=== PATIENT | male | born 1955 | race Caucasian/White ===

== ENCOUNTER 2019-12-13 09:46 | Outpatient (CLI) | payer MEDICARE, OTHER, SELFPAY ==
--- NOTE | ~2019-12-13 | CT_ITS ---
EXAMINATION: CT chest wo con DATE: 12/13/2019 10:11 INDICATION: ANCA-ASSOCIATED VASCULITIS/SOB TECHNIQUE: Computed tomography (CT) of the chest was performed without intravenous contrast. Addition al 3D reconstructions utilizing coronal maximum intensity projection (MIP) were performed. Automated exposure control and iterative reconstruction technique were employed. The dose-length product was 17 1.16 mGy-cm. COMPARISON: None FINDINGS: Heart size is normal. Postoperative change of prior anterior right thoracotomy and mitral valve repai r. At the site of the thoracotomy there is atelectasis/scarring with mild volume loss and architectur al distortion in the underlying right middle lobe. There are a couple calcified nodules in the right lower lobe and calcified right hilar lymph nodes consistent with old granulomatous disease. Left lung is clear. No pneumonia, pulmonary edema or pleural effusion. No pericardial effusion. Thoracic aorta is normal in caliber with minimal atherosclerotic calcification at the arch. No pathologically enlar ged thoracic lymphadenopathy. 1.4 cm cyst in the left hepatic lobe. Mild thoracic dextrocurvature wit h mild spondylosis. IMPRESSION: 1. No acute cardiopulmonary disease. 2. Mild atelectasis/scarring the right middle lobe deep to the site of an anterior right thoracotomy likely related to prior mitral valve repair. Reviewed, dictated and finalized at location A. IMPRESSION: 1. No acute cardiopulmonary disease. 2. Mild atelectasis/scarring the right middle lobe deep to the site of an anter ior right thoracotomy likely related to prior mitral valve repair.
== END 2019-12-13 09:47 | disposition home or self-care (01) ==
PROVIDERS: PCP Internal Medicine
DX: I77.6 Arteritis, unspecified (principal); R06.02 Shortness of breath
CPT/HCPCS: 71250

== ENCOUNTER 2020-02-11 09:51 | Outpatient (CLI) | payer MEDICARE, OTHER, SELFPAY ==
--- NOTE | ~2020-02-11 | XR_ITS ---
XR lumbar spine 2-3V 02/11/2020 10:23 Indication: Back pain. History of stroke. Procedure: 3 views of the lumbar spine Comparison: No prior studies for comparison. Findings: There is disc narrowing at all lumbar levels most advanced at L2-3 and L5-S1. There is mild facet hypertrophy at L5-S1. There which compression deformities of T12 and L1, age indeterminate, al though new compared with CT dated 03/03/2019 Impression: 1: Age-indeterminate wedge compression fractures of T12 and L1, although new compared with CT dated 05/03/2018. Consider correlation with MRI. Reviewed, dictated and finalized at location B. Impression: 1: Age-indeterminate wedge compression fractures of T12 and L1, although new co mpared with CT dated 03/03/2019. Consider correlation with MRI.
== END 2020-02-11 09:52 | disposition home or self-care (01) ==
LOC: CHSIMG 09:54
PROVIDERS: PCP Internal Medicine; Visit Provider Internal Medicine
DX: M54.9 Dorsalgia, unspecified (principal)
CPT/HCPCS: 72100

== ENCOUNTER 2020-02-14 08:52 | Outpatient (RCR) | payer MEDICARE, OTHER, SELFPAY ==
--- NOTE | 2020-02-14 10:09 | PTOPEVAL ---
Thank you for referring Glenn Clayton to [facility].? The patient is scheduled to be seen for therapy? __3__x/week for 4 weeks. Please review, sign, date and return this plan of care ARINA. I agree with and certify that the following plan of care is medically necessary. Referring Physician Date Admitting Provider: Attending Provider: Jerrell Parrish MD Referring Provider: *PT Outpatient Evaluation Start: 02/14/20 09:09 Freq: Status: Active Protocol: Document 02/14/20 09:09 VINITA (Rec: 02/14/20 10:03 VINITA [id number]) Therapy Assessment Status Assessment Status Assessment Status Evaluation Evaluation Information Problem Diagnosis weakness, impaired gait Onset 02/11/20 Subjective Information Pt. reports that he suffered a Query Text:As Reported By Patient/ stroke 2 years ago. He Family states that he had a recent relapse with his stroke about 6 weeks ago. He went to [facility] but was not dx with another stroke. He states that his ability to walk is declining, but he is not falling. He reports that his vision is impaired making balance difficult. He states that he also deals with chronic low back pain. He states that he is having difficulty with steps and does have several at home, but has help at home. He reports that he does not use an AD. He states that he no longer drives. He reports that his goal is to peform stairs and walk more efficiently. Prior Level of Function Activity Level (Last 3 Months) Occupation retired Hand Dominance Left Activity of Daily Living Ability Independent Indoor/Home Mobility Independent Community Mobility Needs Some Help Stairs Ability Needs Some Help Functional Cognition (Planning, Shopping Needs Some Help , Taking Medications) Cooking No Cleaning No Laundry No Shopping No Driving No Pain Assessment Pain Scale Pain Scale Used Numeric (1 - 10) Self Report Pain Assessment Lower Back Reported Pain Level 8 Pain Score
--- NOTE | 2020-03-03 13:18 | PCPTNOTE ---
03/03/20- pt friend called to cancel his appointment, stating he fell at home yesterday, and they were just trying to take it easy today. Friend stated he did not go to hospital, they are just monitoring him. -
--- NOTE | 2020-04-06 10:19 | PTOPEVAL ---
Thank you for referring Glenn Clayton to [facility].? The patient is scheduled to be seen for therapy? _2___x/week for 6 visits. Please review, sign, date and return this plan of care ARINA. I agree with and certify that the following plan of care is medically necessary. Referring Physician Date Admitting Provider: Attending Provider: Jerrell Parrish MD Referring Provider: *PT Outpatient Evaluation Start: 02/14/20 09:09 Freq: Status: Active Protocol: Document 03/14/20 14:00 VINITA (Rec: 03/20/20 22:11 VINITA [id number]) Therapy Assessment Status Assessment Status Assessment Status Progress Evaluation Information Problem Diagnosis weakness, impaired gait Subjective Information Pt. reports that he is still Query Text:As Reported By Patient/ not as active at home. Family Talking with his caregiver he states that the pt. is slightly more active but states that he has trouble keeping him exercising at home . Both the pt. and caregiver note that the pt. is walking better and has improved endurance. They both express concern regarding discontinuing PT at this time due to fear that the pt. may regress. Pain Assessment Pain Scale Pain Scale Used Numeric (1 - 10) Self Report Pain Assessment Lower Back Reported Pain Level 7 Pain Description Aching Lowest Pain Intensity 7 Greatest Pain Intensity 7 Pain Score Pain Score 7: Self Report Interventions Used Interventions Used By Clinicians Activity or ADL's,Exercise Lower Extremity Muscle Strength Testing Hip Strength Left Hip Flexion Strength 4 Good Hip Extension Strength 4- Good - Hip Abduction Strength 4- Good - Right Hip Flexion Strength 4 Good Hip Extension Strength 4- Good - Hip Abduction Strength 4- Good - Knee Strength Right Knee Flexion Strength 4 Good Knee Extension Strength 4 Good Left Knee Flexion Strength 4 Good Knee Extension Strength 4 Good Ankle Strength Right Ankle Dorsiflexion Strength 3+ Fair + Left Ankle Dorsiflexion Strength 4 Good Posture Posture Standing Position Additional Posture Comments Continue to note left list in standing with reduced lumbar lordosis and flexed posture Balance Assessment Rivas
== END 2020-04-06 11:21 | disposition home or self-care (01) ==
LOC: CHSPT 08:52
PROVIDERS: PCP Internal Medicine; Visit Provider Internal Medicine
DX: R53.1 Weakness (principal); R26.9 Unspecified abnormalities of gait and mobility
CPT/HCPCS: 97014; 97110; 97116; 97162; 97530; G0283

== ENCOUNTER 2020-06-06 14:30 | Outpatient (CLI) | payer MEDICARE, OTHER, SELFPAY ==
--- NOTE | ~2020-06-06 | CT_ITS ---
EXAMINATION: CT brain wo con INDICATION: Recent stroke, increasing confusion COMPARISON: 10/21/2017 TECHNIQUE: Standard unenhanced head CT. The dose-length product (DLP) was 605.33 mGy-cm. The mA was a djusted according to patient size. Iterative reconstruction technique was employed. FINDINGS: There is low attenuation involving the right caudate nucleus, basal ganglia, and anterior l imb of the right internal capsule. Low-attenuation is also seen in the right periventricular white ma tter. There are areas of chronic encephalomalacia in the occipital lobes. There is no acute intrapare nchymal hemorrhage. No evidence of mass lesion. There is mild periventricular and subcortical hypoden sity probably related to small vessel ischemic disease. There is mild prominence of the sulci and aristides tricles related to cerebral atrophy. Intracranial calcified cerebral atherosclerosis is noted. There are no extra-axial collections. There is no mass effect or midline shift. The orbits and soft tissues are unremarkable. The visualized sinuses and mastoid air cells are well aerated. IMPRESSION: 1. Areas of low attenuation in the right caudate nucleus, right basal ganglia, right internal capsule , and right periventricular white matter, consistent with subacute infarction. Old infarcts in the oc cipital lobes. 2. Age related findings. Reviewed, dictated and finalized at location A. EY ROOM CUSTODIAN IMPRESSION: 1. Areas of low attenuation in the right caudate nucleus, right basal ganglia, right internal capsule, and right periventricular white matter, consistent with subacute infarction. Old infarcts in the occipital lobes. 2. Age related findings.
== END 2020-06-06 14:31 | disposition home or self-care (01) ==
LOC: CHSLAB 14:33
PROVIDERS: PCP Internal Medicine; Visit Provider Internal Medicine
DX: R41.0 Disorientation, unspecified (principal); I63.9 Cerebral infarction, unspecified
CPT/HCPCS: 70450

== ENCOUNTER 2020-06-15 11:00 | Outpatient (RCR) | payer MEDICARE, OTHER, SELFPAY ==
--- NOTE | 2020-06-13 08:58 | OTOPEVAL ---
Thank you for referring Glenn Clayton to [facility].? The patient is scheduled to be seen for therapy? ____x/week for ___ weeks. Please review, sign, date and return this plan of care ARINA. I agree with and certify that the following plan of care is medically necessary. Referring Physician Date Admitting Provider: Attending Provider: Jerrell Parrish MD Referring Provider: *OT Outpatient Evaluation Start: 06/12/20 11:19 Freq: Status: Active Protocol: Document 06/12/20 12:59 [facility] (Rec: 06/12/20 14:07 [facility] [id number]) Therapy Assessment Status Assessment Status Assessment Status Evaluation Outpatient Past Medical History Neurological History Hx Cerebrovascular Accident (CVA) Yes Hx Seizures Yes Cardiovascular History Hx Cardiac Surgery Yes Hx Valve Replacement Yes Musculoskeletal History Hx Back Injury Yes: compression fx Evaluation Information Problem Diagnosis confusion, decreased coordination Onset 06/02/20 Cause CVA Subjective Information Patient's partner reports that Query Text:As Reported By Patient/ patient has recently become Family more confused and is not oriented. Patient had several siezures in October in which he significantly declined in his cognition and overall skills but has regressed more over the last couple weeks. Patient is described to sleep most of the day, has no motivation to participate or engage in anything, is withdrawn from all hobbies and is very confused. Partner also reports increased hand tremors. Patient is able to move around in his home but gets winded if he walks long distances. Patient used to enjoy doing crossword puzzles, jigsaw puzzles reading, etc but has not done any of these in the last 3 months. Patient 's partner would like to see patient improve on his orientation and be able to engage in conversation/ activities. Prior Level of Function Activity Level (Last 3 Months) H
--- NOTE | 2020-06-15 11:49 | STOPEVAL ---
SPEECH THERAPY EVALUATION Thank you for referring Glenn Clayton to [facility].? The patient is scheduled to be seen for therapy? 2x/week for 4 weeks. Please review, sign, date and return this plan of care ARINA. I agree with and certify that the following plan of care is medically necessary. Referring Physician Date Admitting Provider: Attending Provider: Jerrell Parrish MD Referring Provider: SHARATH Outpatient Evaluation Start: 06/15/20 11:18 Freq: Status: Active Protocol: Document 06/15/20 11:19 [facility] (Rec: 06/15/20 11:48 [facility] [id number]) Therapy Assessment Status Assessment Status Assessment Status Evaluation Outpatient Past Medical History Past Medical History Source of Past Medical History Patient,Recalled from Previous Visit, Confirmed with Patient /Family Neurological History Hx Cerebrovascular Accident (CVA) Yes Hx Seizures Yes: 6-7 months ago Cardiovascular History Hx Cardiac Surgery Yes Hx Valve Replacement Yes Musculoskeletal History Hx Back Injury Yes: compression fx Pain Assessment Timing of Pain Assessment Timing of Pain Assessment Assessment Self Report Self Report Pain Level 0 Pain Score Pain Score 0: Self Report Language Evaluation Auditory Comprehension Body Part Identification (% Accuracy (0- 100 100)) Object Identification (% Accuracy (0-100 80 )) Simple Yes/No Questions (% Accuracy (0- 80 100)) Moderate Yes/No Questions (% Accuracy (0 80 -100)) Complex Yes/No Questions (% Accuracy (0- 60 100)) Auditory Comprehension One-Step 100 Directives (% Accuracy (0-100)) Auditory Comprehension of Two-Step 100 Directives (% Accuracy (0-100)) Auditory Comprehension of Three-Step 50 Directives (% Accuracy (0-100)) Auditory Comprehension of Complex 90 Directives (% Accuracy (0-100)) Auditory Comprehension of Simple 60 Paragraphs (% Accuracy (0-100)) Auditory Comprehension of Moderate 20 Paragraphs (% Accuracy (0-100)) Auditory Comprehension of Complex 0 Paragraphs (% Accuracy (0-100)) Overall Auditory Comprehension Ability Moderate Deficits Additional Auditory Comprehension Patient presents with moderate Comments deficits in memory skills impacting his ability to recall steps to complete tasks . Reading Comprehension Name Recognition Yes Numeral Comprehension (% Accuracy (0-100 100 )) Letter Comprehension (% Accuracy (0-100) 100 ) Single Word Compreh
--- NOTE | 2020-06-15 13:17 | PTOPEVAL ---
Thank you for referring Glenn Clayton to [facility].? The patient is scheduled to be seen for therapy? ____x/week for ___ weeks. Please review, sign, date and return this plan of care ARINA. I agree with and certify that the following plan of care is medically necessary. Referring Physician Date Admitting Provider: Attending Provider: Jerrell Parrish MD Referring Provider: *PT Outpatient Evaluation Start: 06/15/20 11:07 Freq: Status: Active Protocol: Document 06/15/20 11:05 [facility] (Rec: 06/15/20 11:46 [facility] [email or web address]) Therapy Assessment Status Assessment Status Assessment Status Evaluation Outpatient Past Medical History Neurological History Hx Cerebrovascular Accident (CVA) Yes Hx Seizures Yes Cardiovascular History Hx Cardiac Surgery Yes Hx Valve Replacement Yes Musculoskeletal History Hx Back Injury Yes: compression fx Evaluation Information Problem Diagnosis CVA Onset 06/02/20 Subjective Information patient had a stroke about 2 Query Text:As Reported By Patient/ weeks ago. he has a history of Family prior stroke back in 2018. he reports currently his is not using and AD for ambulation. he reports he was admitted to hospital care for 4-5 days post stroke. he reports he then went home and began setting up rehab. he reports he was having weakness, speech difficulty, and numbness during his stroke episode. Prior Level of Function Comments Additional Prior Level of Function patient lives at home with his Comments roommate. he reports his roommate does all the cooking and cleaning at home. he reportsno help needed for dressing, showering/bathing, or bathroom. Pain Assessment Timing of Pain Assessment Timing of Pain Assessment Assessment Self Report Self Report Pain Level 0 Pain Score Pain Score 0: Self Report Lower Extremity Muscle Strength Testing General Lower Extremity Strength Gross Lower Extremity Strength sitting hip strength: flex = 4 +/5 bilat, abd = 4/5 bilat, add = 4/5 bilat sitting knee strength: ext = 4 +/5 bilat, R flex = 4+/5, L flex = 4/5 sitting ankle strength
--- NOTE | 2020-07-13 11:09 | PEDREH ---
SPEECH THERAPY PROGRESS REPORT The above patient has completed a total number of 6 out of 6 treatment sessions for cognitive-communication deficits R41.841 since 06-15-2020. Summary of Progress: Patient and family have demonstrated consistent attendance and good compliance of home program. Strategies to promote improvements with set goals are reviewed on a regular basis to facilitate carry over and follow through with targeted goals. Patient has demonstrated excellent progress over this past quarter as evidenced by meeting 3 of 8 set goals. Accuracies on specific goals can be viewed in the plan of care update and new goals have been set to continue with progress to help patient reach his optimal potential to be able to communicate his daily and medical needs for health and safety. Recommendations: Thank you for referring Glenn Clayton to [facility].? The patient is scheduled to be seen for therapy? 1x/week for 4 weeks.? Please review, sign, date and return this plan of care ARINA. I agree with and certify that the above recommended change(s) to the plan of care are medically necessary. ? Referring Physician?Date Admitting Provider: Attending Provider: Jerrell Parrish MD Referring Provider:
--- NOTE | 2020-08-02 15:11 | PCSTNOTE ---
Admitting Provider: Attending Provider: Jerrell Parrish MD Patient:Glenn Clayton Date of :1955 SPEECH THERAPY DISCHARGE Patient has met maximum rehab potential and will be discharged at this time. Patient?s initial visit was on 06/15/2020 and he had a total of 10 out of 10 visits. The patient has met goals for moderate-complex yes and no questions, 3 step directions, confrontational naming and production of sentences when given a sanchez word. The patient showed progression in goals to target immediate memory skills, orientation, problem solving and sequencing tasks. The patient continues to present with limited short term memory skills that continue to impact the patient's overall progression. The patient has met maximum potential with ST treatment at this time and responded in agreement with decision to discharge. Thank you for referring this patient to [facility]. Please review, sign, date and return this discharge summary ARINA. I have been updated about the patient's current status and I agree with discharge from the above service at this time. Referring Physician Date
--- NOTE | 2020-08-15 16:22 | PCOTNOTE ---
Patient is discharged from skilled OT services as of 06/28/20. See treatment note for patient's skills. MS
== END 2020-07-19 15:58 | disposition home or self-care (01) ==
LOC: CHSPT 11:00
PROVIDERS: PCP Internal Medicine; Visit Provider Internal Medicine
DX: I69.313 Psychomotor deficit following cerebral infarction (principal)
CPT/HCPCS: 92507; 92523; 96125; 97110; 97112; 97161; 97166; 97530

== ENCOUNTER 2020-08-01 10:55 | Emergency (ER) | payer MEDICARE, OTHER, SELFPAY ==
--- NOTE | ~2020-08-01 | CT_ITS ---
EXAMINATION: CT brain wo con DATE: 08/01/2020 11:26 INDICATION: Head injury. TECHNIQUE: Computed tomography (CT) of the head was performed without intravenous contrast. The mA wa s adjusted according to patient size. Iterative reconstruction technique was employed. The dose-lengt h product was 681.00 mGy-cm. COMPARISON: Head CT 06/06/2020 FINDINGS: There are old infarcts involving the right basal ganglia and anterior limb right internal c apsule. There is an old infarct in right occipital lobe. There is an old infarct in left temporal occ ipital region. There are scattered areas of low attenuation in the cerebral white matter. There is no intracranial hemorrhage, acute infarction, or abnormal intracranial mass lesion. The ventricles are normal in size. There are likely changes of right ocular lens replacement surgery. There are fracture s of the nasal bones. There is mild mucosal thickening in the ethmoid sinuses. The mastoid air cells are normal. IMPRESSION: 1. Fractures of the nasal bones. 2. Old infarcts involving the right basal ganglia, right internal capsule, right occipital lobe, and left temporal occipital region. 3. Mild nonspecific cerebral white matter disease, which likely represents chronic small vessel ische sandi disease. Reviewed, dictated and finalized at location A. IMPRESSION: 1. Fractures of the nasal bones. 2. Old infarcts involving the right basal ganglia, right internal capsule, righ t occipital lobe, and left temporal occipital region. 3. Mild nonspecific cerebral white matter disease, which likely represents gun synchronizer tenisha small vessel ischemic disease.
[2020-08-01 11:00] VITALS: BP 143/89; PULSE 90; RESP 16; TEMP 36.5; O2SAT 97
--- NOTE | 2020-08-01 11:03 | ED.WOUNDLAC ---
HPI - Wound/Laceration General Chief Complaint: Wound/Laceration Stated Complaint: cut on nose Time Seen by Provider: 08/01/20 11:03 Source: patient and family Mode of arrival: wheelchair Limitations: no limitations History of Present Illness HPI narrative: 64-year-old man with a history hypertension, CVA and seizures comes in today with a facial injury that occurred just prior to arrival as he tripped and fell forward onto his face, hitting his nose on the concrete. He has had no nausea, vomiting, seizure activity or change in mentation according to his partner. He is on Coumadin after CVA. He denies any symptoms such as shortness of breath, chest pain or palpitations prior to his fall. Onset (ago): minute(s) (30) Location: face Extremity Location: Bilateral: hand Place: home Patient tetanus UTD: No Context: accidental Associated symptoms: pain Related Data Home Medications Medication Instructions Recorded Confirmed aspirin 81 mg PO DAILY 08/01/20 08/01/20 atorvastatin 20 mg PO DAILY 08/01/20 08/01/20 ferrous gluconate 324 mg PO DAILY 08/01/20 08/01/20 levetiracetam 750 mg PO BID 08/01/20 08/01/20 ofloxacin 1 drp EACH EYE DAILY 08/01/20 08/01/20 omeprazole 40 mg PO DAILY 08/01/20 08/01/20 prednisolone acetate 1 drp EACH EYE DAILY 08/01/20 08/01/20 prednisone 5 mg PO DAILY 08/01/20 08/01/20 warfarin 7 mg PO DAILY 08/01/20 08/01/20 Allergies Allergy/AdvReac Type Severity Reaction Status Date / Time No Known Allergies Allergy Unverified 12/13/19 13:37 Review of Systems Constitutional: Constitutional: Denies chills, Denies fever(s) and Denies weakness Eyes: Eyes: Denies change in vision and Denies photophobia ENT: Reports epistaxis Cardiovascular: Cardiovascular: Denies chest pain and Denies radiating jaw, neck or arm pain Respiratory: Respiratory: Denies cough and Denies dyspnea Gastrointestinal: Gastrointestinal: Denies abdominal pain, Denies nausea and Denies vomiting Musculoskeletal: Musculoskeletal: Denies arthralgias and Denies joint swelling Integumentary/Breasts: Skin/Breast: Denies pruritus, Denies erythema and Denies rash Neurologic: Denies vertigo, Denies dizziness, Denies syncope, Denies headache(s), Denies focal weakness and Denies numbness Hematologic/Lymphatic: Hematologic/Lymphatic: Reports as per HPI, Reports easy bleeding and Reports easy bruising Allergic/Immunologic: Allergic/Immunologic: Denies lip swelling, Denies throat swelling and Denies tongue swelling PMFSH Past Medical History Medical History (Updated 08/01/20 @ 12:03 by Azam Ruiz MD) CVA (cerebral vascular accident) HTN (hypertension) Seizures Family History Family History (System 12/13/19 @ 13:37 by Ebony Smith) Mother Patient's mother is , Onset Age: 83 Sibling Patient's sister is in good health Father Family history of dementia Family history of coronary artery disease, Onset Age: 84 Family history of type 2 diabetes mellitus Diabetes mellitus Hypertension Cerebrovascular accident Family history of arthritis Social History Social History Smoking status: Never smoker Alcohol intake: current Exam Const: General: healthy appearing, no acute distress and alert Orientation/consciousness: confusion Limitations: no limitations Other: Disoriented to date and day HENMT: Head: normal to inspection Ears: external ears normal, TM's normal bilaterally and EAC's normal General nose exam: Epistaxis present ( no active bleeding) bilaterally Mouth: Yes moist mucous membranes Throat: posterior oropharynx normal ( save for some scant blood.) Other: Tenderness across the bridge of the nose with a 1.5 cm arcuate laceration more less transversely. Swelling on either side of the nose with bruising present. Eyes: Conjunctivae: conjunctivae normal Pupils: Equal, round and reactive pupils present EOM: EOMs inta
[2020-08-01] MEDS: TETANUS,DIPHTHERIA,AC PERTUSSIS ADULT 0.5 ML (ADACEL) IM (11:12)
[2020-08-01 12:10] VITALS: RESP 16
== END 2020-08-01 12:10 | disposition home or self-care (01) ==
PROVIDERS: Emergency Provider Emergency Medicine; PCP Internal Medicine
DX: S02.2XXA Fracture of nasal bones, initial encounter for closed fracture (principal); S01.21XA Laceration without foreign body of nose, initial encounter; W01.198A Fall on same level from slipping, tripping and stumbling with subsequent striking against other object, initial encounter; I10 Essential (primary) hypertension; E78.5 Hyperlipidemia, unspecified
CPT/HCPCS: 12011; 70450; 90471; 90715; 99283; 99284

== ENCOUNTER 2023-05-03 20:45 | Inpatient (IN) | payer MEDICARE, OTHER, SELFPAY ==
[2023-05-03] VITALS (12 sets, daily range): BP systolic 115–147; BP diastolic 68–83; PULSE 80–104; RESP 16–18; TEMP 37.4–39.6; O2SAT 94–99
--- NOTE | ~2023-05-03 | CT_ITS ---
EXAMINATION: CT diagnostic chest wo con DATE: 05/03/2023 22:26 INDICATION: Possible pleural-based mass of the right thorax. TECHNIQUE: Computed tomography (CT) of the chest was performed without intravenous contrast. The dose -length product (DLP) was 276.65 mGy-cm. 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 COMPARISON: 12/13/2019 FINDINGS: There is prominent extrapleural fat at the lateral aspect of the right hemithorax accountin g for the chest radiographic finding in question. There is mild dependent atelectasis of the lungs. T he lungs are free of focal airspace opacities. No pleural effusion or pneumothorax. There are changes of mitral valve replacement. Calcified pulmonary nodules and calcified bilateral hilar lymph nodes a re consistent with old granulomatous disease. No pathologically enlarged thoracic lymph nodes are lucia ntified. The heart size is normal. There are stones in the nondistended gallbladder. There is a 10 mm cyst of the liver. There is mild thoracic spondylosis. IMPRESSION: 1. Prominent extrapleural fat in the lateral aspect of the right hemithorax accounting for the chest radiographic finding in question. Reviewed, dictated and finalized at location F. STRENGTH AND CONDITIONING COACH IMPRESSION: 1. Prominent extrapleural fat in the lateral aspect of the right hemithorax acc ounting for the chest radiographic finding in question.
--- NOTE | ~2023-05-03 | XR_ITS ---
Portable chest x-ray Comparison: 10/20/2017 Clinical History: Fever Findings: Suggestion of pleural-based density at the lateral right midlung. Lungs are otherwise chari r. Cardiomediastinal silhouette is stable, status post valve replacement. Bones and soft tissues are unremarkable. Impression: Suggestion of pleural-based density at the lateral right midlung. Chest CT recommended to confirm or exclude pleural-based mass or chest wall mass. Reviewed, dictated and finalized at location M. NING AND WINDING SUPERVISOR Impression: Suggestion of pleural-based density at the lateral right midlung. Chest CT miriam mmended to confirm or exclude pleural-based mass or chest wall mass.
[2023-05-03] MEDS: ACETAMINOPHEN 500 MG TABLET 1000 MG PO (21:10)
[2023-05-03] MEDS: SODIUM CHLORIDE 0.9% IV 1,000 ML 999 ML IV CONT (21:13)
[2023-05-03 21:24] LABS: Basophils Absolute Auto 0.03 K/mm3 (0.00-0.10); Basophils Percent Auto 0.3 % (0.0-1.0); Eosinophils Absolute Auto 0.15 K/mm3 (0.02-0.50); Eosinophils Percent Auto 1.3 % (1.0-6.0); Hematocrit 44.9 % (37.0-46.0); Hemoglobin 14.6 g/dL (12.4-15.3); Immature Granulocyte Absolute 0.06 K/mm3 (0.00-0.00); Immature Granulocyte Percent A 0.5 % (0.0-0.0); Lymphocytes Absolute Auto 0.63 K/mm3 (1.10-4.50); Lymphocytes Percent Auto 5.3 % (18.0-42.0); Mean Corpuscular HGB Conc 32.5 g/dL (32.0-36.0); Mean Corpuscular Hemoglobin 30.7 pg (27.0-31.0); Mean Corpuscular Volume 94.3 fL (78.0-102.0); Mean Platelet Volume 9.8 fl (8.7-11.0); Monocytes Absolute Auto 0.38 K/mm3 (0.10-0.90); Monocytes Percent Auto 3.2 % (2.0-11.0); Neutrophils Absolute Auto 10.6 K/mm3 (1.7-7.2); Neutrophils Percent Auto 89.4 % (50.0-70.0); Platelet Count Result 252 K/mm3 (150-420); Red Blood Count 4.76 M/mm3 (4.70-6.10); Red Cell Distribution Width 12.9 % (11.6-14.4); White Blood Count 11.8 K/mm3 (4.8-10.8)
[2023-05-03 21:39] LABS: Alanine Aminotransferase 32 U/L (16-63); Albumin Level 3.5 g/dL (3.4-5.0); Alkaline Phosphatase 62 U/L (46-116); Anion Gap 15 mmol/L (8-16); Aspartate Amino Transferase 23 U/L (15-37); Bilirubin,Total 0.7 mg/dL (0.00-1.00); Blood Urea Nitrogen 27 mg/dL (7-18); Calcium 7.9 mg/dL (8.5-10.1); Carbon Dioxide 19 mmol/L (21-32); Chloride 101 mmol/L (98-108); Estimated CRCL calculation 28 ml/min; Estimated Glomerular Filt Rate 28; Glucose 147 mg/dL (70-99); Osmolality Calculated 288 mOsm/kg (285-295); Potassium 3.9 mmol/L (3.5-5.1); Sodium 135 mmol/L (136-145); Total Protein 7.3 g/dL (6.4-8.2)
[2023-05-03 21:41] LABS: SARS-CoV-2 RNA PCR Negative (Negative)
[2023-05-03 21:41] LABS: Lactic Acid Reflex 2.4 mmol/L (0.4-2.0)
[2023-05-03 21:42] LABS: Influenza A QL RT-PCR Negative (Negative); Influenza B QL RT-PCR Negative (Negative); RSV RNA, RT-PCR Negative (Negative)
[2023-05-03] MEDS: IBUPROFEN 600 MG TABLET PO (22:03)
--- NOTE | 2023-05-03 23:00 | PC.NURSE ---
Report received, pt resting, awaiting CT reports. VSS at this time.
[2023-05-03 23:01] LABS: Bilirubin Urine Negative (Negative); Blood Urine 3+ (Negative); Color Urine Yellow (Yellow); Glucose Urine UA Negative (Negative); Ketones Urine Negative (Negative); Leukocyte Esterase Ur Negative LEU/UL (Negative); Nitrate Urine Negative (Negative); Protein Urine 2+ (Negative); Specific Grav Ur >= 1.030 (1.010-1.020); Urobilinogen Urine 0.2 mg/dL (0.2-1.0); pH Urine 5.5 (5.0-8.0)
[2023-05-03 23:01] LABS: INR 1.5; Partial Thromboplastin Time 35.2 SEC (23.90-30.70); Prothrombin Time 15.8 Seconds (9.50-12.10)
[2023-05-03 23:14] LABS: Add Urine Microscopic? YES; Amorphous Sediment Urine Heavy; Appearance Urine Cloudy (Clear); Bacteria Urine 3+ /hpf; Mucus Urine Few /lpf; Squamous Epithelial Cell Urine Occasional /hpf (Few)
--- NOTE | 2023-05-03 23:32 | ED.NAVMDI ---
HPI - Nausea/Vomiting/Diarrhea General Chief complaint: Nausea/Vomiting/Diarrhea Stated complaint: vomiting Time Seen by Provider: 05/03/23 20:48 Source: patient Mode of arrival: ambulatory Limitations: no limitations History of Present Illness HPI Narrative: this is 58-year-old male that presents with fever 102 has been nauseated with few episodes of vomiting denies abdominal pain there is no flank pain no dysuria or hematuria patient denies any shortness of breath no chest pain. Patient has a history of vasculitis and history of CVA hypertension seizure disorder secondary to old stroke. Patient was a history of a mitral valve repair and on CT scan of his chest in 2019 showed right middle scarring, right thoracotomy related to mitral valve repair. CT brain shows an old infarct right basal ganglia. MD elicited complaint: nausea Onset (ago): day(s) Related Data Home Medications Medication Instructions Recorded Confirmed aspirin 81 mg tablet,delayed 81 mg PO DAILY 08/01/20 05/03/23 release atorvastatin 20 mg tablet 20 mg PO DAILY 08/01/20 05/03/23 ferrous gluconate 324 mg (38 mg 324 mg PO BID 08/01/20 05/03/23 iron) tablet levetiracetam 750 mg tablet 750 mg PO BID 08/01/20 05/03/23 omeprazole 40 mg capsule,delayed 40 mg PO DAILY 08/01/20 05/03/23 release azathioprine 50 mg tablet 175 mg PO QAM 05/03/23 05/03/23 warfarin 1 mg tablet 3.5 mg PO QPM 05/03/23 05/03/23 warfarin 4 mg tablet 4 mg PO QTUTHSASU 05/03/23 05/03/23 Allergies Allergy/AdvReac Type Severity Reaction Status Date / Time No Known Allergies Allergy Verified 05/03/23 20:54 Review of Systems Review of Systems: All systems reviewed & are unremarkable except as noted in HPI and below PMFSH Past Medical History Medical History CVA (cerebral vascular accident) HTN (hypertension) Seizures Family History Family History Mother Patient's mother is , Onset Age: 83 Sibling Patient's sister is in good health Father Family history of dementia Family history of coronary artery disease, Onset Age: 84 Family history of type 2 diabetes mellitus Diabetes mellitus Hypertension Cerebrovascular accident Family history of arthritis Social History Social History Smoking status: Never smoker Alcohol intake: current Exam Const: General: no acute distress Nutritional Appearance: well nourished Orientation/consciousness: patient oriented x3 Limitations: no limitations HENMT: Head: normal to inspection Eyes: Conjunctivae: conjunctivae normal Neck: Neck: normal visual inspection Chest: Chest palpation & inspection: normal inspection of the chest Resp: Effort & Inspection: normal respiratory effort Auscultation: clear to auscultation bilaterally Cardio: Rate: regular rate Rhythm: regular rhythm GI: GI Palp: Yes Soft to palpation Auscultation: normal bowel sounds : General: Yes bladder normal to palpation Back/Spine/Pelvis: Back: no CVA tenderness Skin: General skin exam: normal color Rashes: no rashes Neuro: General: patient oriented x3, moves all extremities, no meningeal signs and no focal motor deficits Extrem: General: normal to inspection Psych: Mental Status: mental status grossly normal Course Course Emergency Course: Patient had a chest x-ray which shows right middle lower lobe opacities and suggestion of a mass, but in old CT of the chest 2 showed middle lobe scarring with a right thoracotomy related to mitral valve repair is possibly the reason for the identification of a possible mass and CT scan performed and reviewed. Patient has fever up to 102, was given Tylenol and Motrin and current temperature is 997. Patient had a white blood cell count of 11.8, rest of his blood work shows a lactic acid of 4.5 with a creatin
[2023-05-03] MEDS: SODIUM CHLORIDE 0.9% IV 1,000 ML 120 ML IV CONT (23:39)
--- NOTE | 2023-05-03 23:41 | PC.NURSE ---
Pt resting, VSS, POC discussed for pt admit.
[2023-05-03] MEDS: AZITHROMYCIN 500 MG/NS 250 ML 500 MG/250 ML BAG 250 MG IVPB (23:58)
[2023-05-04] VITALS (13 sets, daily range): BP systolic 116–152; BP diastolic 59–96; PULSE 70–99; RESP 15–18; TEMP 36.6–38.3; O2SAT 93–99; BMI 30.2
[2023-05-04 00:21] LABS: Reflex Lactic Acid Yes or No Add Lactic
--- NOTE | 2023-05-04 00:57 | ADMGEN ---
This patient, Glenn Clayton, was admitted to 2nd Floor Room 208-2. Patient/family oriented to hospital policies and general routines including ID bracelet, bed and alarms, visiting hours, pain management, procedures, bathroom and other care routines, personal items, smoking policy, room service/diet, and visiting hours. Information on how to activate the Rapid Response Team has been discussed. Patient/Family are encouraged to report perceived risks to care and to ask questions if they do not understand what they are told or what they should do.
[2023-05-04 01:14] LABS: Lactic Acid 1.7 mmol/L (0.4-2.0)
[2023-05-04 05:38] LABS: Basophils Absolute Auto 0.03 K/mm3 (0.00-0.10); Basophils Percent Auto 0.4 % (0.0-1.0); Eosinophils Absolute Auto 0.15 K/mm3 (0.02-0.50); Eosinophils Percent Auto 2.1 % (1.0-6.0); Hematocrit 41.5 % (37.0-46.0); Hemoglobin 12.9 g/dL (12.4-15.3); Immature Granulocyte Absolute 0.04 K/mm3 (0.00-0.00); Immature Granulocyte Percent A 0.6 % (0.0-0.0); Lymphocytes Absolute Auto 0.53 K/mm3 (1.10-4.50); Lymphocytes Percent Auto 7.4 % (18.0-42.0); Mean Corpuscular HGB Conc 31.1 g/dL (32.0-36.0); Mean Corpuscular Hemoglobin 30.2 pg (27.0-31.0); Mean Corpuscular Volume 97.2 fL (78.0-102.0); Mean Platelet Volume 10.1 fl (8.7-11.0); Monocytes Absolute Auto 0.27 K/mm3 (0.10-0.90); Monocytes Percent Auto 3.8 % (2.0-11.0); Neutrophils Absolute Auto 6.1 K/mm3 (1.7-7.2); Neutrophils Percent Auto 85.7 % (50.0-70.0); Platelet Count Result 196 K/mm3 (150-420); Red Blood Count 4.27 M/mm3 (4.70-6.10); Red Cell Distribution Width 13.1 % (11.6-14.4); White Blood Count 7.2 K/mm3 (4.8-10.8)
[2023-05-04 06:02] LABS: INR 1.6; Prothrombin Time 16.8 Seconds (9.50-12.10)
[2023-05-04 06:14] LABS: Lactic Acid Reflex 1.1 mmol/L (0.4-2.0)
[2023-05-04 06:21] LABS: Alanine Aminotransferase 24 U/L (16-63); Albumin Level 3.1 g/dL (3.4-5.0); Alkaline Phosphatase 51 U/L (46-116); Anion Gap 14 mmol/L (8-16); Aspartate Amino Transferase 22 U/L (15-37); Bilirubin,Total 0.5 mg/dL (0.00-1.00); Blood Urea Nitrogen 26 mg/dL (7-18); Calcium 8.1 mg/dL (8.5-10.1); Carbon Dioxide 19 mmol/L (21-32); Chloride 105 mmol/L (98-108); Estimated CRCL calculation 33 ml/min; Estimated Glomerular Filt Rate 31; Glucose 117 mg/dL (70-99); Osmolality Calculated 291 mOsm/kg (285-295); Potassium 3.5 mmol/L (3.5-5.1); Sodium 138 mmol/L (136-145); Total Protein 6.2 g/dL (6.4-8.2)
[2023-05-04] MEDS: SODIUM CHLORIDE 0.9% IV 1,000 ML 120 ML (07:01)
[2023-05-04] MEDS: azaTHIOprine 25 MG TABLET 175 MG PO (08:45)
[2023-05-04] MEDS: ACETAMINOPHEN 325 MG TABLET 650 MG PO ×3 (08:46→21:56)
[2023-05-04] MEDS: ATORVASTATIN 10 MG TABLET 20 MG PO (08:47)
[2023-05-04] MEDS: levETIRAcetam 250 MG TABLET 750 MG PO ×2 (08:47→21:36)
[2023-05-04] MEDS: PANTOPRAZOLE 40 MG TABLET PO ×2 (08:47→16:33)
[2023-05-04] MEDS: ASPIRIN 81 MG ENTERIC TABLET PO (08:48)
[2023-05-04] MEDS: FERROUS GLUCONATE 324 MG TABLET PO ×2 (08:48→16:32)
--- NOTE | 2023-05-04 10:54 | PM.IMHP ---
H&P: HPI History of Present Illness Date/Time: 05/04/23 10:54 Chief Complaint: Fever , UTI, Confusion Narrative: This is a 67 year old that was brought in by his and he started to have a fever with increased confusion was found to have a UTI and is being treated with IV antibiotics. When I assessed patient he was very confused in which it may be his normal state of minde. Patient informed me that he had a stroke as if it has happened right at this visit although the stroke happened 3 years ago. Patient has a Vascular disease and is being treated at [facility] although patient states he is not for sure what it is called. Patient is impulsive and he will try to joke to distract from his confusion. Patient at this time is afebrile and IV fluids is going. He denies any pain and or discomfort. I will have PT/OT exam patient as well . Patient has slower response since the stroke and he at time answer question inappropriately. Review of Systems Review of Systems: fever, weakness, UTI All systems reviewed & are unremarkable except as noted in HPI and below PMFSH Past Medical History Medical History CVA (cerebral vascular accident) HTN (hypertension) Seizures Family History Family History Mother Patient's mother is , Onset Age: 83 Sibling Patient's sister is in good health Father Family history of dementia Family history of coronary artery disease, Onset Age: 84 Family history of type 2 diabetes mellitus Diabetes mellitus Hypertension Cerebrovascular accident Family history of arthritis Social History Social History Smoking status: Never smoker Alcohol intake: never Substance use: never Do You Feel Safe in your Home?: Yes Lack of Transportation: No Lack of Food: Never True Current Housing: I Have Housing Concerned About Future Housing: No Difficulty Paying Gas/Electric Bills: No Difficulty Paying for Meds: No Currently Unemployed: No Education: Master's Degree or Higher Difficulty w/ Childcare or Family Care: No Spiritual care concerns: No Meds Home Medications and Allergies Home Medications Medication Instructions Recorded Confirmed Type aspirin 81 mg tablet,delayed 81 mg PO DAILY 08/01/20 05/03/23 History release atorvastatin 20 mg tablet 20 mg PO DAILY 08/01/20 05/03/23 History ferrous gluconate 324 mg (38 mg 324 mg PO BID 08/01/20 05/03/23 History iron) tablet levetiracetam 750 mg tablet 750 mg PO BID 08/01/20 05/03/23 History omeprazole 40 mg capsule,delayed 40 mg PO DAILY 08/01/20 05/03/23 History release azathioprine 50 mg tablet 175 mg PO QAM 05/03/23 05/03/23 History warfarin 1 mg tablet 3.5 mg PO QPM 05/03/23 05/03/23 History warfarin 4 mg tablet 4 mg PO QTUTHSASU 05/03/23 05/03/23 History Allergies Allergy/AdvReac Type Severity Reaction Status Date / Time No Known Allergies Allergy Verified 05/03/23 20:54 Vital Signs Vital Signs - 24 hr 05/03/23 20:49 05/03/23 21:06 05/03/23 21:15 Temperature 103.3 F H Pulse Rate 104 H 100 96 Respiratory Rate 18 18 17 Blood Pressure 147/74 H 135/70 Pulse Oximetry 99 94 95 Oxygen Delivery Room Air Room Air 05/03/23 21:16 05/03/23 21:30 05/03/23 21:31 Temperature Pulse Rate 88 Respiratory Rate 18 Blood Pressure 126/70 135/70 Pulse Oximetry 95 96 97 Oxygen Delivery 05/03/23 21:45 05/03/23 21:46 05/03/23 21:46 Temperature 103.0 F H 103 F H Pulse Rate 94 Respiratory Rate 16 Blood Pressure 134/68 Pulse Oximetry 95 96 Oxygen Delivery Room Air 05/03/23 22:34 05/03/23 22:39 05/03/23 23:08 Temperature 101.6 F H 101.6 F H 99.8 F H Pulse Rate 88 Respiratory Rate 18 Blood Pressure 115/83 Pulse Oximetry 95 Oxygen Delivery Room Air 05/03/23 23:59 04/21
[2023-05-04] MEDS: WARFARIN (*PBKC) 2 MG TABLET 4 MG PO (16:33)
[2023-05-04] MEDS: AZITHROMYCIN 500 MG/NS 250 ML 500 MG/250 ML BAG 250 MG IVPB (22:25)
--- NOTE | 2023-05-04 22:33 | PC.NURSE ---
Reji, patient's emergency contact, was notified that patient was moved to room 206 to be closer to the nurses desk.
--- NOTE | 2023-05-04 23:55 | PC.NURSE ---
Jessika Redd NP, called for an update on pt's condition. Report given and new orders for trazadone 50 mg PO q HS PRN given.
[2023-05-05] VITALS (9 sets, daily range): BP systolic 92–134; BP diastolic 46–70; PULSE 78–101; RESP 16; TEMP 36.6–38.3; O2SAT 94–98
[2023-05-05] MEDS: traZODone HCL 50 MG TABLET PO ×2 (00:07→20:47)
[2023-05-05] MEDS: SODIUM CHLORIDE 0.9% IV 1,000 ML 75 ML IV CONT (01:03)
[2023-05-05] MEDS: levETIRAcetam 250 MG TABLET 750 MG PO ×2 (08:03→20:48)
[2023-05-05] MEDS: ACETAMINOPHEN 325 MG TABLET 650 MG PO ×2 (08:04→18:42)
[2023-05-05] MEDS: ASPIRIN 81 MG ENTERIC TABLET PO (08:05)
[2023-05-05] MEDS: FERROUS GLUCONATE 324 MG TABLET PO ×2 (08:05→17:05)
[2023-05-05] MEDS: PANTOPRAZOLE 40 MG TABLET PO ×2 (08:05→17:05)
[2023-05-05] MEDS: ATORVASTATIN 10 MG TABLET 20 MG PO (08:06)
[2023-05-05] MEDS: azaTHIOprine 25 MG TABLET 175 MG PO (09:03)
--- NOTE | 2023-05-05 14:52 | PC.NURSE ---
Spoke with Kasmarilyn, COMPONENT PREP OPERATOR and COMPONENT PREP OPERATOR discontinued normal saline 0.9% at 75 ml/hr for this patient. Manager Wound Care discontinued fluids and left IV sites in place in case of future need.
[2023-05-05] MEDS: WARFARIN (*PBKC) 2.5 MG TABLET PO (17:06)
[2023-05-05] MEDS: WARFARIN (*PBKC) 1 MG TABLET PO (17:06)
[2023-05-05] MEDS: AZITHROMYCIN 500 MG/NS 250 ML 500 MG/250 ML BAG 250 MG IVPB (20:46)
[2023-05-06] VITALS (9 sets, daily range): BP systolic 103–137; BP diastolic 57–74; PULSE 94–101; RESP 17–20; TEMP 36.6–37.7; O2SAT 95–96
[2023-05-06] MEDS: ACETAMINOPHEN 325 MG TABLET 650 MG PO ×2 (02:40→20:00)
[2023-05-06 05:24] LABS: Hematocrit 37.5 % (37.0-46.0); Hemoglobin 11.8 g/dL (12.4-15.3); Mean Corpuscular HGB Conc 31.5 g/dL (32.0-36.0); Mean Corpuscular Hemoglobin 29.4 pg (27.0-31.0); Mean Corpuscular Volume 93.5 fL (78.0-102.0); Mean Platelet Volume 9.7 fl (8.7-11.0); Platelet Count Result 197 K/mm3 (150-420); Red Blood Count 4.01 M/mm3 (4.70-6.10); Red Cell Distribution Width 13.2 % (11.6-14.4)
[2023-05-06 05:37] LABS: INR 1.6; Prothrombin Time 16.7 Seconds (9.50-12.10)
[2023-05-06 05:38] LABS: Anion Gap 14 mmol/L (8-16); Blood Urea Nitrogen 19 mg/dL (7-18); Calcium 8.1 mg/dL (8.5-10.1); Carbon Dioxide 18 mmol/L (21-32); Chloride 105 mmol/L (98-108); Estimated CRCL calculation 40 ml/min; Estimated Glomerular Filt Rate 40; Glucose 102 mg/dL (70-99); Osmolality Calculated 286 mOsm/kg (285-295); Potassium 3.5 mmol/L (3.5-5.1); Sodium 137 mmol/L (136-145)
--- NOTE | 2023-05-06 08:42 | PM.IMPN ---
Progress Note: A&P Assessment and Plan (1) UTI (urinary tract infection): Qualifiers: Hematuria presence: without hematuria Urinary tract infection type: acute cystitis Qualified Code(s): N30.00 - Acute cystitis without hematuria Code(s): N39.0 - Urinary tract infection, site not specified Status: Acute Assessment and Plan: 05/06/23: UA initially showing specific gravity 1.030, 2+ protein, 3+ blood, heavy amorphous sediment, 3+ bacteria, 3-4 granular casts, few urine mucus urine did not reflux to culture we will go ahead and get a urine culture today continue Rocephin (2) Acute kidney insufficiency: Code(s): N28.9 - Disorder of kidney and ureter, unspecified Status: Chronic Assessment and Plan: chronic elevation of BUN/creatin (3) HTN (hypertension): Code(s): I10 - Essential (primary) hypertension Status: Chronic Assessment and Plan: 05/06/2023: blood pressures ranging 119/57 to 136/74 continue with home medications (4) Seizures: Code(s): R56.9 - Unspecified convulsions Status: Chronic Assessment and Plan: 05/06/2023: continue with home medications monitor for any seizure activity (5) Night sweats: Code(s): R61 - Generalized hyperhidrosis Status: Acute Assessment and Plan: 05/06/2023: patient has been spiking a low-grade temperature every night that he has been here I asked him about night sweats any states that he has a has had those for years HIV panel ordered patient has long-term same-sex partner Time Spent With Patient Time with patient: 25 - 35 minutes Subjective Date/time seen: 05/06/23 08:42 Interval history: This is a 67 year old male who presented to the hospital on 05/04/23 with complaint ofWork up the hospital included a chest x-ray that revealed a pleural based density at the lateral right midlung. CT of chest confirmed this density as a prominent extrapleural fat in the lateral aspect of the right hemithorax. Labs on admission shown WBC 11.8, Na+ 135, Bicarb 19, BUN 27, Creatinine 2.35, eGFR 28. BG 147, Lactate 2.4<1.7<1.1, Ca+ 7.9, Liver enzymes were normal. UA shown specific gravity > 1.030, 2+ protein, 3+ blood, 11-20 RBC, heavy amorphous sediment, 3+ bacteria. Respiratory pane negative for Influenza, Flu, RSV. Blood cultures obtained, patient started on Rocephin and Azithromycin. On examination today patient is alert oriented x3, sitting in the chair. He denies any Pain or discomfort. He also denies any fever, chills, nausea, vomiting, diarrhea, abdominal pain, chest pain, shortness a breath. Was reported by nursing staff that he has been spiking a low-grade temp every night. I asked the patient if he has any night sweats and he stated that he has some all the time and has been going on for quite few years. Labs today revealed hgb 11.8, Bicarb 18, BUN 19, Creatinine 1.72, eGFR 40, BG ranging 102-117, Ca+ 8.1. Blood cultures are showing no growth on preliminary. UA was sent however for some reason it did not reflux to culture. We will go ahead and get a urine culture today. We will also check an HIV panel on him as well. Review of Systems Review of Systems: All systems reviewed & are unremarkable except as noted in HPI and below Constitutional: Constitutional: Reports as per HPI and Reports no additional constitutional complaints Eyes: Eyes: Reports as per HPI and Reports no additional eye complaints ENT: Reports system reviewed and no additional complaints, except as documented and Reports as per HPI Cardiovascular: Cardiovascular: Reports as per HPI and Reports no additional cardiovascular complaints Respiratory: Respiratory: Reports as per HPI and Reports no additional respiratory complaints Gastrointestinal: Gastrointestinal: Reports as per HPI and Reports no additional gastrointestinal complaints Genitourinary: Genitourinary: Reports no additional male genit
[2023-05-06] MEDS: ASPIRIN 81 MG ENTERIC TABLET PO (09:20)
[2023-05-06] MEDS: ATORVASTATIN 10 MG TABLET 20 MG PO (09:20)
[2023-05-06] MEDS: levETIRAcetam 250 MG TABLET 750 MG PO ×2 (09:21→20:00)
[2023-05-06] MEDS: PANTOPRAZOLE 40 MG TABLET PO ×2 (09:21→16:44)
[2023-05-06] MEDS: FERROUS GLUCONATE 324 MG TABLET PO ×2 (09:21→16:44)
--- NOTE | 2023-05-06 15:26 | PC.NURSE ---
Nurses Note: Sitting up in bedside chair, resting, awakens easily with verbal prompt, able to move all extemities, no sob/cough, lcta, has call light and personal items within reach, denies pain, instructed on calling for assist, encouraged to tell staff when needs something, will obtain urine specimen with next void as pt does not need to go at present time.
[2023-05-06 15:57] LABS: HIV 1 P24 AG Negative (Negative); HIV 1/2 AB Negative (Negative)
[2023-05-06] MEDS: WARFARIN (*PBKC) 2 MG TABLET 4 MG PO (16:47)
[2023-05-06] MEDS: AZITHROMYCIN 500 MG/NS 250 ML 500 MG/250 ML BAG 250 MG IVPB (21:10)
[2023-05-06] MEDS: traZODone HCL 50 MG TABLET PO (21:11)
[2023-05-07] VITALS: BP 122/69; PULSE 94; RESP 17; TEMP 37.1; O2SAT 95
[2023-05-07 04:00] VITALS: BP 142/72; PULSE 100; RESP 16; TEMP 37.7; O2SAT 95
[2023-05-07 08:00] VITALS: BP 136/70; PULSE 84; RESP 18; TEMP 37; O2SAT 96
[2023-05-07] MEDS: ATORVASTATIN 10 MG TABLET 20 MG PO (09:33)
[2023-05-07] MEDS: PANTOPRAZOLE 40 MG TABLET PO (09:33)
[2023-05-07] MEDS: levETIRAcetam 250 MG TABLET 750 MG PO (09:34)
[2023-05-07] MEDS: FERROUS GLUCONATE 324 MG TABLET PO (09:34)
[2023-05-07] MEDS: ASPIRIN 81 MG ENTERIC TABLET PO (09:34)
[2023-05-07] MEDS: WARFARIN (*PBKC) 5 MG TABLET PO (09:44)
--- NOTE | 2023-05-07 10:04 | P.HP_ITS ---
H&P: HPI History of Present Illness Date/Time: 05/07/23 10:04 [facility] Past Medical History Medical History (Updated 05/06/23 @ 15:42 by Carolin Smith APRN) CVA (cerebral vascular accident) HTN (hypertension) Seizures Family History Family History Mother Patient's mother is , Onset Age: 83 Sibling Patient's sister is in good health Father Family history of dementia Family history of coronary artery disease, Onset Age: 84 Family history of type 2 diabetes mellitus Diabetes mellitus Hypertension Cerebrovascular accident Family history of arthritis Social History Social History Smoking status: Never smoker Alcohol intake: never Substance use: never Do You Feel Safe in your Home?: Yes Lack of Transportation: No Lack of Food: Never True Current Housing: I Have Housing Concerned About Future Housing: No Difficulty Paying Gas/Electric Bills: No Difficulty Paying for Meds: No Currently Unemployed: No Education: Master's Degree or Higher Difficulty w/ Childcare or Family Care: No Spiritual care concerns: No Meds Home Medications and Allergies Home Medications Medication Instructions Recorded Confirmed Type aspirin 81 mg tablet,delayed 81 mg PO DAILY 08/01/20 05/03/23 History release atorvastatin 20 mg tablet 20 mg PO DAILY 08/01/20 05/03/23 History ferrous gluconate 324 mg (38 mg 324 mg PO BID 08/01/20 05/03/23 History iron) tablet levetiracetam 750 mg tablet 750 mg PO BID 08/01/20 05/03/23 History omeprazole 40 mg capsule,delayed 40 mg PO DAILY 08/01/20 05/03/23 History release azathioprine 50 mg tablet 175 mg PO QAM 05/03/23 05/03/23 History warfarin 1 mg tablet 3.5 mg PO QPM 05/03/23 05/03/23 History warfarin 4 mg tablet 4 mg PO QTUTHSASU 05/03/23 05/03/23 History Allergies Allergy/AdvReac Type Severity Reaction Status Date / Time No Known Allergies Allergy Verified 05/03/23 20:54 Vital Signs Vital Signs - 24 hr 05/06/23 12:00 05/06/23 15:25 05/06/23 20:00 Temperature 36.6 C 36.7 C 37.3 C Pulse Rate 100 95 Respiratory Rate 18 20 Blood Pressure 136/74 119/57 L Pulse Oximetry 95 96 Oxygen Delivery Room Air Room Air 05/06/23 20:00 05/06/23 20:00 05/06/23 21:00 Temperature 37.3 C 36.9 C Pulse Rate 95 101 H Respiratory Rate 20 17 Blood Pressure 103/73 Pulse Oximetry 96 96 Oxygen Delivery Room Air Room Air 05/07/23 00:00 05/07/23 04:00 05/07/23 08:00 Temperature 37.1 C 37.7 C H 37.0 C Pulse Rate 94 100 84 Respiratory Rate 17 16 18 Blood Pressure 122/69 142/72 H 136/70 Pulse Oximetry 95 95 96 Oxygen Delivery Room Air Room Air Room Air
--- NOTE | 2023-05-07 11:13 | PC.NURSE ---
1053 discharged from acute to a [facility].
--- NOTE | 2023-05-07 11:23 | PCCCNOTE ---
Spoke with Kenny and friend Reji prior to discharge to skilled swing bed. They are both agreeable to transition to skilled swing bed today to begin therapy. Pt did not use and devices to assist walking at home and here he is using a walker. Pt also needs continued IV antibiotic through 05/09/23. [place] [facility]
--- NOTE | 2023-05-07 16:17 | PM.DS ---
DS: Admitting Diagnosis Discharge Date 05/07/23 Admitting Diagnosis Dehydration, acute kidney insufficiency, UTI, HTN, seizures DS: Discharge Diagnosis Discharge Diagnosis (1) UTI (urinary tract infection): Qualifiers: Hematuria presence: without hematuria Urinary tract infection type: acute cystitis Qualified Code(s): N30.00 - Acute cystitis without hematuria Code(s): N39.0 - Urinary tract infection, site not specified Status: Acute (2) Acute kidney insufficiency: Code(s): N28.9 - Disorder of kidney and ureter, unspecified Status: Chronic (3) HTN (hypertension): Code(s): I10 - Essential (primary) hypertension Status: Chronic (4) Seizures: Code(s): R56.9 - Unspecified convulsions Status: Chronic (5) Night sweats: Code(s): R61 - Generalized hyperhidrosis Status: Acute DS: Summary Hospital Course Hospital Course: This is a 67 year old male who presented to the hospital on 05/04/23 with complaint of confusion and fevers. Work up the hospital included a chest x-ray that revealed a pleural based density at the lateral right midlung. CT of chest confirmed this density as a prominent extrapleural fat in the lateral aspect of the right hemithorax. Labs on admission shown WBC 11.8, Na+ 135, Bicarb 19, BUN 27, Creatinine 2.35, eGFR 28. BG 147, Lactate 2.4<1.7<1.1, Ca+ 7.9, Liver enzymes were normal. UA shown specific gravity > 1.030, 2+ protein, 3+ blood, 11-20 RBC, heavy amorphous sediment, 3+ bacteria. Respiratory pane negative for Influenza, Flu, RSV.? Blood cultures obtained, patient started on Rocephin and Azithromycin. On examination today patient is? alert oriented x3, sitting in the chair.? He denies any? Pain or discomfort.? He also denies any fever, chills, nausea, vomiting, diarrhea, abdominal pain, chest pain, shortness a breath.? Was reported by nursing staff that he has been spiking a low-grade temp every night.? I asked the patient if he has any night sweats and he stated that he has some all the time and has been going on for quite few years. Labs today revealed hgb 11.8, Bicarb 18, BUN 19, Creatinine 1.72, eGFR 40, BG ranging 102-117, Ca+ 8.1. Blood cultures are showing no growth on preliminary.? UA was sent however for some reason it did not reflux to culture.? We will go ahead and get a urine culture today.? We will also check an HIV panel on him as well. 05/07: HIV testing sent yesterday was negative. Today patient is back to baseline mental status per . Patient believes he is hospitalized because of his stroke. He did not recall that he was here for urine infection night sweats and recurrent fevers. Decision made today to increase antibiotic dose to 2 g Rocephin daily. Additionally noted that INR is significantly subtherapeutic at 1.6 when his goal is to be about 3 to 3.5 due to mechanical valve placement. We administered an additional dose of warfarin today and he will receive escalated dose starting tonight. He will INR recheck daily for the next 3 days. Patient is otherwise stable for discharge from acute care setting. He will be transitioned to SNF status where he will continue to work with therapy to regain his strength and return back home with . Status at Discharge Cognitive/behavioral status at discharge: Awake alert mildly confused per baseline Functional status at discharge: uses cane/walker Overall status at discharge: patient is progressing back to baseline Time Spent with Patient Time attestation: Total time spent providing and/or coordinating discharge services:40 minutes Time spent: Greater than 30 minutes Exam Narrative: GENERAL: Well-appearing, well-nourished, and in no acute distress. HEAD: Normocephalic, atraumatic. ENT:? Mucous membranes moist. CHEST: Clear to auscultation.? No respiratory distress. HEART: Regular rate and rhythm. ? Normal peripheral pulses. Mechanical valve replacement auscultated ABDO
--- NOTE | 2023-05-09 04:03 | P.PN_ITS ---
Progress Note: A&P Assessment and Plan (1) UTI (urinary tract infection): Qualifiers: Hematuria presence: without hematuria Urinary tract infection type: acute cystitis Qualified Code(s): N30.00 - Acute cystitis without hematuria Code(s): N39.0 - Urinary tract infection, site not specified Status: Resolved Assessment and Plan: IV Rocephin, IVF (2) Acute kidney insufficiency: Code(s): N28.9 - Disorder of kidney and ureter, unspecified Status: Chronic Assessment and Plan: chronic elevation of BUN/creatin (3) HTN (hypertension): Code(s): I10 - Essential (primary) hypertension Status: Chronic Assessment and Plan: continue to monitor blood pressure continue home medication will adjust accordingly (4) Seizures: Code(s): R56.9 - Unspecified convulsions Status: Chronic (5) Night sweats: Code(s): R61 - Generalized hyperhidrosis Status: Acute Subjective Date/time seen: 05/09/23 04:03 Interval history: Patient continue to be tired but he is more active when his is around he will continue to recieve some fluids and be seen by physical therapy. Exam Narrative: GENERAL: Well-appearing, well-nourished, and in no acute distress. HEAD: Normocephalic, atraumatic. ENT:? Mucous membranes moist. CHEST: Clear to auscultation.? No respiratory distress. HEART: Regular rate and rhythm. ? Normal peripheral pulses. Mechanical valve replacement auscultated ABDOMEN: Soft, nontender, nondistended. EXTREMITIES: Normal range of motion. No peripheral edema. SKIN: Warm dry normal color NEURO: Awake alert moves all extremities well mild confusion noted which signif icant other states is chronic PSYCH: Normal mood and affect Objective Data Meds/Results Radiology Results: ITS Impressions Chest X-Ray 05/03/23 21:25 Impression: Suggestion of pleural-based density at the lateral right midlung. Chest CT rec ommended to confirm or exclude pleural-based mass or chest wall mass. Chest CT 05/04/23 07:10 IMPRESSION: 1. Prominent extrapleural fat in the lateral aspect of the right hemithorax accounting for the chest radiographic finding in question.
== END 2023-05-07 10:53 | disposition swing bed (61) | DRG 690 ==
LOC: CHSED 23:40 → CHS2ND 05-04 00:02
PROVIDERS: Nurse Practitioner Acute Care; Nurse Practitioner Family; Admitting Provider Internal Medicine; Emergency Provider Emergency Medicine; PCP Internal Medicine; Visit Provider Internal Medicine
DX: N39.0 Urinary tract infection, site not specified (principal); E86.0 Dehydration; N28.9 Disorder of kidney and ureter, unspecified; I10 Essential (primary) hypertension; I69.398 Other sequelae of cerebral infarction; G40.909 Epilepsy, unspecified, not intractable, without status epilepticus; R61 Generalized hyperhidrosis
CPT/HCPCS: 36415; 71045; 71250; 80048; 80053; 81001; 83605; 85025; 85027; 85610; 85730; 87040; 87086; 87536; 87637; 87806; 96361; 96365; 96375; 97161; 97165; 97530; 99285; A9270; G0378; J0456; J0696; J7030

== ENCOUNTER 2023-05-07 10:55 | Inpatient (IN) | payer MEDICARE, OTHER, SELFPAY ==
--- NOTE | ~2023-05-07 | XR_ITS ---
XR chest 2V 05/14/2023 08:07 Indication: Elevated white blood cell count Procedure: PA and lateral views of the chest Comparison: Comparison to multiple prior studies sequentially, with oldest reviewed study dated 10/11. Findings: . Stable chronic appearing extrapleural density right mid thorax, consistent with a extrapl eural fat seen on prior CT examination. Bibasilar atelectasis. No focal pneumonia, edema or effusion. No pneumothorax. Impression: 1: Bibasilar atelectasis. Reviewed, dictated and finalized at location B. OND WHEEL MOLDER Impression: 1: Bibasilar atelectasis.
[2023-05-07 11:05] VITALS: BP 138/74; PULSE 84; RESP 18; TEMP 36.6; O2SAT 95; O2SAT 96
--- NOTE | 2023-05-07 12:42 | ADMGEN ---
1057 This patient, Glenn Clayton, was admitted to 2nd Floor Room 206-1as a skilled swing bed for rehab and iv abt. Patient/family oriented to hospital policies and general routines including ID bracelet, bed and alarms, visiting hours, pain management, procedures, bathroom and other care routines, personal items, smoking policy, room service/diet, and visiting hours. Information on how to activate the Rapid Response Team has been discussed. Patient/Family are encouraged to report perceived risks to care and to ask questions if they do not understand what they are told or what they should do.
[2023-05-07 16:00] VITALS: BP 138/78; PULSE 88; RESP 20; TEMP 37.2; O2SAT 96
[2023-05-07] MEDS: WARFARIN (*PBKC) 2 MG TABLET 6 MG PO (17:20)
[2023-05-07] MEDS: PANTOPRAZOLE 40 MG TABLET PO (17:20)
[2023-05-07] MEDS: FERROUS GLUCONATE 324 MG TABLET PO (17:21)
[2023-05-07 20:22] VITALS: TEMP 38.1
[2023-05-07] MEDS: ACETAMINOPHEN 325 MG TABLET 650 MG PO (20:22)
[2023-05-07] MEDS: levETIRAcetam 250 MG TABLET 750 MG PO (20:22)
[2023-05-07] MEDS: cefTRIAXone 2 GM/NS 100 ML 2 GM/100 ML BAG IVPB (20:23)
[2023-05-07 20:56] VITALS: TEMP 37.4
[2023-05-07 23:40] VITALS: BP 135/62; PULSE 99; RESP 17; O2SAT 93
[2023-05-08 05:37] LABS: INR 1.9; Prothrombin Time 19.9 Seconds (9.50-12.10)
[2023-05-08 05:51] LABS: Alanine Aminotransferase 43 U/L (16-63); Albumin Level 2.3 g/dL (3.4-5.0); Alkaline Phosphatase 45 U/L (46-116); Anion Gap 12 mmol/L (8-16); Aspartate Amino Transferase 70 U/L (15-37); Bilirubin,Total 0.6 mg/dL (0.00-1.00); Blood Urea Nitrogen 24 mg/dL (7-18); Calcium 8.4 mg/dL (8.5-10.1); Carbon Dioxide 21 mmol/L (21-32); Chloride 104 mmol/L (98-108); Estimated Glomerular Filt Rate 38; Glucose 87 mg/dL (70-99); Osmolality Calculated 287 mOsm/kg (285-295); Sodium 137 mmol/L (136-145); Total Protein 6.4 g/dL (6.4-8.2)
[2023-05-08 05:56] LABS: Potassium 5.4 mmol/L (3.5-5.1)
[2023-05-08 07:50] VITALS: BP 117/53; PULSE 80; RESP 18; TEMP 36.5; O2SAT 98
--- NOTE | 2023-05-08 08:10 | PM.IMHP ---
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 Patient was working with therapy and they identified need for continued SNF for therapy services. Patient medically stable as of 05/07 with exception of remaining need for IV antibiotics for 3 more days and need to correct subtherapeutic INR. His care was transitioned to Swing Bed for completion of care and increased therapy capabilities. Plan is to return home with when strengthening permits. Patient has been having recurrent nocturnal only fevers with night sweats when fever breaks. This has been ongoing unknown duration of time. Will sent TB Quantiferon Gold but low suspicion for TB. HIV testing was negative. Review of Systems Review of Systems: All systems reviewed & are unremarkable except as noted in HPI and below PMFSH Past Medical History Medical History CVA (cerebral vascular accident) HTN (hypertension) Seizures Family History Family History Mother Patient's mother is , Onset Age: 83 Sibling Patient's sister is in good health Father Family history of dementia Family history of coronary artery disease, Onset Age: 84 Family history of type 2 diabetes mellitus Diabetes mellitus Hypertension Cerebrovascular accident Family history of arthritis Social History Social History Smoking status: Never smoker Alcohol intake: unknown Substance use: never Do You Feel Safe in your Home?: Yes Lack of Transportation: No Lack of Food: Never True Current Housing: I Have Housing Concerned About Future Housing: No Difficulty Paying Gas/Electric Bills: No Difficulty Paying for Meds: No Currently Unemployed: No Education: Master's Degree or Higher Difficulty w/ Childcare or Family Care: No Spiritual care concerns: No Meds Home Medications and Allergies Home Medications Medication Instructions Recorded Confirmed Type aspirin 81 mg tablet,delayed 81 mg PO DAILY 08/01/20 05/07/23 History release atorvastatin 20 mg tablet 20 mg PO DAILY 08/01/20 05/07/23 History ferrous gluconate 324 mg (38 mg 324 mg PO BID 08/01/20 05/07/23 History iron) tablet levetiracetam 750 mg tablet 750 mg PO BID 08/01/20 05/07/23 History omeprazole 40 mg capsule,delayed 40 mg PO DAILY 08/01/20 05/07/23 History release azathioprine 50 mg tablet 175 mg PO QAM 05/03/23 05/07/23 History warfarin 1 mg tablet 3.5 mg PO QPM 05/03/23 05/07/23 History warfarin 4 mg tablet 4 mg PO [id number] 05/03/23 05/07/23 History Allergies Allergy/AdvReac Type Severity Reaction Status Date / Time No Known Allergies Allergy Verified 05/03/23 20:54 Vital Signs Vital Signs - 24 hr 05/07/23 11:05 05/07/23 11:05 05/07/23 16:00 Temperature 36.6 C 37.2 C Pulse Rate 84 88 Respiratory Rate 18 20 Blood Pressure 138/74 138/78 Pulse Oximetry 95 96 96 Oxygen Delivery Room Air Room Air Room Air 05/07/23 20:22 05/07/23 20:56 05/07/23 23:40 Temperature 38.1 C H 37.4 C Pulse Rate 99 Respiratory Rate 17 Blood Pressure 135/62 Pulse Oximetry 93 Oxygen Delivery Room Air Exam Narrative: GENERAL:? Well-appearing, well-nourished, and in no acute distress. HEAD:? Normocephalic, atraumatic. ENT:? Mucous membranes moist. CHEST:? Clear to auscultation.? No respiratory distress. HEART:? Regular rate and rhythm. ? Normal peripheral pulses.? Mechanical valve replacement auscultated ABDOMEN: Soft, nontender, nondistended. EXTREMITIES:? Normal range o
[2023-05-08] MEDS: azaTHIOprine 25 MG TABLET 175 MG PO (09:36)
[2023-05-08] MEDS: levETIRAcetam 250 MG TABLET 750 MG PO ×2 (09:37→21:01)
[2023-05-08] MEDS: FERROUS GLUCONATE 324 MG TABLET PO ×2 (09:37→17:17)
[2023-05-08] MEDS: PANTOPRAZOLE 40 MG TABLET PO ×2 (09:37→17:17)
[2023-05-08] MEDS: ATORVASTATIN 10 MG TABLET 20 MG PO (09:37)
[2023-05-08] MEDS: ASPIRIN 81 MG ENTERIC TABLET PO (09:37)
[2023-05-08 16:30] VITALS: BP 118/66; PULSE 100; RESP 16; TEMP 37.1; O2SAT 94
[2023-05-08] MEDS: WARFARIN (*PBKC) 2 MG TABLET 6 MG PO (17:17)
[2023-05-08] MEDS: WARFARIN (*PBKC) 5 MG TABLET PO (17:17)
--- NOTE | 2023-05-08 18:17 | PC.NURSE ---
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 Nurse asked patient if he was going to eat and patient asked didn't I eat already? Nurse explained that patient that his tray is untouched. Nurse described what was on his tray. Patient refused food and said nothing sounds good today. Nurse asked if there was anything else patient may want and patient said 'no, thank you Nurse removed the tray.
[2023-05-08] MEDS: cefTRIAXone 2 GM/NS 100 ML 2 GM/100 ML BAG IVPB (21:03)
[2023-05-08 21:06] VITALS: TEMP 37.7
[2023-05-08] MEDS: ACETAMINOPHEN 325 MG TABLET 650 MG PO (21:06)
[2023-05-08 21:51] VITALS: TEMP 37.1
[2023-05-08 23:56] VITALS: BP 119/71; PULSE 99; RESP 16; TEMP 37.1; O2SAT 95
[2023-05-09 06:13] LABS: Anion Gap 12 mmol/L (8-16); Blood Urea Nitrogen 26 mg/dL (7-18); Calcium 8.6 mg/dL (8.5-10.1); Carbon Dioxide 24 mmol/L (21-32); Chloride 103 mmol/L (98-108); Estimated Glomerular Filt Rate 35; Glucose 101 mg/dL (70-99); INR 3.2; Osmolality Calculated 292 mOsm/kg (285-295); Potassium 3.2 mmol/L (3.5-5.1); Prothrombin Time 32.4 Seconds (9.50-12.10); Sodium 139 mmol/L (136-145)
[2023-05-09 07:40] VITALS: BP 132/70; PULSE 91; RESP 18; TEMP 36.5; O2SAT 97
[2023-05-09 08:30] VITALS: O2SAT 97
[2023-05-09] MEDS: levETIRAcetam 250 MG TABLET 750 MG PO ×2 (09:39→21:46)
[2023-05-09] MEDS: ASPIRIN 81 MG ENTERIC TABLET PO (09:39)
[2023-05-09] MEDS: FERROUS GLUCONATE 324 MG TABLET PO ×2 (09:39→17:21)
[2023-05-09] MEDS: azaTHIOprine 25 MG TABLET 175 MG PO (09:39)
[2023-05-09] MEDS: ATORVASTATIN 10 MG TABLET 20 MG PO (09:39)
[2023-05-09] MEDS: PANTOPRAZOLE 40 MG TABLET PO ×2 (09:40→17:21)
[2023-05-09 16:35] VITALS: BP 112/62; PULSE 95; RESP 18; TEMP 36.6; O2SAT 98
[2023-05-09] MEDS: WARFARIN (*PBKC) 2 MG TABLET 6 MG PO (17:21)
[2023-05-09 23:29] VITALS: BP 116/54; PULSE 100; RESP 18; TEMP 37.7; O2SAT 96
[2023-05-10 05:47] LABS: Anion Gap 8 mmol/L (8-16); Blood Urea Nitrogen 22 mg/dL (7-18); Calcium 8.2 mg/dL (8.5-10.1); Carbon Dioxide 27 mmol/L (21-32); Chloride 104 mmol/L (98-108); Estimated Glomerular Filt Rate 37; Glucose 96 mg/dL (70-99); Osmolality Calculated 291 mOsm/kg (285-295); Potassium 3.3 mmol/L (3.5-5.1); Sodium 139 mmol/L (136-145)
[2023-05-10 05:54] LABS: INR 4.6; Prothrombin Time 45.3 Seconds (9.50-12.10)
--- NOTE | 2023-05-10 06:55 | PC.NURSE ---
report to sammy oates
[2023-05-10 08:00] VITALS: BP 138/54; PULSE 64; RESP 16; TEMP 36.6; O2SAT 93
[2023-05-10] MEDS: ATORVASTATIN 10 MG TABLET 20 MG PO (09:13)
[2023-05-10] MEDS: azaTHIOprine 25 MG TABLET 175 MG PO (09:13)
[2023-05-10] MEDS: levETIRAcetam 250 MG TABLET 750 MG PO ×2 (09:17→20:04)
[2023-05-10] MEDS: PANTOPRAZOLE 40 MG TABLET PO ×2 (09:18→17:13)
[2023-05-10] MEDS: ASPIRIN 81 MG ENTERIC TABLET PO (09:18)
[2023-05-10] MEDS: FERROUS GLUCONATE 324 MG TABLET PO ×2 (09:18→17:12)
[2023-05-10 16:00] VITALS: BP 115/43; PULSE 84; RESP 16; TEMP 36.7; O2SAT 96
[2023-05-10] MEDS: WARFARIN (*PBKC) 2 MG TABLET 4 MG PO (17:12)
[2023-05-11] VITALS: BP 124/94; PULSE 100; RESP 16; TEMP 36.5; O2SAT 96
--- NOTE | 2023-05-11 04:58 | PC.NURSE ---
Patient was sitting in the chair when shift started. He is up with gait belt, wheeled walker, and assist of one. Patient tries to walk fast, and needs to be slowed down for safety. Patient ambulates to the toilet and stands up to urinate, with stand by for safety. Patient takes his meds whole. He is here for rehab. Vitals are generally WNL, with pulse of 100 and BP of 124/94. Patient has had no complains of pain this shift, and did not need any PRNs. Patient's bed alarm and chair alarm are on at all times. His call light is next to him. He does not use the call light appropriately. He attempts to leave the chair or the bed when he needs the toilet, which alerts the nurses. He is in the room right across from the nurse's desk.
[2023-05-11 06:04] LABS: INR 4.2; Prothrombin Time 41.9 Seconds (9.50-12.10)
[2023-05-11 08:00] VITALS: BP 138/67; PULSE 82; RESP 16; TEMP 36.3; O2SAT 93
[2023-05-11] MEDS: levETIRAcetam 250 MG TABLET 750 MG PO ×2 (09:06→20:50)
[2023-05-11] MEDS: ASPIRIN 81 MG ENTERIC TABLET PO (09:07)
[2023-05-11] MEDS: FERROUS GLUCONATE 324 MG TABLET PO ×2 (09:07→17:05)
[2023-05-11] MEDS: ATORVASTATIN 10 MG TABLET 20 MG PO (09:07)
[2023-05-11] MEDS: PANTOPRAZOLE 40 MG TABLET PO ×2 (09:07→17:05)
[2023-05-11] MEDS: azaTHIOprine 25 MG TABLET 175 MG PO (09:42)
[2023-05-11 16:00] VITALS: BP 128/72; PULSE 81; RESP 16; TEMP 36.4; O2SAT 93
[2023-05-11] MEDS: WARFARIN (*PBKC) 2 MG TABLET 4 MG PO (17:05)
[2023-05-12] VITALS: BP 135/73; PULSE 99; RESP 16; TEMP 36.4; O2SAT 96
[2023-05-12 05:49] LABS: INR 4.6; Prothrombin Time 44.9 Seconds (9.50-12.10)
--- NOTE | 2023-05-12 07:00 | ECHO_ITS ---
Patient Info Name: Glenn Clayton Age: 67 years : 1955 Gender: Male HR: 99 bpm BP: 135 / 73 mmHg Heart Rhythm: Sinus Rhythm Technical Quality: Good Exam Date: 05/12/2023 10:50 AM Exam Location: Echo Lab Exam Room: Echo Lab Patient Status: Inpatient Admit Date: 05/07/2023 Staff Ordering Physician: Carolin Smith APRN Appointment Clerk: Mahendra Kitchen RDCS Attending Provider: Torito Harvey MD Exam Type: CA echo doppler color flow Study Info Complete two-dimensional, color flow and Doppler transthoracic echocardiogram is performed. Summary 1. Complete two-dimensional, color flow and Doppler transthoracic echocardiogram is performed. 2. Left ventricular chamber dimension is normal. 3. Left ventricular systolic function is normal, estimated at 55-60%. 4. The left ventricular diastolic function is grade I diastolic dysfunction. 5. E/e' 14 is mildly elevated. 6. Left atrial chamber dimension is mildly enlarged. 7. Mechanical mitral valve noted. 8. There is mild tricuspid valve regurgitation. 9. No pulmonary hypertension, estimated pulmonary arterial systolic pressure is 27 mmHg. 10. There is trace pulmonic regurgitation. Left Ventricle E/e' 14 is mildly elevated. Left ventricular chamber dimension is normal. Left ventricular systolic function is normal, estimated at 55-60%. The left ventricular diastolic function is grade I diastolic dysfunction. Right Ventricle Right ventricular systolic function is normal and with normal TAPSE 2.4 cm. Right ventricular chamber dimension is normal. Left Atria Left atrial chamber dimension is mildly enlarged. Right Atria Right atrial chamber dimension is normal. Aortic Valve The aortic valve is trileaflet. There is no aortic valve stenosis. There is no aortic valve regurgitation. No aortic valve vegetation visualized. Pulmonic Valve There is trace pulmonic regurgitation. No pulmonic valve vegetation visualized. Mitral Valve Mechanical mitral valve noted. There is no stenosis of the mechanical mitral valve. There is no regurgitation of the mechanical mitral valve. No mechanical mitral valve vegetation visualized. Tricuspid Valve There is mild tricuspid valve regurgitation. No pulmonary hypertension, estimated pulmonary arterial systolic pressure is 27 mmHg. No tricuspid valve vegetation visualized. Pericardium/Pleural There is no pericardial effusion. Inferior Vena Cava Normal inferior vena cava with >50% collapse upon inspiration consistent with normal right atrial pressure, 5 mmHg. Aorta The aortic root size at the sinus of Valsalva is normal. Left Ventricular Outflow Tract Name Value Normal LVOT 2D LVOT Diameter 2.0 cm LVOT Doppler LVOT Peak Velocity 93 cm/s LVOT Peak Gradient 3 mmHg LVOT Mean Gradient 2 mmHg LVOT VTI 23 cm LVOT VTI/AV VTI Ratio 1.1 LVOT Stroke Volume 75 ml Pulmonic Valve Name Value Normal
--- NOTE | 2023-05-12 07:11 | PC.NURSE ---
Patient slept well last night. He does not use his call light when he needs to toilet, but rather attempts to get out of bed on his own. His bed alarm is on at all times, and as he is right across from the nurse's desk, someone is able to get to him before he gets out of bed. Patient voided 3 times last night. He ambulates to the toilet w/ gait belt, wheeled walker, and assist of one.
[2023-05-12 08:00] VITALS: BP 132/70; PULSE 102; RESP 20; TEMP 36.4; O2SAT 95
[2023-05-12] MEDS: azaTHIOprine 25 MG TABLET 175 MG PO (09:12)
[2023-05-12] MEDS: ASPIRIN 81 MG ENTERIC TABLET PO (09:13)
[2023-05-12] MEDS: levETIRAcetam 250 MG TABLET 750 MG PO ×2 (09:13→21:22)
[2023-05-12] MEDS: ATORVASTATIN 10 MG TABLET 20 MG PO (09:13)
[2023-05-12] MEDS: PANTOPRAZOLE 40 MG TABLET PO ×2 (09:13→17:56)
[2023-05-12] MEDS: FERROUS GLUCONATE 324 MG TABLET PO ×2 (09:13→17:56)
--- NOTE | 2023-05-12 11:34 | PM.IMPN ---
Progress Note: A&P Assessment and Plan (1) Generalized weakness: Code(s): R53.1 - Weakness Status: Acute Assessment and Plan: PT/OT for rehabilitation with plan to return home with spouse (2) Fever: Code(s): R50.9 - Fever, unspecified Status: Acute Assessment and Plan: Quantiferon gold still pending with low clinical suspicion for TB, echo completed today pending report. Patient no longer febrile. (3) Night sweats: Code(s): R61 - Generalized hyperhidrosis Status: Acute Assessment and Plan: See 2, likely sweating when nightly fevers break (4) UTI (urinary tract infection): Qualifiers: Hematuria presence: without hematuria Urinary tract infection type: acute cystitis Qualified Code(s): N30.00 - Acute cystitis without hematuria Code(s): N39.0 - Urinary tract infection, site not specified Status: Resolved Assessment and Plan: Completed care (5) HTN (hypertension): Code(s): I10 - Essential (primary) hypertension Status: Chronic Assessment and Plan: Stable, continue home medications (6) Seizures: Code(s): R56.9 - Unspecified convulsions Status: Chronic Assessment and Plan: No seizure activity here, continue home medication (7) Subtherapeutic international normalized ratio (INR): Code(s): R79.1 - Abnormal coagulation profile Status: Acute Assessment and Plan: INR now supratherapeutic at 4.6. Holding dose of warfarin on 05/12, will redraw on 05/13 Time Spent With Patient Time with patient: 15 - 25 minutes Subjective Date/time seen: 05/12/23 11:34 Interval history: Patient reports feeling tired overall today but denies any acute needs. He is participating well with therapy and visiting with his . Patient had echocardiogram completed today pending results due to mechanical valve with prolonged subtherapeutic INR and nocturnal fevers during acute care stay. Patient no longer having fevers. His INR is now supratherapeutic at 4.6 so we will hold tonight's warfarin dose and check again tomorrow. Review of Systems Review of Systems: All systems reviewed & are unremarkable except as noted in HPI and below Exam Narrative: GENERAL:? Well-appearing, well-nourished, and in no acute distress. HEAD:? Normocephalic, atraumatic. ENT:? Mucous membranes moist. CHEST:? Clear to auscultation.? No respiratory distress. HEART:? Regular rate and rhythm. ? Normal peripheral pulses.? Mechanical valve replacement auscultated ABDOMEN: Soft, nontender, nondistended. EXTREMITIES:? Normal range of motion.? No peripheral edema. SKIN:? Warm dry normal color NEURO:? Awake alert and oriented, moves all extremities well PSYCH:? Normal mood and affect Objective Data Vital Signs Vital Signs: Vital Signs - 24 hr 05/11/23 16:00 05/12/23 00:00 05/12/23 08:00 Temperature 36.4 C L 36.4 C 36.4 C Pulse Rate 81 99 102 H Respiratory Rate 16 16 20 Blood Pressure 128/72 135/73 132/70 Pulse Oximetry 93 96 95 Oxygen Delivery Room Air Room Air Room Air Intake/Output Intake/Output: Intake & Output 05/09/23 05/10/23 05/11/23 05/12/23 23:59 23:59 23:59 23:59 Intake Total 2085 1300 1410 540 Output Total 450 300 Balance 1635 1000 1410 540 Meds/Results Medications: Active Medications Generic Name Dose Route Start Last Admin Trade Name Freq PRN Reason Stop Dose Admin Acetaminophen 650 mg 05/07/23 11:13 05/08/23 21:06 Acetaminophen 325 Mg Tablet PO 650 mg Q4H PRN Administration Pain Rated 7 or Less Hydrocodone Bitart/Acetaminophen 1 tab 05/07/23 11:13 Hydrocodone/Acetaminophen (*Crx) 5-325 Mg Tablet PO Q4H PRN Pain Rated 8 or Greater Aspirin 81 mg 05/08/23 09:00 05/12/23 09:13 Aspirin 81 Mg Enteric Tablet PO 81 mg DAILY RAJESH Administration Atorvastatin Calcium 20 mg 05/08/23 09:00 05/12/23 09:13 Atorvastatin 10 Mg Tablet PO 2
[2023-05-12 16:00] VITALS: BP 150/79; PULSE 104; RESP 18; TEMP 36.6; O2SAT 98
[2023-05-13] VITALS: BP 130/66; PULSE 95; RESP 18; TEMP 37.1; O2SAT 91
[2023-05-13 06:05] LABS: INR 4.7; Prothrombin Time 46.4 Seconds (9.50-12.10)
--- NOTE | 2023-05-13 06:42 | PC.NURSE ---
Patient was sitting in his recliner at the beginning of the shift. He asked to walk to the toilet, and then to go to bed. Patient walked with a GB, walker, and assist of one. He is better able to use the walker than he was last week. He has slowed down, and keeps the walker with him even when he goes in the bathroom. Patient needed some help to put his legs in the bed, and also to sit up from a laying position to the side of the bed. Patient seems to be getting frustrated with what he perceives to be his lack of progress, and asked why can't I make my body move! . Patient was reminded of how far he has progressed since he came here, with some success. Patient had a good intake and output. He walked to the toilet two more times during the night. Patient still does not use the call light, but his bed is right across from the nurses desk, so it is easy to see him begin to move, and hear the bed alarm go off. Patient's vitals are WNL. He did not require any PRN medications, as his pain was rated at a 0 throughout the night.
[2023-05-13 08:00] VITALS: BP 119/58; PULSE 86; RESP 16; TEMP 36.3; O2SAT 94
[2023-05-13] MEDS: levETIRAcetam 250 MG TABLET 750 MG PO ×2 (09:34→20:35)
[2023-05-13] MEDS: ATORVASTATIN 10 MG TABLET 20 MG PO (09:34)
[2023-05-13] MEDS: PANTOPRAZOLE 40 MG TABLET PO ×2 (09:34→17:30)
[2023-05-13] MEDS: FERROUS GLUCONATE 324 MG TABLET PO ×2 (09:34→17:30)
[2023-05-13] MEDS: ASPIRIN 81 MG ENTERIC TABLET PO (09:34)
[2023-05-13 11:08] LABS: NIL 0.04 IU/mL; Quantiferon TB Plus, 1T NEGATIVE (NEGATIVE); TB1-NIL 0.01 IU/mL
[2023-05-13 16:00] VITALS: BP 140/74; PULSE 87; RESP 16; TEMP 36.2; O2SAT 93
[2023-05-14] VITALS: BP 132/65; PULSE 96; RESP 16; TEMP 37.2; O2SAT 93
[2023-05-14 05:23] LABS: Hematocrit 35.4 % (37.0-46.0); Hemoglobin 11.1 g/dL (12.4-15.3); Mean Corpuscular HGB Conc 31.4 g/dL (32.0-36.0); Mean Corpuscular Volume 95.7 fL (78.0-102.0); Mean Platelet Volume 9.7 fl (8.7-11.0); Platelet Count Result 551 K/mm3 (150-420); Red Cell Distribution Width 13.8 % (11.6-14.4); White Blood Count 12.2 K/mm3 (4.8-10.8)
[2023-05-14 05:31] LABS: Anion Gap 12 mmol/L (8-16); Blood Urea Nitrogen 27 mg/dL (7-18); Calcium 8.6 mg/dL (8.5-10.1); Carbon Dioxide 25 mmol/L (21-32); Chloride 104 mmol/L (98-108); Estimated Glomerular Filt Rate 40; Glucose 143 mg/dL (70-99); Osmolality Calculated 299 mOsm/kg (285-295); Potassium 3.9 mmol/L (3.5-5.1); Sodium 141 mmol/L (136-145)
[2023-05-14 05:33] LABS: INR 3.5; Prothrombin Time 35.3 Seconds (9.50-12.10)
--- NOTE | 2023-05-14 07:42 | PM.EVENT ---
Event Note Event Note Event Note: reviewed patient WBC and it is elevated to 12.2 so we will check a chest xray if negative we will check a urine to ensure that there is no infection anywhere.
[2023-05-14 08:00] VITALS: BP 123/61; PULSE 87; RESP 16; TEMP 36.5; O2SAT 93
[2023-05-14] MEDS: ATORVASTATIN 10 MG TABLET 20 MG PO (09:36)
[2023-05-14] MEDS: levETIRAcetam 250 MG TABLET 750 MG PO ×2 (09:37→20:01)
[2023-05-14] MEDS: FERROUS GLUCONATE 324 MG TABLET PO ×2 (09:38→17:09)
[2023-05-14] MEDS: PANTOPRAZOLE 40 MG TABLET PO ×2 (09:38→17:09)
[2023-05-14] MEDS: ASPIRIN 81 MG ENTERIC TABLET PO (09:38)
[2023-05-14 16:00] VITALS: BP 127/69; PULSE 82; RESP 18; TEMP 36.3; O2SAT 98
[2023-05-15] VITALS: BP 133/70; PULSE 90; RESP 16; TEMP 36.7; O2SAT 95
[2023-05-15 05:42] LABS: Appearance Urine Clear (Clear); Bilirubin Urine Negative (Negative); Blood Urine 3+ (Negative); Color Urine Yellow (Yellow); Glucose Urine UA Negative (Negative); Ketones Urine Negative (Negative); Leukocyte Esterase Ur Negative LEU/UL (Negative); Nitrate Urine Negative (Negative); Protein Urine 1+ (Negative); Specific Grav Ur 1.025 (1.010-1.020); Urobilinogen Urine 0.2 mg/dL (0.2-1.0)
[2023-05-15 05:45] LABS: INR 2.4; Prothrombin Time 24.6 Seconds (9.50-12.10)
[2023-05-15 05:49] LABS: Add Urine Microscopic? YES; Bacteria Urine Trace /hpf; WBC Urine 0-3 /hpf (0-3)
[2023-05-15 08:00] VITALS: BP 130/67; PULSE 82; RESP 16; TEMP 36.4; O2SAT 94
[2023-05-15] MEDS: levETIRAcetam 250 MG TABLET 750 MG PO ×2 (08:26→20:46)
[2023-05-15] MEDS: PANTOPRAZOLE 40 MG TABLET PO ×2 (08:26→17:06)
[2023-05-15] MEDS: ATORVASTATIN 10 MG TABLET 20 MG PO (08:26)
[2023-05-15] MEDS: FERROUS GLUCONATE 324 MG TABLET PO ×2 (08:26→17:06)
[2023-05-15] MEDS: ASPIRIN 81 MG ENTERIC TABLET PO (08:26)
[2023-05-15 10:45] LABS: Basophils Absolute Auto 0.02 K/mm3 (0.00-0.10); Basophils Percent Auto 0.2 % (0.0-1.0); Eosinophils Absolute Auto 0.21 K/mm3 (0.02-0.50); Eosinophils Percent Auto 2.1 % (1.0-6.0); Hematocrit 34.6 % (37.0-46.0); Hemoglobin 10.5 g/dL (12.4-15.3); Immature Granulocyte Absolute 0.07 K/mm3 (0.00-0.00); Immature Granulocyte Percent A 0.7 % (0.0-0.0); Immature Platelet Fraction Pct 1.9 % (1.0-7.0); Lymphocytes Absolute Auto 1.07 K/mm3 (1.10-4.50); Lymphocytes Percent Auto 10.8 % (18.0-42.0); Mean Corpuscular HGB Conc 30.3 g/dL (32.0-36.0); Mean Corpuscular Hemoglobin 29.8 pg (27.0-31.0); Mean Corpuscular Volume 98.3 fL (78.0-102.0); Mean Platelet Volume 9.7 fl (8.7-11.0); Monocytes Absolute Auto 0.51 K/mm3 (0.10-0.90); Monocytes Percent Auto 5.1 % (2.0-11.0); Neutrophils Absolute Auto 8.1 K/mm3 (1.7-7.2); Neutrophils Percent Auto 81.1 % (50.0-70.0); Platelet Count Result 573 K/mm3 (150-420); Red Blood Count 3.52 M/mm3 (4.70-6.10); White Blood Count 9.9 K/mm3 (4.8-10.8)
[2023-05-15 16:00] VITALS: BP 123/62; PULSE 85; RESP 16; TEMP 36.3; O2SAT 95
[2023-05-15] MEDS: WARFARIN (*PBKC) 2 MG TABLET 4 MG PO (17:05)
[2023-05-16] VITALS: BP 125/64; PULSE 84; RESP 16; TEMP 36.6; O2SAT 96
--- NOTE | 2023-05-16 05:23 | PC.NURSE ---
Patient was already in bed when the shift started. Patient slept well during the night. Patient was up 3 times during the night, without using his call light. Patient always has his bed alarm on, and can be heard before he gets out of bed. Patient is walking with the GB, WW, and assist of 1. He is walking at a slower rate, and seems more in control of the walker. Patient's vitals are WNL. Patient is scheduled to discharge home on Friday.
[2023-05-16 06:02] LABS: INR 1.9; Prothrombin Time 20.2 Seconds (9.50-12.10)
[2023-05-16 06:47] LABS: Procalcitonin 0.3 ng/mL
[2023-05-16 08:00] VITALS: BP 128/74; PULSE 86; RESP 18; TEMP 36.8; O2SAT 96
[2023-05-16] MEDS: PANTOPRAZOLE 40 MG TABLET PO ×2 (08:59→17:01)
[2023-05-16] MEDS: FERROUS GLUCONATE 324 MG TABLET PO ×2 (09:00→17:00)
[2023-05-16] MEDS: ATORVASTATIN 10 MG TABLET 20 MG PO (09:00)
[2023-05-16] MEDS: levETIRAcetam 250 MG TABLET 750 MG PO ×2 (09:00→20:32)
[2023-05-16] MEDS: ASPIRIN 81 MG ENTERIC TABLET PO (09:01)
[2023-05-16 16:00] VITALS: BP 127/71; PULSE 74; RESP 16; TEMP 36.4; O2SAT 94
[2023-05-16] MEDS: WARFARIN (*PBKC) 5 MG TABLET PO (17:00)
[2023-05-16] MEDS: BENZONATATE 100 MG CAPSULE PO (20:33)
[2023-05-17] VITALS: BP 131/66; PULSE 94; RESP 20; TEMP 36.7; O2SAT 94
--- NOTE | 2023-05-17 00:10 | PC.NURSE ---
Pt resting quietly in bed and doesnt voice any c/o discomfort.
--- NOTE | 2023-05-17 02:15 | PC.NURSE ---
Pt up to the bathroom with standby assist of one and the walker. Pt voided and asked to return to the chair. Pt assisted to the chair and call snider within reach.
--- NOTE | 2023-05-17 03:05 | PC.NURSE ---
Pt back to bed with assist of one and the walker.
--- NOTE | 2023-05-17 04:05 | PC.NURSE ---
Pt asleep and no signs of discomfort noted.
[2023-05-17 06:04] LABS: INR 1.9; Prothrombin Time 19.9 Seconds (9.50-12.10)
--- NOTE | 2023-05-17 06:05 | PC.NURSE ---
Pt asleep and no signs of discomfort noted.
[2023-05-17 07:35] VITALS: BP 133/69; PULSE 74; RESP 16; TEMP 36.4; O2SAT 93
[2023-05-17 08:40] VITALS: O2SAT 93
--- NOTE | 2023-05-17 09:02 | PM.DS ---
DS: Admitting Diagnosis Discharge Date 05/17/2023 Admitting Diagnosis Swing, Weakness, Confusion DS: Discharge Diagnosis Discharge Diagnosis (1) Subtherapeutic international normalized ratio (INR): Code(s): R79.1 - Abnormal coagulation profile Status: Acute Assessment and Plan: INR now supratherapeutic at 4.6. Holding dose of warfarin on 05/12, will redraw on 05/13 (2) Generalized weakness: Code(s): R53.1 - Weakness Status: Acute Assessment and Plan: PT/OT for rehabilitation with plan to return home with spouse (3) Dehydration: Code(s): E86.0 - Dehydration Status: Acute (4) Pneumonia: Qualifiers: Laterality: right Lung location: middle lobe of lung Pneumonia type: due to unspecified organism Qualified Code(s): J18.9 - Pneumonia, unspecified organism Code(s): J18.9 - Pneumonia, unspecified organism Status: Acute (5) Fever: Code(s): R50.9 - Fever, unspecified Status: Acute Assessment and Plan: Quantiferon gold still pending with low clinical suspicion for TB, echo completed today pending report. Patient no longer febrile. (6) Night sweats: Code(s): R61 - Generalized hyperhidrosis Status: Acute Assessment and Plan: See 2, likely sweating when nightly fevers break (7) UTI (urinary tract infection): Qualifiers: Hematuria presence: without hematuria Urinary tract infection type: acute cystitis Qualified Code(s): N30.00 - Acute cystitis without hematuria Code(s): N39.0 - Urinary tract infection, site not specified Status: Resolved Assessment and Plan: Completed care (8) HTN (hypertension): Code(s): I10 - Essential (primary) hypertension Status: Chronic Assessment and Plan: Stable, continue home medications (9) Seizures: Code(s): R56.9 - Unspecified convulsions Status: Chronic Assessment and Plan: No seizure activity here, continue home medication DS: Summary Hospital Course Reason for hospitalization: Swing Bed, Weakness, Confusion Hospital Course: This is a 67 year old male who presented to the hospital on 05/04/23 with complaint of confusion and fevers. Patient has weakness and was checked for multiple condition which were ruled out Patient was swung in the therapy bed where is was able to participate and is ready for discharge. Patient with history of CVA x2, HTN, autoimmune vasculitits, HTN, seizures and mechanical valve replacement on [facility] warfarin therapy who was admitted as inpatient for fevers, UTI, pat and found to have subtherapeutic INR.? Patient was working with therapy and they identified need for continued he has completed his course of inpatient therapy and he will need to participate with outpatient therapy. Patient will continue with his home medication he will still need to follow up with his primary care providers his INR was Supratherapeutic medication was held and he was restarted two days ago and he is currently subtherapeutic. Plan is for him to have labs drawn on Friday he result will be sent to Dr. Montoya who will inform patient what dose of medication he should be on from there on out. Coumadin 5mg has been sent to the pharmacy Current INR 1.9 Time Spent with Patient Time attestation: Total time spent providing and/or coordinating discharge services: Exam Narrative: GENERAL:? Well-appearing, well-nourished, and in no acute distress. HEAD:? Normocephalic, atraumatic. ENT:? Mucous membranes moist. CHEST:? Clear to auscultation.? No respiratory distress. HEART:? Regular rate and rhythm. ? Normal peripheral pulses.? Mechanical valve replacement auscultated ABDOMEN: Soft, nontender, nondistended. EXTREMITIES:? Normal range of motion.? No peripheral edema. SKIN:? Warm dry normal color NEURO:? Awake alert and oriented, moves all extremities well PSYCH:? Normal mood and affect DS: Data Data Completed and
[2023-05-17] MEDS: ASPIRIN 81 MG ENTERIC TABLET PO (09:08)
[2023-05-17] MEDS: ATORVASTATIN 10 MG TABLET 20 MG PO (09:08)
[2023-05-17] MEDS: levETIRAcetam 250 MG TABLET 750 MG PO (09:08)
[2023-05-17] MEDS: FERROUS GLUCONATE 324 MG TABLET PO (09:09)
[2023-05-17] MEDS: PANTOPRAZOLE 40 MG TABLET PO (09:09)
--- NOTE | 2023-05-17 12:40 | PC.NURSE ---
Patient discharging home. Patient assisted to dress in clothing from home. All belongings gathered together to be sent home with patient. All discharge instructions and education reviewed with patient and patients partner. Both parties state understanding. Patient had no IV access at time of d/c. This nurse accompanied patient to front door via wheelchair, left via private vehicle with partner. Denies any questions at discharge.
--- NOTE | 2023-05-19 08:42 | PC.NURSE ---
Discharge call back attempted, no answer
--- NOTE | 2023-05-21 12:53 | PC.NURSE ---
Discharge call back complete, residential child care counselor reports doing ok, saw PMD yesterday, no questions regarding dc instructions, looking for results of echocardiogram done while in hospital, advised medical records could help if needed, PMD is checking
== END 2023-05-17 12:40 | disposition home or self-care (01) | DRG 689 ==
PROVIDERS: Nurse Practitioner; Nurse Practitioner Acute Care; Nurse Practitioner Family; Admitting Provider Internal Medicine; PCP Internal Medicine; Visit Provider Internal Medicine
DX: N39.0 Urinary tract infection, site not specified (principal); J18.9 Pneumonia, unspecified organism; E86.0 Dehydration; I10 Essential (primary) hypertension; I77.6 Arteritis, unspecified; G40.909 Epilepsy, unspecified, not intractable, without status epilepticus; R61 Generalized hyperhidrosis; R79.1 Abnormal coagulation profile; Z79.82 Long term (current) use of aspirin; Z95.2 Presence of prosthetic heart valve; Z86.73 Personal history of transient ischemic attack (TIA), and cerebral infarction without residual deficits
CPT/HCPCS: 36415; 71046; 80048; 80053; 81001; 84145; 85025; 85027; 85055; 85610; 86480; 87040; 93306; 97110; 97116; 97161; 97165; 97530; 97535; A9270; J0696

== ENCOUNTER 2023-05-26 10:55 | Outpatient (RCR) | payer MEDICARE, OTHER, SELFPAY ==
--- NOTE | 2023-05-26 11:58 | PTOPEVAL1 ---
Assessment and note entered by Ryan Watson Evaluation Information Assessment Status Evaluation Diagnosis functional decline, impaired gait Onset 05/05/23 Subjective Information Pt. reports that he was hospitalized for about 2 weeks after developing weakness at home. He states that he was tested for a stroke, but it was not determined he suffered a stroke. He reports that he lives at home with his partner. He states that since returning home he has noticed that he does require help to get out of the chairs at home . He reports that he is doing dressing and bathing without assistance. He no longer drives. He was participating in IADL's before his hospitalization, but has not been to the store or in the community since coming home from the hospital. He states that he does have a cane at home, but does not use it. He reports that he has experienced a couple falls over the past 6 months . He reports that his goal is to be able to improve his strength. Reported Pain Level Pain Score 0: Self Report Assessment PT Clinical Summary Pt. is a 67 year old male who enters the clinic after hospitalization with developed weakness. He presents with u.e. and l.e. weakness, impaired gait, impaired balance with high fall risk and functional decline. Continued skilled PT is indicated in order to improve these areas to assist the pt. in being able to participate in all IADL's with improved safety and efficiency. Plan of Care Interventions Gait Training,Patient/Caregiver Educati, Therapeutic Activities,Therapeutic Exercise PT Services Indicated Yes Treatment Frequency and 2x/week x 10 visits Duration These treatments will address the objective and functional deficits as defined above. The patient will be advanced safely and appropriately in order for the patient to progress towards his/her prior level of function. Additional exercises will be introduced and as well as a comprehensive home exercise program upon discharge, if needed, ?to ensure carryover of functional gains achieved in the clinic. This treatment plan has been reviewed and agreement upon by the patient.
--- NOTE | 2023-05-26 11:59 | OPREHPOC ---
Outpatient Therapy Plan of Care This is a Multidisciplinary Plan of Care that may contain components documented by all disciplines (PT, OT, and ST.) PT Problem 1 PT Problem #1 Knowledge Deficit PT Goal 1 Goal Independent with a HEP addressing l.e. strength. Target Visit 2 PT Problem 2 PT Problem #2 Impaired Balance PT Goal 1 Goal -Improve Tinetti score to 19 or greater indicating improved balance and safety. -Improve 5 time sit to stand to less than 15 seconds Target Visit 10 PT Problem 3 PT Problem #3 Impaired Strength PT Goal 1 Goal Present with gross l.e. strength at 4+/5 in all mm . groups Target Visit 10 PT Problem 4 PT Problem #4 Impaired Gait PT Goal 1 Goal Pt. will be able to complete the 6 minute walk test with a distance of 600' or greater indicating improved endurance and gait effiiency.
--- NOTE | 2023-05-30 11:22 | OTOPEVAL1 ---
Assessment and note entered by Humera Castillo OT Evaluation Information Assessment Status Evaluation Diagnosis Upper extremity weakness Subjective Information The patient reports no pain except for occasional back pain at the time of evaluation. He stated he cannot think of anything he struggles with at home and reports he has not been dropping things at home. The patient reports normal sensation. The patient is able to perform ADLs for 15 minutes prior to requiring a rest break at home. Reported Pain Level Pain Score 0: Self Report Assessment OT Clinical Summary The patient is a 67 year old male who was referred to outpatient OT due to weakness following a hospitalization. The patient previously was independent with all ADLs, demonstrated WNL UE strength and endurance for daily tasks. 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 The patient requires skilled OT to address endurance, UE strength, and fine motor coordination in order to maintain independence of ADLs and perform community activities with low risk of falls from fatigue. Plan of Care Interventions Therapeutic Exercise,Neuro Re-education, Therapeutic Activities,Electrical Stimulation, Sensory Integrative Techn,Self-Care/Home Management,Prosthetic Training OT Services Indicated Yes Treatment Frequency and 2x/week for 10 visits. Duration These treatments will address the objective and functional deficits as defined above. The patient will be advanced safely and appropriately in order for the patient to progress towards his/her prior level of function. Additional exercises will be introduced and as well as a comprehensive home exercise program upon discharge, if needed, ?to ensure carryover of functional gains achieved in the clinic. This treatment plan has been reviewed and agreement upon by the patient.
--- NOTE | 2023-07-15 12:07 | OPREHPOC ---
Outpatient Therapy Plan of Care This is a Multidisciplinary Plan of Care that may contain components documented by all disciplines (PT, OT, and ST.) PT Problem 1 PT Problem #1 Knowledge Deficit PT Goal 1 Goal Independent with a HEP addressing l.e. strength. Target Visit 16 Progress Partially Met PT Problem 2 PT Problem #2 Impaired Balance PT Goal 1 Goal -Improve Tinetti score to 19 or greater indicating improved balance and safety. not met -Improve 5 time sit to stand to less than 15 seconds. not met Target Visit 16 Comment continue PT Problem 3 PT Problem #3 Impaired Strength PT Goal 1 Goal Present with gross l.e. strength at 4+/5 in all mm . groups. not met Target Visit 16 PT Problem 4 PT Problem #4 Impaired Gait PT Goal 1 Goal Pt. will be able to complete the 6 minute walk test with a distance of 600' or greater indicating improved endurance and gait effiiency. completes for distance, but does not complete 6 minutes walking due to fatigue/endurance. Target Visit 16 Progress Not Met Comment continue OT Problem 1 OT Problem #1 Knowledge Deficit OT Goal 1 Goal The patient will demonstrate 100% knowledge and return demonstration for UE HEP in order to improve and maintain strength. Target Visit 10 Progress Partially Met OT Problem 2 OT Problem #2 Impaired Coordination OT Goal 1 Goal The patient will demonstrate increased fine motor coordination by performing 9-hole peg test in <34 seconds in order to perform ADLs independently. Target Visit 10 Progress Not Met Comment 37 seconds R 35 seconds L DISCONTINUE OT Problem 3 OT Problem #3 Impaired Strength OT Goal 1 Goal The patient will demonstrate 5/5 muscle strength with no signs of muscle fatigue during MMT and >40 lbs of gr
--- NOTE | 2023-07-15 12:07 | PTOPREEVAL ---
Assessment and note entered by JT File, PT Evaluation Information Assessment Status Re-evaluation Diagnosis functional decline, impaired gait Onset 05/05/23 Subjective Information patient reports he feels Alright today. he reports his balance is still off, and he gets fatigued easily. he reports he is not sure why he was not here the last 2-3 weeks other than it just was not on his schedule. he reports no falls. however, he has not been walking or exercising on his own at home. Reported Pain Level Pain Score 0: Self Report Pain Score 0: Self Report Assessment PT Clinical Summary mr. wall presents to skilled PT for his 10th skilled PT visit today. he was away from therapy for nearly 3 weeks, and has shown some regression in his progress/functional activity performance. he continues to be a high fall risk per the tinetti and 5x sit to stand. he also displays poor endurance as he is unable to complete a 6 minute walk test. he continues to be weak in the bilateral hips. given his continued deficits, patient would benefit from continued skilled PT to addres his unmet goals and improve his quality of life. patient was educated on he importance of being more consistent and independent with his HEP . Plan of Care Interventions Gait Training,Neuro Re-education,Patient/Caregiver Educati,Therapeutic Activities,Therapeutic Exercise PT Services Indicated Yes Treatment Frequency and continue skilled PT 2x weekly for 6 more visits Duration These treatments will address the objective and functional deficits as defined above. The patient will be advanced safely and appropriately in order for the patient to progress towards his/her prior level of function. Additional exercises will be introduced and as well as a comprehensive home exercise program upon discharge, if needed, ?to ensure carryover of functional gains achieved in the clinic. This treatment plan has been reviewed and agreement upon by the patient.
--- NOTE | 2023-07-21 09:17 | BUOTOPEVAL ---
Assessment and note entered by Humera Castillo OT Evaluation Information Assessment Status Re-evaluation Diagnosis Upper extremity weakness Subjective Information The patient stated that he has been outside and staying busy since last time he was at therapy. The patient reports that he has been cleaning his house and walking a lot. He reports that he thinks that he needs to keep coming for therapy because he can tell a difference but thinks he is not back to where he should be. The patient reports that his progress is consistent and he is doing well at home. Reported Pain Level Pain Score 0: Self Report Pain Score 0: Self Report Pain Score 0: Self Report Pain Score 0: Self Report Pain Score 0: Self Report Pain Score 0: Self Report Pain Score 0: Self Report Pain Score 0: Self Report Pain Score 0: Self Report Pain Score 0: Self Report Pain Score 0: Self Report Pain Score 0: Self Report Pain Score 0: Self Report Pain Score 0: Self Report Pain Score 0: Self Report Pain Score 0: Self Report Pain Score 0: Self Report Pain Score 0: Self Report Pain Score 0: Self Report Pain Score 0: Self Report Assessment OT Clinical Summary The patient has made minimal progress in UE strength, coding specialist strength, HEP performance, fine motor coordination and endurance since the start of therapy due to a large gap between last treatment and poor carryover at home. The patient was educated on the importance of coming to therapy and to complete HEP in order to make progress and increase safety and function at home. Due to the patient's minimal progress, he requires continued OT to improve safety, therapist engaged patient in Trails assessment due to slower processing skills during assessment this date, he demonstrates minimally to moderately below norms for Trails A and B and requires OT to address visual scanning and working memory for increased independenc
--- NOTE | 2023-08-06 14:04 | OPREHPOC ---
Outpatient Therapy Plan of Care This is a Multidisciplinary Plan of Care that may contain components documented by all disciplines (PT, OT, and ST.) PT Problem 1 PT Problem #1 Knowledge Deficit PT Goal 1 Goal Independent with a HEP addressing l.e. strength. Target Visit 16 Progress Met PT Problem 2 PT Problem #2 Impaired Balance PT Goal 1 Goal -Improve Tinetti score to 19 or greater indicating improved balance and safety. -Improve 5 time sit to stand to less than 15 seconds. Target Visit 16 Progress Met Comment continue PT Problem 3 PT Problem #3 Impaired Strength PT Goal 1 Goal Present with gross l.e. strength at 4+/5 in all mm . groups. Target Visit 16 Progress Met PT Problem 4 PT Problem #4 Impaired Gait PT Goal 1 Goal Pt. will be able to complete the 6 minute walk test with a distance of 600' or greater indicating improved endurance and gait effiiency. met Target Visit 16 Progress Met Comment . OT Problem 1 OT Problem #1 Knowledge Deficit OT Goal 1 Goal The patient will demonstrate 100% knowledge and return demonstration for UE HEP in order to improve and maintain strength. Target Visit 20 Progress Partially Met OT Problem 2 OT Problem #2 Impaired Coordination OT Goal 1 Goal The patient will demonstrate increased fine motor coordination by performing 9-hole peg test in <34 seconds in order to perform ADLs independently. Target Visit 10 Progress Not Met OT Problem 3 OT Problem #3 Impaired Strength OT Goal 1 Goal The patient will demonstrate 5/5 muscle strength with no signs of muscle fatigue during MMT and >40 lbs of manager process improvement strength in order to perform homemaking tasks safely. Target Visit 20 Progress Partially Met
--- NOTE | 2023-08-06 14:04 | PTOPDC ---
Assessment and note entered by JT File, PT Evaluation Information Assessment Status Discharge Diagnosis functional decline, impaired gait Onset 05/05/23 Subjective Information patient reports he feels good today. he reports he has no pain. he reports he has had no falls. he reports he has been compliant with his HEP every day. Reported Pain Level Pain Score 0: Self Report Assessment PT Clinical Summary mr. wall presents to skilled PT for his 16th skilled PT visit. as of this date, he has met all goals for skilled PT. he has had no falls. he is now compliant with his HEP, and reports he is ready to be done with skilled PT. he will be DC'd from skilled PT to an independent HEP today. Plan of Care PT Services Indicated Yes
--- NOTE | 2023-08-06 15:16 | OTOPDC ---
Assessment and note entered by Humera Castillo OT Evaluation Information Assessment Status Discharge Assessment Status Discharge Subjective Information The patient reports that he thinks that things have gotten better since the start of care and some have gotten worse, he reports walking has gotten worse and he has been in a race with himself. He stated he can do more things such as housekeeping and walking in the community. The patient wanted to stop coming to therapy due to being a pain to get to, therapist educated patient on cognitive games, HEP and maintaining daily activity in order to decrease risk of decline after discharge from therapy. The patient reports that he does not, have cognition, and that he has a hard time with his memory. Reported Pain Level Pain Score 0: Self Report Pain Score 0: Self Report Assessment OT Clinical Summary The patient demonstrates minimal progress in cognition and endurance due to limited carryover at home and self discharge. 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 The patient wants to be done with therapy at this time with coming to therapy being a burden. The patient was educated on cognition techniques for home, HEP for UE and education on maintaining healthy and active lifestyle. The patient was educated to perform daily tasks that challenge cognition in order to improve ADLs and safety. Plan of Care OT Services Indicated No
== END 2023-08-06 15:30 | disposition home or self-care (01) ==
LOC: CHSPT 10:55
PROVIDERS: PCP Internal Medicine; Visit Provider Internal Medicine
DX: R26.9 Unspecified abnormalities of gait and mobility (principal); R53.81 Other malaise; F03.90 Unspecified dementia, unspecified severity, without behavioral disturbance, psychotic disturbance, mood disturbance, and anxiety
CPT/HCPCS: 97110; 97112; 97129; 97161; 97165; 97530; 97750

== ENCOUNTER 2023-12-12 10:18 | Inpatient (IN) | payer MEDICARE, OTHER, SELFPAY ==
[2023-12-12] VITALS (41 sets, daily range): BP systolic 96–132; BP diastolic 48–68; PULSE 58–99; RESP 11–38; TEMP 36.5–38; O2SAT 79–97; BMI 29.8
--- NOTE | ~2023-12-12 | CT_ITS ---
EXAMINATION: CTA chest PE protocol DATE: 12/12/2023 13:41 INDICATION: Shortness of breath. Hypoxia. COVID-19 pneumonia. TECHNIQUE: Computed tomography angiography (CTA) of the chest was performed with 100 mL Omnipaque-350 intravenous contrast timed to evaluate the pulmonary arteries. Coronal maximum intensity projection 3D-reconstructions were created by the technologist. Automated exposure control and iterative reconst ruction technique were employed. The dose-length product was 526.93 mGy-cm. COMPARISON: Chest CT 05/03/2023 FINDINGS: There are airspace and groundglass opacities involving all lobes in a patchy distribution w ith architectural distortion. A calcified right lung nodule and calcified right hilar lymph nodes are consistent with old granulomatous disease. There are small pleural effusions. The heart size is norm al. There are changes of mitral valve replacement. No pericardial effusion. There is no pulmonary emb olus. There is a 4 mm cyst in the liver. There is mild thoracic spondylosis. IMPRESSION: 1. Diffuse lung disease, consistent with atypical pneumonia. 2. Small pleural effusions. 3. No pulmonary embolus. Sensitivity is mildly decreased by motion artifact. Reviewed, dictated and finalized at location A.
--- NOTE | ~2023-12-12 | XR_ITS ---
EXAMINATION: XR chest 1V portable DATE: 12/17/2023 14:56 INDICATION: Hypoxia. TECHNIQUE: A single frontal view of the chest was obtained. COMPARISON: Chest single view 12/12/2023, chest CT 12/12/2023 FINDINGS: There are airspace and interstitial opacities with architectural distortion throughout the lungs bilaterally. There are small pleural effusions. No pneumothorax. The heart is normal. There are changes of mitral valve replacement. IMPRESSION: 1. Improved diffuse lung disease, consistent with pneumonia. 2. Stable small pleural effusions. Reviewed, dictated and finalized at location A.
--- NOTE | ~2023-12-12 | XR_ITS ---
EXAMINATION: XR chest 1V portable DATE: 12/12/2023 12:03 INDICATION: Dyspnea TECHNIQUE: frontal view of the chest was obtained. COMPARISON: Chest radiograph dated 05/14/2023 FINDINGS: Extensive patchy airspace opacities throughout the right lung and to a lesser degree in the left lung with central perihilar predominance. Calcified nodule in the right midlung zone, calcified right hil ar lymph nodes and calcified splenic nodule, all consistent with old granulomatous disease. No pleura l effusion or pneumothorax. Heart size is normal. Status post mitral valve repair. IMPRESSION: 1. Patchy patchy bilateral airspace opacities, right more extensive than left which is concerning for pneumonia versus less likely pulmonary edema. Reviewed, dictated and finalized at location A. IMPRESSION: 1. Patchy patchy bilateral airspace opacities, right more extensive than left w hich is concerning for pneumonia versus less likely pulmonary edema.
--- NOTE | 2023-12-12 10:33 | ECG_ITS ---
Test Date: 2023-12-12 10:40:50 Measurements Intervals [place] Rate: 86 P: 0 AL: 0 QRS: 7 QRSD: 90 T: 52 QT: 360 QTc: 433 Interpretive Statements REDUCED ECG QUALITY BECAUSE OF BASELINE ARTIFACT SUSPECT MULTIFOCAL ATRIAL RHYTHM ABNORMAL RHYTHM ECG No previous ECG available for comparison Electronically Signed On 12-12-2023 12:57:09 CDT by Ryan Mariscal M.D.
[2023-12-12 11:04] LABS: Alveolar/Arterial O2 Gradient 183.3 mmHg; Base Excess ABG -0.5 mEq/l (+/-2.0); Fractional Inspired Oxygen 36 %; HCO3 ABG 20.3 mEq/l (22.0-26.0); Oxygen Content ABG 15.4 %vol (16.0-22.0); Oxygen Saturation ABG 88.1 % (95.0-100.0); PO2 FiO2 Ratio Arterial Blood 1.27 %; Total Hemoglobin 13.1 g/dL (12.0-18.0)
[2023-12-12 11:05] LABS: PCO2 ABG 23.8 mmHg (35.0-45.0); PO2 ABG 45.8 mmHg (80.0-100.0); pH ABG 7.548 (7.350-7.450)
[2023-12-12 11:06] LABS: Device NASAL CANNULA; Modified Allen's Test Pass; Oxyhemoglobin 83.6 % THb (90.0-100.0); Site Drawn LEFT RADIAL
--- NOTE | 2023-12-12 11:37 | ED.SOB ---
HPI - SOB/Dyspnea General Chief Complaint: Shortness of Breath/Dyspnea Stated Complaint: SOB, recent COVID Time Seen by Provider: 12/12/23 11:09 History of Present Illness HPI Narrative: 68-year-old male with a history of mechanical aortic valve on warfarin, vascular dementia, hyperlipidemia, seizure disorder presenting with shortness of breath. Patient's family is at bedside and helps with the history. States that he was recently hospitalized for COVID-19. This was in [place] because they were on vacation. He was discharged approximately 6 days ago and they made it home. Unfortunately, over the last several days he has been increasingly weaker and short of breath. He continues to have significant coughing. Today he was so weak he could not stand up so they brought him in for evaluation. He currently denies complaints other than being cold. Related Data Home Medications Medication Instructions Recorded Confirmed aspirin 81 mg tablet,delayed 81 mg PO DAILY 08/01/20 12/12/23 release atorvastatin 20 mg tablet 20 mg PO DAILY 08/01/20 12/12/23 ferrous gluconate 324 mg (38 mg 324 mg PO BID 08/01/20 12/12/23 iron) tablet levetiracetam 750 mg tablet 750 mg PO BID 08/01/20 12/12/23 omeprazole 40 mg capsule,delayed 40 mg PO DAILY 08/01/20 12/12/23 release azathioprine 50 mg tablet 175 mg PO TID 05/03/23 12/12/23 warfarin 1 mg tablet 3.5 mg PO QPM 05/03/23 05/07/23 warfarin 4 mg tablet 2 mg PO DAILY 05/03/23 12/12/23 Allergies Allergy/AdvReac Type Severity Reaction Status Date / Time No Known Allergies Allergy Verified 05/03/23 20:54 Review of Systems Review of Systems: All systems reviewed & are unremarkable except as noted in HPI and below PMFSH Past Medical History Medical History (Updated 12/14/23 @ 18:17 by Cate Swanson MD) CVA (cerebral vascular accident) HTN (hypertension) Seizures Family History Family History Mother Patient's mother is , Onset Age: 83 Sibling Patient's sister is in good health Father Family history of dementia Family history of coronary artery disease, Onset Age: 84 Family history of type 2 diabetes mellitus Diabetes mellitus Hypertension Cerebrovascular accident Family history of arthritis Social History Social History Smoking status: Never smoker Alcohol intake: unknown Substance use: never Do You Feel Safe in your Home?: Yes Lack of Transportation: No Lack of Food: Never True Current Housing: I Have Housing Concerned About Future Housing: No Difficulty Paying Gas/Electric Bills: No Difficulty Paying for Meds: No Currently Unemployed: No Education: Master's Degree or Higher Difficulty w/ Childcare or Family Care: No Spiritual care concerns: No Exam Narrative: GENERAL: Ill-appearing, in no acute distress, pleasant cooperative HEAD: Normocephalic, atraumatic. EYES: PERRLA and EOMI. ENT: Grossly unremarkable NECK: Supple. CHEST: Saturating in the upper 80s on 6-7 L nasal cannula HEART: Regular rate and rhythm ABDOMEN: Soft, nontender, nondistended EXTREMITIES: Normal range of motion. No edema. SKIN: Warm, dry, no rash. NEURO: No focal deficits. Alert and oriented x3. PSYCH: Normal mood and affect. Course Vital Signs Vital signs: Vital Signs Temperature 100.0 F H 12/12/23 10:35 Pulse Rate 99 12/12/23 10:35 Respiratory Rate 26 H 12/12/23 10:35 Blood Pressure 132/68 12/12/23 10:35 Pulse Oximetry 79 L 12/12/23 10:35 Oxygen Delivery Room Air 12/12/23 10:35 Temperature 98.1 F 12/14/23 16:00 Pulse Rate 80 12/14/23 16:00 Respiratory Rate 18 12/14/23 16:00 Blood Pressure 121/55 L 12/14/23 16:00 Pulse Oximetry 98 12/14/23 16:00 Oxygen Delivery High Flow Therapy with Nasal Cannula 12/14/23 16:00 Oxygen Flow Rate 30 12/14/23 16:00 Roshani
--- NOTE | 2023-12-12 11:54 | PC.NURSE ---
unable to get blood work/cultures on patient due to having difficult venous access. called Milo @[phone] in vascular access for assistance who is able to help.
[2023-12-12 12:53] LABS: Influenza A QL RT-PCR Negative (Negative); Influenza B QL RT-PCR Negative (Negative); RSV RNA, RT-PCR Negative (Negative); SARS-CoV-2 RNA PCR Positive (Negative)
[2023-12-12 13:00] LABS: Basophils Percent Auto 0.2 % (0.2-1.2); Hematocrit 35.5 % (42.0-52.0); Hemoglobin 12.4 g/dL (14.0-18.0); Immature Granulocyte Absolute 0.14 K/mm3 (0.00-0.031); Immature Granulocyte Percent A 1.4 % (0-0.5); Lymphocytes Absolute Auto 0.14 K/mm3 (0.9-3.2); Lymphocytes Percent Auto 1.4 % (18.3-44.2); Mean Corpuscular HGB Conc 34.9 g/dl (32-36); Mean Corpuscular Volume 97.3 fl (80-100); Mean Platelet Volume 11.1 fl (7.4-10.4); Monocytes Absolute Auto 0.1 K/mm3 (0.1-0.6); Monocytes Percent Auto 1.4 % (2.6-8.5); Neutrophils Absolute Auto 9.4 K/mm3 (1.3-6.7); Neutrophils Percent Auto 95.6 % (45.5-73.1); Platelet Count Result 269 k/mm3 (150-375); Red Blood Count 3.65 M/mm3 (4.6-6.20); Red Cell Distribution Width 15.3 % (11.5-14.5); White Blood Count 9.8 K/mm3 (4.5-10.0)
[2023-12-12 13:16] LABS: Alanine Aminotransferase 120 U/L (6-50); Albumin Level 2.9 g/dL (3.5-5.1); Alkaline Phosphatase 69 U/L (38-126); Anion Gap 7 mmol/L (4-12); Aspartate Amino Transferase 102 U/L (17-59); Blood Urea Nitrogen 32 mg/dL (9-20); Calcium 7.9 mg/dL (8.4-10.2); Carbon Dioxide 23 mmol/L (22-30); Chloride 107 mmol/L (98-107); Estimated Glomerular Filt Rate 55; Glucose 105 mg/dL (65-110); Lactic Acid Reflex 1.1 mmol/L (0.7-2.0); Potassium 3.6 mmol/L (3.4-5.0); Sodium 137 mmol/L (137-145)
[2023-12-12 13:24] LABS: NT Pro B Type Natriuretic Pept 1210 pg/mL (19.9-100)
[2023-12-12 13:37] LABS: Troponin I 0.037 ng/mL (0.000-0.034)
[2023-12-12 13:45] LABS: Partial Thromboplastin Time 144.3 Seconds (22.3-36.8)
[2023-12-12 13:50] LABS: INR > 20.0; Prothrombin Time > 120.0 Seconds (11.1-14.7)
[2023-12-12] MEDS: SODIUM CHLORIDE 0.9% IV 1,000 ML 999 ML IV CONT ×3 (14:38→14:39)
[2023-12-12] MEDS: dexAMETHasone SOD PHOS INJ 10 MG/ML 1 ML VIAL 6 MG IV PUSH ×2 (14:39→23:01)
[2023-12-12 14:59] LABS: Add Urine Microscopic? YES; Appearance Urine Clear (Clear); Bacteria Urine None Seen /hpf; Bilirubin Urine Negative (Negative); Blood Urine 3+ (Negative); Color Urine Yellow (Yellow); Glucose Urine UA Negative (Negative); Ketones Urine Negative (Negative); Leukocyte Esterase Ur Negative LEU/UL (Negative); Nitrate Urine Negative (Negative); Non Pathogenic Casts 0-2; Protein Urine 2+ mg/dL (Negative); RBC Urine 51-100 /hpf (0-2); Specific Grav Ur 1.035 (1.001-1.035); Squamous Epithelial Cell Urine None Seen /hpf (Few); WBC Urine 0-5 /hpf (0-3)
[2023-12-12 14:59] LABS: Alveolar/Arterial O2 Gradient 190.9 mmHg; Device VENTURI MASK; Fractional Inspired Oxygen 40 %; HCO3 ABG 23.8 mEq/l (22.0-26.0); Modified Allen's Test Pass; Oxygen Content ABG 14.9 %vol (16.0-22.0); Oxygen Saturation ABG 92.3 % (95.0-100.0); Oxyhemoglobin 89.9 % THb (90.0-100.0); PCO2 ABG 31.9 mmHg (35.0-45.0); PO2 ABG 57.6 mmHg (80.0-100.0); PO2 FiO2 Ratio Arterial Blood 1.44 %; Site Drawn RIGHT RADIAL; Total Hemoglobin 11.8 g/dL (12.0-18.0)
--- NOTE | 2023-12-12 15:07 | PC.NURSE ---
Lab states second set of blood cultures were not sufficiently filled. MAYE Esparza will be attempting to get a sufficient set with ultrasound guided access prior to starting antibiotics.
[2023-12-12] MEDS: PIPERACILLIN/TAZ 4.5G/NS 100ML 4.5 GM/100 ML BAG IVPB (15:29)
--- NOTE | 2023-12-12 15:41 | PC.NURSE ---
received verbal order from provider to start antibiotics although lab rejected 2nd set of blood cultures. patient declines getting poked again from ultrasound venous access nurse, even after educated by RN and provider of the importance.
[2023-12-12 16:34] LABS: Prothrombin Time > 120.0 Seconds (11.1-14.7)
[2023-12-12 16:41] LABS: INR > 20.0
[2023-12-12 16:42] LABS: Partial Thromboplastin Time 191.1 Seconds (22.3-36.8)
[2023-12-12] MEDS: PHYTONADIONE 5 MG TABLET 10 MG PO (17:16)
[2023-12-12 17:36] LABS: Troponin I 0.029 ng/mL (0.000-0.034)
--- NOTE | 2023-12-12 18:03 | PC.NURSE ---
attempted to call report to the floor at [phone] and RN was not available to take report. charge nurse notified me that since the patient is stable and the waiting room is full, the patient must go upstairs and the RN can all back with any questions about the patient. patient went upstairs with chart, tele monitor, and Air[employer] (assisted with ER respiratory). medications were updated in the chart and provided paper copy for RN as well.
--- NOTE | 2023-12-12 18:57 | ADMGEN ---
This patient, Glenn Clayton, was admitted to IMU Room 203-01. Patient/family oriented to hospital policies and general routines including ID bracelet, bed and alarms, visiting hours, pain management, procedures, bathroom and other care routines, personal items, smoking policy, room service/diet, and visiting hours. Information on how to activate the Rapid Response Team has been discussed. Patient/Family are encouraged to report perceived risks to care and to ask questions if they do not understand what they are told or what they should do.
[2023-12-12 19:57] LABS: Troponin I 0.023 ng/mL (0.000-0.034)
[2023-12-12] MEDS: VANCOMYCIN 2,000 MG/NS 500 ML 2,000 MG/500 ML BAG 250 MG IVPB (20:39)
--- NOTE | 2023-12-12 21:08 | PM.IMHP ---
H&P: HPI History of Present Illness Date/Time: 12/12/23 21:08 Chief Complaint: Shortness of Breath Narrative: 68 y/o M presents here with shortness of breath with PMH of hypertension, aortic valve on warfarin, vascular dementia, hyperlipidemia, CVA, and seizure disorder. The patient presents here from home for further evaluation of shortness of breath. Patient was recently diagnosed with COVID on 12/05/2023 while he was in [place], states he lives here and in [place]. While there he attended a where multiple people who attended ended up with COVID. He was hospitalized for COVID in [place] for 14 days due to weakness, does not believe his oxygen was low, and discharged approximately 6 days ago. Patient and his significant other drove back home. Patient reports he had been feeling unwell since discharge. Patient elected to be seen today because he was not improving and continuing to have cough, shortness of breath, and weakness. Patient continues to endorse persistent cough that is nonproductive. Patient currently denies accompanying fever, chills, body aches, chest pain, or dizziness. Reports compliance with Warfarin and does not believe there was any risk of duplicate doses being taken. Denies any abnormal bleeding. Initial VS at presentation: 100? F, HR 99, R 26, 132/68, and 79% on RA. Now on HFNC with improvement to 92%. ED workup showed: No leukocytosis, hemoglobin 12.4, PTT 191.1, INR greater than 20, significant derangements seen on initial ABG, creatinine 1.3 and GFR 55 (previously 1.72 and GFR 40 on 05/14/2023), AST 102 and ALT 120, BNP 1-1 0, initial troponin 0.037 (WNL x2 at 3 and 6 hour), UA showed 2+ protein, 3+ blood, 51-100 RBC. Continues to test positive for COVID, viral PCR otherwise negative. CXR showed patchy bilateral airspace opacities, right more extensive than left concerning for pneumonia versus pulmonary edema. Chest CTA showed no PE, diffuse lung disease consistent with atypical pneumonia, and small pleural effusions. Review of Systems Review of Systems: All systems reviewed & are unremarkable except as noted in HPI and below PMFSH Past Medical History Medical History (Updated 12/12/23 @ 21:25 by Sonali Milan, WAREHOUSE SHIPPING SUPERVISOR) CVA (cerebral vascular accident) HTN (hypertension) Seizures Family History Family History Mother Patient's mother is , Onset Age: 83 Sibling Patient's sister is in good health Father Family history of dementia Family history of coronary artery disease, Onset Age: 84 Family history of type 2 diabetes mellitus Diabetes mellitus Hypertension Cerebrovascular accident Family history of arthritis Social History Social History Smoking status: Never smoker Alcohol intake: unknown Substance use: never Do You Feel Safe in your Home?: Yes Lack of Transportation: No Lack of Food: Never True Current Housing: I Have Housing Concerned About Future Housing: No Difficulty Paying Gas/Electric Bills: No Difficulty Paying for Meds: No Currently Unemployed: No Education: Master's Degree or Higher Difficulty w/ Childcare or Family Care: No Spiritual care concerns: No Meds Home Medications and Allergies Home Medications Medication Instructions Recorded Confirmed Type aspirin 81 mg tablet,delayed 81 mg PO DAILY 08/01/20 12/12/23 History release atorvastatin 20 mg tablet 20 mg PO DAILY 08/01/20 12/12/23 History ferrous gluconate 324 mg (38 mg 324 mg PO BID 08/01/20 12/12/23 History iron) tablet levetiracetam 750 mg tablet 750 mg PO BID 08/01/20 12/12/23 History omeprazole 40 mg capsule,delayed 40 mg PO DAILY 08/01/20 12/12/23 History release azathioprine 50 mg tablet 175 mg PO TID 05/03/23 12/12/23 History warfarin 1 mg tablet 3.5 mg PO QPM 05/03/23 05/07/23 History warfarin 4 mg tablet 2 mg PO MANI
[2023-12-12 22:27] LABS: Prothrombin Time 115.1 Seconds (11.1-14.7)
[2023-12-12] MEDS: SODIUM CHLORIDE 0.9% IV 250 ML 30 ML IV CONT (23:01)
[2023-12-12] MEDS: CEFEPIME 2 GM/NS 50 ML 2 GM/50 ML BAG IVPB (23:02)
[2023-12-12] MEDS: TUBING, BLOOD PLUM PUMP TUBING 1 EACH XX (23:11)
[2023-12-12 23:30] LABS: INR 16.2; Partial Thromboplastin Time 191.8 Seconds (22.3-36.8)
--- NOTE | 2023-12-12 23:42 | PC.NURSE ---
Re Admission: patient is a poor historian. Patient claimed to not have any medical history - but does (see chart.) Also stated no family medical history, just that parents are . Provided a sister's name as a POA/emergency contact,but could not provide a phone number. A friend is already listed in the chart as a point of contact. Patient was unable to tell this RN any medications he takes. Patient did state he was at a in [place] and everyone got Covid.
[2023-12-13] VITALS (28 sets, daily range): BP systolic 102–120; BP diastolic 45–65; PULSE 57–75; RESP 20–32; TEMP 36.1–37; O2SAT 84–98
[2023-12-13 00:43] LABS: MRSA (PCR) NOT DETECTED (NOT DETECTE)
[2023-12-13] MEDS: TUBING, BLOOD PLUM PUMP TUBING 1 EACH XX ×2 (00:50→05:04)
[2023-12-13 04:09] LABS: Basophils Percent Auto 0.2 % (0.2-1.2); Hematocrit 31.9 % (42.0-52.0); Hemoglobin 10.9 g/dL (14.0-18.0); Immature Granulocyte Absolute 0.08 K/mm3 (0.00-0.031); Immature Granulocyte Percent A 1.6 % (0-0.5); Lymphocytes Absolute Auto 0.23 K/mm3 (0.9-3.2); Lymphocytes Percent Auto 4.5 % (18.3-44.2); Mean Corpuscular HGB Conc 34.2 g/dl (32-36); Mean Corpuscular Volume 99.4 fl (80-100); Mean Platelet Volume 11.2 fl (7.4-10.4); Monocytes Absolute Auto 0.2 K/mm3 (0.1-0.6); Monocytes Percent Auto 2.9 % (2.6-8.5); Neutrophils Absolute Auto 4.6 K/mm3 (1.3-6.7); Neutrophils Percent Auto 90.8 % (45.5-73.1); Platelet Count Result 242 k/mm3 (150-375); Red Blood Count 3.21 M/mm3 (4.6-6.20); Red Cell Distribution Width 14.8 % (11.5-14.5); White Blood Count 5.1 K/mm3 (4.5-10.0)
[2023-12-13 04:12] LABS: Alanine Aminotransferase 106 U/L (6-50); Albumin Level 2.8 g/dL (3.5-5.1); Alkaline Phosphatase 63 U/L (38-126); Anion Gap 6 mmol/L (4-12); Aspartate Amino Transferase 95 U/L (17-59); Bilirubin,Total 0.9 mg/dL (0.2-1.3); Blood Urea Nitrogen 28 mg/dL (9-20); Calcium 7.8 mg/dL (8.4-10.2); Carbon Dioxide 23 mmol/L (22-30); Chloride 109 mmol/L (98-107); Estimated CRCL calculation 51 ml/min; Estimated Glomerular Filt Rate 55; Glucose 131 mg/dL (65-110); Potassium 3.6 mmol/L (3.4-5.0); Sodium 138 mmol/L (137-145)
[2023-12-13 04:26] LABS: INR 4.6; Prothrombin Time 43.4 Seconds (11.1-14.7)
[2023-12-13 04:27] LABS: Partial Thromboplastin Time 96.6 Seconds (22.3-36.8)
[2023-12-13] MEDS: CEFEPIME 2 GM/NS 50 ML 2 GM/50 ML BAG IVPB ×2 (09:33→22:05)
[2023-12-13] MEDS: FERROUS GLUCONATE 324 MG TABLET PO ×2 (09:34→17:15)
[2023-12-13] MEDS: levETIRAcetam 250 MG TABLET 750 MG PO ×2 (09:34→22:00)
[2023-12-13] MEDS: ATORVASTATIN 20 MG TABLET PO (09:34)
[2023-12-13] MEDS: azaTHIOprine 50 MG TABLET PO ×2 (09:34→17:15)
[2023-12-13] MEDS: PANTOPRAZOLE 40 MG TABLET PO ×2 (09:34→21:57)
[2023-12-13 10:15] LABS: Prothrombin Time 31.6 Seconds (11.1-14.7)
[2023-12-13 10:16] LABS: Partial Thromboplastin Time 73.9 Seconds (22.3-36.8)
[2023-12-13 15:24] LABS: INR 3.2; Prothrombin Time 33.3 Seconds (11.1-14.7)
[2023-12-13 15:37] LABS: Partial Thromboplastin Time 74.9 Seconds (22.3-36.8)
--- NOTE | 2023-12-13 17:56 | WPDPN ---
Progress Note: A&P Assessment and Plan (1) Sepsis: Qualifiers: Sepsis type: sepsis due to unspecified organism Sepsis acute organ dysfunction status: with acute organ dysfunction Severe sepsis acute organ dysfunction type: acute respiratory failure Acute respiratory failure type: with hypoxia Severe sepsis shock status: without septic shock Qualified Code(s): A41.9 - Sepsis, unspecified organism; R65.20 - Severe sepsis without septic shock; J96.01 - Acute respiratory failure with hypoxia Code(s): A41.9 - Sepsis, unspecified organism Status: Acute (2) Subtherapeutic international normalized ratio (INR): Code(s): R79.1 - Abnormal coagulation profile Status: Acute (3) Pneumonia: Qualifiers: Laterality: right Lung location: middle lobe of lung Pneumonia type: due to unspecified organism Qualified Code(s): J18.9 - Pneumonia, unspecified organism Code(s): J18.9 - Pneumonia, unspecified organism Status: Acute (4) Acute respiratory failure with hypoxia: Code(s): J96.01 - Acute respiratory failure with hypoxia Status: Acute (5) CKD (chronic kidney disease): Qualifiers: Chronic kidney disease stage: unspecified stage Qualified Code(s): N18.9 - Chronic kidney disease, unspecified Code(s): N18.9 - Chronic kidney disease, unspecified Status: Suspected (6) HTN (hypertension): Qualifiers: Hypertension type: primary hypertension Qualified Code(s): I10 - Essential (primary) hypertension Code(s): I10 - Essential (primary) hypertension Status: Chronic Plan Most likely patient has a long COVID symptoms with persistent cough and malaise, patient has developed atypical pneumonia being treated with cefepime and vancomycin as well as dexamethasone, will increase patient to increase fluid intake, patient presented with supratherapeutic INR of 20, patient has history of mitral valve repair, patient is a poor historian and unable to provider details about the valve and INR range. will maintain INR between 2.5 and 3.5 checking every q6, I have spoken to nurse Mcnair and he will monitor and relay the message to covering RN. will have a PT OT evaluate and further recommendation to follow. Subjective Date/time seen: 12/13/23 17:56 Interval history: Shortness of Breath H&M-ODG-Qvgwsnvep: 68 y/o M presents here with shortness of breath with PMH of hypertension, aortic valve on warfarin, vascular dementia, hyperlipidemia, CVA, and seizure disorder. The patient presents here from home for further evaluation of shortness of breath. Patient was recently diagnosed with COVID on 12/05/2023 while he was in [place], states he lives here and in [place]. While there he attended a where multiple people who attended ended up with COVID. He was hospitalized for COVID in [place] for 14 days due to weakness, does not believe his oxygen was low, and discharged approximately 6 days ago. Patient and his significant other drove back home. Patient reports he had been feeling unwell since discharge. Patient elected to be seen today because he was not improving and continuing to have cough, shortness of breath, and weakness. Patient continues to endorse persistent cough that is nonproductive. Patient currently denies accompanying fever, chills, body aches, chest pain, or dizziness. Reports compliance with Warfarin and does not believe there was any risk of duplicate doses being taken. Denies any abnormal bleeding. Initial VS at presentation: 100? F, HR 99, R 26, 132/68, and 79% on RA. Now on HFNC with improvement to 92%. ED workup showed: No leukocytosis, hemoglobin 12.4, PTT 191.1, INR greater than 20, significant derangements seen on initial ABG, creatinine 1.3 and GFR 55 (previously 1.72 and GFR 40 on 05/14/2023), AST 102 and ALT 120, BNP 1-1 0, initial troponin 0.037 (WNL x2 at 3 and 6 hour), UA showed 2+ protein, 3+ blood, 51-100 RBC. Con
[2023-12-13 19:36] LABS: INR 3.3; Prothrombin Time 33.8 Seconds (11.1-14.7)
[2023-12-13] MEDS: VANCOMYCIN 1,250 MG/NS 250 ML 1,250 MG/250 ML BAG 166.67 MG IVPB (20:04)
[2023-12-13] MEDS: dexAMETHasone SOD PHOS INJ 10 MG/ML 1 ML VIAL 6 MG IV PUSH (21:58)
[2023-12-14] VITALS (17 sets, daily range): BP systolic 115–141; BP diastolic 53–63; PULSE 50–90; RESP 18–20; TEMP 36.4–37.2; O2SAT 88–98
[2023-12-14 04:46] LABS: Hematocrit 32.3 % (42.0-52.0); Mean Corpuscular HGB Conc 34.1 g/dl (32-36); Mean Corpuscular Hemoglobin 33.8 pg (26-34); Mean Corpuscular Volume 99.4 fl (80-100); Mean Platelet Volume 11.3 fl (7.4-10.4); Platelet Count Result 266 k/mm3 (150-375); Red Blood Count 3.25 M/mm3 (4.6-6.20); Red Cell Distribution Width 14.6 % (11.5-14.5); White Blood Count 11.3 K/mm3 (4.5-10.0)
[2023-12-14 04:59] LABS: INR 3.7
[2023-12-14 05:03] LABS: Anion Gap 9 mmol/L (4-12); Blood Urea Nitrogen 32 mg/dL (9-20); Calcium 7.6 mg/dL (8.4-10.2); Carbon Dioxide 21 mmol/L (22-30); Chloride 106 mmol/L (98-107); Estimated CRCL calculation 54 ml/min; Estimated Glomerular Filt Rate > 60; Glucose 137 mg/dL (65-110); Magnesium 2.4 mg/dL (1.6-2.3); Potassium 3.8 mmol/L (3.4-5.0); Sodium 136 mmol/L (137-145)
[2023-12-14] MEDS: levETIRAcetam 250 MG TABLET 750 MG PO ×2 (10:29→21:43)
[2023-12-14] MEDS: PANTOPRAZOLE 40 MG TABLET PO ×2 (10:29→21:43)
[2023-12-14] MEDS: ATORVASTATIN 20 MG TABLET PO (10:29)
[2023-12-14] MEDS: CEFEPIME 2 GM/NS 50 ML 2 GM/50 ML BAG IVPB ×2 (10:30→21:43)
[2023-12-14] MEDS: FERROUS GLUCONATE 324 MG TABLET PO ×2 (10:30→18:18)
[2023-12-14] MEDS: azaTHIOprine 50 MG TABLET PO ×3 (11:35→18:18)
--- NOTE | 2023-12-14 15:16 | WPDPN ---
Progress Note: A&P Assessment and Plan (1) Sepsis: Qualifiers: Sepsis type: sepsis due to unspecified organism Sepsis acute organ dysfunction status: with acute organ dysfunction Severe sepsis acute organ dysfunction type: acute respiratory failure Acute respiratory failure type: with hypoxia Severe sepsis shock status: without septic shock Qualified Code(s): A41.9 - Sepsis, unspecified organism; R65.20 - Severe sepsis without septic shock; J96.01 - Acute respiratory failure with hypoxia Code(s): A41.9 - Sepsis, unspecified organism Status: Acute (2) Subtherapeutic international normalized ratio (INR): Code(s): R79.1 - Abnormal coagulation profile Status: Acute (3) Pneumonia: Qualifiers: Laterality: right Lung location: middle lobe of lung Pneumonia type: due to unspecified organism Qualified Code(s): J18.9 - Pneumonia, unspecified organism Code(s): J18.9 - Pneumonia, unspecified organism Status: Acute (4) Acute respiratory failure with hypoxia: Code(s): J96.01 - Acute respiratory failure with hypoxia Status: Acute (5) CKD (chronic kidney disease): Qualifiers: Chronic kidney disease stage: unspecified stage Qualified Code(s): N18.9 - Chronic kidney disease, unspecified Code(s): N18.9 - Chronic kidney disease, unspecified Status: Suspected (6) HTN (hypertension): Qualifiers: Hypertension type: primary hypertension Qualified Code(s): I10 - Essential (primary) hypertension Code(s): I10 - Essential (primary) hypertension Status: Chronic Plan Most likely patient has a long COVID symptoms with persistent cough and malaise, patient has developed atypical pneumonia being treated with cefepime and vancomycin as well as dexamethasone, will increase patient to increase fluid intake, patient presented with supratherapeutic INR of 20, patient has history of mitral valve repair, patient is a poor historian and unable to provider details about the valve and INR range. will maintain INR between 2.5 and 3.5 checking every q6, I have spoken to nurse Mcnair and he will monitor and relay the message to covering RN. will have a PT OT evaluate and further recommendation to follow. Today patient's INR is 3.7 will not resume warfarin, patient remains clinically stable state no new symptom his partner is present in the room, will continue present management and monitor. Subjective Date/time seen: 12/14/23 15:16 Interval history: Shortness of Breath H&F-TBL-Bytkpzrsm: 68 y/o M presents here with shortness of breath with PMH of hypertension, aortic valve on warfarin, vascular dementia, hyperlipidemia, CVA, and seizure disorder. The patient presents here from home for further evaluation of shortness of breath. Patient was recently diagnosed with COVID on 12/05/2023 while he was in [place], states he lives here and in [place]. While there he attended a where multiple people who attended ended up with COVID. He was hospitalized for COVID in [place] for 14 days due to weakness, does not believe his oxygen was low, and discharged approximately 6 days ago. Patient and his significant other drove back home. Patient reports he had been feeling unwell since discharge. Patient elected to be seen today because he was not improving and continuing to have cough, shortness of breath, and weakness. Patient continues to endorse persistent cough that is nonproductive. Patient currently denies accompanying fever, chills, body aches, chest pain, or dizziness. Reports compliance with Warfarin and does not believe there was any risk of duplicate doses being taken. Denies any abnormal bleeding. Initial VS at presentation: 100? F, HR 99, R 26, 132/68, and 79% on RA. Now on HFNC with improvement to 92%. ED workup showed: No leukocytosis, hemoglobin 12.4, PTT 191.1, INR greater than 20, significant derangements seen on initial ABG, creat
[2023-12-14 18:40] LABS: Vancomycin Trough 10.3 ug/mL (10.0-20.0)
[2023-12-14 18:43] LABS: INR 4.1; Prothrombin Time 39.7 Seconds (11.1-14.7)
[2023-12-14] MEDS: VANCOMYCIN 1,250 MG/NS 250 ML 1,250 MG/250 ML BAG 166.67 MG IVPB (21:42)
[2023-12-14] MEDS: dexAMETHasone SOD PHOS INJ 10 MG/ML 1 ML VIAL 6 MG IV PUSH (21:46)
[2023-12-15] VITALS (20 sets, daily range): BP systolic 110–125; BP diastolic 53–79; PULSE 50–86; RESP 20–24; TEMP 36.3–37.3; O2SAT 84–100
[2023-12-15 04:59] LABS: Hematocrit 32.2 % (42.0-52.0); Hemoglobin 11.2 g/dL (14.0-18.0); Mean Corpuscular HGB Conc 34.8 g/dl (32-36); Mean Corpuscular Hemoglobin 33.6 pg (26-34); Mean Corpuscular Volume 96.7 fl (80-100); Mean Platelet Volume 10.9 fl (7.4-10.4); Platelet Count Result 281 k/mm3 (150-375); Red Blood Count 3.33 M/mm3 (4.6-6.20); Red Cell Distribution Width 14.6 % (11.5-14.5); White Blood Count 9.4 K/mm3 (4.5-10.0)
[2023-12-15 05:09] LABS: INR 4.6; Prothrombin Time 43.9 Seconds (11.1-14.7)
[2023-12-15 05:22] LABS: Anion Gap 6 mmol/L (4-12); Blood Urea Nitrogen 32 mg/dL (9-20); Calcium 7.8 mg/dL (8.4-10.2); Carbon Dioxide 23 mmol/L (22-30); Chloride 106 mmol/L (98-107); Estimated CRCL calculation 49 ml/min; Estimated Glomerular Filt Rate 60; Glucose 152 mg/dL (65-110); Magnesium 2.3 mg/dL (1.6-2.3); Potassium 3.6 mmol/L (3.4-5.0); Sodium 135 mmol/L (137-145)
[2023-12-15] MEDS: azaTHIOprine 50 MG TABLET PO ×3 (08:48→18:21)
[2023-12-15] MEDS: VANCOMYCIN 1,250 MG/NS 250 ML 1,250 MG/250 ML BAG 166.67 MG IVPB (08:48)
[2023-12-15] MEDS: FERROUS GLUCONATE 324 MG TABLET PO ×2 (08:48→18:21)
[2023-12-15] MEDS: PANTOPRAZOLE 40 MG TABLET PO ×2 (08:48→20:36)
[2023-12-15] MEDS: CEFEPIME 2 GM/NS 50 ML 2 GM/50 ML BAG IVPB (08:49)
[2023-12-15] MEDS: ATORVASTATIN 20 MG TABLET PO (08:49)
[2023-12-15] MEDS: levETIRAcetam 250 MG TABLET 750 MG PO ×2 (08:49→20:36)
--- NOTE | 2023-12-15 18:46 | PDONCCN ---
HPI - Date of Consult Date/Time: 12/15/23 18:46 Requesting Physician: Dhruv Garcia MD Primary Care Provider: Jerrell Parrish MD - Consult Narrative Reason for consult: Coagulopathy Narrative: Glenn Clayton is a 68 year old male with history of hypertension, aortic valve replacement on chronic anticoagulation therapy with warfarin, vascular dementia, CVA, seizure and hyperlipidemia came into the hospital with shortness of breath. He was diagnosed with COVID infection on December 04. Labs on admission showed PTT of 191 with INR of greater than 20. Hemoglobin was 12.4. Repeat INR again came back more than 20. CTA chest showed no evidence of pulmonary embolism. There was evidence of diffuse lung disease consistent with atypical pneumonia and small pleural effusion. He tested positive for COVID infection. Patient was started on oral vitamin K and received 3 units of fresh frozen plasma. INR has improved to 4.0. He remains asymptomatic without any bleeding. Review of Systems - Review of Systems All systems reviewed & are unremarkable except as noted in [facility] and [facility] Medical History: Medical History (Last Updated 12/12/23 @ 21:16 by Sonali Mialn APRN) CVA (cerebral vascular accident) HTN (hypertension) Seizures Family History: Family History (Last Reviewed 12/12/23 @ 11:39 by Cate Swanson MD) Mother Patient's mother is , Onset Age: 83 Sibling Patient's sister is in good health Father Family history of dementia Family history of coronary artery disease, Onset Age: 84 Family history of type 2 diabetes mellitus Diabetes mellitus Hypertension Cerebrovascular accident Family history of arthritis - Social History Social History: Social History (Last Reviewed 12/12/23 @ 11:39 by Cate Swanson MD) Alcohol Use: Alcohol intake: unknown Substance Use: Substance use: never Others: Spiritual care concerns: No Smoking Status: Smoking status: Never smoker Social Determinants of Health: Do You Feel Safe in your Home?: Yes Has the Lack of Transportation Kept You From Medical Appointments or From Getting Medications?: No Within the Past 12 Months, Were You Worried Whether Your Food Would Run Out Before You Got Money to Buy More?: Never True What is Your Housing Situation Today?: I Have Housing Are You Worried That in the Next 2 Months, You May Not Have Your Own Housing to Live In?: No Do You Have Trouble Paying Your Heating Or Electricity Bill?: No Do You Have Trouble Paying For Medicines?: No Are You Currently Unemployed and Looking for Work?: No Highest Level of Education Completed: Master's Degree or Higher Do You Have Trouble With Childcare or the Care of a Family Member?: No Exam - Vital Signs Vital Signs - 24 hr 12/14/23 20:33 12/14/23 22:26 12/14/23 20:00 Temperature 37.2 C Pulse Rate 81 90 Respiratory Rate 20 Blood Pressure 141/63 H Pulse Oximetry 96 93 98 Oxygen Delivery High Flow Therapy with Na High Flow Therapy with Na Oxygen Flow Rate 60 60 Fraction of Inspired Oxygen 68 67 12/15/23 00:00 12/15/23 00:00 12/14/23 20:00 Temperature 37.1 C Pulse Rate 81 69 Respiratory Rate 20 Blood Pressure 125/64 Pulse Oximetry 99 100 Oxygen Delivery High Flow Therapy with Na Oxygen Flow Rate 60 Fraction of Inspired Oxygen 67 12/14/23 22:00 12/15/23 00:00 12/15/23 02:00 Temperature Pulse Rate 89 69 75 Respiratory Rate Blood Pressure Pulse Oximetry Oxygen Delivery Oxygen Flow Rate Fraction of Inspired Oxygen 12/15/23 04:00 12/15/23 05:14 12/15/23 04:00 Temperature 36.5 C Pulse Rate 75 62 Respiratory Rate 20 Blood Pressure 122/58 L Pulse Oximetry 91 98 Oxygen Delivery High Flow Therapy with Na Oxygen Flow Rate 60 Fraction of Inspired Oxygen 67 12/15/23 06:00 12/15/23 08:18 12/15/23 08:0
--- NOTE | 2023-12-15 19:20 | WPDPN ---
Progress Note: A&P Assessment and Plan (1) Sepsis: Code(s): A41.9 - Sepsis, unspecified organism Status: Acute (2) Subtherapeutic international normalized ratio (INR): Code(s): R79.1 - Abnormal coagulation profile Status: Acute (3) Pneumonia: Code(s): J18.9 - Pneumonia, unspecified organism Status: Acute (4) Acute respiratory failure with hypoxia: Code(s): J96.01 - Acute respiratory failure with hypoxia Status: Acute (5) CKD (chronic kidney disease): Qualifiers: Chronic kidney disease stage: unspecified stage Qualified Code(s): N18.9 - Chronic kidney disease, unspecified Code(s): N18.9 - Chronic kidney disease, unspecified Status: Suspected (6) HTN (hypertension): Qualifiers: Hypertension type: primary hypertension Qualified Code(s): I10 - Essential (primary) hypertension Code(s): I10 - Essential (primary) hypertension Status: Chronic Plan Most likely patient has a long COVID symptoms with persistent cough and malaise, patient has developed atypical pneumonia being treated with cefepime and vancomycin as well as dexamethasone, will increase patient to increase fluid intake, patient presented with supratherapeutic INR of 20, patient has history of mitral valve repair, patient is a poor historian and unable to provider details about the valve and INR range. will maintain INR between 2.5 and 3.5 checking every q6, I have spoken to nurse Mcnair and he will monitor and relay the message to covering RN. will have a PT OT evaluate and further recommendation to follow. Today patient's INR is 4.6 will not resume warfarin, patient remains clinically stable state no new symptom. will continue present management and monitor. Subjective Date/time seen: 12/15/23 19:20 Interval history: Shortness of Breath H&E-TKW-Dbypjtlwy: 68 y/o M presents here with shortness of breath with PMH of hypertension, aortic valve on warfarin, vascular dementia, hyperlipidemia, CVA, and seizure disorder. The patient presents here from home for further evaluation of shortness of breath. Patient was recently diagnosed with COVID on 12/05/2023 while he was in [place], states he lives here and in [place]. While there he attended a where multiple people who attended ended up with COVID. He was hospitalized for COVID in [place] for 14 days due to weakness, does not believe his oxygen was low, and discharged approximately 6 days ago. Patient and his significant other drove back home. Patient reports he had been feeling unwell since discharge. Patient elected to be seen today because he was not improving and continuing to have cough, shortness of breath, and weakness. Patient continues to endorse persistent cough that is nonproductive. Patient currently denies accompanying fever, chills, body aches, chest pain, or dizziness. Reports compliance with Warfarin and does not believe there was any risk of duplicate doses being taken. Denies any abnormal bleeding. Initial VS at presentation: 100? F, HR 99, R 26, 132/68, and 79% on RA. Now on HFNC with improvement to 92%. ED workup showed: No leukocytosis, hemoglobin 12.4, PTT 191.1, INR greater than 20, significant derangements seen on initial ABG, creatinine 1.3 and GFR 55 (previously 1.72 and GFR 40 on 05/14/2023), AST 102 and ALT 120, BNP 1-1 0, initial troponin 0.037 (WNL x2 at 3 and 6 hour), UA showed 2+ protein, 3+ blood, 51-100 RBC. Continues to test positive for COVID, viral PCR otherwise negative. CXR showed patchy bilateral airspace opacities, right more extensive than left concerning for pneumonia versus pulmonary edema. Chest CTA showed no PE, diffuse lung disease consistent with atypical pneumonia, and small pleural effusions. Most likely patient has a long COVID symptoms with persistent cough and malaise, patient has developed atypical pneumonia being treated with cefepime and vancomycin as well as de
[2023-12-15] MEDS: AMOXICILLIN/CLAVULANATE K 875-125 MG TAB 1 TABLET PO (20:37)
[2023-12-15] MEDS: dexAMETHasone SOD PHOS INJ 10 MG/ML 1 ML VIAL 6 MG IV PUSH (20:37)
[2023-12-16] VITALS (18 sets, daily range): BP systolic 108–146; BP diastolic 57–68; PULSE 62–98; RESP 24–32; TEMP 36.4–37.2; O2SAT 93–98
[2023-12-16 03:55] LABS: Alveolar/Arterial O2 Gradient 453.7 mmHg; Base Excess ABG -0.4 mEq/l (+/-2.0); Fractional Inspired Oxygen 83 %; HCO3 ABG 21.4 mEq/l (22.0-26.0); Oxygen Content ABG 17.1 %vol (16.0-22.0); Oxygen Saturation ABG 98.5 % (95.0-100.0); Oxyhemoglobin 97.5 % THb (90.0-100.0); PCO2 ABG 27.2 mmHg (35.0-45.0); PO2 ABG 109.7 mmHg (80.0-100.0); PO2 FiO2 Ratio Arterial Blood 1.32 %; Total Hemoglobin 12.4 g/dL (12.0-18.0)
[2023-12-16 03:57] LABS: Device HIGH FLOW THERAPY; Modified Allen's Test Pass; Site Drawn RIGHT RADIAL; pH ABG 7.514 (7.350-7.450)
[2023-12-16] MEDS: LORazepam INJ (*CRX) 2 MG/ML VIAL 1 MG IV PUSH (04:16)
[2023-12-16 05:36] LABS: Hematocrit 31.9 % (42.0-52.0); Hemoglobin 10.7 g/dL (14.0-18.0); Mean Corpuscular HGB Conc 33.5 g/dl (32-36); Mean Corpuscular Hemoglobin 32.9 pg (26-34); Mean Corpuscular Volume 98.2 fl (80-100); Platelet Count Result 286 k/mm3 (150-375); Red Blood Count 3.25 M/mm3 (4.6-6.20); Red Cell Distribution Width 14.3 % (11.5-14.5); White Blood Count 7.3 K/mm3 (4.5-10.0)
[2023-12-16 05:47] LABS: Prothrombin Time 40.1 Seconds (11.1-14.7)
[2023-12-16 05:56] LABS: Anion Gap 4 mmol/L (4-12); Blood Urea Nitrogen 33 mg/dL (9-20); Calcium 7.4 mg/dL (8.4-10.2); Carbon Dioxide 25 mmol/L (22-30); Chloride 105 mmol/L (98-107); Estimated CRCL calculation 54 ml/min; Estimated Glomerular Filt Rate > 60; Glucose 165 mg/dL (65-110); Magnesium 2.3 mg/dL (1.6-2.3); Potassium 3.8 mmol/L (3.4-5.0); Sodium 134 mmol/L (137-145)
--- NOTE | 2023-12-16 06:06 | PCRCNOTE ---
Bipap on hold for now Per MD Pretty.
[2023-12-16] MEDS: ATORVASTATIN 20 MG TABLET PO (09:05)
[2023-12-16] MEDS: FERROUS GLUCONATE 324 MG TABLET PO ×2 (09:05→16:41)
[2023-12-16] MEDS: levETIRAcetam 250 MG TABLET 750 MG PO ×2 (09:06→20:31)
[2023-12-16] MEDS: PANTOPRAZOLE 40 MG TABLET PO ×2 (09:06→20:31)
[2023-12-16] MEDS: AMOXICILLIN/CLAVULANATE K 875-125 MG TAB 1 TABLET PO ×2 (09:06→20:31)
[2023-12-16] MEDS: azaTHIOprine 50 MG TABLET PO ×3 (09:06→16:41)
--- NOTE | 2023-12-16 12:16 | PCPTNOTE ---
Pt has high O2 needs right now. Pt not medically safe to participate in skilled therapy this date. Will follow.
--- NOTE | 2023-12-16 12:40 | WPDPN ---
Progress Note: A&P Assessment and Plan (1) Sepsis: Code(s): A41.9 - Sepsis, unspecified organism Status: Acute (2) Subtherapeutic international normalized ratio (INR): Code(s): R79.1 - Abnormal coagulation profile Status: Acute (3) Pneumonia: Code(s): J18.9 - Pneumonia, unspecified organism Status: Acute (4) Acute respiratory failure with hypoxia: Code(s): J96.01 - Acute respiratory failure with hypoxia Status: Acute (5) CKD (chronic kidney disease): Qualifiers: Chronic kidney disease stage: unspecified stage Qualified Code(s): N18.9 - Chronic kidney disease, unspecified Code(s): N18.9 - Chronic kidney disease, unspecified Status: Suspected (6) HTN (hypertension): Qualifiers: Hypertension type: primary hypertension Qualified Code(s): I10 - Essential (primary) hypertension Code(s): I10 - Essential (primary) hypertension Status: Chronic Plan Most likely patient has a long COVID symptoms with persistent cough and malaise, patient has developed atypical pneumonia being treated with cefepime and vancomycin as well as dexamethasone, will increase patient to increase fluid intake, patient presented with supratherapeutic INR of 20, patient has history of mitral valve repair, patient is a poor historian and unable to provider details about the valve and INR range. will maintain INR between 2.5 and 3.5 checking every qd, I have spoken to nurse Mcnair and he will monitor and relay the message to covering RN. will have a PT OT evaluate and further recommendation to follow. Today patient's INR is 4.0 will not resume warfarin, patient is requiring high flow NC, he is being treated with dexamethasone, patient remains clinically stable state no new symptom. will continue present management and monitor. Subjective Date/time seen: 12/16/23 12:40 Interval history: Shortness of Breath H&J-MXP-Wljugyfyc: 68 y/o M presents here with shortness of breath with PMH of hypertension, aortic valve on warfarin, vascular dementia, hyperlipidemia, CVA, and seizure disorder. The patient presents here from home for further evaluation of shortness of breath. Patient was recently diagnosed with COVID on 12/05/2023 while he was in [place], states he lives here and in [place]. While there he attended a where multiple people who attended ended up with COVID. He was hospitalized for COVID in [place] for 14 days due to weakness, does not believe his oxygen was low, and discharged approximately 6 days ago. Patient and his significant other drove back home. Patient reports he had been feeling unwell since discharge. Patient elected to be seen today because he was not improving and continuing to have cough, shortness of breath, and weakness. Patient continues to endorse persistent cough that is nonproductive. Patient currently denies accompanying fever, chills, body aches, chest pain, or dizziness. Reports compliance with Warfarin and does not believe there was any risk of duplicate doses being taken. Denies any abnormal bleeding. Initial VS at presentation: 100? F, HR 99, R 26, 132/68, and 79% on RA. Now on HFNC with improvement to 92%. ED workup showed: No leukocytosis, hemoglobin 12.4, PTT 191.1, INR greater than 20, significant derangements seen on initial ABG, creatinine 1.3 and GFR 55 (previously 1.72 and GFR 40 on 05/14/2023), AST 102 and ALT 120, BNP 1-1 0, initial troponin 0.037 (WNL x2 at 3 and 6 hour), UA showed 2+ protein, 3+ blood, 51-100 RBC. Continues to test positive for COVID, viral PCR otherwise negative. CXR showed patchy bilateral airspace opacities, right more extensive than left concerning for pneumonia versus pulmonary edema. Chest CTA showed no PE, diffuse lung disease consistent with atypical pneumonia, and small pleural effusions. Most likely patient has a long COVID symptoms with persistent cough and malaise, patient has deve
[2023-12-16] MEDS: dexAMETHasone SOD PHOS INJ 10 MG/ML 1 ML VIAL 6 MG IV PUSH (20:31)
[2023-12-17] VITALS (17 sets, daily range): BP systolic 100–123; BP diastolic 55–64; PULSE 61–88; RESP 18–24; TEMP 36.2–36.9; O2SAT 92–100
[2023-12-17 04:32] LABS: Hematocrit 32.2 % (42.0-52.0); Hemoglobin 10.9 g/dL (14.0-18.0); Mean Corpuscular HGB Conc 33.9 g/dl (32-36); Mean Corpuscular Hemoglobin 33.7 pg (26-34); Mean Corpuscular Volume 99.7 fl (80-100); Platelet Count Result 273 k/mm3 (150-375); Red Blood Count 3.23 M/mm3 (4.6-6.20); Red Cell Distribution Width 14.4 % (11.5-14.5)
[2023-12-17 04:42] LABS: Anion Gap 5 mmol/L (4-12); Blood Urea Nitrogen 33 mg/dL (9-20); Carbon Dioxide 25 mmol/L (22-30); Chloride 104 mmol/L (98-107); Estimated CRCL calculation 46 ml/min; Estimated Glomerular Filt Rate 55; Glucose 152 mg/dL (65-110); Magnesium 2.4 mg/dL (1.6-2.3); Potassium 4.2 mmol/L (3.4-5.0); Sodium 134 mmol/L (137-145)
[2023-12-17 04:48] LABS: INR 3.6; Prothrombin Time 36.4 Seconds (11.1-14.7)
[2023-12-17] MEDS: ATORVASTATIN 20 MG TABLET PO (09:51)
[2023-12-17] MEDS: azaTHIOprine 50 MG TABLET PO ×2 (09:52→12:09)
[2023-12-17] MEDS: FERROUS GLUCONATE 324 MG TABLET PO ×2 (09:52→17:40)
[2023-12-17] MEDS: levETIRAcetam 250 MG TABLET 750 MG PO ×2 (09:52→21:45)
[2023-12-17] MEDS: PANTOPRAZOLE 40 MG TABLET PO ×2 (09:52→21:45)
[2023-12-17] MEDS: AMOXICILLIN/CLAVULANATE K 875-125 MG TAB 1 TABLET PO ×2 (09:52→21:46)
--- NOTE | 2023-12-17 10:56 | PM.IMPN ---
Progress Note: A&P Assessment and Plan (1) Acute respiratory failure with hypoxia: Code(s): J96.01 - Acute respiratory failure with hypoxia Status: Acute Assessment and Plan: Patient recently hospitalized earlier this month and more recently diagnosed with COVID on 12/04. CTA chest showing no PE but showing diffuse lung disease. COVID positive here. Started on Decadron. No Remdesivir. Immunosuppressed on azathioprine. ABG 12/15 - 7.51//110 on 60L and 83% FiO2 Able to wean O2 some Contineu steroids. Repeat CXR. (2) Sepsis: Code(s): A41.9 - Sepsis, unspecified organism Status: Acute Assessment and Plan: Present on admission with low grade fever, acute resp failure, leukocytosis Related to PNA BCx NGTD Broad spectrum abx started but now weaned to Augmentin Add atypical coverage? (3) COVID: Code(s): U07.1 - COVID-19 Status: Acute Assessment and Plan: As above (4) Pneumonia: Code(s): J18.9 - Pneumonia, unspecified organism Status: Acute Assessment and Plan: As above (5) CKD (chronic kidney disease): Qualifiers: Chronic kidney disease stage: unspecified stage Qualified Code(s): N18.9 - Chronic kidney disease, unspecified Code(s): N18.9 - Chronic kidney disease, unspecified Status: Suspected Assessment and Plan: Patient with CKD listed. Had YVON (2.35) in April with Cr at discharge at 1.72. Cr here ranging from 1.1-1.3 and stable Follow (6) Supratherapeutic INR: Code(s): R79.1 - Abnormal coagulation profile Status: Acute Assessment and Plan: INR>20 on admission. Patient was started on oral vitamin K and received 3 units of fresh frozen plasma. He remains asymptomatic without any bleeding. [place] related to recent COVID infection and pneumonia. INR has improved to 3.6 Oncology consulted Resume the warfarin at home dose without any bolus once INR is less than 2.5 per oncology. (7) Mitral valve replaced: Code(s): Z95.2 - Presence of prosthetic heart valve Status: Acute Assessment and Plan: Echo 2023 showing mechancial MV with no stenosis or regurgiation. (8) Immunosuppression: Code(s): D84.9 - Immunodeficiency, unspecified Status: Acute Assessment and Plan: Patient on azathioprine for unclear reasons. Patietn unable to provide hx so will speak with family. (9) HTN (hypertension): Qualifiers: Hypertension type: primary hypertension Qualified Code(s): I10 - Essential (primary) hypertension Code(s): I10 - Essential (primary) hypertension Status: Chronic Assessment and Plan: Patient's blood pressure was reviewed on 12/16 Blood pressure remains well controlled. Will continue to monitor Plan Seizures - stable. Continue Keppra. DVT Proph - INR therapeutic Code status - full Subjective Date/time seen: 12/17/23 10:56 Interval history: 68yo male with HTN, aortic valve replacement on warfarin, vascular dementia, hyperlipidemia, CVA, and seizure disorder here with shortness of breath. He comes in from home. Recently diagnosed with COVID on 12/05/2023 and hospitalized for COVID in [place] for 14 days due to weakness, does not believe his oxygen was low, and discharged approximately 6 days ago. Assuming care. Chart reviewed. Patient is alert but confused and unable to provide history. Review of Systems Review of Systems: ROS unobtainable: Yes unobtainable due to mental status Exam Narrative: AF 97.1 111/63 65 22 97% HFNC Gen - NARD Chest - CTA bilaterally, nml RR CV - RRR S1/S2. Tele showing 3b run NSVT and one episode of dropped QRS probably 2nd degree AVB Type I Abd - Soft, NT/ND, Positive BS Ext - No pedal edema Neuro - Alert and oriented to name and at the hospital but not name of hospital, month, year or fawn. Psych - Nml mood and affect Skin - Warm and
[2023-12-17] MEDS: DOXYCYCLINE HYCLATE 100 MG TABLET PO (12:08)
--- NOTE | 2023-12-17 15:32 | PCPTNOTE ---
On 12/17/23, the student, [Aparna Maria], provided care and completed [facility] documentation on this patient. I have reviewed the student's documentation and agree with the findings.
[2023-12-17 17:13] LABS: Pneumococcal Antigen Urine NOT DETECTED
[2023-12-17] MEDS: dexAMETHasone SOD PHOS INJ 10 MG/ML 1 ML VIAL 6 MG IV PUSH (21:46)
[2023-12-18] VITALS (21 sets, daily range): BP systolic 106–114; BP diastolic 58–68; PULSE 64–91; RESP 20–28; TEMP 36.1–36.9; O2SAT 92–98
[2023-12-18] MEDS: DOXYCYCLINE HYCLATE 100 MG TABLET PO ×3 (00:11→22:46)
[2023-12-18 01:35] LABS: Legionella pneumophila Ag Ur NOT DETECTED
[2023-12-18 04:57] LABS: Hematocrit 32.7 % (42.0-52.0); Hemoglobin 10.7 g/dL (14.0-18.0); Mean Corpuscular HGB Conc 32.7 g/dl (32-36); Mean Corpuscular Hemoglobin 32.9 pg (26-34); Mean Corpuscular Volume 100.6 fl (80-100); Mean Platelet Volume 11.1 fl (7.4-10.4); Platelet Count Result 279 k/mm3 (150-375); Red Blood Count 3.25 M/mm3 (4.6-6.20); Red Cell Distribution Width 14.2 % (11.5-14.5); White Blood Count 5.6 K/mm3 (4.5-10.0)
[2023-12-18 05:06] LABS: INR 3.1; Prothrombin Time 32.3 Seconds (11.1-14.7)
[2023-12-18 05:15] LABS: Alanine Aminotransferase 73 U/L (6-50); Albumin Level 2.6 g/dL (3.5-5.1); Alkaline Phosphatase 89 U/L (38-126); Anion Gap 7 mmol/L (4-12); Aspartate Amino Transferase 63 U/L (17-59); Bilirubin,Total 0.8 mg/dL (0.2-1.3); Blood Urea Nitrogen 41 mg/dL (9-20); Calcium 8.1 mg/dL (8.4-10.2); Carbon Dioxide 23 mmol/L (22-30); Chloride 105 mmol/L (98-107); Estimated CRCL calculation 46 ml/min; Estimated Glomerular Filt Rate 55; Glucose 172 mg/dL (65-110); Potassium 4.4 mmol/L (3.4-5.0); Sodium 135 mmol/L (137-145)
[2023-12-18] MEDS: levETIRAcetam 250 MG TABLET 750 MG PO ×2 (10:00→20:51)
[2023-12-18] MEDS: FERROUS GLUCONATE 324 MG TABLET PO ×2 (10:00→16:59)
[2023-12-18] MEDS: ATORVASTATIN 20 MG TABLET PO (10:00)
[2023-12-18] MEDS: AMOXICILLIN/CLAVULANATE K 875-125 MG TAB 1 TABLET PO ×2 (10:00→20:51)
[2023-12-18] MEDS: PANTOPRAZOLE 40 MG TABLET PO ×2 (10:00→20:51)
--- NOTE | 2023-12-18 10:29 | PM.IMPN ---
Progress Note: A&P Assessment and Plan (1) Acute respiratory failure with hypoxia: Code(s): J96.01 - Acute respiratory failure with hypoxia Status: Acute Assessment and Plan: Patient recently hospitalized earlier this month and was recently diagnosed with COVID on 12/04. presents here for SOB. CTA chest showing no PE but showing diffuse lung disease. COVID positive here. Started on Decadron. No Remdesivir. Immunosuppressed on azathioprine (patient unsure why). ABG 12/15 - 7. on 60L and 83% FiO2 Able to wean O2 some Repeat CXR showing improved diffuse lung disease Continue steroids. Wean O2 as toelrated. Add CPT (2) Sepsis: Code(s): A41.9 - Sepsis, unspecified organism Status: Acute Assessment and Plan: Present on admission with low grade fever, acute resp failure, leukocytosis Related to PNA and COVID BCx NGTD Broad spectrum abx started but now weaned to Augmentin Added atypical coverage with Doxycycline (3) COVID: Code(s): U07.1 - COVID-19 Status: Acute Assessment and Plan: As above Holding Imuran until he has improvement in his respiratory infection. (4) Pneumonia: Code(s): J18.9 - Pneumonia, unspecified organism Status: Acute Assessment and Plan: As above (5) CKD (chronic kidney disease): Qualifiers: Chronic kidney disease stage: unspecified stage Qualified Code(s): N18.9 - Chronic kidney disease, unspecified Code(s): N18.9 - Chronic kidney disease, unspecified Status: Suspected Assessment and Plan: Patient with CKD listed. Had YVON (2.35) in April with Cr at discharge at 1.72. Cr here ranging from 1.1-1.3 and stable Follow (6) Supratherapeutic INR: Code(s): R79.1 - Abnormal coagulation profile Status: Acute Assessment and Plan: INR>20 on admission. Patient was started on oral vitamin K and received 3 units of fresh frozen plasma. He remained asymptomatic without evidence of acute blood loss. [place] related to recent COVID infection and pneumonia. INR has improved to 3.1 Oncology consulted Resume the warfarin at home dose without any bolus once INR is less than 2.5 per oncology. (7) Mitral valve replaced: Code(s): Z95.2 - Presence of prosthetic heart valve Status: Acute Assessment and Plan: Echo 2023 showing mechancial MV with no stenosis or regurgiation. (8) Immunosuppression: Code(s): D84.9 - Immunodeficiency, unspecified Status: Acute Assessment and Plan: Patient on azathioprine for unclear reasons. Patient unable to provide hx so spoke with friend. 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 He was getting infusions (Rituxan) but more recently changed to Imuran in April. Discovered when found to have YVON many years ago. Holding Imuran for now (9) HTN (hypertension): Qualifiers: Hypertension type: primary hypertension Qualified Code(s): I10 - Essential (primary) hypertension Code(s): I10 - Essential (primary) hypertension Status: Chronic Assessment and Plan: Patient's blood pressure was reviewed on 12/17 Blood pressure remains well controlled. Will continue to monitor Plan Seizures - stable. Continue Keppra. DVT Proph - INR therapeutic Code status - full Subjective Date/time seen: 12/18/23 10:29 Interval history: 68yo male with HTN, aortic valve replacement on warfarin, vascular dementia, hyperlipidemia, CVA, and seizure disorder here with shortness of breath. He comes in from home. Recently diagnosed with COVID on 12/05/2023 and hospitalized for COVID in [place] for 14 days due to weakness, does not believe his oxygen was low, and discharged approximately 6 days ago. He feels well. Denies SOB, cough, chest pain. Was up to the chair yesterday. Exam Narrative: AF 98.2 112/60 67 24 97% HFNC Gen - NARD Chest - CTA bilateral
[2023-12-18 12:28] LABS: Vitamin B12 > 1000.0 pg/mL (239-931)
[2023-12-18 18:33] LABS: Mycoplasma IgM Antibody Titer 108 U/mL
[2023-12-18] MEDS: dexAMETHasone SOD PHOS INJ 10 MG/ML 1 ML VIAL 6 MG IV PUSH (22:45)
[2023-12-19] VITALS (19 sets, daily range): BP systolic 111–144; BP diastolic 56–69; PULSE 60–77; RESP 20–24; TEMP 36.1–37.2; O2SAT 91–100
[2023-12-19 04:36] LABS: Hematocrit 34.9 % (42.0-52.0); Hemoglobin 11.4 g/dL (14.0-18.0); Mean Corpuscular HGB Conc 32.7 g/dl (32-36); Mean Corpuscular Hemoglobin 32.9 pg (26-34); Mean Corpuscular Volume 100.6 fl (80-100); Mean Platelet Volume 10.8 fl (7.4-10.4); Platelet Count Result 272 k/mm3 (150-375); Red Blood Count 3.47 M/mm3 (4.6-6.20); Red Cell Distribution Width 14.6 % (11.5-14.5); White Blood Count 6.8 K/mm3 (4.5-10.0)
[2023-12-19 04:44] LABS: INR 2.6; Prothrombin Time 28.1 Seconds (11.1-14.7)
[2023-12-19 04:46] LABS: Anion Gap 8 mmol/L (4-12); Blood Urea Nitrogen 47 mg/dL (9-20); Calcium 8.3 mg/dL (8.4-10.2); Carbon Dioxide 21 mmol/L (22-30); Chloride 106 mmol/L (98-107); Estimated CRCL calculation 40 ml/min; Estimated Glomerular Filt Rate 46; Glucose 157 mg/dL (65-110); Magnesium 2.4 mg/dL (1.6-2.3); Potassium 4.4 mmol/L (3.4-5.0); Sodium 135 mmol/L (137-145)
[2023-12-19] MEDS: PANTOPRAZOLE 40 MG TABLET PO ×2 (08:53→20:49)
[2023-12-19] MEDS: levETIRAcetam 250 MG TABLET 750 MG PO ×2 (08:53→20:49)
[2023-12-19] MEDS: ATORVASTATIN 20 MG TABLET PO (08:54)
[2023-12-19] MEDS: AMOXICILLIN/CLAVULANATE K 875-125 MG TAB 1 TABLET PO ×2 (08:54→20:49)
[2023-12-19] MEDS: FERROUS GLUCONATE 324 MG TABLET PO ×2 (08:54→16:16)
--- NOTE | 2023-12-19 09:21 | PCNWS ---
Weekly nutritional screen. Patient is tolerating current diet Regular with adequate intake, mostly 50-75%. Ensure Compact BID for additional 220 kcal and 9 g protein ordered by provider. No weight loss reported. No nutritional needs at this time.
[2023-12-19] MEDS: DOXYCYCLINE HYCLATE 100 MG TABLET PO ×2 (10:36→23:41)
--- NOTE | 2023-12-19 14:28 | PM.IMPN ---
Progress Note: A&P Assessment and Plan (1) Acute respiratory failure with hypoxia: Code(s): J96.01 - Acute respiratory failure with hypoxia Status: Acute Assessment and Plan: Patient recently hospitalized earlier this month and was recently diagnosed with COVID on 12/04. presents here for SOB. CTA chest showing no PE but showing diffuse lung disease. COVID positive here. Started on Decadron. No Remdesivir. Immunosuppressed on azathioprine for vasculitis. ABG 12/15 - 7.51/ on 60L and 83% FiO2 Repeat CXR showing improved diffuse lung disease Able to wean O2 Continue steroids. Wean O2 as tolerated. Continue CPT (2) Sepsis: Code(s): A41.9 - Sepsis, unspecified organism Status: Acute Assessment and Plan: Present on admission with low grade fever, acute resp failure, leukocytosis Related to PNA and COVID BCx NGTD Broad spectrum abx started but now weaned to Augmentin Atypical coverage added with Doxycycline (3) COVID: Code(s): U07.1 - COVID-19 Status: Acute Assessment and Plan: As above Holding Imuran until he has improvement in his respiratory infection. (4) Pneumonia: Code(s): J18.9 - Pneumonia, unspecified organism Status: Acute Assessment and Plan: As above (5) CKD (chronic kidney disease): Qualifiers: Chronic kidney disease stage: unspecified stage Qualified Code(s): N18.9 - Chronic kidney disease, unspecified Code(s): N18.9 - Chronic kidney disease, unspecified Status: Suspected Assessment and Plan: Patient with CKD listed. Had YVON (2.35) in April with Cr at discharge at 1.72. Cr here ranging from 1.1-1.5 and stable Follow (6) Supratherapeutic INR: Code(s): R79.1 - Abnormal coagulation profile Status: Acute Assessment and Plan: INR>20 on admission. Patient was started on oral vitamin K and received 3 units of fresh frozen plasma. He remained asymptomatic without evidence of acute blood loss. [place] related to recent COVID infection and pneumonia. INR has improved to 2.6 Oncology consulted Resume the warfarin at home dose without any bolus once INR is less than 2.5 per oncology. Since INR is close and he will be monitored, will resume Coumadin tonight. (7) Mitral valve replaced: Code(s): Z95.2 - Presence of prosthetic heart valve Status: Acute Assessment and Plan: Echo 2023 showing mechancial MV with no stenosis or regurgiation. (8) Immunosuppression: Code(s): D84.9 - Immunodeficiency, unspecified Status: Acute Assessment and Plan: Patient on azathioprine. 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 He was getting infusions (Rituxan) but more recently changed to Imuran in April. Discovered when found to have YVON many years ago. Holding Imuran for now (9) HTN (hypertension): Qualifiers: Hypertension type: primary hypertension Qualified Code(s): I10 - Essential (primary) hypertension Code(s): I10 - Essential (primary) hypertension Status: Chronic Assessment and Plan: Patient's blood pressure was reviewed on 12/18 Blood pressure remains well controlled. Will continue to monitor Plan Seizures - stable. Continue Keppra. DVT Proph - INR therapeutic Code status - full Subjective Date/time seen: 12/19/23 14:28 Interval history: 68yo male with HTN, aortic valve replacement on warfarin, vascular dementia, hyperlipidemia, CVA, and seizure disorder here with shortness of breath. He comes in from home. Recently diagnosed with COVID on 12/05/2023 and hospitalized for COVID in [place] for 14 days due to weakness, does not believe his oxygen was low, and discharged approximately 6 days ago. Alert but confused. Down to 30L at 35%, No issues overnight per staff Exam Narrative: AF 97.0 111/56 74 22 97% 4L Gen - NARD Chest - CTA bilaterally, nml RR
[2023-12-19] MEDS: WARFARIN (*PBKC) 0.5 MG TABLET PO (16:15)
[2023-12-19] MEDS: WARFARIN (*PBKC) 3 MG TABLET PO (16:16)
[2023-12-19] MEDS: dexAMETHasone SOD PHOS INJ 10 MG/ML 1 ML VIAL 6 MG IV PUSH (20:49)
[2023-12-20] VITALS (19 sets, daily range): BP systolic 97–121; BP diastolic 48–63; PULSE 46–84; RESP 16–28; TEMP 36.3–36.8; O2SAT 91–98
--- NOTE | 2023-12-20 | ECHO_ITS ---
Patient Info Name: Glenn Clayton Age: 68 years : 1955 Gender: Male Ht: 68 in Wt: 183 lbs BSA: 2.01 m2 HR: 57 bpm BP: 110 / 63 mmHg Heart Rhythm: Sinus Rhythm Technical Quality: Good Exam Date: 12/20/2023 10:04 AM Exam Location: Echo Lab Patient Status: Inpatient Admit Date: 12/12/2023 Staff Ordering Physician: Torito Harvey MD Direct Support Professional: Mahendra Kitchen RDCS Attending Provider: Dhruv Garcia MD Exam Type: CA echo doppler color flow Study Info Indications - hypoxia, mitral valve replacement Complete two-dimensional, color flow and Doppler transthoracic echocardiogram is performed. Summary 1. Complete two-dimensional, color flow and Doppler transthoracic echocardiogram is performed. 2. Left ventricular systolic function is mildly reduced, estimated at 45-50%. 3. Right ventricular systolic function is normal. 4. The mechanical mitral valve is structurally and functionally normal by two-dimensional, color flow Doppler and Doppler interrogation. Left Ventricle Left ventricular chamber dimension is normal. Left ventricular systolic function is mildly reduced, estimated at 45-50%. There is no increased left ventricular wall thickness. Right Ventricle Right ventricular chamber dimension is normal. Right ventricular systolic function is normal. Left Atria Left atrial chamber dimension is mildly enlarged. Right Atria Right atrial chamber dimension is normal. Aortic Valve The aortic valve is trileaflet. There is no aortic valve sclerosis. There is no aortic valve stenosis. There is no aortic valve regurgitation. Pulmonic Valve The pulmonic valve is not well visualized. Mitral Valve There is no mitral valve stenosis. There is no mitral valve regurgitation. The mechanical mitral valve is structurally and functionally normal by two-dimensional, color flow Doppler and Doppler interrogation. Tricuspid Valve The tricuspid valve leaflets are normal. There is no significant tricuspid valve stenosis. There is no tricuspid valve regurgitation. No pulmonary hypertension, estimated pulmonary arterial systolic pressure is 20 mmHg. Pericardium/Pleural The pericardium appears normal. There is no pericardial effusion. Inferior Vena Cava Normal inferior vena cava with >50% collapse upon inspiration consistent with normal right atrial pressure, 10 mmHg. Aorta The aortic root size at the sinus of Valsalva is normal. The prox ascending aorta size is normal. Left Ventricular Outflow Tract Name Value Normal LVOT 2D LVOT Diameter 2.1 cm LVOT Doppler LVOT Peak Gradient 1 mmHg LVOT Mean Gradient 1 mmHg LVOT VTI 14 cm LVOT VTI/AV VTI Ratio 0.7 LVOT Stroke Volume 48 ml LVOT CO 3.6 l/min LVOT CI 1.8 l/min/m2 Pulmonic Valve Name Value Normal PV Doppler
[2023-12-20 05:32] LABS: Hematocrit 36.1 % (42.0-52.0); Mean Corpuscular HGB Conc 30.5 g/dl (32-36); Mean Corpuscular Hemoglobin 33.1 pg (26-34); Mean Corpuscular Volume 108.7 fl (80-100); Mean Platelet Volume 11.3 fl (7.4-10.4); Platelet Count Result 198 k/mm3 (150-375); Red Blood Count 3.32 M/mm3 (4.6-6.20); Red Cell Distribution Width 14.9 % (11.5-14.5); White Blood Count 5.5 K/mm3 (4.5-10.0)
[2023-12-20 05:42] LABS: INR 2.4; Prothrombin Time 26.5 Seconds (11.1-14.7)
[2023-12-20 05:52] LABS: Alanine Aminotransferase 90 U/L (6-50); Albumin Level 2.7 g/dL (3.5-5.1); Alkaline Phosphatase 81 U/L (38-126); Anion Gap 8 mmol/L (4-12); Aspartate Amino Transferase 84 U/L (17-59); Bilirubin,Total 0.8 mg/dL (0.2-1.3); Blood Urea Nitrogen 42 mg/dL (9-20); Calcium 8.1 mg/dL (8.4-10.2); Carbon Dioxide 18 mmol/L (22-30); Chloride 108 mmol/L (98-107); Estimated CRCL calculation 49 ml/min; Estimated Glomerular Filt Rate 60; Glucose 140 mg/dL (65-110); Magnesium 2.6 mg/dL (1.6-2.3); Potassium 4.3 mmol/L (3.4-5.0); Sodium 134 mmol/L (137-145)
[2023-12-20 08:29] LABS: NT Pro B Type Natriuretic Pept 344 pg/mL (19.9-100)
[2023-12-20] MEDS: PANTOPRAZOLE 40 MG TABLET PO ×2 (08:42→21:21)
[2023-12-20] MEDS: ASPIRIN 81 MG ENTERIC TABLET PO (08:42)
[2023-12-20] MEDS: levETIRAcetam 250 MG TABLET 750 MG PO ×2 (08:42→21:21)
[2023-12-20] MEDS: ATORVASTATIN 20 MG TABLET PO (08:42)
[2023-12-20] MEDS: FERROUS GLUCONATE 324 MG TABLET PO ×2 (08:42→16:54)
[2023-12-20] MEDS: DOXYCYCLINE HYCLATE 100 MG TABLET PO ×2 (10:50→23:20)
--- NOTE | 2023-12-20 11:43 | PM.IMPN ---
Progress Note: A&P Assessment and Plan (1) Acute respiratory failure with hypoxia: Code(s): J96.01 - Acute respiratory failure with hypoxia Status: Acute Assessment and Plan: Patient recently hospitalized earlier this month and was recently diagnosed with COVID on 12/04. presents here for SOB. CTA chest showing no PE but showing diffuse lung disease. COVID positive here. Started on Decadron. No Remdesivir. Immunosuppressed on azathioprine for vasculitis. ABG 12/15 - 7.51/ on 60L and 83% FiO2 Repeat CXR showing improved diffuse lung disease Able to wean O2 to 1L NC now. Continue steroids. Wean O2 as tolerated. Continue CPT (2) 2nd degree AV block: Code(s): I44.1 - Atrioventricular block, second degree Status: Acute Assessment and Plan: Patient was having rare 2nd degree AVB Type I but now much more frequent overnight. Some could also be Type II given minimal LA interval change. Consider untreated SOLE. Consider underlying cardiac disease. Not taking meds that can impact AVN He is asymptomatic but is confused so unreliable. Will check EKG, echo and Trop. Check ApneaLink Cards consult (3) Sepsis: Code(s): A41.9 - Sepsis, unspecified organism Status: Acute Assessment and Plan: Present on admission with low grade fever, acute resp failure, leukocytosis Related to PNA and COVID BCx NGTD Broad spectrum abx started but now weaned to Augmentin' Doxycycline added for atypical coverage Completed Augmentin; continue Doxycycline (4) COVID: Code(s): U07.1 - COVID-19 Status: Acute Assessment and Plan: As above Holding Imuran until he has recovered sufficiently from COVID (5) Pneumonia: Code(s): J18.9 - Pneumonia, unspecified organism Status: Acute Assessment and Plan: As above (6) CKD (chronic kidney disease): Qualifiers: Chronic kidney disease stage: unspecified stage Qualified Code(s): N18.9 - Chronic kidney disease, unspecified Code(s): N18.9 - Chronic kidney disease, unspecified Status: Suspected Assessment and Plan: Patient with CKD listed. Had YVON (2.35) in April with Cr at discharge at 1.72. Cr here ranging from 1.1-1.5 and stable Has hx of renal vasculitis. Serum bicarb lower today for unclear reasons. Normal gap. Related to CKD? Follow (7) Supratherapeutic INR: Code(s): R79.1 - Abnormal coagulation profile Status: Acute Assessment and Plan: INR>20 on admission. Patient was given oral vitamin K and received 3 units of fresh frozen plasma. He remained asymptomatic without evidence of acute blood loss. [place] related to recent COVID infection and pneumonia. Oncology consulted who recommended resuming warfarin at home dose once INR is less than 2.5 INR improved to 2.6 and Coumadin resumed. Follow with daily INR. 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 Echo repeated. (9) Immunosuppression: Code(s): D84.9 - Immunodeficiency, unspecified Status: Acute Assessment and Plan: Patient on azathioprine. 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 He was getting infusions (Rituxan) but more recently changed to Imuran in April. Discovered when found to have YVON many years ago. 1 Holding Imuran for now (10) HTN (hypertension): Qualifiers: Hypertension type: primary hypertension Qualified Code(s): I10 - Essential (primary) hypertension Code(s): I10 - Essential (primary) hypertension Status: Chronic Assessment and Plan: Patient's blood pressure was reviewed on 12/19 Blood pressure soft at times. Not on antiHTN meds at home. Will continue to monitor Plan Seizures - stab
--- NOTE | 2023-12-20 11:47 | ECG_ITS ---
Test Date: 2023-12-20 12:02:35 Measurements Intervals [place] Rate: 80 P: 25 CA: 243 QRS: -2 QRSD: 92 T: 76 QT: 370 QTc: 428 Interpretive Statements SINUS RHYTHM WITH FIRST DEGREE AV BLOCK WITH OCCASIONAL VENTRICULAR PREMATURE COMPLEXES Compared to ECG 12/12/2023 10:40:50 Ventricular premature complex(es) now present First degree AV block now present Electronically Signed On 12-20-2023 14:48:52 CDT by Nikunj Tavarez M.D.
[2023-12-20 12:56] LABS: Troponin I < 0.012 ng/mL (0.000-0.034)
[2023-12-20 13:22] LABS: Hepatitis B Surface Antigen Negative (Negative)
[2023-12-20 13:27] LABS: HAV RESULT Negative (Negative); Hepatitis B Core IgM Result Negative (Negative)
[2023-12-20 13:39] LABS: Hepatitis C Virus Antibody Negative (Negative)
[2023-12-20 15:50] LABS: Troponin I < 0.012 ng/mL (0.000-0.034)
[2023-12-20 19:53] LABS: Troponin I < 0.012 ng/mL (0.000-0.034)
[2023-12-20] MEDS: dexAMETHasone SOD PHOS INJ 10 MG/ML 1 ML VIAL 6 MG IV PUSH (21:21)
[2023-12-21] VITALS (17 sets, daily range): BP systolic 98–151; BP diastolic 44–56; PULSE 49–79; RESP 20–24; TEMP 36.3–36.6; O2SAT 90–100
[2023-12-21 05:33] LABS: Hematocrit 35.4 % (42.0-52.0); Hemoglobin 11.5 g/dL (14.0-18.0); Mean Corpuscular HGB Conc 32.5 g/dl (32-36); Mean Corpuscular Hemoglobin 32.9 pg (26-34); Mean Corpuscular Volume 101.1 fl (80-100); Mean Platelet Volume 10.7 fl (7.4-10.4); Platelet Count Result 241 k/mm3 (150-375); White Blood Count 5.8 K/mm3 (4.5-10.0)
[2023-12-21 05:46] LABS: INR 2.2; Prothrombin Time 25.2 Seconds (11.1-14.7)
[2023-12-21 05:47] LABS: Alanine Aminotransferase 88 U/L (6-50); Albumin Level 2.6 g/dL (3.5-5.1); Alkaline Phosphatase 77 U/L (38-126); Anion Gap 6 mmol/L (4-12); Aspartate Amino Transferase 69 U/L (17-59); Bilirubin,Total 0.6 mg/dL (0.2-1.3); Blood Urea Nitrogen 41 mg/dL (9-20); Calcium 8.2 mg/dL (8.4-10.2); Carbon Dioxide 24 mmol/L (22-30); Chloride 105 mmol/L (98-107); Estimated CRCL calculation 49 ml/min; Estimated Glomerular Filt Rate 60; Glucose 140 mg/dL (65-110); Magnesium 2.2 mg/dL (1.6-2.3); Potassium 4.6 mmol/L (3.4-5.0); Sodium 135 mmol/L (137-145)
[2023-12-21] MEDS: levETIRAcetam 250 MG TABLET 750 MG PO ×2 (08:07→20:53)
[2023-12-21] MEDS: PANTOPRAZOLE 40 MG TABLET PO ×2 (08:07→20:53)
[2023-12-21] MEDS: ASPIRIN 81 MG ENTERIC TABLET PO (08:08)
[2023-12-21] MEDS: FERROUS GLUCONATE 324 MG TABLET PO ×2 (08:08→17:14)
--- NOTE | 2023-12-21 09:19 | PM.IMPN ---
Progress Note: A&P Assessment and Plan (1) Acute respiratory failure with hypoxia: Code(s): J96.01 - Acute respiratory failure with hypoxia Status: Acute Assessment and Plan: Patient was recently hospitalized earlier this month in [place] and was recently diagnosed with COVID on 12/04. He presented here for SOB. CTA chest showing no PE but showing diffuse lung disease. He was COVID positive here. He was started on Decadron. No Remdesivir. 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 ABG 12/15 - 7. on 60L and 83% FiO2. Repeat CXR showing improved diffuse lung disease. We were able to wean O2 down. Complete steroids. Wean O2 as tolerated. Continue CPT (2) 2nd degree AV block: Code(s): I44.1 - Atrioventricular block, second degree Status: Acute Assessment and Plan: Patient was having rare 2nd degree AVB Type I but now much more frequent Some could also be Type II given minimal TN interval change. Consider untreated SOLE but ANI 4.6, RI 7 and no desaturations (<88%) on 2L. Consider underlying cardiac disease. Not taking meds that can impact AVN. Echo showing EF 45-50% and mechanical MV that is well seated. EF has taken a hit since it was 55-60% in april EKG showing NSR with 1st degree AVB and PVCs. Troponin negative x3. He is asymptomatic but is confused so unreliable. Cards consult. (3) Sepsis: Code(s): A41.9 - Sepsis, unspecified organism Status: Acute Assessment and Plan: Sepsis was present on admission with low grade fever, acute resp failure, leukocytosis felt related to PNA and COVID. BCx negative. Broad spectrum abx started but now weaned to Augmentin; Doxycycline was added for atypical coverage. Completed Augmentin; continue Doxycycline (4) COVID: Code(s): U07.1 - COVID-19 Status: Acute Assessment and Plan: As above Holding Imuran until he has recovered sufficiently from COVID (5) Pneumonia: Code(s): J18.9 - Pneumonia, unspecified organism Status: Acute Assessment and Plan: As above (6) CKD (chronic kidney disease): Qualifiers: Chronic kidney disease stage: unspecified stage Qualified Code(s): N18.9 - Chronic kidney disease, unspecified Code(s): N18.9 - Chronic kidney disease, unspecified Status: Suspected Assessment and Plan: Patient with CKD listed. Had YVON (2.35) in April with Cr at discharge at 1.72. Cr here ranging from 1.1-1.5 and stable Has hx of renal vasculitis. Serum bicarb better today for unclear reasons. Normal gap. Follow (7) Supratherapeutic INR: Code(s): R79.1 - Abnormal coagulation profile Status: Acute Assessment and Plan: INR>20 on admission. Patient was given oral vitamin K and received 3 units of fresh frozen plasma. He remained asymptomatic without evidence of acute blood loss. [place] related to recent COVID infection and pneumonia. Oncology consulted who recommended resuming warfarin at home dose once INR is less than 2.5 INR improved to 2.6 and Coumadin resumed. INR 2.2 today. Extra Coumadin today to keep INR. Follow with daily INR. 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 Repeat Echo as mentioned above. Increase Coumadin to keep INR 2.5-3.5 (9) Immunosuppression: Code(s): D84.9 - Immunodeficiency, unspecified Status: Acute Assessment and Plan: Patient on azathioprine. 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 He was getting infusions (Rituxan) but more recently changed to Imuran in April. Discovered when found to have YVON many years ago. Holding Imuran for now (10) HTN (hypertension): Qualifiers: Hypertension type: primary hyperte
[2023-12-21] MEDS: WARFARIN (*PBKC) 2 MG TABLET PO (10:21)
[2023-12-21] MEDS: DOXYCYCLINE HYCLATE 100 MG TABLET PO ×2 (10:21→23:22)
--- NOTE | 2023-12-21 13:58 | PM.CNCAR ---
Assessment and Plan Assessment and plan (1) 2nd degree AV block: Code(s): I44.1 - Atrioventricular block, second degree Status: Acute Plan Asymptomatic sinus bradycardia with first-degree heart block and intermittent Mobitz type 1 heart block Mechanical mitral valve replacement Mild left ventricular dysfunction ejection fraction 45-50% compensated Plan Warfarin with target INR 2.5-3.5 Continue aspirin 81 mg daily Avoid AV duncan blocking agents If the patient developing dizziness or syncope may consider further workup including event monitor on discharge History of Present Illness History of Present Illness Consult date/time: 12/21/23 13:58 Reason For Visit: Sepsis Narrative: 68-year-old male patient presents to the hospital was shortness of breath associated with generalized weakness. With been also complaining of cough is nonproductive. He was recently diagnosed with infection after recent travel. Patient has a history of mechanical mitral valve replacement 2 years ago. During his admitted he was noted to have bradycardia with heart rate in the 40s and 50s. He was developing first-degree heart block and Mobitz type 1 heart block on telemetry. Patient was no history of syncope or dizziness. Review of Systems Review of Systems: All systems reviewed & are unremarkable except as noted in HPI and below PMFSH Past Medical History Medical History (Updated 12/20/23 @ 11:47 by Torito Harvey MD) CKD (chronic kidney disease) CVA (cerebral vascular accident) HTN (hypertension) Seizures Vascular dementia Surgical History Surgical History (Updated 12/17/23 @ 11:23 by Torito Harvey MD) Mitral valve replaced Echo 2023 showing mechanical MV without stenosis or regurg Family History Family History Mother Patient's mother is , Onset Age: 83 Sibling Patient's sister is in good health Father Family history of dementia Family history of coronary artery disease, Onset Age: 84 Family history of type 2 diabetes mellitus Diabetes mellitus Hypertension Cerebrovascular accident Family history of arthritis Social History Social History Smoking status: Never smoker Alcohol intake: unknown Substance use: never Do You Feel Safe in your Home?: Yes Lack of Transportation: No Lack of Food: Never True Current Housing: I Have Housing Concerned About Future Housing: No Difficulty Paying Gas/Electric Bills: No Difficulty Paying for Meds: No Currently Unemployed: No Education: Master's Degree or Higher Difficulty w/ Childcare or Family Care: No Spiritual care concerns: No Meds Home Medications and Allergies Home Medications Medication Instructions Recorded Confirmed Type aspirin 81 mg tablet,delayed 81 mg PO DAILY 08/01/20 12/12/23 History release atorvastatin 20 mg tablet 20 mg PO DAILY 08/01/20 12/12/23 History ferrous gluconate 324 mg (38 mg 324 mg PO BID 08/01/20 12/12/23 History iron) tablet levetiracetam 750 mg tablet 750 mg PO BID 08/01/20 12/12/23 History omeprazole 40 mg capsule,delayed 40 mg PO DAILY 08/01/20 12/12/23 History release azathioprine 50 mg tablet 150 mg PO DAILY 05/03/23 12/19/23 History warfarin 1 mg tablet 7 mg PO QPM 05/03/23 12/21/23 History Allergies Allergy/AdvReac Type Severity Reaction Status Date / Time No Known Allergies Allergy Verified 05/03/23 20:54 Vital Signs Vital Signs - 24 hr 12/20/23 14:00 12/20/23 15:27 12/20/23 16:00 Temperature 36.3 C L Pulse Rate 84 73 Respiratory Rate 24 H Blood Pressure 107/56 L Pulse Oximetry 98 96 Oxygen Delivery Nasal Cannula Oxygen Flow Rate 2 12/20/23 16:00 12/20/23 18:00 12/20/23 20:00 Temperature 36.4 C Pulse Rate 70 75 68 Respiratory Rate 22 H Blood Pressure 111/50 L Pulse Oximetry 95
[2023-12-21] MEDS: WARFARIN (*PBKC) 5 MG TABLET PO (17:14)
[2023-12-21] MEDS: dexAMETHasone SOD PHOS INJ 10 MG/ML 1 ML VIAL 6 MG IV PUSH (20:53)
[2023-12-22] VITALS (11 sets, daily range): BP systolic 105–136; BP diastolic 57–70; PULSE 50–80; RESP 16–20; TEMP 36.4–37.1; O2SAT 92–96
[2023-12-22 04:05] LABS: Hematocrit 35.3 % (42.0-52.0); Hemoglobin 11.6 g/dL (14.0-18.0); Mean Corpuscular HGB Conc 32.9 g/dl (32-36); Mean Corpuscular Hemoglobin 33.1 pg (26-34); Mean Corpuscular Volume 100.9 fl (80-100); Mean Platelet Volume 10.7 fl (7.4-10.4); Platelet Count Result 249 k/mm3 (150-375); Red Cell Distribution Width 15.5 % (11.5-14.5); White Blood Count 5.2 K/mm3 (4.5-10.0)
[2023-12-22 04:24] LABS: Anion Gap 5 mmol/L (4-12); Blood Urea Nitrogen 37 mg/dL (9-20); Calcium 8.5 mg/dL (8.4-10.2); Carbon Dioxide 25 mmol/L (22-30); Chloride 106 mmol/L (98-107); Estimated CRCL calculation 43 ml/min; Estimated Glomerular Filt Rate 50; Glucose 155 mg/dL (65-110); Magnesium 2.1 mg/dL (1.6-2.3); Potassium 4.5 mmol/L (3.4-5.0); Sodium 136 mmol/L (137-145)
[2023-12-22 04:31] LABS: INR 2.6; Prothrombin Time 28.3 Seconds (11.1-14.7)
[2023-12-22] MEDS: PANTOPRAZOLE 40 MG TABLET PO ×2 (08:22→20:46)
[2023-12-22] MEDS: ASPIRIN 81 MG ENTERIC TABLET PO (08:22)
[2023-12-22] MEDS: FERROUS GLUCONATE 324 MG TABLET PO ×2 (08:22→16:56)
[2023-12-22] MEDS: levETIRAcetam 250 MG TABLET 750 MG PO ×2 (08:22→20:46)
[2023-12-22] MEDS: DOXYCYCLINE HYCLATE 100 MG TABLET PO ×2 (11:40→20:47)
--- NOTE | 2023-12-22 13:31 | PM.IMPN ---
Progress Note: A&P Assessment and Plan (1) Acute respiratory failure with hypoxia: Code(s): J96.01 - Acute respiratory failure with hypoxia Status: Acute Assessment and Plan: Patient was recently hospitalized earlier this month in [place] and was recently diagnosed with COVID on 12/04. He presented here for SOB. CTA chest showing no PE but showing diffuse lung disease. He was COVID positive here. He was started on Decadron. No Remdesivir. 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 ABG 12/15 - 7./110 on 60L and 83% FiO2. Repeat CXR showing improved diffuse lung disease. We were able to wean to room air He has completed steroids. 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 Consider untreated SOLE but AHI 4.6, RI 7 and no desaturations (<88%) on 2L. Consider underlying cardiac disease. Not taking meds that can impact AV node. Echo showing EF 45-50% and mechanical MV that is well seated. EF has taken a hit since it was 55-60% in april EKG showing NSR with 1st degree AVB and PVCs. Troponin negative x3. He is asymptomatic but is confused so unreliable. Cards consulted and appreciate their input. (3) Sepsis: Code(s): A41.9 - Sepsis, unspecified organism Status: Acute Assessment and Plan: Sepsis was present on admission with low grade fever, acute resp failure, leukocytosis felt related to PNA and COVID. BCx negative. Broad spectrum abx started but now weaned to Augmentin; Doxycycline was added for atypical coverage. Completed Augmentin; continue Doxycycline (4) COVID: Code(s): U07.1 - COVID-19 Status: Acute Assessment and Plan: As above Holding Imuran until he has recovered sufficiently from COVID (5) Pneumonia: Code(s): J18.9 - Pneumonia, unspecified organism Status: Acute Assessment and Plan: As above (6) CKD (chronic kidney disease): Qualifiers: Chronic kidney disease stage: unspecified stage Qualified Code(s): N18.9 - Chronic kidney disease, unspecified Code(s): N18.9 - Chronic kidney disease, unspecified Status: Suspected Assessment and Plan: Patient with CKD listed. Had YVON (2.35) in April with Cr at discharge at 1.72. Cr here ranging from 1.1-1.5 and stable Has hx of renal vasculitis. Serum bicarb normal Follow (7) Supratherapeutic INR: Code(s): R79.1 - Abnormal coagulation profile Status: Acute Assessment and Plan: INR>20 on admission. Patient was given oral vitamin K and received 3 units of fresh frozen plasma. He remained asymptomatic without evidence of acute blood loss. [place] related to recent COVID infection and pneumonia. Oncology consulted who recommended resuming warfarin at home dose once INR is less than 2.5 INR improved to 2.6 and Coumadin resumed. INR 2.6 today. Follow with daily INR. 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 Repeat Echo as mentioned above. Patient actually was on Coumadin 7mg daily prior to admission. The 3.5mg M-W-F was from earlier this year. Pharmacy recall showing he had 6mg daily refilled in October. He had INR>20 on admission so we changed Coumadin to 5mg daily Continue to adjust Coumadin to keep INR 2.5-3.5 (9) Immunosuppression: Code(s): D84.9 - Immunodeficiency, unspecified Status: Acute Assessment and Plan: Patient on azathioprine. 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 He was getting infusions (Rituxan) but more recently changed to Imuran in
[2023-12-22] MEDS: WARFARIN (*PBKC) 5 MG TABLET PO (16:56)
--- NOTE | 2023-12-22 17:27 | PC.NURSE ---
This patient, Glenn Clayton, was transferred to [facility] on 12/22/23 at 1727. Personal belongings sent with patient. Report given to [facility]. Appropriate documentation sent with patient.
--- NOTE | 2023-12-22 17:33 | PC.NURSE ---
This patient, Glenn Clayton, was received from [facility] on 12/22/23 at 1733. Patient/family oriented to unit policies and routines.
[2023-12-23] VITALS (9 sets, daily range): BP systolic 118–132; BP diastolic 58–68; PULSE 69–95; RESP 16–22; TEMP 36.5–37.2; O2SAT 94–97
[2023-12-23 06:11] LABS: Hematocrit 38.5 % (42.0-52.0); Mean Corpuscular HGB Conc 33.8 g/dl (32-36); Mean Corpuscular Hemoglobin 33.8 pg (26-34); Mean Platelet Volume 10.4 fl (7.4-10.4); Platelet Count Result 242 k/mm3 (150-375); Red Blood Count 3.85 M/mm3 (4.6-6.20); Red Cell Distribution Width 15.8 % (11.5-14.5); White Blood Count 5.2 K/mm3 (4.5-10.0)
[2023-12-23 06:21] LABS: Alanine Aminotransferase 109 U/L (6-50); Albumin Level 2.9 g/dL (3.5-5.1); Alkaline Phosphatase 97 U/L (38-126); Anion Gap 7 mmol/L (4-12); Aspartate Amino Transferase 72 U/L (17-59); Bilirubin,Total 0.5 mg/dL (0.2-1.3); Blood Urea Nitrogen 33 mg/dL (9-20); Calcium 8.7 mg/dL (8.4-10.2); Carbon Dioxide 26 mmol/L (22-30); Chloride 106 mmol/L (98-107); Estimated CRCL calculation 43 ml/min; Estimated Glomerular Filt Rate 50; Glucose 81 mg/dL (65-110); Potassium 3.5 mmol/L (3.4-5.0); Sodium 139 mmol/L (137-145)
[2023-12-23 06:24] LABS: INR 3.5; Prothrombin Time 35.3 Seconds (11.1-14.7)
[2023-12-23] MEDS: ASPIRIN 81 MG ENTERIC TABLET PO (08:35)
[2023-12-23] MEDS: levETIRAcetam 250 MG TABLET 750 MG PO ×2 (08:35→20:49)
[2023-12-23] MEDS: FERROUS GLUCONATE 324 MG TABLET PO ×2 (08:35→17:27)
[2023-12-23] MEDS: PANTOPRAZOLE 40 MG TABLET PO ×2 (08:35→20:49)
[2023-12-23] MEDS: DOXYCYCLINE HYCLATE 100 MG TABLET PO ×2 (11:25→23:09)
--- NOTE | 2023-12-23 12:23 | PM.IMPN ---
Progress Note: A&P Assessment and Plan (1) Acute respiratory failure with hypoxia: Code(s): J96.01 - Acute respiratory failure with hypoxia Status: Acute Assessment and Plan: Patient was recently hospitalized earlier this month in [place] and was recently diagnosed with COVID on 12/04. He presented here for SOB. CTA chest showing no PE but showing diffuse lung disease. He was COVID positive here. He was started on Decadron. No Remdesivir. 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 ABG 12/15: 7.51//110 on 60L and 83% FiO2. Repeat CXR showing improved diffuse lung disease. He completed a course of steroids.We were able to wean to room air. 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 Consider untreated SOLE but AHI 4.6, RI 7 and no desaturations (<88%) on 2L. Consider underlying cardiac disease. Not taking meds that can impact AV node. Echo showing EF 45-50% and mechanical MV that is well seated. EF was 55-60% in April EKG showing NSR with 1st degree AVB and PVCs. Troponin negative x3. He is asymptomatic but is confused so unreliable. Cards consulted and appreciate their input. (3) Sepsis: Code(s): A41.9 - Sepsis, unspecified organism Status: Acute Assessment and Plan: Sepsis was present on admission with low grade fever, acute resp failure, leukocytosis felt related to PNA and COVID. BCx negative. Broad spectrum abx started but now weaned to Augmentin; Doxycycline was added for atypical coverage. Completed Augmentin; continue Doxycycline (4) COVID: Code(s): U07.1 - COVID-19 Status: Acute Assessment and Plan: As above Holding Imuran until he has recovered sufficiently from COVID (5) Pneumonia: Code(s): J18.9 - Pneumonia, unspecified organism Status: Acute Assessment and Plan: As above (6) CKD (chronic kidney disease): Qualifiers: Chronic kidney disease stage: unspecified stage Qualified Code(s): N18.9 - Chronic kidney disease, unspecified Code(s): N18.9 - Chronic kidney disease, unspecified Status: Suspected Assessment and Plan: Patient with CKD listed. Had YVON (2.35) in April with Cr at discharge at 1.72. Has hx of renal vasculitis. Cr here ranging from 1.1-1.5 and stable Follow (7) Supratherapeutic INR: Code(s): R79.1 - Abnormal coagulation profile Status: Acute Assessment and Plan: INR>20 on admission. Patient was given oral vitamin K and received 3 units of fresh frozen plasma. He remained asymptomatic without evidence of acute blood loss. [place] related to recent COVID infection and pneumonia. Oncology consulted who recommended resuming warfarin at home dose once INR is less than 2.5 INR improved to 2.6 and Coumadin resumed. INR 3.5 today. Follow with daily INR. 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 Repeat Echo as mentioned above. Patient actually was on Coumadin 7mg daily prior to admission. The 3.5mg M-W-F was from earlier this year. Pharmacy recall showing he had 6mg daily refilled in October. He had INR>20 on admission so we changed Coumadin to 5mg daily INR jumped from 2.6 to 3.5 and probably will go higher. Hold Coumadin for today and decreased to 4m daily. Continue to adjust Coumadin to keep INR 2.5-3.5 (9) Immunosuppression: Code(s): D84.9 - Immunodeficiency, unspecified Status: Acute Assessment and Plan: Patient on azathioprine. 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 H
[2023-12-24] VITALS: PULSE 91
[2023-12-24 04:00] VITALS: PULSE 88
[2023-12-24 05:46] VITALS: BP 117/66; PULSE 90; RESP 16; TEMP 37.1; O2SAT 100
[2023-12-24 06:09] LABS: Hematocrit 39.6 % (42.0-52.0); Mean Corpuscular HGB Conc 32.8 g/dl (32-36); Mean Corpuscular Hemoglobin 33.1 pg (26-34); Mean Corpuscular Volume 100.8 fl (80-100); Mean Platelet Volume 10.8 fl (7.4-10.4); Platelet Count Result 255 k/mm3 (150-375); Red Blood Count 3.93 M/mm3 (4.6-6.20); White Blood Count 5.7 K/mm3 (4.5-10.0)
[2023-12-24 06:20] LABS: INR 3.7
[2023-12-24 06:21] LABS: Anion Gap 5 mmol/L (4-12); Blood Urea Nitrogen 31 mg/dL (9-20); Calcium 8.6 mg/dL (8.4-10.2); Carbon Dioxide 29 mmol/L (22-30); Chloride 104 mmol/L (98-107); Estimated CRCL calculation 40 ml/min; Estimated Glomerular Filt Rate 46; Glucose 92 mg/dL (65-110); Magnesium 1.9 mg/dL (1.6-2.3); Potassium 3.6 mmol/L (3.4-5.0); Sodium 138 mmol/L (137-145)
[2023-12-24 08:00] VITALS: PULSE 83
[2023-12-24] MEDS: ASPIRIN 81 MG ENTERIC TABLET PO (08:41)
[2023-12-24] MEDS: PANTOPRAZOLE 40 MG TABLET PO (08:41)
[2023-12-24] MEDS: levETIRAcetam 250 MG TABLET 750 MG PO (08:41)
[2023-12-24] MEDS: FERROUS GLUCONATE 324 MG TABLET PO (08:41)
[2023-12-24] MEDS: DOXYCYCLINE HYCLATE 100 MG TABLET PO (11:34)
[2023-12-24 12:00] VITALS: PULSE 91
--- NOTE | 2023-12-24 12:40 | PM.DS ---
DS: Admitting Diagnosis Discharge Date 12/24/2023 Admitting Diagnosis Shortness of Breath DS: Discharge Diagnosis Discharge Diagnosis (1) Acute respiratory failure with hypoxia: Code(s): J96.01 - Acute respiratory failure with hypoxia Status: Acute Assessment and Plan: Patient was recently hospitalized earlier this month in [place] and was recently diagnosed with COVID on 12/04. He presented here for SOB. CTA chest showing no PE but showing diffuse lung disease. He was COVID positive here. He was started on Decadron. No Remdesivir. 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 ABG 12/15: 7.51//110 on 60L and 83% FiO2. Repeat CXR showing improved diffuse lung disease. He completed a course of steroids.We were able to wean to room air. 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 Consider untreated SOLE but AHI 4.6, RI 7 and no desaturations (<88%) on 2L. Consider underlying cardiac disease. Not taking meds that can impact AV node. Echo showing EF 45-50% and mechanical MV that is well seated. EF was 55-60% in April EKG showing NSR with 1st degree AVB and PVCs. Troponin negative x3. He is asymptomatic but is confused so unreliable. Cards consulted and appreciate their input. PLEASE NOTE _ Hold coumadin until inr is between 2-3 then restart coumadin watch daily INRS and restart coumadin accordingly (3) Sepsis: Code(s): A41.9 - Sepsis, unspecified organism Status: Acute Assessment and Plan: Sepsis was present on admission with low grade fever, acute resp failure, leukocytosis felt related to PNA and COVID. BCx negative. Broad spectrum abx started but now weaned to Augmentin; Doxycycline was added for atypical coverage. Completed Augmentin; continue Doxycycline (4) COVID: Code(s): U07.1 - COVID-19 Status: Acute Assessment and Plan: As above Holding Imuran until he has recovered sufficiently from COVID (5) Pneumonia: Code(s): J18.9 - Pneumonia, unspecified organism Status: Acute Assessment and Plan: As above (6) CKD (chronic kidney disease): Qualifiers: Chronic kidney disease stage: unspecified stage Qualified Code(s): N18.9 - Chronic kidney disease, unspecified Code(s): N18.9 - Chronic kidney disease, unspecified Status: Suspected Assessment and Plan: Patient with CKD listed. Had YVON (2.35) in April with Cr at discharge at 1.72. Has hx of renal vasculitis. Cr here ranging from 1.1-1.5 and stable Follow (7) Supratherapeutic INR: Code(s): R79.1 - Abnormal coagulation profile Status: Acute Assessment and Plan: INR>20 on admission. Patient was given oral vitamin K and received 3 units of fresh frozen plasma. He remained asymptomatic without evidence of acute blood loss. [place] related to recent COVID infection and pneumonia. Oncology consulted who recommended resuming warfarin at home dose once INR is less than 2.5 INR improved to 2.6 and Coumadin resumed. INR 3.5 today. Follow with daily INR. 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 Repeat Echo as mentioned above. Patient actually was on Coumadin 7mg daily prior to admission. The 3.5mg -- was from earlier this year. Pharmacy recall showing he had 6mg daily refilled in October. He had INR>20 on admission so we changed Coumadin to 5mg daily INR jumped from 2.6 to 3.5 and probably will go higher. Hold Coumadin for today and decreased to 4m daily. Continue to adjust Couma
== END 2023-12-24 14:15 | disposition home health service (06) | DRG 871 ==
LOC: ANHED 11:26 → ANHIMU 17:45 → ANH2MED 12-22 17:37
PROVIDERS: Family Medicine; Internal Medicine; Student in an Organized Health Care Education/Training Program; Admitting Provider Internal Medicine; Emergency Provider Emergency Medicine; PCP Internal Medicine; Visit Provider Family Medicine
DX: A41.89 Other specified sepsis (principal); J18.9 Pneumonia, unspecified organism; J96.01 Acute respiratory failure with hypoxia; U07.1 COVID-19; D84.9 Immunodeficiency, unspecified; R65.20 Severe sepsis without septic shock; I44.1 Atrioventricular block, second degree; R79.1 Abnormal coagulation profile; F01.50 Vascular dementia, unspecified severity, without behavioral disturbance, psychotic disturbance, mood disturbance, and anxiety; E78.5 Hyperlipidemia, unspecified; I12.9 Hypertensive chronic kidney disease with stage 1 through stage 4 chronic kidney disease, or unspecified chronic kidney disease; N18.9 Chronic kidney disease, unspecified; G40.909 Epilepsy, unspecified, not intractable, without status epilepticus; Z86.73 Personal history of transient ischemic attack (TIA), and cerebral infarction without residual deficits; Z79.82 Long term (current) use of aspirin; Z79.01 Long term (current) use of anticoagulants; Z95.2 Presence of prosthetic heart valve
CPT/HCPCS: 36415; 36430; 36600; 71045; 71275; 80048; 80053; 80074; 80202; 81001; 82607; 82746; 82805; 83605; 83735; 83880; 84484; 85025; 85027; 85610; 85730; 86738; 86900; 86901; 87040; 87449; 87637; 87641; 87899; 93005; 93306; 94667; 94668; 94762; 96361; 96365; 96375; 97110; 97162; 97165; 97530; 97535; 99285; A9270; J0692; J1100; J2060; J2543; J3370; J7030; J7050; P9017; Q9967

== ENCOUNTER 2024-01-13 16:37 | Outpatient (CLI) | payer MEDICARE, OTHER, SELFPAY ==
--- NOTE | ~2024-01-13 | XR_ITS ---
EXAMINATION: XR chest 2V DATE: 01/13/2024 17:14 INDICATION: Respiratory failure TECHNIQUE: frontal and lateral views of the chest were obtained. COMPARISON: Chest radiograph dated 12/17/2023 FINDINGS: Improvement in the prior interstitial and airspace opacities some residual subtle reticular and groun dglass opacities in the right upper and right lower lung zones and minimally along the left lung base . Calcified nodule right midlung zone and calcified right hilar lymph nodes consistent with old granu lomatous disease. No pulmonary edema or pneumothorax. Heart size is normal. Mitral valve repair. IMPRESSION: 1. Significant interval decrease in now subtle reticular and groundglass opacity right upper and lowe r lung zones and at the left lung base consistent with likely resolving pneumonia. Reviewed, dictated and finalized at location A. IMPRESSION: 1. Significant interval decrease in now subtle reticular and groundglass opacit y right upper and lower lung zones and at the left lung base consistent with li sunshine resolving pneumonia.
== END 2024-01-13 16:38 | disposition home or self-care (01) ==
LOC: CHSIMG 16:40
PROVIDERS: PCP Internal Medicine; Visit Provider Internal Medicine
DX: J96.90 Respiratory failure, unspecified, unspecified whether with hypoxia or hypercapnia (principal); I50.9 Heart failure, unspecified; R91.8 Other nonspecific abnormal finding of lung field
CPT/HCPCS: 71046

== ENCOUNTER 2024-03-05 15:28 | Outpatient (CLI) | payer MEDICARE, OTHER, SELFPAY ==
--- NOTE | ~2024-03-05 | XR_ITS ---
CHEST RADIOGRAPH, PA AND LATERAL CLINICAL HISTORY: dyspnea, COVID pneumonia . COMPARISON: 01/13/2024 TECHNIQUE: PA and lateral views of the chest. FINDINGS A prosthetic valvular ring is identified within the mitral position. The remainder of the cardiomediastinal silhouette is otherwise unremarkable. Calcified granuloma within the right mid to lower lung field The lungs are otherwise clear. Visualized osseous structures and soft tissues are unremarkable. IMPRESSION: No focal infiltrate or effusion. Reviewed, dictated and finalized at location A. PATIENT ESCORT
== END 2024-03-05 15:29 | disposition home or self-care (01) ==
LOC: CHSIMG 15:35
PROVIDERS: PCP Internal Medicine; Visit Provider Internal Medicine
DX: R06.00 Dyspnea, unspecified (principal); U07.1 COVID-19; J12.82 Pneumonia due to coronavirus disease 2019
CPT/HCPCS: 71046

== ENCOUNTER 2024-03-10 11:39 | Outpatient (CLI) | payer MEDICARE, OTHER, SELFPAY | END 2024-03-10 11:40 | disposition home or self-care (01) | PROVIDERS: PCP Internal Medicine; Visit Provider Internal Medicine | DX: R06.00 Dyspnea, unspecified (principal); U07.1 COVID-19; J12.82 Pneumonia due to coronavirus disease 2019 | CPT/HCPCS: 94060; 94726; 94729 ==

== ENCOUNTER 2024-06-03 11:00 | Outpatient (RCR) | payer MEDICARE, OTHER, SELFPAY | END 2024-06-03 14:07 | disposition home or self-care (01) | PROVIDERS: PCP Internal Medicine; Visit Provider Internal Medicine | DX: J96.10 Chronic respiratory failure, unspecified whether with hypoxia or hypercapnia (principal) | CPT/HCPCS: 94625 ==

== ENCOUNTER 2025-04-06 15:42 | Outpatient (CLI) | payer MEDICARE, SELFPAY ==
--- NOTE | ~2025-04-06 | XR_ITS ---
EXAMINATION: XR abdomen obstructive series, 04/06/2025 16:00 CHIEF METEOROLOGIST HISTORY: Constipation, Rectal bleeding COMPARISON: No comparisons available. Technique: 3 view. Findings: Moderate fecal content, no dilated bowel loops No free air. No abnormal calcifications No acute osseous abnormality. Impression: 1. No acute abnormality. Reviewed, dictated and finalized at location P. F METEOROLOGIST Impression: 1. No acute abnormality.
[2025-04-06 16:09] LABS: Hematocrit 46.7 % (37.0-46.0); Hemoglobin 15.2 g/dL (12.4-15.3); Mean Corpuscular HGB Conc 32.5 g/dL (32-36); Mean Corpuscular Hemoglobin 32.3 pg (27.0-31.0); Mean Corpuscular Volume 99.4 fL (78.0-102.0); Platelet Count Result 258 K/mm3 (150-420); Red Blood Count 4.70 M/mm3 (4.70-6.10); White Blood Count 8.9 K/mm3 (4.8-10.8)
[2025-04-06 16:24] LABS: Alanine Aminotransferase 41 U/L (6-50); Albumin Level 4.6 g/dL (3.5-5.1); Alkaline Phosphatase 69 U/L (38-126); Anion Gap 12 mmol/L (4-12); Aspartate Amino Transferase 38 U/L (17-59); Bilirubin,Total 0.5 mg/dL (0.2-1.3); Blood Urea Nitrogen 29 mg/dL (9-20); CRP 2.3 mg/dL (<1.0); Calcium 9.6 mg/dL (8.4-10.2); Carbon Dioxide 25 mmol/L (22-30); Chloride 107 mmol/L (98-107); Estimated Glomerular Filt Rate 32; Glucose 95 mg/dL (65-110); Osmolality Calculated 303 mOsm/kg (285-295); Potassium 3.4 mmol/L (3.4-5.0); Sodium 144 mmol/L (137-145); Total Protein 7.8 g/dL (6.3-8.2)
[2025-04-06 16:30] LABS: Prothrombin Time 53.8 Seconds (9.50-12.1)
[2025-04-06 16:34] LABS: INR 5.8
--- OUTSIDE RECORDS SUMMARY | 2025-04-06 18:05 | XMS_ITS | Encounter Summary ---
Author Organization [facility] Address [address] [facility] [place] [address] Phone Care Team Providers Care Deputy Prosecuting Attorney Name Role Phone Jerrell Parrish MD Primary Care Provider [phone] Jerrell Parrish MD Unavailable [phone] Encounter Details Date Type Department Care Team (Latest Contact Info) Description 05/02/2020 Orders Only [facility] Scanning, Provider Social History Tobacco Use Types Packs/Day Years Used Date Smoking Tobacco: Never Smokeless Tobacco: Never Alcohol Use Standard Drinks/Week Comments No 0 (1 standard drink = 0.6 oz pur e alcohol) Sex and Gender Information Value Date Recorded Sex Assigned at Not on file Legal 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 [employer] Gender Identity Male 11/28/2020 8:17 AM CDT Sexual Orientation Choose not to disclose 2020 8:17 AM CDT documented as of this encounter Plan of Treatment Not on file documented as of this encounter Procedures Procedure Name Priority Date/Time Associated Diagnosis Comments SCAN - LABS 05/02/2020 documented in this encounter Results * SCAN - LABS (05/02/2020) us Provider Scanning Final Result documented in this encounter Visit Diagnoses Not on filedocumented in this encounter Care Teams Deputy Prosecuting Attorney Relationship Specialty Start Date End Date Jerrell Parrish MD PCP - General Internal Medicine 05/17/17 Jerrell Parrish MD Internal Medicine 05/17/17 documented as of this encounter
--- OUTSIDE RECORDS SUMMARY | 2025-04-06 18:05 | XMS_ITS | Encounter Summary ---
Author Organization [facility] Address [address] [place] [address] Phone Care Team Providers Care Campus Security Officer Name Role Phone Jerrell Parrish MD Primary Care Provider [phone] Jerrell Parrish MD Unavailable [phone] Encounter Details Date Type Department Care Team (Late st Contact Info) Description 11/17/2019 Orders Only [facility] RHEUMATOLOGY Scanning, Provider Social History Tobacco Use Types Packs/Day Years Used Date Smoking Tobacco: Never Smokeless Tobacco: Never Alcohol Use Standard Drinks/Week Comments No 0 (1 standard drink = 0.6 oz pur e alcohol) Sex and Gender Information Value Date Recorded Sex Assigned at Not on file Legal Sex Male 7:13 AM FRIT BURNER Gender Identity Male 11/28/2020 8:17 AM CDT Sexual Orientation Choose not to disclose 2020 8:17 AM CDT documented as of this encounter Plan of Treatment Not on file documented as of this encounter Procedures Procedure Name Priority Date/Time Associated Diagnosis Comments CARDIOLOGY DOCUMENT SCAN 11/17/2019 documented in this encounter Results * SCAN - CARDIOLOGY (11/17/2019) Anatomical Region Laterality Modality Other us Provider Scanning CV CARDIAC SERVICES PROCEDURES Final Result documented in this encounter Visit Diagnoses Not on filedocumented in this encounter Care Teams Campus Security Officer Relationship Specialty Start Date End Date Jerrell Parrish MD PCP - General Internal Medicine 05/17/17 Jerrell Parrish MD Internal Medicine 05/17/17 documented as of this encounter
--- OUTSIDE RECORDS SUMMARY | 2025-04-06 18:05 | XMS_ITS | Data Portability ---
Author Organization [facility], OP Lab/Rad Address [address] [place] [address] Assessment Encounter Date Assessment Date Assessment LastModified by Organization Details LastModified Time 12/04/2023 12/04/2023 Placeholder appt, no charge [email or web address] Not available 12/26/2023 18:08:01 12/05/2023 12/05/2023 Placeholder appt for inpatient visit. [email or web address] Not available 12/26/2023 17:47:24 Plan of Treatment Reminders Order Date Submit Date Provider Last Modified By Organization Details Last Modified Time Details Appointments None record ed. Lab None record ed. Referral None record ed. Procedures None record ed. Surgeries None record ed. Imaging None record ed. Medication Orders None record ed. Patient TargetsNo targets recorded. Patient InstructionsNo instructions recorded. Reason for Referral None Reported. Results Created Date Observation Date Name Description Value Unit Range Abnormal Flag Note LastModifiedBy Organization Detail LastModifiedTime 12/02/1912/02/2023 CBC white blood cell 5.8 X103/ uL 4.6-9. [address] [facility] (Lab) [address] [place], [address], 12/02/2023 07:35:09 12/02/1912/02/2023 CBC red blood cell 4.39 X106/ uL 4.16-5 .[address] [facility] (Lab) [address] [place], [address], 12/02/2023 07:35:09 12/02/19 24 12/02/2023 CBC hemoglobin 15.2 g/dL 12.9-1 7.[address] [facility] (Lab) [address] [place], [address], 12/02/2023 07:35:09 12/02/19 24 12/02/2023 CBC hematocrit 45.1 % 39.1-5 0.[address] [facility] (Lab) [address] [place], [address], 12/02/2023 07:35:09 12/02/19 24 12/02/2023 CBC MCV 103.0 fL 82.7-1 01.[address] [facility] (Lab) [address] [place], [address], 12/02/2023 07:35:09 12/02/19 24 12/02/2023 CBC MCH 34.6 pg 27.2-3 4.[address] [facility] (Lab) [address] [place], [address], 12/02/2023 07:35:09 12/02/19 24 12/02/2023 CBC MCHC 33.7 g/dL 32.3-3 5.[address] [facility] (Lab) [address] [place], [address], 12/02/2023 07:35:09 12/02/19 24 12/02/2023 CBC RDW 12.5 % 10.3-1 4.[address] [facility] (Lab) [address] [place], [address], 12/02/2023 07:35:09 12/02/19 24 12/02/2023 CBC platelets 226 X103/ uL 132-36 [address] [facility] (Lab) [address] [place], [address], 12/02/2023 07:35:09 12/02/19 24 12/02/2023 CBC MPV 7.2 fL 6.7-9. [address] [facility] (Lab) [address] [place], [address], 12/02/2023 07:35:09 12/02/19 24 12/02/2023 CRP C-reactive protein 3.57 mg/dL 0.10-0 .[address] [facility] (Lab) [address] [place], [address], 12/02/2023 07:54:33 12/02/19 24 12/02/2023 CMP glucose 106 mg/dL 70-99 high Not [facility] (Lab) [address] [place], [address], 12/02/2023 07:54:56 12/02/19 24 12/02/2023 CMP BUN 23 mg/dL 8-[address] [facility] (Lab) [address] [place], [address], 12/02/2023 07:54:56 12/02/19 24 12/02/2023 CMP creatinine 2.1 mg/dL 0.8-1. [address] [facility] (Lab) [address] [place], [address], 12/02/2023 07:54:56 12/02/19 24 12/02/2023 CMP eGFR non- 31 mL/mi n/1.[address] [facility] (Lab) [address] [place], [address], 12/02/2023 07:54:56 12/02/19 24 12/02/2023 CMP eGFR 38 mL/mi n/1.7 3m2 INTER PRETI VE COMME NT: - The NKDEP prese ntly recom mends repor ting estim ated GFR value s >=60 as >=60 mL/mi n/1.7 3m^2 , not an exact numbe r. Chron ic Kidjelani y Disea se less than 60 mL/mi n/1.7 3m^2. Kidne w Failu re less than 15 mL/mi n/1.7 3m^2. Not Available [facility] (Lab) [address] [place], [address], 12/02/2023 07:54:56 12/02/19 24 12/02/2023 CMP bilirubin, total 1.16 mg/dL 0.10-1 .[address] [facility] (Lab) [address] [place], [address], 12/02/2023 07:54:56 12/02/19 24 12/02/2023 CMP AST 61 U/L 0-[address] [facility] (Lab) [address] [place], [address], 12/02/2023 07:54:56 12/02/19 24 12/02/2023 CMP ALT 41 U/L 0-[address] [facility] (Lab) [address] [place], [address], 12/02/2023 07:54:56 12/02/19 24 12/02/2023 CMP alkaline phosphatase 49 U/L 56-[address] [facility] (Lab) [address] [place], [address], 12/02/2023 07:54:56 12/02/19 24 12/02/2023 CMP calcium 9.70 mg/dL 8.60-1 0.[address] [facility] (Lab) [address] [place], [address], 12/02/2023 07:54:56 12/02/19 24 12/02/2023 CMP sodium 138 mEq/L 136-14 [address] [facility] (Lab) [address] [place], [address], 12/02/2023 07:54:56 12/02/19 24 12/02/2023 CMP potassium 4.13 mEq/L 3.57-4 .[address] [facility] (Lab) [address] [place], [address], 12/02/2023 07:54:56 12/02/1912/02/2023 CMP chloride 105 mEq/L 102-11 [address] [facility] (Lab) [address] [place], [address], 12/02/2023 07:54:56 12/02/1912/02/2023 CMP CO2 26 mEq/L 21-[address] [facility] (Lab) [address] [place], [address], 12/02/2023 07:54:56 12/02/19 24 12/02/2023 CMP total protein 7.4 g/dL 6.4-8. [address] [facility] (Lab) [address] [place], [address], 12/02/2023 07:54:56 12/02/1912/02/2023 CMP albumin 4.2 g/dL 3.2-4. [address] [facility] (Lab) [address] [place], [address], 12/02/2023 07:54:56 12/02/19 24 12/02/2023 CMP globulin 3.2 g/dL Not Availab le [facility] (Lab) [address] [place], [address], 12/02/2023 07:54:56 12/02/19 24 12/02/2023 CMP albumin/glob ulin 1.3 Not Available [facility] (Lab) [address] [place], [address], 12/02/2023 07:54:56 12/02/1912/02/2023 TROPO JAMILAH I troponin I <0.05 NG/mL 0.00-0 .[address] [facility] (Lab) [address] [place], [address], 12/02/2023 07:55:49 12/02/1912/02/2023 PT/IN R INR 3.1 INR 0.0-1. [address] [facility] (Lab) [address] [place], [address], 12/02/2023 08:19:57 12/02/19 24 12/02/2023 PT/IN R prothrombin time 31.2 sec 10.1-1 2.[address] [facility] (Lab) [address] [place], [address], 12/02/2023 08:19:57 12/02/19 24 12/02/2023 PTT activated partial thromboplast in time 45.0 sec 23.0-3 3[address] [facility] (Lab) [address] [place], [address], 12/02/2023 08:37:26 12/02/1912/02/2023 URINE DRUG SCREE N methamphetam ine Negati ve negati ve normal Not Available [facility] (Lab) [address] [place], [address], 12/02/2023 08:56:55 12/02/19 24 12/02/2023 URINE DRUG SCREE N cocaine metabolite Negati ve negati ve normal Not Available [facility] (Lab) [address] [place], [address], 12/02/2023 08:56:55 12/02/1912/02/2023 URINE DRUG SCREE N THC Negati ve negati ve normal Not Available [facility] (Lab) [address] [place], [address], 12/02/2023 08:56:55 12/02/1912/02/2023 URINE DRUG SCREE N MDMA Negati ve negati ve normal Not Available [facility] (Lab) [address] [place], [address], 12/02/2023 08:56:55 12/02/1912/02/2023 URINE DRUG SCREE N methadone Negati ve negati ve normal Not Available [facility] (Lab) [address] [place], [address], 12/02/2023 08:56:55 12/02/1912/02/2023 URINE DRUG SCREE N opiates Negati ve negati ve normal Not Available [facility] (Lab) [address] [place], [address], 12/02/2023 08:56:55 12/02/1912/02/2023 URINE DRUG SCREE N benzodiazepi ally Negati ve negati ve normal Not Available [facility] (Lab) [address] [place], [address], 12/02/2023 08:56:55 12/02/1912/02/2023 URINE DRUG SCREE N tricyclic antidepressa nts Negati ve negati ve normal Not Available [facility] (Lab) [address] [place], [address], 12/02/2023 08:56:55 12/02/19 24 12/02/2023 URINE DRUG SCREE N barbiturates Negati ve negati ve normal Not Available [facility] (Lab) [address] [place], [address], 12/02/2023 08:56:55 12/02/19 24 12/02/2023 URINE DRUG SCREE N phencyclidin e Negati ve negati ve normal Not Available [facility] (Lab) [address] [place], [address], 12/02/2023 08:56:55 12/02/19 24 12/02/2023 URINE DRUG SCREE N amphetamines Negati ve negati ve normal Not Available [facility] (Lab) [address] [place], [address], 12/02/2023 08:56:55 12/02/19 24 12/02/2023 URINE DRUG SCREE N oxycodone Negati ve negati ve normal INTER PRETI VE COMME NT: - This assay provi isis a preli minar y mackenzie tical test resul t. A more speci fic alter asya chemi pj metho d must be used in order to obtai n a confi rmed mackenzie tical resul t. Gas chrom atogr aphy/ mass spect romet ry (GC/M S) is the prefe rred confi rmato ry metho d. Clini pj consi derat ion and profe ssion al admitting manager ment 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 Not Available [facility] (Lab) [address] [place], [address], 12/02/2023 08:56:55 12/02/19 24 12/02/2023 URINA LYSIS , COMPL ETE urine color Yellow yellow normal Not Available [facility] (Lab) [address] [place], [address], 12/02/2023 09:06:11 12/02/19 24 12/02/2023 URINA LYSIS , COMPL ETE urine clarity Clear clear normal Not Available [facility] (Lab) [address] [place], [address], 12/02/2023 09:06:11 12/02/1912/02/2023 URINA LYSIS , COMPL ETE urine glucose Negati ve negati ve normal Not Available [facility] (Lab) [address] [place], [address], 12/02/2023 09:06:11 12/02/1912/02/2023 URINA LYSIS , COMPL ETE urine bilirubin Negati ve negati ve normal Not Available [facility] (Lab) [address] [place], [address], 12/02/2023 09:06:11 12/02/19 24 12/02/2023 URINA LYSIS , COMPL ETE urine ketones Negati ve mg/dL negati ve normal Not Available [facility] (Lab) [address] [place], [address], 12/02/2023 09:06:11 12/02/19 24 12/02/2023 URINA LYSIS , COMPL ETE urine specific gravity 1.025 <=1.00 5->=1. [address] [facility] (Lab) [address] [place], [address], 12/02/2023 09:06:11 12/02/1912/02/2023 URINA LYSIS , COMPL ETE urine hemoglobin 3+ negati ve abnormal Not Available [facility] (Lab) [address] [place], [address], 12/02/2023 09:06:11 12/02/19 24 12/02/2023 URINA LYSIS , COMPL ETE urine pH 5.5 5-8.[address] [facility] (Lab) [address] [place], [address], 12/02/2023 09:06:11 12/02/19 24 12/02/2023 URINA LYSIS , COMPL ETE urine protein 2+ mg/dL negati ve abnormal Not Available [facility] (Lab) [address] [place], [address], 12/02/2023 09:06:11 12/02/1912/02/2023 URINA LYSIS , COMPL ETE urine urobilinogin 0.2 E.U./d L 0.2 E.U./d L-1.0 E.U./d L normal Not Available [facility] (Lab) [address] [place], [address], 12/02/2023 09:06:11 12/02/19 24 12/02/2023 URINA LYSIS , COMPL ETE urine nitrate Negati ve negati ve normal Not Available [facility] (Lab) [address] [place], [address], 12/02/2023 09:06:11 12/02/19 24 12/02/2023 URINA LYSIS , COMPL ETE urine leukocyte esterase Negati ve negati ve normal Not Available [facility] (Lab) [address] [place], [address], 12/02/2023 09:06:11 12/02/1912/02/2023 URINA LYSIS , COMPL ETE urine white blood cells Occasi onal #/hpf none seen normal Not Available [facility] (Lab) [address] [place], [address], 12/02/2023 09:06:11 12/02/19 24 12/02/2023 URINA LYSIS , COMPL ETE urine red blood cells 10-50 #/hpf none seen abnormal Not Available [facility] (Lab) [address] [place], [address], 12/02/2023 09:06:11 12/02/19 24 12/02/2023 URINA LYSIS , COMPL ETE urine squamous epithelial cells 0-2 #/hpf none seen normal Not Available [facility] (Lab) [address] [place], [address], 12/02/2023 09:06:11 12/02/19 24 12/02/2023 URINA LYSIS , COMPL ETE urine bacteria Few #/hpf none seen abnormal Not Available [facility] (Lab) [address] [place], [address], 12/02/2023 09:06:11 12/02/19 24 12/02/2023 URINA LYSIS , COMPL ETE casts None Seen #/lpf none seen normal Not Available [facility] (Lab) [address] [place], [address], 12/02/2023 09:06:11 12/02/19 24 12/02/2023 URINA LYSIS , COMPL ETE urine crystal None Seen none seen normal Not Available [facility] (Lab) [address] [place], [address], 12/02/2023 09:06:11 12/02/19 24 12/02/2023 URINA LYSIS , COMPL ETE urine mucous Presen t not presen t abnormal Not Available [facility] (Lab) [address] [place], [address], 12/02/2023 09:06:11 12/02/19 24 12/02/2023 URINA LYSIS , COMPL ETE urine yeast None Seen #/hpf none seen normal Not Available [facility] (Lab) [address] [place], [address], 12/02/2023 09:06:11 12/02/19 24 12/02/2023 ELECT ROLYT E PANEL sodium 139 mEq/L 136-14 [address] [facility] (Lab) [address] [place], [address], 12/02/2023 17:39:58 12/02/19 24 12/02/2023 ELECT ROLYT E PANEL potassium 3.75 mEq/L 3.57-4 .[address] [facility] (Lab) [address] [place], [address], 12/02/2023 17:39:58 12/02/19 24 12/02/2023 ELECT ROLYT E PANEL chloride 106 mEq/L 102-11 [address] [facility] (Lab) [address] [place], [address], 12/02/2023 17:39:58 12/02/19 24 12/02/2023 ELECT ROLYT E PANEL CO2 22 mEq/L 21-[address] [facility] (Lab) [address] [place], [address], 12/02/2023 17:39:58 12/02/19 24 12/02/2023 CULTU RE, URINE results called to JAMES Man Not Available [facility] (Lab) [address] [place], [address], 12/04/2023 10:30:27 12/02/19 24 12/02/2023 CULTU RE, URINE urine source Clean Catch Midstr eam Not Available [facility] (Lab) [address] [place], [address], 12/04/2023 10:30:27 12/02/19 24 12/02/2023 CULTU RE, URINE micro culture result No Growth @ [address] [facility] (Lab) [address] [place], [address], 12/04/2023 10:30:27 12/03/19 24 12/03/2023 CBCWA D white blood cell 5.4 X103/ uL 4.6-9. [address] [facility] (Lab) [address] [place], [address], 12/03/2023 09:52:49 12/03/19 24 12/03/2023 CBCWA D red blood cell 3.88 X106/ uL 4.16-5 .[address] [facility] (Lab) [address] [place], [address], 12/03/2023 09:52:49 12/03/19 24 12/03/2023 CBCWA D hemoglobin 13.7 g/dL 12.9-1 7.[address] [facility] (Lab) [address] [place], [address], 12/03/2023 09:52:49 12/03/1912/03/2023 CBCWA D hematocrit 39.8 % 39.1-5 0.[address] [facility] (Lab) [address] [place], [address], 12/03/2023 09:52:49 12/03/1912/03/2023 CBCWA D MCV 103.0 fL 82.7-1 01.[address] [facility] (Lab) [address] [place], [address], 12/03/2023 09:52:49 12/03/1912/03/2023 CBCWA D MCH 35.2 pg 27.2-3 4.[address] [facility] (Lab) [address] [place], [address], 12/03/2023 09:52:49 12/03/1912/03/2023 CBCWA D MCHC 34.3 g/dL 32.3-3 5.[address] [facility] (Lab) [address] [place], [address], 12/03/2023 09:52:49 12/03/1912/03/2023 CBCWA D RDW 12.4 % 10.3-1 4.[address] [facility] (Lab) [address] [place], [address], 12/03/2023 09:52:49 12/03/1912/03/2023 CBCWA D platelets 183 X103/ uL 132-36 [address] [facility] (Lab) [address] [place], [address], 12/03/2023 09:52:49 12/03/1912/03/2023 CBCWA D MPV 7.3 fL 6.7-9. [address] [facility] (Lab) [address] [place], [address], 12/03/2023 09:52:49 12/03/1912/03/2023 CBCWA D neutrophil % 75.1 % 43.0-7 6.[address] [facility] (Lab) [address] [place], [address], 12/03/2023 09:52:49 12/03/1912/03/2023 CBCWA D lymphocyte % 19.2 % 13.5-4 1.[address] [facility] (Lab) [address] [place], [address], 12/03/2023 09:52:49 12/03/1912/03/2023 CBCWA D monocyte % 4.6 % 4.6-13 .[address] [facility] (Lab) [address] [place], [address], 12/03/2023 09:52:49 12/03/19 24 12/03/2023 CBCWA D eosinophil % 0.8 % 1.0-5. [address] [facility] (Lab) [address] [place], [address], 12/03/2023 09:52:49 12/03/19 24 12/03/2023 CBCWA D basophil % 0.3 % 0.2-0. [address] [facility] (Lab) [address] [place], [address], 12/03/2023 09:52:49 12/03/19 24 12/03/2023 CBCWA D neutrophil # 4.08 X103/ uL 2.00-6 .[address] [facility] (Lab) [address] [place], [address], 12/03/2023 09:52:49 12/03/19 24 12/03/2023 CBCWA D lymphocyte # 1.04 X103/ uL 0.90-2 .[address] [facility] (Lab) [address] [place] [address] [place], [address], 12/03/2023 09:52:49 12/03/1912/03/2023 CBCWA D monocyte # 0.25 X103/ uL 0.20-1 .[address] [facility] (Lab) [address] [place], [address], 12/03/2023 09:52:49 12/03/19 24 12/03/2023 CBCWA D eosinophil # 0.04 X103/ uL 0.10-0 .[address] [facility] (Lab) [address] [place], [address], 12/03/2023 09:52:49 12/03/19 24 12/03/2023 CBCWA D basophil # 0.02 X103/ uL 0.00-0 .[address] [facility] (Lab) [address] [place], [address], 12/03/2023 09:52:49 12/03/19 24 12/03/2023 DDIME R ddimer 287 NG/mL 200-31 [address] [facility] (Lab) [address] [place], [address], 12/03/2023 10:05:28 12/03/19 24 12/03/2023 BMP glucose 92 mg/dL 70-99 normal Not [facility] (Lab) [address] [place], [address], 12/03/2023 10:14:24 12/03/19 24 12/03/2023 BMP BUN 20 mg/dL 8-[address] [facility] (Lab) [address] [place], [address], 12/03/2023 10:14:24 12/03/19 24 12/03/2023 BMP creatinine 1.9 mg/dL 0.8-1. [address] [facility] (Lab) [address] [place], [address], 12/03/2023 10:14:24 12/03/19 24 12/03/2023 BMP eGFR non- 35 mL/mi n/1.[address] [facility] (Lab) [address] [place], [address], 12/03/2023 10:14:24 12/03/19 24 12/03/2023 BMP eGFR 43 mL/mi n/1.7 3m2 INTER PRETI VE COMME NT: - The NKDEP prese ntly recom mends repor ting estim ated GFR value s >=60 as >=60 mL/mi n/1.7 3m^2 , not an exact numbe r. Chron ic Kidne y Disea se less than 60 mL/mi n/1.7 3m^2. Kidne w Failu re less than 15 mL/mi n/1.7 3m^2. Not Available [facility] (Lab) [address], [place], [address], 12/03/2023 10:14:24 12/03/19 24 12/03/2023 BMP calcium 8.50 mg/dL 8.60-1 0.[address] [facility] (Lab) [address] [place], [address], 12/03/2023 10:14:24 12/03/19 24 12/03/2023 BMP sodium 137 mEq/L 136-14 [address] [facility] (Lab) [address] [place], [place], [address], 12/03/2023 10:14:24 12/03/19 24 12/03/2023 BMP potassium 4.25 mEq/L 3.57-4 .[address] [facility] (Lab) [address] [place], [place], [address], 12/03/2023 10:14:24 12/03/19 24 12/03/2023 BMP chloride 109 mEq/L 102-11 [address] [facility] (Lab) [address] [place], [address], 12/03/2023 10:14:24 12/03/19 24 12/03/2023 BMP CO2 19 mEq/L 21-[address] [facility] (Lab) [address], [place], [address], 12/03/2023 10:14:24 12/03/19 24 12/03/2023 CRP C-reactive protein 24.28 mg/dL 0.10-0 .[address] [facility] (Lab) [address] [place], [address], 12/03/2023 10:41:51 12/03/19 24 12/03/2023 MANUA L DIFFE RENTI AL segmented neutrophil 52 % 50-70 normal Not Available [facility] (Lab) [address] [place], [address], 12/04/2023 10:31:04 12/03/19 24 12/03/2023 MANUA L DIFFE RENTI AL band neutrophil 29 % 0-5 high Not Available [facility] (Lab) [address] [place], [address], 12/04/2023 10:31:04 12/03/19 24 12/03/2023 MANUA L DIFFE RENTI AL lymphocyte 18 % 20-40 low Not Available [facility] (Lab) [address] [place], [address], 12/04/2023 10:31:04 12/03/19 24 12/03/2023 MANUA L DIFFE RENTI AL monocyte 1 % 1-[address] [facility] (Lab) [address] [place], [address], 12/04/2023 10:31:04 12/03/19 24 12/03/2023 MANUA L DIFFE RENTI AL RBC morphology Normal normal normal Not Available [facility] (Lab) [address] [place], [address], 12/04/2023 10:31:04 12/04/19 24 12/04/2023 CBCWA D white blood cell 7.7 X103/ uL 4.6-9. [address] [facility] (Lab) [address] [place], [address], 12/04/2023 10:30:26 12/04/19 24 12/04/2023 CBCWA D red blood cell 3.55 X106/ uL 4.16-5 .[address] [facility] (Lab) [address] [place], [address], 12/04/2023 10:30:26 12/04/19 24 12/04/2023 CBCWA D hemoglobin 12.4 g/dL 12.9-1 7.[address] [facility] (Lab) [address] [place], [address], 12/04/2023 10:30:26 12/04/19 24 12/04/2023 CBCWA D hematocrit 35.8 % 39.1-5 0.[address] [facility] (Lab) [address] [place], [address], 12/04/2023 10:30:26 12/04/19 24 12/04/2023 CBCWA D MCV 101.0 fL 82.7-1 01.[address] [facility] (Lab) [address] [place], [address], 12/04/2023 10:30:26 12/04/19 24 12/04/2023 CBCWA D MCH 35.0 pg 27.2-3 4.[address] [facility] (Lab) [address] [place], [address], 12/04/2023 10:30:26 12/04/19 24 12/04/2023 CBCWA D MCHC 34.7 g/dL 32.3-3 5.[address] [facility] (Lab) [address] [place], [address], 12/04/2023 10:30:26 12/04/19 24 12/04/2023 CBCWA D RDW 13.1 % 10.3-1 4.[address] [facility] (Lab) [address] [place], [address], 12/04/2023 10:30:26 12/04/19 24 12/04/2023 CBCWA D platelets 171 X103/ uL 132-36 [address] [facility] (Lab) [address] [place], [address], 12/04/2023 10:30:26 12/04/19 24 12/04/2023 CBCWA D MPV 7.4 fL 6.7-9. [address] [facility] (Lab) [address] [place], [id number], 12/04/2023 10:30:26 12/04/19 24 12/04/2023 CBCWA D neutrophil % 90.5 % 43.0-7 6.[address] [facility] (Lab) [address] [place], [address], 12/04/2023 10:30:26 12/04/19 24 12/04/2023 CBCWA D lymphocyte % 4.5 % 13.5-4 1.[address] [facility] (Lab) [address] [place], [address], 12/04/2023 10:30:26 12/04/19 24 12/04/2023 CBCWA D monocyte % 3.8 % 4.6-13 .[address] [facility] (Lab) [address] [place], [address], 12/04/2023 10:30:26 12/04/19 24 12/04/2023 CBCWA D eosinophil % 0.9 % 1.0-5. [address] [facility] (Lab) [address] [place], [address], 12/04/2023 10:30:26 12/04/19 24 12/04/2023 CBCWA D basophil % 0.3 % 0.2-0. [address] [facility] (Lab) [address] [place], [address], 12/04/2023 10:30:26 12/04/19 24 12/04/2023 CBCWA D neutrophil # 6.93 X103/ uL 2.00-6 .[address] [facility] (Lab) [address] [place], [address], 12/04/2023 10:30:26 12/04/19 24 12/04/2023 CBCWA D lymphocyte # 0.34 X103/ uL 0.90-2 .[address] [facility] (Lab) [address] [place], [address], 12/04/2023 10:30:26 12/04/19 24 12/04/2023 CBCWA D monocyte # 0.29 X103/ uL 0.20-1 .[address] [facility] (Lab) [address] [place], [address], 12/04/2023 10:30:26 12/04/19 24 12/04/2023 CBCWA D eosinophil # 0.07 X103/ uL 0.10-0 .[address] [facility] (Lab) [address] [place], [address], 12/04/2023 10:30:26 12/04/19 24 12/04/2023 CBCWA D basophil # 0.02 X103/ uL 0.00-0 .10 normal Manua l Diffe sarah al Used to Treat Patie nt Not Available [facility] (Lab) [address] [place], [address], 12/04/2023 10:30:26 12/04/19 24 12/04/2023 BMP glucose 125 mg/dL 70-[address] [facility] (Lab) [address] [place], [address], 12/04/2023 10:30:29 12/04/19 24 12/04/2023 BMP BUN 24 mg/dL 8-[address] [facility] (Lab) [address], [place], [address], 12/04/2023 10:30:29 12/04/19 24 12/04/2023 BMP creatinine 1.6 mg/dL 0.8-1. [address] [facility] (Lab) [address], [place], [address], 12/04/2023 10:30:29 12/04/19 24 12/04/2023 BMP eGFR non- 43 mL/mi n/1.[address] [facility] (Lab) [address] [place], [address], 12/04/2023 10:30:29 12/04/19 24 12/04/2023 BMP eGFR 52 mL/mi n/1.7 3m2 INTER PRETI VE COMME NT: - The NKDEP prese ntly recom mends repor ting estim ated GFR value s >=60 as >=60 mL/mi n/1.7 3m^2 , not an exact numbe r. Chron ic Kidne y Disea se less than 60 mL/mi n/1.7 3m^2. Kidne w Failu re less than 15 mL/mi n/1.7 3m^2. Not Available [facility] (Lab) [address] [place], [address], 12/04/2023 10:30:29 12/04/19 24 12/04/2023 BMP calcium 8.90 mg/dL 8.60-1 0.[address] [facility] (Lab) [address] [place], [address], 12/04/2023 10:30:29 12/04/19 24 12/04/2023 BMP sodium 142 mEq/L 136-[address] [facility] (Lab) [address] [place], [address], 12/04/2023 10:30:29 12/04/19 24 12/04/2023 BMP potassium 4.03 mEq/L 3.57-4 .[address] [facility] (Lab) [address] [place], [address], 12/04/2023 10:30:29 12/04/19 24 12/04/2023 BMP chloride 111 mEq/L 102-[address] [facility] (Lab) [address] [place], [address], 12/04/2023 10:30:29 12/04/19 24 12/04/2023 BMP CO2 21 mEq/L 21-[address] [facility] (Lab) [address] [place], [address], 12/04/2023 10:30:29 12/04/19 24 12/04/2023 CRP C-reactive protein 35.65 mg/dL 0.10-0 .[address] [facility] (Lab) [address] [place], [address], 12/04/2023 10:30:32 12/04/19 24 12/04/2023 MANUA L DIFFE RENTI AL segmented neutrophil 78 % 50-70 high Not Available [facility] (Lab) [address], [place], [address], 12/04/2023 10:35:12 12/04/19 24 12/04/2023 MANUA L DIFFE RENTI AL band neutrophil 14 % 0-5 high Not Available [facility] (Lab) [address], [place], [address], 12/04/2023 10:35:12 12/04/19 24 12/04/2023 MANUA L DIFFE RENTI AL lymphocyte 7 % 20-40 low Not Available [facility] (Lab) [address], [place], [address], 12/04/2023 10:35:12 12/04/19 24 12/04/2023 MANUA L DIFFE RENTI AL monocyte 2 % 1-[address] [facility] (Lab) [address], [place], [address], 12/04/2023 10:35:12 12/04/19 24 12/04/2023 MANUA L DIFFE RENTI AL toxic granulation 2+ none seen abnormal Resul t amend ed from () (00/0 0/00 12:00 AM) to (2+) by CJN. Not Available [facility] (Lab) [address], [place], [address], 12/04/2023 10:35:12 12/04/19 24 12/04/2023 COVID / INFLU A/B / RSV PCR covid PCR Positi ve negati ve abnormal Comme nt: This produ ct has not been clear ed or appro suzanne, but has been autho rized for emerg ency use by FDA under an EUA for use by autho rized labor atori es. This produ ct has been autho rized only for the detec tion of nucle ic acids from SARS- CoV-2 . The emerg ency use of this produ ct is only autho rized for the durat ion of the decla ratio n that circu mstan gonzalez exist justi fying the autho rizat ion of emerg ency use of in vitro diagn ostic tests for detec tion and/o r diagn osis of COVID -19 under Secti on 564(b )(1) of the Act, 21 U.S.C . 360bb b-3(b )(1), unles s the autho rizat ion is termi nated or revok ed soone r. Not Available [facility] (Lab) [address], [place], [address], 12/04/2023 18:46:27 12/04/19 24 12/04/2023 COVID / INFLU A/B / RSV PCR influ A PCR Negati ve negati ve normal Not Available [facility] (Lab) [address], [place], [address], 12/04/2023 18:46:27 12/04/19 24 12/04/2023 COVID / INFLU A/B / RSV PCR influ B PCR Negati ve negati ve normal Comme nt: This produ ct has not been clear ed or appro suzanne, but has been autho rized for emerg ency use by FDA under an EUA for use by autho rized labor atori es. This produ ct has been autho rized only for the detec tion and diffe renti ation of nucle ic acids from Influ enzae A and Influ enzae B. The emerg ency use of this produ ct is only autho rized for the durat ion of the decla ratio n that circu mstan gonzalez exist justi fying the autho rizat ion of emerg ency use of in vitro diagn ostic tests for detec tion and/o r diagn osis of COVID -19 under Secti on 564(b )(1) of the Act, 21 U.S.C . 360bb b-3(b )(1), unles s the autho rizat ion is termi nated or revok ed soone r. Not Available [facility] (Lab) [address], [address], 12/04/2023 18:46:27 12/04/19 24 12/04/2023 COVID / INFLU A/B / RSV PCR RSV PCR Negati ve negati ve normal Comme nt: This produ ct has not been clear ed or appro suzanne, but has been autho rized for emerg ency use by FDA under an EUA for use by autho rized labor atori es. This produ ct has been autho rized only for the detec tion of nucle ic acids from RSV. The emerg ency use of this produ ct is only autho rized for the durat ion of the decla ratio n that circu mstan gonzalez exist justi fying the autho rizat ion of emerg ency use of in vitro diagn ostic tests for detec tion and/o r diagn osis of COVID -19 under Secti on 564(b )(1) of the Act, 21 U.S.C . 360bb b-3(b )(1), unles s the autho rizat ion is termi nated or revok ed soone r. Not Available [facility] (Lab) [address] [place], [address], 12/04/2023 18:46:27 12/05/19 24 12/05/2023 CBCWA D white blood cell 8.9 X103/ uL 4.6-9. [address] [facility] (Lab) [address] [place], [address], 12/05/2023 09:53:36 12/05/19 24 12/05/2023 CBCWA D red blood cell 3.67 X106/ uL 4.16-5 .[address] [facility] (Lab) [address] [place], [address], 12/05/2023 09:53:36 12/05/19 24 12/05/2023 CBCWA D hemoglobin 12.6 g/dL 12.9-1 7.[address] [facility] (Lab) [address] [place], [address], 12/05/2023 09:53:36 12/05/19 24 12/05/2023 CBCWA D hematocrit 37.2 % 39.1-5 0.[address] [facility] (Lab) [address] [place], [address], 12/05/2023 09:53:36 12/05/19 24 12/05/2023 CBCWA D MCV 102.0 fL 82.7-1 01.[address] [facility] (Lab) [address] [place], [address], 12/05/2023 09:53:36 12/05/19 24 12/05/2023 CBCWA D MCH 34.4 pg 27.2-3 4.[address] [facility] (Lab) [address] [place], [address], 12/05/2023 09:53:36 12/05/19 24 12/05/2023 CBCWA D MCHC 33.9 g/dL 32.3-3 5.[address] [facility] (Lab) [address] [place], [address], 12/05/2023 09:53:36 12/05/19 24 12/05/2023 CBCWA D RDW 12.4 % 10.3-1 4.[address] [facility] (Lab) [address] [place], [address], 12/05/2023 09:53:36 12/05/19 24 12/05/2023 CBCWA D platelets 201 X103/ uL 132-[address] [facility] (Lab) [address] [place], [address], 12/05/2023 09:53:36 12/05/19 24 12/05/2023 CBCWA D MPV 7.9 fL 6.7-9. [address] [facility] (Lab) [address] [place], [address], 12/05/2023 09:53:36 12/05/19 24 12/05/2023 CBCWA D neutrophil % 94.6 % 43.0-7 6.[address] [facility] (Lab) [address] [place], [address], 12/05/2023 09:53:36 12/05/19 24 12/05/2023 CBCWA D lymphocyte % 2.0 % 13.5-4 1.[address] [facility] (Lab) [address] [place], [address], 12/05/2023 09:53:36 12/05/19 24 12/05/2023 CBCWA D monocyte % 2.2 % 4.6-13 .[address] [facility] (Lab) [address] [place], [address], 12/05/2023 09:53:36 12/05/19 24 12/05/2023 CBCWA D eosinophil % 0.9 % 1.0-5. [address] [facility] (Lab) [address] [place], [address], 12/05/2023 09:53:36 12/05/1912/05/2023 CBCWA D basophil % 0.3 % 0.2-0. [address] [facility] (Lab) [address] [place], [address], 12/05/2023 09:53:36 12/05/19 24 12/05/2023 CBCWA D neutrophil # 8.45 X103/ uL 2.00-6 [address] [facility] (Lab) [address] [place], [address], 12/05/2023 09:53:36 12/05/19 24 12/05/2023 CBCWA D lymphocyte # 0.18 X103/ uL 0.90-2 .[address] [facility] (Lab) [address] [place], [address], 12/05/2023 09:53:36 12/05/1912/05/2023 CBCWA D monocyte # 0.20 X103/ uL 0.20-1 .[address] [facility] (Lab) [address] [place] [address] [place], [address], 12/05/2023 09:53:36 12/05/19 24 12/05/2023 CBCWA D eosinophil # 0.08 X103/ uL 0.10-0 .[address] [facility] (Lab) [address] [place] [address] [place], [address], 12/05/2023 09:53:36 12/05/19 24 12/05/2023 CBCWA D basophil # 0.03 X103/ uL 0.00-0 .10 normal Aixa tripathi al Used to Treat Patie nt Not Available [facility] (Lab) [address] [place], [address], 12/05/2023 09:53:36 12/05/1912/05/2023 BMP glucose 123 mg/dL 70-99 [facility] [address] [place], [address], 12/05/2023 10:06:42 12/05/19 24 12/05/2023 BMP BUN 29 mg/dL 8-[address] [facility] (Lab) [address] [place], [address], 12/05/2023 10:06:42 12/05/19 24 12/05/2023 BMP creatinine 1.7 mg/dL 0.8-1. [address] [facility] (Lab) [address] [place], [address], 12/05/2023 10:06:42 12/05/19 24 12/05/2023 BMP eGFR non- 40 mL/mi n/1.[address] [facility] (Lab) [address] [place], [address], 12/05/2023 10:06:42 12/05/19 24 12/05/2023 BMP eGFR 49 mL/mi n/1.7 3m2 INTER PRETI VE COMME NT: - The NKDEP prese ntly recom mends repor ting estim ated GFR value s >=60 as >=60 mL/mi n/1.7 3m^2 , not an exact numbe r. Chron ic Kidne y Disea se less than 60 mL/mi n/1.7 3m^2. Kidne w Failu re less than 15 mL/mi n/1.7 3m^2. Not Available [facility] (Lab) [address] [place], [address], 12/05/2023 10:06:42 12/05/19 24 12/05/2023 BMP calcium 8.90 mg/dL 8.60-1 0.[address] [facility] (Lab) [address] [place], [address], 12/05/2023 10:06:42 12/05/19 24 12/05/2023 BMP sodium 142 mEq/L 136-14 [address] [facility] (Lab) [address] [place], [address], 12/05/2023 10:06:42 12/05/19 24 12/05/2023 BMP potassium 4.08 mEq/L 3.57-4 .[address] [facility] (Lab) [address] [place], [address], 12/05/2023 10:06:42 12/05/19 24 12/05/2023 BMP chloride 111 mEq/L 102-11 [address] [facility] (Lab) [address] [place], [address], 12/05/2023 10:06:42 12/05/19 24 12/05/2023 BMP CO2 21 mEq/L 21-[address] [facility] (Lab) [address] [place], [address], 12/05/2023 10:06:42 12/05/19 24 12/05/2023 CRP C-reactive protein 18.30 mg/dL 0.10-0 .[address] [facility] (Lab) [address] [place], [address], 12/05/2023 10:06:44 12/05/19 24 12/05/2023 MANUA L DIFFE RENTI AL segmented neutrophil 84 % 50-70 high Not Available [facility] (Lab) [address] [place], [address], 12/05/2023 10:08:21 12/05/19 24 12/05/2023 MANUA L DIFFE RENTI AL band neutrophil 8 % 0-5 high Not Available [facility] (Lab) [address] [place], [address], 12/05/2023 10:08:21 12/05/19 24 12/05/2023 MANUA L DIFFE RENTI AL lymphocyte 6 % 20-40 low Not Available [facility] (Lab) [address] [place], [address], 12/05/2023 10:08:21 12/05/19 24 12/05/2023 AIXA TRIPATHI AL monocyte 2 % 1-[address] [facility] (Lab) [address] [place], [address], 12/05/2023 10:08:21 12/05/19 24 12/05/2023 AIXA TRIPATHI AL RBC morphology Normal normal normal Not Available [facility] (Lab) [address] [place], [address], 12/05/2023 10:08:21 12/06/19 24 12/06/2023 CBCWA D white blood cell 6.5 X103/ uL 4.6-9. [address] [facility] (Lab) [address] [place], [address], 12/06/2023 12:48:33 12/06/19 24 12/06/2023 CBCWA D red blood cell 3.67 X106/ uL 4.16-5 .[address] [facility] (Lab) [address] [place], [address], 12/06/2023 12:48:33 12/06/19 24 12/06/2023 CBCWA D hemoglobin 12.7 g/dL 12.9-1 7.[address] [facility] (Lab) [address] [place], [address], 12/06/2023 12:48:33 12/06/19 24 12/06/2023 CBCWA D hematocrit 37.2 % 39.1-5 0.[address] [facility] (Lab) [address] [place], [address], 12/06/2023 12:48:33 12/06/19 24 12/06/2023 CBCWA D MCV 101.0 fL 82.7-1 01.[address] [facility] (Lab) [address] [place], [address], 12/06/2023 12:48:33 12/06/19 24 12/06/2023 CBCWA D MCH 34.5 pg 27.2-3 4.[address] [facility] (Lab) [address] [place], [address], 12/06/2023 12:48:33 12/06/19 24 12/06/2023 CBCWA D MCHC 34.0 g/dL 32.3-3 5.[address] [facility] (Lab) [address] [place], [address], 12/06/2023 12:48:33 12/06/19 24 12/06/2023 CBCWA D RDW 12.5 % 10.3-1 4.[address] [facility] (Lab) [address] [place], [address], 12/06/2023 12:48:33 12/06/19 24 12/06/2023 CBCWA D platelets 203 X103/ uL 132-[address] [facility] (Lab) [address] [place], [address], 12/06/2023 12:48:33 12/06/19 24 12/06/2023 CBCWA D MPV 7.7 fL 6.7-9. [address] [facility] (Lab) [address] [place], [address], 12/06/2023 12:48:33 12/06/19 24 12/06/2023 CBCWA D neutrophil % 90.2 % 43.0-7 6.[address] [facility] (Lab) [address] [place], [address], 12/06/2023 12:48:33 12/06/19 24 12/06/2023 CBCWA D lymphocyte % 5.2 % 13.5-4 1.[address] [facility] (Lab) [facility] [place], [address], 12/06/2023 12:48:33 12/06/19 24 12/06/2023 CBCWA D monocyte % 3.2 % 4.6-13 .[address] [facility] (Lab) [facility] [place], [address], 12/06/2023 12:48:33 12/06/19 24 12/06/2023 CBCWA D eosinophil % 1.0 % 1.0-5. [address] [facility] (Lab) [address] [place], [address], 12/06/2023 12:48:33 12/06/19 24 12/06/2023 CBCWA D basophil % 0.4 % 0.2-0. [address] [facility] (Lab) [address] [place] [address] [place], [address], 12/06/2023 12:48:33 12/06/19 24 12/06/2023 CBCWA D neutrophil # 5.82 X103/ uL 2.00-6 .[address] [facility] (Lab) [facility] [place], [address], 12/06/2023 12:48:33 12/06/19 24 12/06/2023 CBCWA D lymphocyte # 0.34 X103/ uL 0.90-2 .[address] [facility] (Lab) [facility] [place], [address], 12/06/2023 12:48:33 12/06/19 24 12/06/2023 CBCWA D monocyte # 0.21 X103/ uL 0.20-1 .[address] [facility] (Lab) [address] [place], [address], 12/06/2023 12:48:33 12/06/19 24 12/06/2023 CBCWA D eosinophil # 0.06 X103/ uL 0.10-0 .[address] [facility] (Lab) [address] [place], [address], 12/06/2023 12:48:33 12/06/19 24 12/06/2023 CBCWA D basophil # 0.03 X103/ uL 0.00-0 .10 normal Aixa tripathi al Used to Treat Patie nt Not Available [facility] (Lab) [address] [place], [address], 12/06/2023 12:48:33 12/06/19 24 12/06/2023 CRP C-reactive protein 11.17 mg/dL 0.10-0 .[address] [facility] (Lab) [address] [place], [address], 12/06/2023 12:48:37 12/06/19 24 12/06/2023 BMP glucose 103 mg/dL 70-99 [facility] [address] [place], [address], 12/06/2023 12:49:28 12/06/19 24 12/06/2023 BMP BUN 33 mg/dL 8-[address] [facility] (Lab) [address] [place], [address], 12/06/2023 12:49:28 12/06/19 24 12/06/2023 BMP creatinine 1.7 mg/dL 0.8-1. [address] [facility] (Lab) [address] [place], [address], 12/06/2023 12:49:28 12/06/19 24 12/06/2023 BMP eGFR non- 40 mL/mi n/1.[address] [facility] (Lab) [address] [place], [address], 12/06/2023 12:49:28 12/06/19 24 12/06/2023 BMP eGFR 49 mL/mi n/1.7 3m2 INTER PRETI VE COMME NT: - The NKDEP prese ntly recom mends repor ting estim ated GFR value s >=60 as >=60 mL/mi n/1.7 3m^2 , not an exact numbe r. Chron ic Kidne y Disea se less than 60 mL/mi n/1.7 3m^2. Kidne w Failu re less than 15 mL/mi n/1.7 3m^2. Not Available [facility] (Lab) [address] [place], [address], 12/06/2023 12:49:28 12/06/19 24 12/06/2023 BMP calcium 9.00 mg/dL 8.60-1 0.[address] [facility] (Lab) [address] [place], [address], 12/06/2023 12:49:28 12/06/19 24 12/06/2023 BMP sodium 139 mEq/L 136-14 [address] [facility] (Lab) [address] [place], [address], 12/06/2023 12:49:28 12/06/19 24 12/06/2023 BMP potassium 3.65 mEq/L 3.57-4 .[address] [facility] (Lab) [address] [place], [address], 12/06/2023 12:49:28 12/06/19 24 12/06/2023 BMP chloride 110 mEq/L 102-11 [address] [facility] (Lab) [address] [place], [address], 12/06/2023 12:49:28 12/06/19 24 12/06/2023 BMP CO2 26 mEq/L 21-[address] [facility] (Lab) [address] [place], [address], 12/06/2023 12:49:28 12/06/19 24 12/06/2023 MAGNE SIUM magnesium 2.09 mg/dL 1.80-2 .[address] [facility] (Lab) [address] [place], [address], 12/06/2023 12:49:29 12/06/19 24 12/06/2023 MANUA L DIFFE RENTI AL segmented neutrophil 88 % 50-70 high Not Available [facility] (Lab) [address] [place], [address], 12/06/2023 13:32:43 12/06/19 24 12/06/2023 MANUA L DIFFE RENTI AL band neutrophil 5 % 0-5 normal Not Available [facility] (Lab) [address] [place], [address], 12/06/2023 13:32:43 12/06/19 24 12/06/2023 MANUA L DIFFE RENTI AL lymphocyte 5 % 20-40 low Not Available [facility] (Lab) [address] [place], [address], 12/06/2023 13:32:43 12/06/19 24 12/06/2023 AIXA TRIPATHI AL monocyte 2 % 1-[address] [facility] (Lab) [address], [place], [address], 12/06/2023 13:32:43 12/02/19 24 12/02/2023 CT, head + brain , w/o contr ast No observ ation record ed. [address], [place], [address], 12/03/2023 11:44:52 12/03/1912/03/2023 CT, cervi pj spine , w/o contr ast No observ ation record ed. [address], [place], [address], 12/03/2023 18:44:12 12/03/19 24 12/03/2023 CT, chest , w/o contr ast No observ ation record ed. [address], [place], [address], 12/03/2023 18:40:57 Result Notes None recorded. Problems Name Problem SNOMED Code Status Onset Date Resolution Date Notes Provider Name and Address Organization Details Recorded Time Hypertensive disorder 54291400 Active 2023 [address]AMES Gresham [address] [place], [address], [facility] 4 07:28:25 Mechanical prosthetic mitral valve replacement Active 2023 mitral JAMES Gresham [address] [place], [address], [facility] 4 07:28:58 Hyperlipidemi a 30190305 Active 2023 JAMES Gresham [address] [place], [address], [facility] 4 07:29:05 Chronic tremor 427682474 Active [address]P [address], [place], [address], [facility] 4 07:29:12 Seizure disorder 048814028 Active 2023 JAMES Gresham [address], [place], [address], [facility] 4 07:29:26 Warfarin therapy Active 2023 RUBI [address]P [address], [place], [address] , [facility] 4 07:30:23 Iron deficiency anemia 35807358 Active 2023 JAMES Gresham [address], [place], [address], [facility] 4 07:30:38 Gastroesophag eal reflux disease 327123515 Active 2023 RUBI [address]P [address], [place], [address], [facility] 4 07:30:46 Essential hypertension 48171554 Active 2023 RUBI G[address]P [address], [place], [address] , [facility] 4 07:31:02 Chronic kidney disease 559407100 Active 2023 thinks eGFR was 25% last check JAMES Gresham [address], [place], [address], [facility] 4 07:48:42 Persistent microscopic hematuria 281494986 Active 2023 RUBI G[address]P [address], [place], [address], [facility] 4 08:41:34 Impaired cognition 165886280 Active 2023 [address]y [address] [place], [address], [facility] 09:45:05 Problem Notes None recorded. Procedures Surgical History Date Name Laterality Status Provider Name and Address Organization Details Recorded Time 4 CT of chest without contrast [place], [address], [facility] 12/03/2023 18:40:34 CT cervical spine without contrast [place], [address], [facility] 12/03/2023 18:43:[address] head/brain w/o dye [place], [address], [facility] 12/03/2023 11:44:23 mechanical prosthetic mitral valve replacement completed JAMES Gresham [address] [place], [address], [facility] 12/02/2023 07:38:51 repair of inguinal hernia completed [place], [address], [facility] 12/02/2023 07:39:00 Imaging Results None recorded. Procedure Notes None recorded. Medical Equipment None Reported. Allergies No known drug allergies Medications Name Sig Start Date Stop Date Status Note LastModified by Organization Details LastModified Time amoxicilli n 500 mg capsule TAKE FOUR CAPSULES BY MOUTH ONE HOUR BEFORE APPOINTME NT 12/05 completed Not Available Not Available Not Available atorvastat in 20 mg tablet Take 1 tablet every day by oral route in the evening. 2023 active Not Available Not Available Not Avai lable sulfametho xazole 400 mg-trimeth oprim 80 mg tablet TAKE 1 TABLET BY MOUTH THREE TIMES A WEEK 12/05 completed Not Available Not Available Not Available dexamethas one 6 mg tablet Take 6 mg every 24 hours by oral route. 2023 active Not Available Not Available Not Avai lable azathiopri ne 50 mg tablet Take 3 tablets every day by oral route. 2023 active Not Available Not Available Not Avai lable omeprazole 40 mg capsule,de layed release Take 1 capsule every day by oral route in the evening. 2023 active Not Available Not Available Not Avai lable warfarin 3 mg tablet TAKE 1 TABLET (3 MG) BY MOUTH ONCE DAILY IN COMBINATI ON WITH 1/2 OF A 1 MG TABLET 12/05 completed Not Available Not Available Not Available warfarin 6 mg tablet TAKE ONE TABLET BY MOUTH ONCE DAILY ALONG WITH ONE-HALF TABLET OF 1 MG. 12/05 completed Not Available Not Available Not Available amlodipine 10 mg tablet Take 1 tablet every day by oral route. 2023 active Not Available Not Available Not Avai lable warfarin 2 mg tablet Take 1 tablet every day by oral route in the evening. 2023 active for a total of 7mg Not Available Not Available Not Available warfarin 5 mg tablet Take 1 tablet every day by oral route in the evening. 2023 active for a total of 7mg Not Available Not Available Not Available Keppra 750 mg tablet Take 1 tablet twice a day by oral route. 2023 active Not Available Not Available Not Avai lable warfarin 1 mg tablet TAKE 1/2 (ONE-HALF ) TABLET BY MOUTH ONCE DAILY 12/05 completed Not Available Not Available Not Available Men's MultiPlus tablet Take 1 tablet every day by oral route. 2023 active Not Available Not Available Not Avai lable Karma Aspirin 81mg daily 2023 active Not Available Not Available Not Avai lable ferrous gluconate 324 mg (38 mg iron) tablet TAKE 1 TABLET BY MOUTH TWICE DAILY 12/05 completed Not Available Not Available Not Available ferrous gluconate 324 mg (37.5 mg iron) tablet Take 1 tablet twice a day by oral route. 2023 active Not Available Not Available Not Avai lable Vitals Date Recorded Body temperature Heart rate Respiratory rate Oxygen saturation Systolic And Diastolic Provider Name and Address Organization Details Last Updated DateTime 4 [id number] [id number] Frances 120 /min 34 /min 94 % 126/75 mm[Hg] Padmini Nguyen CNA [address], [place], [id number] [place] [address] 4 20:56:46 Date Recorded Body temperature Heart rate Respiratory rate Oxygen saturation Body temperature Heart rate Respiratory rate Oxygen saturation Body temperature Heart rate Respiratory rate Oxygen saturation Provider Name and Address Organization Details Last Updated DateTime 4 [id number] Frances 91 /min 16 /min 91 % [id number] 3333 Frances 101 /min 16 /min 95 % [id number] 4444 Frances 98 /min 16 /min 96 % Ashley Hanson CNA [address] [place], [address] [place] [address] 4 10:03:08 Date Recorded Inhaled oxygen flow rate Body temperature Heart rate Respiratory rate Oxygen saturation Inhaled oxygen flow rate Body temperature Heart rate Respiratory rate Oxygen saturation Inhaled oxygen flow rate Systolic And Diastolic Systolic And Diastolic Systolic And Diastolic Systolic And Diastolic Systolic And Diastolic Provider Name and Address Organization Details Last Updated DateTime 4 2 L/min 38 Frances 92 /min 18 /min 100 % 2 L/min 37.024617017 5556 Frances 102 /min 18 /min 96 % 2 L/min 133/70 mm[Hg] 144/67 mm[Hg] 119/79 mm[Hg] 124/72 mm[Hg] 136/74 mm[Hg] Ashley Hanson CNA [address] [place], [address] [place] [address] 4 18:09:23 Date Recorded Heart rate Respiratory rate Oxygen saturation Heart rate Respiratory rate Oxygen saturation Heart rate Respiratory rate Oxygen saturation Heart rate Respiratory rate Oxygen saturation Provider Name and Address Organization Details Last Updated DateTime 4 90 /min 16 /min 92 % 97 /min 16 /min 92 % 96 /min 16 /min 91 % 97 /min 16 /min 90 % Larissa John RN [address], [place], [address] [place] [address] 4 09:23:38 Date Recorded Systolic And Diastolic Systolic And Diastolic Systolic And Diastolic Systolic And Diastolic Provider Name and Address Organization Details Last Updated DateTime 12/02/2023 131/69 mm[Hg] 132/79 mm[Hg] 127/77 mm[Hg] 135/77 mm[Hg] Larissa John RN [address], [place], [address] [place] [address] 4 09:23:38 Date Recorded Body temperature Heart rate Respiratory rate Oxygen saturation Body temperature Heart rate Respiratory rate Oxygen saturation Body temperature Heart rate Respiratory rate Oxygen saturation Provider Name and Address Organization Details Last Updated DateTime 4 37.093974643 6667 Frances 98 /min 18 /min 94 % 37.607022368 2222 Frances 89 /min 18 /min 94 % 37.746890981 2222 Frances 92 /min 20 /min 94 % Tucker Blank RN [address] [place], [address] [place] [address] 4 08:13:58 Date Recorded Oxygen saturation Inhaled oxygen flow rate Systolic And Diastolic Systolic And Diastolic Systolic And Diastolic Provider Name and Address Organization Details Last Updated DateTime 4 90 % 2 L/min 124/74 mm[Hg] 149/64 mm[Hg] 137/73 mm[Hg] Tucker Blank RN [address] [place], [address] [place] [address] 4 08:13:58 Date Recorded Body temperature Heart rate Respiratory rate Oxygen saturation Systolic And Diastolic Provider Name and Address Organization Details Last Updated DateTime 4 37.476944023 2222 Frances 95 /min 17 /min 94 % 128/76 mm[Hg] Sallie Reeves [facility] 4 06:39:17 Date Recorded Body temperature Heart rate Respiratory rate Oxygen saturation Inhaled oxygen flow rate Systolic And Diastolic Provider Name and Address Organization Details Last Updated DateTime 4 37 Frances 94 /min 20 /min 97 % 3 L/min 100/62 mm[Hg] Bernadine Ling [address], [place], [address] , [facility] 22:06:39 Date Recorded Body temperature Oxygen saturation Inhaled oxygen flow rate Provider Name and Address Organization Details Last Updated DateTime 12/03/2023 37.53476877038 67 Frances 93 % 3 L/min Tucker Blank RN [address], [place], [address], [facility] 12/03/2023 07:31:00 Date Recorded Body temperature Heart rate Respiratory rate Oxygen saturation Inhaled oxygen flow rate Body temperature Heart rate Respiratory rate Oxygen saturation Inhaled oxygen flow rate Body temperature Heart rate Provider Name and Address Organization Details Last Updated DateTime 37.064924810 4444 Frances 85 /min 14 /min 94 % 3 L/min 38 Frances 109 /min 14 /min 93 % 3 L/min 36.567754862 8889 Frances 89 /min Connie Santiago CNA [address], [place], [address], [facility] 4 17:19:57 Date Recorded Respiratory rate Oxygen saturation Inhaled oxygen flow rate Systolic And Diastolic Systolic And Diastolic Systolic And Diastolic Provider Name and Address Organization Details Last Updated DateTime 4 14 /min 94 % 3 L/min 112/75 mm[Hg] 106/66 mm[Hg] 94/62 mm[Hg] Connie Santiago CNA [address], [place], [address] [facility] 4 17:19:57 Date Recorded Body temperature Heart rate Respiratory rate Oxygen saturation Inhaled oxygen flow rate Body temperature Heart rate Respiratory rate Oxygen saturation Inhaled oxygen flow rate Systolic And Diastolic Systolic And Diastolic Provider Name and Address Organization Details Last Updated DateTime 4 39 Frances 99 /min 16 /min 94 % 4 L/min 36.763211258 8889 Frances 88 /min 16 /min 94 % 4 L/min 118/73 mm[Hg] 100/59 mm[Hg] Sallie Reeves [facility] 4 05:50:21 Date Recorded Body weight Provider Name an d Address Organization Details Last Updated DateTime 12/04/2023 [address]21 g Seema Gradner, RN [address] [place], [address], [facility] 12/04/2023 12:20:35 Date Recorded Body temperature Heart rate Respiratory rate Oxygen saturation Inhaled oxygen flow rate Body temperature Heart rate Respiratory rate Oxygen saturation Inhaled oxygen concentration Body temperature Heart rate Provider Name and Address Organization Details Last Updated DateTime 4 36.960607097 2222 Frances 83 /min 21 /min 95 % 2 L/min 37.166323000 5556 Frances 86 /min 20 /min 94 % 2 % 36.594660846 2222 Frances 82 /min Bernadine Ling [address] [place], [address] , [facility] 4 22:25:20 Date Recorded Respiratory rate Oxygen saturation Inhaled oxygen flow rate Systolic And Diastolic Systolic And Diastolic Systolic And Diastolic Provider Name and Address Organization Details Last Updated DateTime 4 20 /min 91 % 2 L/min 104/67 mm[Hg] 107/64 mm[Hg] 112/64 mm[Hg] Bernadine Ling [address] [place], [address] , [facility] 4 22:25:20 Date Recorded Body temperature Heart rate Respiratory rate Oxygen saturation Inhaled oxygen flow rate Body temperature Heart rate Respiratory rate Oxygen saturation Body temperature Heart rate Respiratory rate Provider Name and Address Organization Details Last Updated DateTime 4 36.781192683 2222 Frances 100 /min 20 /min 92 % 1 L/min 36.182624710 6667 Frances 97 /min 18 /min 92 % 36.453677138 2222 Frances 79 /min 18 /min Pamella Espinoza son, [employer] [address], [place], [address] [facility] 4 18:18:04 Date Recorded Oxygen saturation Inhaled oxygen flow rate Systolic And Diastolic Systolic And Diastolic Systolic And Diastolic Provider Name and Address Organization Details Last Updated DateTime 4 91 % 2 L/min 107/63 mm[Hg] 110/72 mm[Hg] 101/65 mm[Hg] Pamella Espinoza son, [employer] WORK[employer] [address], [place], [address], [facility] 4 18:18:04 Date Recorded Body temperature Heart rate Respiratory rate Oxygen saturation Inhaled oxygen flow rate Systolic And Diastolic Provider Name and Address Organization Details Last Updated DateTime 4 36.704004831 6667 Frances 81 /min 16 /min 97 % 1 L/min 107/64 mm[Hg] Sallie Reeves [facility] 4 06:10:12 Date Recorded Body weight Provider Name an d Address Organization Details Last Updated DateTime 12/05/2023 04836.788 g Larissa John, MAYE [address], [place], [address], [facility] 12/05/2023 11:12:41 Date Recorded Body temperature Heart rate Respiratory rate Oxygen saturation Inhaled oxygen flow rate Systolic And Diastolic Provider Name and Address Organization Details Last Updated DateTime 4 37.262568357 7778 Frances 101 /min 19 /min 90 % 2 L/min 113/70 mm[Hg] Afua Mccain [address] [place], [address], [facility] 4 11:37:31 Date Recorded Body temperature Heart rate Respiratory rate Oxygen saturation Inhaled oxygen flow rate Body temperature Heart rate Respiratory rate Oxygen saturation Inhaled oxygen flow rate Systolic And Diastolic Systolic And Diastolic Provider Name and Address Organization Details Last Updated DateTime 4 36.944266244 3333 Frances 88 /min 18 /min 92 % 1 L/min 36.479023010 2222 Frances 86 /min 18 /min 94 % 1 L/min 126/56 mm[Hg] 122/62 mm[Hg] Bernadine Ling [address], [place], [address] [place] [address] 4 06:19:35 Date Recorded Body temperature Heart rate Respiratory rate Oxygen saturation Body temperature Heart rate Respiratory rate Oxygen saturation Systolic And Diastolic Systolic And Diastolic Provider Name and Address Organization Details Last Updated DateTime 4 36.605842431 2222 Frances 85 /min 16 /min 89 % 36.268520312 3333 Frances 100 /min 18 /min 86 % 107/57 mm[Hg] 124/77 mm[Hg] Mel Lemus CNA [address] [place], [address] [place] [address] 4 18:14:33 Date Recorded Body temperature Heart rate Respiratory rate Oxygen saturation Systolic And Diastolic Provider Name and Address Organization Details Last Updated DateTime 4 37.842463252 2222 Frances 97 /min 20 /min 92 % 127/76 mm[Hg] Tucker Blank RN [address] [facility] [place] [place], [address] [place] [address] 4 21:29:38 Date Recorded Body temperature Heart rate Respiratory rate Oxygen saturation Inhaled oxygen flow rate Systolic And Diastolic Provider Name and Address Organization Details Last Updated DateTime 4 36.267540027 3333 Frances 84 /min 18 /min 90 % 1 L/min 119/72 mm[Hg] Tucker Blank RN [address] [facility] [place], [address] [place] [address] 4 02:05:18 Date Recorded Body temperature Heart rate Respiratory rate Oxygen saturation Body weight Body temperature Heart rate Respiratory rate Oxygen saturation Systolic And Diastolic Systolic And Diastolic Provider Name and Address Organization Details Last Updated DateTime 4 37.282127812 5556 Frances 103 /min 16 /min 93 % 597[address].6 24 g 36.918067286 6667 Frances 106 /min 14 /min 91 % 105/58 mm[Hg] 112/72 mm[Hg] Connie Santiago CNA [address] [place], [address], [facility] 14:13:07 Social History Question Answer Notes LastModified by Organizat ion Details LastModified Time Tobacco Smoking Status Never Smoker Tucker Blank, RN [address], [place], [address], [facility] 12/02/2023 07:03:30 What Is Your Level Of Caffeine Consumption? Occasional Information not available 12/02/2023 What Is Your Code Status? 0 [email or web address] Information not available 12/06/2023 In The 14 Days Before Symptom Onset, Have You Had Close Contact With A Laboratory-confirm ed COVID-19 While That Case Was Ill? No Information n ot available 12/02/2023 In The 14 Days Before Symptom Onset, Have You Had Close Contact With A Person Who Is Under Investigation For COVID-19 While That Person Was Ill? No Information not available 12/02/2023 Have You Been To An Area Known To Be High Risk For COVID-19? No Information not available 12/02/2023 What Was The Date Of Your Most Recent Tobacco Screening? 12/02/2023 Information not available 12/02/2023 Sex: Unknown Functional Status Question Answer Note LastModified by Organizat ion Details LastModified Time Do you use any illicit or recreational drugs? No Information not available 12/02/2023 Do you or have you ever used any other forms of tobacco or nicotine? No Information not available 12/02/2023 What is your level of alcohol consumption? None Information not available 12/02/2023 Mental Status None recorded. Family History Relationship Description Onset Age of this Age Resolved Age Notes LastModified by Organization Details LastModified Time Mother Myocardial infarction [email or web address] Not available 12/01 07:38:11 Mother Cerebrovascu lar accident [email or web address] Not available 07:38:37 Sister Myocardial infarction [email or web address] Not available 12/01 07:38:11 Father Cerebrovascu lar accident [email or web address] Not available 07:38:37 Medical History No medical history recorded. Past Encounters Encounter ID Performer Location Encounter Start Date Encounter Closed Date Diagnosis/Indication Diagnosis SNOMED-CT Code Diagnosis ICD10 Code Diagnosis IMO Codes Diagnosis Note [id number] Gaby Monte, [facility] [address] [place] [address] 12/02/2023 10:07:49 12/03/2023 09:53:35 [id number] Gaby Monte, [facility] [address] [place] [address] 12/03/2023 10:39:23 12/03/2023 15:22:18 [id number] Ede Brown MD [facility] [address] [place] [address] 12/04/2023 10:26:17 12/04/2023 14:04:05 [id number] Ryan Schneider [place] [address] [place] [address] 12/04/2023 11:50:58 12/04/2023 18:24:48 [id number] [facility] [address] [place] [address] 12/05/2023 10:44:14 12/05/2023 18:07:02 Health Concerns Section Related Observation LastModified by Organization Detai ls LastModified Time None Recorded Concern Status LastModified by Organization Details LastModified Time None Recorded Advance Directives Directive None Recorded Payers Insurance Date Sequence Insurance Name Policy Number Policy Reynolds Covered Member ID Reynolds Member ID Guarantor Name 12/15/2023 1 [place] [employer] Glenn Clayton [id number] Glenn Clayton 12/04/2023 2 [employer] (MEDICARE SUPPLEMENT) Glenn Clayton [id number] Glenn Clayton 12/04/2023 [place] [employer] Glenn Clayton [id number] Glenn Clayton 12/04/2023 3 [place] Glenn Clayton [id number] Glenn Clayton Notes Date Note Type Note Provider Name and Address Organization Details Recorded Time 12/02/2023 text/html Subjective Attempted to call Reji to update him regarding Harish's condition; particularly my ongoing concern that he is aspirating as we discussed in the ED this morning. I called the above cell phone number twice, busy both times. Will try again in the morning. Objective None recorded Assessment & Plan None recorded Gaby Monte, CLEANING TE[employer] MEMBER [address], [place], [address], [facility] 12/02/2023 22:58:52 12/03/2023 text/html Subjective Harish reports consistent coughing; he feels like his chest is loosening and that the nebs were helpful. He feels generally tired. Reji tells me that Harish has had some minor dysphagia since his stroke in 2018 so he doesn't feel this is new. Harish denies new focal deficits. He has been eating and coughing but feels he has been coughing when not eating as well. Reji would like to get Harish feeling better and then to [facility] any [facility] or referrals that may need to occur. He doesn't want to delay here in [place] any longer if possible. Reji printed off Harish's last labs from August 25, at that time his eGFR was 43. Objective Gen - no distress, he was resting comfortably and woke up /eyes opened right away when I spoke to him.Neuro - speech, facial symmetry unchanged, alert to person, place, year and to why he is hereHEENT - perrl, 2+, brisk, nares patent, wnlMouth - moistCV - RRR, 3/6 lsb murmurResp - 3 l nc, regular, very coarse bilaterally, no increased wobGI - bs+, s, nttpExt - cortez, no focal deficits, self feedingSkin - hot, dry Vitals VitalMost RecentTime8 Hour Range Phjplffugtn956.4 A98-05-1027 11:0498.4 F-102.2 F Heart ouaf723ningrduh pzugptof36-97-2084 11:0485bpm-120bpm Blood yialeoah604/66sitting 12-03-2023 11:97751/59 - 149/64 Respiratory owhk7639-18-0622 11:0414-34 Oxygen vijzysijra39%nasal owxrtlt2U/egi56-64-75 24 11:0490%-100% Intake & Qyfbxr25 Hour Total Uapjwq0960.0mL Gcmhxq2246.0mL Net Wovbodm3804oG Recent Labs Na + 137 mEq/L Cl - 109 mEq/L BUN 20 mg/dL K + 4.25 mEq/L CO 2 19 mEq/L CRET 1.9 mg/dL Glc 92 mg/dL 08:14, 12-03-2023 Ca ++ Mg P 15:37, 12-02-2023 Hgb 13.7 g/dL WBC PL T 183 X103/uL HCT 39.8 % 07:52, 12-03-2023 PT PTT INR 06:37, 12-02-2023 Active Medications Medications Name Sig Start Stop Ordered by albuterol-ipratropium Nebulized 3 mg (2.5 mg base)-0.5 mg/3 mL3 mL3 times per day08:58, 08 1 3 2 024 Gaby Monte, [employer] MEMBER-C amLODIPine Oral10 mgevery day08:, 08 1 3 2 024 Gaby Monte, [employer]BER-C aspirin Oral81 mgevery day08:, 08 1 3 2 024 Gaby Monte, CLE[employer]ING TE[employer] MEMBER-C atorvastatin Oral20 mgevery day at :00, 08 1 3 2 024 Gaby Monte, CLE[employer]ING TE[employer] MEMBER-C azaTHIOprine Ytrw865 mgevery day08:, 08 1 3 2 024 Gaby Monte, CLE[employer]ING TE[employer] MEMBER-C azithromycin IV500 mgevery 24 hours for 4 kjrv599vpff768bQ5.9 % sodium chloride(2 mg/mL)250 mL/hr for 1 hour08:00, 08 1 4 2 024 09:00, 08 1 7 2 024 Gaby Monte, CLEANING TE[employer] MEMBER-C cefTRIAXone IV1 gevery 12 hours for 5 gjsg7vqm108aJ2.9 % sodium chloride(0.01 g/mL)100 mL/hr for 1 hour07:32, 08 1 3 2 024 20:32, 08 1 7 2 024 Gaby Monte, CLE[employer]ING TE[employer] MEMBER-C ferrous gluconate Kklw271 mg2 times per day19:00, 08 1 3 2 024 Gaby Monte, CLEANING TE[employer] MEMBER-C Keppra Vfhp643 mg2 times per day08:01, 08 1 3 2 024 RUBI GreshamP-C multivitamins, tx-minerals Oral Tablet1 tabevery day08:01, 08 1 3 2 024 RUBI GreshamP-C omeprazole Oral Delayed Release Wbjbnua28 mgevery 24 hours21:00, 08 1 3 2 024 RUBI GreshamP-C warfarin Oral2 mgEvery evening at 6 pmfor a total of 7mg18:00, 08 1 3 2 024 RUBI GreshamP-C warfarin Oral5 mgEvery evening at 6 pmfor a total of 7mg18:00, 08 1 3 2 024 Gaby Monte CLE[employer]BER-C PRN Medications Name Sig Start Stop Ordered by acetaminophen Oral1,000 mg4 times per day08:39, 08 1 3 2 024 Gaby Monte, CLE[employer]ING TE[employer] MEMBER-C IV Fluids Name Sig Start Stop Ordered by sodium chloride IV 0.9 %150 mL/hr150 mL/hr (continuous)05:26, 08 1 3 2 024 RUBI GreshamP-C Assessment & Plan IMPRESSION:bilateral pneumonia -UTI w/ hematuria (wbc normal due to azathioprine) acute onset of weakness - requiring ambulatory assistance mild AMS - at baseline today per Reji gait instability - still requiring assistance severe dehydration - YVON (eGFR slightly improved, still not at baseline today) CRP elevated - 3.57 yesterday 24.28 today tachycardia - will add tylenol standing ordershx of CVA hx of seizures hx of mild cognitive decline 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 He is awake and alert and reports that he's feeling much better than yesterday. He has a slightly odd affect and I question his memory, but his history of CVA with potential dementia seems in line with this observation. Nursing reports he has been up and walking and appears to be doing well on room air at rest today but is frequently removing his oxygen tubing. His partner, Reji, Called in this afternoon and reported a positive Covid-19 test. He has not visited the hospital today. Glenn was tested and found positive for Covid-19 via PCR. Objective General: Well appearing, well nourished, in no distress. Oriented x 3, normal mood and affect. Skin: [place], warm, and dry. Lower eyelids puffy in appearance HEENT: Facial expressions equal. Normocephalic, atraumatic, conjunctiva clear, sclera non-icteric, EOM intact, hearing intact. Heart: Regular rate and rhythm. Moderate murmur Lungs: Clear to auscultation bilaterally. Respirations unlabored but rapid, Normal rate of speech GI: No abdominal distension or tenderness Extremities: No amputations or deformities, cyanosis, edema Musculoskeletal: Normal station, CORTEZ, ambulats in hallway Vitals VitalMost FojynkGkkg05 Hour Range Qcchufnuhra82.1 Ftemporal juhpfu29-62-6070 16:1798 F-100.4 F Heart dcxl98adwnaems gojsuqcn08-15-7299 16:1779bpm-109bpm Blood owxontyp271/65sitting tvraw46-67-4053 16:1794/62 - 112/75 Respiratory kujn4898-51-9214 16:1714-21 Oxygen dbjymrzfwc90%room air2L/qno85-33-3453 16:1791%-97% Uakrjf854oly1yw87-07- 2024 10:41608fpz8zr-107vvt 6oz Pain ghizt1bjusdao13-75-22 24 12:000-0 Intake & Gedjto51 Hour Total Ferizt992.0mL Output0.0mL Net Smzrxyy441rT Recent Labs Na + 142 mEq/L Cl - 111 mEq/L BUN 24 mg/dL K + 4.03 mEq/L CO 2 21 mEq/L CRET 1.6 mg/dL Glc 125 mg/dL 08:00, 12-04-2023 Ca ++ 8.90 mg/dL Mg P 08:00, 12-04-2023 Hgb 12.4 g/dL WBC PL T 171 X103/uL HCT 35.8 % 07:26, 12-03-2024 PT PTT INR Active Medications Medications Name Sig Start Stop Ordered by acetaminophen Oral1,000 mg4 times per day for 48 hours12:34, 08 1 4 2 024 09:00, 08 1 6 2 024 RUBI GreshamP-C albuterol Nebulized2.5 mgevery 24 hours22:00, 08 1 4 2 024 Gaby Monte, CLE[employer]ING TE[employer] MEMBER-C albuterol-ipratropium Nebulized 3 mg (2.5 mg base)-0.5 mg/3 mL3 mL3 times per day08:58, 08 1 3 2 024 RUBI GreshamP-C amLODIPine Oral10 mgevery day08:, 08 1 3 2 024 Gaby Monte, CLE[employer]ING TE[employer] MEMBER-C aspirin Oral81 mgevery day08:, 08 1 3 2 024 Gaby Monte, CLEANING TEAM MEMBER-C atorvastatin Oral20 mgevery day at :00, 08 1 3 2 024 RUBI GreshamP-C azaTHIOprine Nmhk187 mgevery day08:, 08 1 3 2 024 Gaby Monte, CLEANING TEAM MEMBER-C azithromycin IV500 mgevery 24 hours for 4 vjet034gdkq630zE5.9 % sodium chloride(2 mg/mL)250 mL/hr for 1 hour08:00, 08 1 4 2 024 09:00, 08 1 7 2 024 Gaby Monte, CLEANING TEAM MEMBER-C cefTRIAXone IV1 gevery 12 hours for 5 adld1byf954qJ3.9 % sodium chloride(0.01 g/mL)100 mL/hr for 1 hour07:32, 08 1 3 2 024 20:32, 08 1 7 2 024 Gaby Monte, CLEANING TEAM MEMBER-C ferrous gluconate Wyrn958 mg2 times per day19:00, 08 1 3 2 024 Gaby Monte, CLEANING TEAM MEMBER-C Keppra Wzay842 mg2 times per day08:, 08 1 3 2 024 Gaby Monte, CLEANING TEAM MEMBER-C multivitamins, tx-minerals Oral Tablet1 tabevery day08:, 08 1 3 2 024 Gaby Monte, CLEANING TEAM MEMBER-C omeprazole Oral Delayed Release Uymydjs94 mgevery 24 hours21:00, 08 1 3 2 024 RUBI GreshamP-C SOLU-MedroL (PF) IV62.5 mgpush2 times per day19:00, 08 1 4 2 024 Gaby Monte, CLEANING TEAM MEMBER-C warfarin Oral2 mgEvery evening at 6 pmfor a total of 7mg18:00, 08 1 3 2 024 Gaby Corinaere, CLEANING TEAM MEMBER-C warfarin Oral5 mgEvery evening at 6 pmfor a total of 7mg18:00, 08 1 3 2 024 Gaby Fugere, CLEANING TEAM MEMBER-C PRN Medications None Recorded IV Fluids Name Sig Start Stop Ordered by sodium chloride IV 0.9 %sodium chloride 0.9 % 50 mL/hr IV Rate: 50 mL/hr19:42, 08 1 4 2 024 Gaby Fugere, CLEANING TE[employer] MEMBER-C Assessment & Plan bilateral pneumonia - UTI w/ hematuria (wbc normal due to azathioprine) acute onset of weakness - requiring ambulatory assistance mild AMS - at baseline today per Reji gait instability - still requiring assistance severe dehydration - YVON (eGFR slightly improved, still not at baseline today) CRP elevated - 24.28 yesterday 35.65 today tachycardia - will add tylenol standing orders hx of CVA hx of seizures hx of mild cognitive decline hx 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 EKG: NSR w/ pacs Positive for Covid-19, symptomatic for at least 4 days PLAN: Respiratory precautions- airbone and dropletcontinue inpatient without telemetry azithromycin 500mg qday, ceftriaxone 1 g bid Change Solumedrol to DexamethasoneNS @ 50 ml/hr duonebs qid oxygen to SPO2 92% labs in the am home medications dvt prophylaxis - continue warfarin gi prophylaxis - continue home ppi diet: cardiac act: oob tid w/ assistance in room only Ryan Schneider, CLEANING TEAM MEMBER [address], [place], [address], [facility] 12/04/2023 19:09:46 12/05/2023 text/html Subjective Glenn reports he's feeling more fatigued today and feels like he is retaining fluid. His CRP is dramatically improved over the last 2 tests and we are working to transition him to PO medication and off of IV therapy. He denies discomfort at this time. His partner is Covid positive and is not visiting. Glenn is also on isolation precautions now and we are monitoring his baseline cognitive deficit and trying to engage him when in the room. Objective General: Ill appearing, well nourished, in no acute distress. Oriented x 2, pleasant mood and affect. Skin: pale, thin, warm, and dry. Facial edema. HEENT: Facial expressions equal. Normocephalic, atraumatic, conjunctiva clear, sclera non-icteric, EOM intact, hearing intact. Heart: Regular rate and rhythm. Lungs: Clear to auscultation bilaterally. Respirations unlabored, Normal rate of speech GI: Abdomen mildly distended. BS active throughout. No abdominal or suprapubic tenderness Extremities: No amputations or deformities. 2+ soft edema in bilateral LE. Musculoskeletal: Normal station, CORTEZ. Vitals VitalMost JgrvwyKaur57 Hour Range Vmsrwhtljpp20.1 Lhtwgxeug06-75-7396 08:3098 F-99.1 F Heart rkpr395dwedbtwu diwdzuzs20-15-6962 08:3079bpm-101bpm Blood fhrorcdc257/70sitting upper arm - rightadult - -26-2979 08:74272/65 - 126/56 Respiratory ymbz8239-80-1739 08:3016-21 Oxygen tcvaodakwj63%nasal lawmptl4E/ttl43-30-58 24 08:3090%-97% Yuoubz539tqu9ub22-49- 2024 09:35671lag1lj-581zih 8oz Pain uvkwc8abozuks89-68-22 24 12:000-0 Intake & Twbchg29 Hour Total Rtmvvw725.0mL Output0.0mL Net Rcwgmax271bV More recent vital readings have been recorded Recent Labs Na + 142 mEq/L Cl - 111 mEq/L BUN 29 mg/dL K + 4.08 mEq/L CO 2 21 mEq/L CRET 1.7 mg/dL Glc 123 mg/dL 08:06, 12-05-2023 Ca ++ 8.90 mg/dL Mg P 08:06, 12-05-2023 Hgb 12.6 g/dL WBC PL T 201 X103/uL HCT 37.2 % 07:53, 12-05-2023 PT PTT INR Active Medications Medications Name Sig Start Stop Ordered by amLODIPine Oral10 mgevery day08: 1 3 2 024 REESE Gresham aspirin Oral81 mgevery day08:01, 08 1 3 2 024 Gaby Monte, CLEANING TEAM MEMBER-C atorvastatin Oral20 mgevery day at kkokvxr07:00, 08 1 3 2 024 Gaby Monte, CLEANING TEAM MEMBER-C azaTHIOprine Wsbf896 mgevery day08:01, 08 1 3 2 024 Gaby Monte, CLEANING TEAM MEMBER-C dexAMETHasone Oral6 mgevery dayDC Solu-Medrol after 2nd dose on 12/03/2406:00, 08 1 6 2 024 RUBI OrdazP-Nancy ferrous gluconate Czvf687 mg2 times per day19:00, 08 1 3 2 024 Gaby Monte CLEANING TEAM MEMBER-Nancy Keppra Pqef528 mg2 times per day08:01, 08 1 3 2 024 Gaby Monte, CLEANING TEAM MEMBER-C multivitamins, tx-minerals Oral Tablet1 tabevery day08:01, 08 1 3 2 024 Gaby Monte, CLEANING TEAM MEMBER-C omeprazole Oral Delayed Release Uwshvlz74 mgevery 24 hours21:00, 08 1 3 2 024 Gaby Monte, CLEANING TEAM MEMBER-C warfarin Oral2 mgEvery evening at 6 pmfor a total of 7mg18:00, 08 1 3 2 024 Gaby Monte, CLEANING TEAM MEMBER-C warfarin Oral5 mgEvery evening at 6 pmfor a total of 7mg18:00, 08 1 3 2 024 Gaby Monte CLEANING TEAM MEMBER-C PRN Medications None Recorded IV Fluids None Recorded Assessment & Plan Bilateral PNA-Transition to PO medication today-Will transition to PO medication-Will evaluate for supplemental O2 need on the way home.-Questionable bacterial PNA vs Covid PNA, left shift present leaning towards bacterial infection-Maintaining elevated body temp; potential complication of Covid-19 UTI-Ceftriaxone given x4 days total. Now discontinued-No growth on culture Renal dysfunctionEdema-Janet ining fluid, GFR diminished.-CrCl 54 on 12/03, 51 on 12/04-Lasix IV times one this AM-DC Maintenance fluids-Recheck BMP in AM History of CVA with cognitive decline-Engaging when in room-monitoring, will DC to home as soon as medically prudent Teapn-82-Hcfkvzdtm to have increased supplemental O2 need.-Transitioned to PO dexamethasone yesterday, to continue for 6 days from today-Covid infection complicates overall treatment and picture of recovery.-Transitione d to inhaler from nebulizer Dispo-To discharge to drive home as soon as he can maintain on room air. Last dose azithromycin for 12/05. Ceftriaxone complete. Continue dexamethasone for 6 days. Ryan Schneider, CLEANING TEAM MEMBER [address] [place], [address], [facility] 12/05/2023 21:48:42
--- OUTSIDE RECORDS SUMMARY | 2025-04-06 18:05 | XMS_ITS | Clinical Summary ---
Author Organization [facility] Address [address] [place] [address] Care Team Providers Care Assistance Specialist Name Role Phone Jerrell Parrish MD Primary Care Provider Allergies Active Allergy Reactions Criticality Noted Date Comments Lisinopril Unknown 09/28/2019 Medications warfarin 3 MG tablet Take 1 tablet (3 mg total) by mouth daily. 08/10/2019 Active atorvastatin 20 MG tablet Take 1 tablet (20 mg total) by mouth daily. Active aspirin EC 81 MG tablet Take 1 tablet (81 mg total) by mouth daily. Active omeprazole 40 MG capsule Take 1 capsule (40 mg total) by mouth daily. Active ferrous gluconate 324 (38 FE) MG tablet Take 1 tablet (324 mg total) by mouth 2 (two) times daily. 07/08/2019 Active levETIRAcetam 750 MG tablet Take 1 tablet (750 mg total) by mouth every 12 (twelve) hours. 12/09/2019 Active warfarin 1 MG tablet 07/21/2020 Active Multiple Vitamin (MULTIVITAMIN ADULT OR) Take 1 tablet by mouth daily. Active sulfamethoxazol e-trimethoprim (BACTRIM) 400-80 MG tablet TAKE 1 TABLET BY MOUTH THREE TIMES A WEEK 11/23/2021 Active amoxicillin (AMOXIL) 500 MG capsule Take 4 capsules (2,000 mg total) by mouth once. 10/16/2021 Active amLODIPine (NORVASC) 10 MG tablet Take 1 tablet (10 mg total) by mouth daily. 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 06/09/2022 Left atrial thrombus 03/31/2020 Seizure 12/06/2019 S/P MVR (mitral valve replacement) 10/25/2019 CVA (cerebral vascular accident) 09/19/2017 Overview (09/28/2019): left parietal occipital Mitral valve prolapse Hypertension Hyperlipidemia Chronic anemia Family History Medical History Relation Comments CVA Father Coronary artery disease Father Dementia Father Diabetes Father CVA Mother Cancer Mother Osteoarthritis Mother Osteoporosis Mother [place]'s Disease Sister Relation Status Comments Father Mother Sister Social History Tobacco Use Types Packs/Day Years Used Date Smoking Tobacco: Never Smokeless Tobacco: Never Tobacco Cessation:Counseling Given: Not Answered Alcohol Use Standard Drinks/Week Comments Never 0 (1 standard drink = 0.6 oz pur e alcohol) AUDIT-C Answer Date Recorded Frequency of Alcohol Consumption Never 09/28/2019 Average Number of Drinks Not on file 020 Frequency of Binge Drinking Not on file 12/2019 Sex and Gender Information Value Date Recorded Sex Assigned at Not on file Legal Sex Male 9:38 AM CDT Gender Identity Not on file Sexual Orientation Not on file Occupation Industry Job Start Date Job End Date Disabled Not on file Not on file Not on file Last Filed Vital Signs Vital Sign Reading Time Taken Comments Blood Pressure 153/78 12/18/2022 10:00 AM CDT Pulse 96 12/18/2022 10:00 AM CDT Temperature 37.1 C (98.7 F) 12/09/2019 8:07 AM CDT Respiratory Rate 18 12/18/2022 10:00 AM CDT Oxygen Saturation 99% 12/18/2022 10:00 AM CDT Inhaled Oxygen Concentration - - Weight 88.7 kg (195 lb 9.6 oz) 12/18/2022 10:00 AM CDT Height 172.7 cm (5' 8) 12/18/2022 10:00 AM CDT Body Mass Index 29.74 12/18/2022 10:00 AM CDT Plan of Treatment Health Maintenance Due Date Last Done Comments Colorectal Cancer Screening Colonoscopy (10 Years) 1955 Hepatitis C 11/09/1971 DTaP, Tdap and Td Vaccines ( 1 - Tdap) 1972 Hepatitis A Vaccines (1 of 2 - Risk 2-dose series) 1972 Pneumococcal Vaccine: 50+ Years (1 of 2 - PCV) 1972 Zoster Vaccines (1 of 2) 11/09/2003 RSV Immunization or 60+ Years (1 - Risk 60-74 years 1-dose series) 2013 Annual Medicare Wellness Visit 2018 COVID-19 Vaccine (3 - 2024-2 6 season) 2024 07/03/2020, 06/12/2020 Influenza Adult (#1) 2025 Meningococcal B Vaccine Aged Out No l onger eligible based on patient's age to complete this topic Meningococcal Vaccine Aged Out No ray veronica eligible based on patient's age to complete this topic RSV Immunizations Under 20 Months Aged Out No longer eligible b ased on patient's age to complete this topic Insurance MEDICARE [employer] MEDICARE [employer] [facility] [employer] * Guarantor: Glenn Clayton Nelida Account Type Relation to Patient Date of Phone Billing Address Personal/Family Self 12/06/1879 Advance Directives Documents on File Type Date Recorded Patient Sheet Heater Expl anation Advance Directives and Living Will 10/07/2019 2:14 PM Refer to NIURKA fredy lee regarding Advanced Directives Power of Machine Inspector 10/07/2019 2:14 PM Reji Echeverria, HCA-Healthcare Agent; Neelam De La Torre, 1st alternate HCA-other; Nancy Reyes, 2nd alternate HCA-other; * Full Code (Latest Code Status on File) Date Activated Date Inactivated Comments 12/06/2019 5:56 PM 12/09/2019 4:40 PM Healthcare Agents on File Name Relationship Healthcare Agent Relationship Communication Rjei A. ([facility]) Jacki Healthcare Agent Health Care Agent Neelam De La Torre Other First Alternate Health Care Agent Nancy Reyes Other Second Alternate Health Care Agent Care Teams Assistance Specialist Relationship Specialty Start Date End Date Jerrell Parrish MD [address] [place] [address] PCP - General INTERNAL MEDICINE 09/07/19
--- OUTSIDE RECORDS SUMMARY | 2025-04-06 18:05 | XMS_ITS | Encounter Summary ---
Author Organization [facility] Address [address] [place] [address] Phone Care Team Providers Care Direct Marketing Representative Name Role Phone Jerrell Parrish MD Primary Care Provider [phone] Jerrell Parrish MD Unavailable [phone] Encounter Details Date Type Department Care Team (Late st Contact Info) Description 12/13/2019 Orders Only [facility] Scanning, Provider Social History Tobacco Use Types Packs/Day Years Used Date Smoking Tobacco: Never Smokeless Tobacco: Never Alcohol Use Standard Drinks/Week Comments No 0 (1 standard drink = 0.6 oz pur e alcohol) Sex and Gender Information Value Date Recorded Sex Assigned at Not on file Legal Sex Male 7:13 AM PATROL CONDUCTOR Gender Identity Male 11/28/2020 8:17 AM CDT Sexual Orientation Choose not to disclose 2020 8:17 AM CDT documented as of this encounter Plan of Treatment Not on file documented as of this encounter Procedures Procedure Name Priority Date/Time Associated Diagnosis Comments SCAN - RADIOLOGY/IMAGING 12/13/2019 documented in this encounter Results * SCAN - RADIOLOGY/IMAGING (12/13/2019) Anatomical Region Laterality Modality Other us Provider Scanning Final Result documented in this encounter Visit Diagnoses Not on filedocumented in this encounter Care Teams Direct Marketing Representative Relationship Specialty Start Date End Date Jerrell Parrish MD PCP - General Internal Medicine 05/17/17 Jerrell Parrish MD Internal Medicine 05/17/17 documented as of this encounter
--- OUTSIDE RECORDS SUMMARY | 2025-04-06 18:05 | XMS_ITS | Clinical Summary ---
Author Organization [facility] [address] Address [address] [place] [address] Care Team Providers Care Therapy Director Name Role Phone Jerrell Parrish MD Primary Care Provider [phone] Jerrell Parrish MD Unavailable [phone] Allergies No known active allergies Medications atorvastatin (LIPITOR) 20 mg tablet Take 1 tablet (20 mg total) by mouth daily Active aspirin 81 mg tablet Take 1 tablet (81 mg total) by mouth daily Active omeprazole (PriLOSEC) 40 mg capsule Take 1 capsule (40 mg total) by mouth daily Active warfarin (COUMADIN) 1 mg tablet 0.5 tablets (0.5 mg total) daily With a 3mg tab 0 Active ferrous gluconate 324 mg (38 mg of elemental iron) tablet Take 1 tablet (324 mg total) by mouth 2 (two) times a day 0 Active levETIRAcetam (KEPPRA) 750 mg tablet Take 1 tablet (750 mg total) by mouth every 12 (twelve) hours 0 Active warfarin (COUMADIN) 3 mg tablet 0 Active amoxicillin 500 mg capsule Take 1 tablet/capsule (500 mg total) by mouth Prior to dental procedure 1 Active multivitamin with minerals tablet Take 1 tablet every day by oral route. 4 Active warfarin (COUMADIN) 2 mg tablet 4 Active docusate (COLACE) liquid 50 mg/5 mLIndications:c onstipation Take by mouth 2 (two) times a day Active bexagliflozin 20 mg tablet Take 20 mg by mouth daily 90 tablet 3 5 Active warfarin (COUMADIN) 5 mg tablet TAKE 1 TABLET BY MOUTH ONCE DAILY ALONG WITH 0.5 (ONE-HALF) TABLET OF 1 MG TABLET 5 Active warfarin (COUMADIN) 6 mg tablet TAKE ONE TABLET BY MOUTH ONCE DAILY ALONG WITH ONE-HALF TABLET OF 1 MG. 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 09/05/19 Chronic kidney disease 05/18/2020 Left atrial thrombus 03/31/2020 Anemia 02/24/2020 High risk medications (not anticoagulants) long- term use 01/21/2020 Hypertension, essential 12/16/2019 Microscopic hematuria 12/16/2019 Persistent proteinuria 12/16/2019 Seizure 12/06/2019 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 11/23/2019 S/P MVR (mitral valve replacement) 10/25/2019 Second degree AV block, Mobitz type I 07/23/2018 CVA (cerebral vascular accident) 09/19/2017 Overview (09/04/2021): left parietal occipital History of mitral valve replacement with mechani pj valve 06/19/2017 Encounters Date Type Department Care Team Description 03/09/2025 4:20 PM CUTTING MACHINE TENDER DECORATIVE Lab [facility] Medicine Endocrinology Metabolism and Lipid [address] [place] [address] 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) 03/09/2025 3:00 PM CUTTING MACHINE TENDER DECORATIVE Office Visit [facility] Medicine Rheumatology [address] [place] [address] [place] [id number] 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) (Primary Dx); High risk medication use; Immunocompromised from Last 3 Months Immunizations Immunization Administration Dates Next Due Influenza, Quad, Adjuvantate d, Intramuscular 01/03/2023 Influenza, Quadrivalent, Hig h Dose, Preservative Free, Intrr 12/25/2021 Influenza, Quadrivalent, Spl it, Intramuscular 01/04/2017 Influenza, Quadrivalent, Spl it, Preservative Free, Intramuscular 12/28/2020,01/18/2020,01/08/2019,01/05 Influenza, Trivalent, Adjuva nted, Intramuscular 01/29/2024 Influenza, Trivalent, IM (MDV) 01/26/2015 Pfizer SARS-CoV-2 Monovalent Vaccination (12+ Yrs) PURPLE 07/03/2020,06/12/2020 Pneumococcal Conjugate PCV 13 01/31/2022 Pneumococcal Polysaccharide PPV23 08/07/2011 RSV Vaccine, Pref, Recombina nt, Subunit, Adjuvanted, PF, IM (Arexvy) 02/21/2023 Tdap 08/01/2020 ZOSTER Recombinant 06/06/2023,02/21/2023 Medical History Medical History Date Comments Hypertension Valvular disease Heart murmur Stroke (HCC) Cancer (HCC) Family History Medical History Relation Name Comments Heart attack Father Stroke Mother Relation Name Status Comments Father Mother Social History Tobacco Use Types Packs/Day Years Used Date Smoking Tobacco: Never Smokeless Tobacco: Never Tobacco Cessation:Counseling Given: Not Answered Alcohol Use Standard Drinks/Week Comments No 0 (1 standard drink = 0.6 oz pur e alcohol) Hunger Vital Sign Answer Date Recorded Within the past 12 months, y ou worried that your food would run out before you got the money to buy more. Never true 02/05/20 23 Within the past 12 months, t he food you bought just didn't last and you didn't have money to get more. Never true 02/04/2023 Personal Safety Answer Date Recorded Have you ever been in or are you currently in a harmful physical or emotional relationship or is someone making you feel afraid or unsafe? Denies 02/04/2023 Sex and Gender Information Value Date Recorded Sex Assigned at Not on file Legal Sex Male 7:13 AM CUTTING MACHINE TENDER DECORATIVE Gender Identity Male 11/28/2020 8:17 AM CDT Sexual Orientation Choose not to disclose 2020 8:17 AM CDT Last Filed Vital Signs Vital Sign Reading Time Taken Comments Blood Pressure 114/78 03/09/2025 2:55 PM CUTTING MACHINE TENDER DECORATIVE Pulse 112 03/09/2025 2:55 PM CUTTING MACHINE TENDER DECORATIVE Temperature 36.4 C (97.6 F) 03/09/2025 2:55 PM CUTTING MACHINE TENDER DECORATIVE Respiratory Rate 18 02/04/2023 9:21 AM CDT Oxygen Saturation 97% 02/18/2023 12:40 PM CDT Inhaled Oxygen Concentration - - Weight 81.6 kg (180 lb) 03/09/2025 2:55 PM CUTTING MACHINE TENDER DECORATIVE Height 172.7 cm (5' 8) 03/09/2025 2:55 PM CUTTING MACHINE TENDER DECORATIVE Body Mass Index 27.37 03/09/2025 2:55 PM CUTTING MACHINE TENDER DECORATIVE Plan of Treatment Health Maintenance Due Date Last Done Comments Colon Cancer Screening-Colonoscopy 1955 Depression Screening 1955 Fall Risk Assessment 1955 Well Visit 65+ 2018 Pneumococcal vaccine 65+ (3 of 3 - PCV20 or PCV21) 03/28/2022 01/31/2022, 08/07/2011 Covid-19 Vaccine (2024-2 6 season) 2024 01/10/2023, 01/14/2022, 08/20/2021, Additional history exists Influenza Vaccine (#1) 2024 , 01/03/2023, 12/25/2021, Additional history exists DTaP/Tdap/Td Vaccine (2 - Td or Tdap) 08/01/2030 08/01/2020 Hepatitis B Screening Completed 11/23/2019 Hepatitis C Screening Completed 11/23/2019 Zoster Vaccine Completed 06/06/2023, 02/21/2023 Procedures Procedure Name Priority Date/Time Associated Diagnosis Comments CBC WITHOUT DIFFERENTIAL Routine 03/09/2025 4:01 PM CUTTING MACHINE TENDER DECORATIVE 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) COMPREHENSIVE METABOLIC PANEL Routine 03/09/2025 4:01 PM CUTTING MACHINE TENDER DECORATIVE 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) ERYTHROCYTE SEDIMENTATION RATE Routine 03/09/2025 4:01 PM CUTTING MACHINE TENDER DECORATIVE 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) CRP (ACUTE PHASE) Routine 03/09/2025 4:0 1 PM CUTTING MACHINE TENDER DECORATIVE 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) HEPATITIS C ANTIBODY Routine 11/23/2019 2:25 PM CDT ANCA-associated vasculitis (HCC) from Last 3 Months or Most Recently Relevant to Health Maintenance Results * (ABNORMAL) Erythrocyte sedimentation rate (03/09/2025 4:01 PM CUTTING MACHINE TENDER DECORATIVE) Erythrocyte Sedimentation Rate 25(H) <20 mm/hr [facility] Blood 03/09/2025 4:01 PM CUTTING MACHINE TENDER DECORATIVE 03/09/2025 4:16 PM CUTTING MACHINE TENDER DECORATIVE us Maximiliano Hernandez MD LAB BLOOD ORDERABLES Final Re sult [facility] * (ABNORMAL) CBC without differential (03/09/2025 4:01 PM CUTTING MACHINE TENDER DECORATIVE) White Blood Count 8.9 3.6 - 11.2 K/uL [facility] RBC 4.94 4.06 - 5.63 M/uL [facility] Hemoglobin 16.4 13.0 - 17.5 g/dL [facility] Hematocrit 48.6 40.7 - 50.3 % [facility] MCV 98.4(H) 80.0 - 97.6 fL [facility] MCH 33.3 26.7 - 33.7 pg [facility] MCHC 33.8 32.7 - 35.5 g/dL [facility] RBC Dist Width 15.1 12.3 - 17.0 % [facility] Platelet Count 259 140 - 440 K/uL [facility] MPV 7.9 6.8 - 10.4 fL [facility] Blood 03/09/2025 4:01 PM CUTTING MACHINE TENDER DECORATIVE 03/09/2025 4:16 PM CUTTING MACHINE TENDER DECORATIVE Maximiliano Hernandez MD LAB BLOOD ORDERABLES Final Re sult [facility] * (ABNORMAL) CRP (acute phase) (03/09/2025 4:01 PM CUTTING MACHINE TENDER DECORATIVE) Pathologist [facility] C-Reactive Protein, Acute 20.8(H) <5.0 mg/L [facility] Blood 03/09/2025 4:01 PM CUTTING MACHINE TENDER DECORATIVE 03/09/2025 4:16 PM CUTTING MACHINE TENDER DECORATIVE Maximiliano Hernandez MD LAB BLOOD ORDERABLES Final Re sult Performing Organization Address [facility] Co de Phone Number [facility] * (ABNORMAL) Comprehensive metabolic panel (03/09/2025 4:01 PM CUTTING MACHINE TENDER DECORATIVE) Pathologist [facility] Total Protein 7.4 6.1 - 8.4 g/dL [facility] Albumin 4.0 3.5 - 5.2 g/dL [facility] Calcium 9.8 8.6 - 10.3 mg/dL [facility] BUN 32(H) 7 - 23 mg/dL [facility] Alk Phos, Total 72 35 - 129 IU/L [facility] AST (SGOT) 29 11 - 47 IU/L [facility] ALT (SGPT) 29 6 - 53 IU/L [facility] Creatinine 1.96(H) 0.70 - 1.30 mg/dL [facility] Sodium 145 135 - 145 mmol/L [facility] Potassium 3.9 3.3 - 5.1 mmol/L [facility] Chloride 108(H) 95 - 107 mmol/L [facility] CO2 Content 22 21 - 29 mmol/L [facility] Glucose 122(H) 64 - 99 mg/dL [facility] Comment: NONFASTING GLUCOSE RANGE = 64-199 mg/dL FASTING GLUCOSE 64 - 99 = NORMAL FASTING GLUCOSE 100 - 125 = IMPAIRED FASTING GLUCOSE FASTING GLUCOSE >=126 = PROVISIONAL DIAGNOSIS OF DIABETES eGFR 35.9(L) >60.0 mL/min/1.7 3 m2 [facility] Comment:eGFR is calculated b y the CKD-EPIcr() equation (2020). Total Bilirubin 0.42 0.20 - 1.40 mg/dL [facility] Blood 03/09/2025 4:01 PM CUTTING MACHINE TENDER DECORATIVE 03/09/2025 4:16 PM CUTTING MACHINE TENDER DECORATIVE Maximiliano Hernandez MD LAB BLOOD ORDERABLES Final Re sult [facility] * Hepatitis C antibody (11/23/2019 2:25 PM CDT) Hep C Ab Nonreactive Nonreactive [facility] Comment:Antibodies to HCV no t detected. Does NOT exclude the possibility of recent exposure to HCV. Blood specimen (specimen) 11/23/2019 2:25 PM CDT 11/23/2019 3:57 PM CDT Maximiliano Hernandez MD LAB MICROBIOLOGY - GENERAL OR DERABLES Edited Result - Final [facility] Department [place] [address] from Last 3 Months or Most Recently Relevant to Health Maintenance Insurance MEDICARE [facility] MEDICARE MEDICARE [facility] Care Teams Therapy Director Relationship Specialty Start Date End Date Jerrell Parrish MD PCP - General Internal Medicine 05/17/17 Jerrell Parrish MD Internal Medicine 05/17/17
== END 2025-04-06 15:43 | disposition home or self-care (01) ==
PROVIDERS: PCP Internal Medicine; Visit Provider Internal Medicine
DX: K62.5 Hemorrhage of anus and rectum (principal); K59.00 Constipation, unspecified; I77.6 Arteritis, unspecified
CPT/HCPCS: 36415; 74019; 80053; 85027; 85610; 86140

== ENCOUNTER 2025-04-08 11:28 | Outpatient (CLI) | payer MEDICARE, SELFPAY ==
--- OUTSIDE RECORDS SUMMARY | 2025-04-08 11:54 | XMS_ITS | Encounter Summary ---
Author Organization [facility] Address [address] [place] [address] Phone Care Team Providers Care Dog Control Officer Name Role Phone Jerrell Parrish MD Primary Care Provider Jerrell Parrish MD Unavailable [phone] Encounter Details Date Type Department Care [...] on file Legal Sex Male 7:13 AM PERSONAL CLOTHING LAUNDRY AIDE Gender Identity Male 11/28/2020 8:17 AM CDT [...] on filedocumented in this encounter Care Teams Dog Control Officer Relationship Specialty Start Date End Date Jerrell Parrish MD PCP - General Internal Medicine 05/17/17 Jerrell Parrish MD Internal Medicine 05/17/17 documented as of this encounter
--- OUTSIDE RECORDS SUMMARY | 2025-04-08 11:54 | XMS_ITS | Encounter Summary ---
Author Organization [facility] Address [address] [place] [address] Phone Care Team Providers Care Dye Automation Operator Name Role Phone Jerrell Parrish MD Primary Care Provider [phone] Jerrell Parrish MD Unavailable [phone] Encounter Details Date Type Department Care Team [...] on file Legal Sex Male 7:13 AM IMAGING SERVICES DIRECTOR Gender Identity Male 11/28/2020 8:17 AM CDT [...] on filedocumented in this encounter Care Teams Dye Automation Operator Relationship Specialty Start Date End Date Jerrell Parrish MD PCP - General Internal Medicine 05/17/17 Jerrell Parrish MD Internal Medicine 05/17/17 documented as of this encounter
--- OUTSIDE RECORDS SUMMARY | 2025-04-08 11:54 | XMS_ITS | Data Portability ---
Author Organization [facility], OP Lab/Rad Address [address] [place] [address] Assessment Encounter Date Assessment Date Assessment LastModified by Organization Details LastModified Time 12/04/2023 12/04/2023 Placeholder appt, no charge Not available 12/26/2023 18:08:01 12/05/2023 12/05/2023 Placeholder appt for inpatient visit. [email or web address] Not available 12/26/2023 17:47:24 Plan of Treatment [...] X103/ uL 4.6-9. 4 normal Not Available [facility] (Lab) [address] [place], [address], 12/02/2023 07:35:09 12/02/1912/02/2023 CBC red blood cell 4.39 X106/ uL 4.16-5 .60 normal Not Available [facility] (Lab) [address] [place], [address], 12/02/2023 07:35:09 12/02/19 24 12/02/2023 CBC hemoglobin 15.2 g/dL 12.9-1 7.4 normal Not Available [facility] (Lab) [address] [place], [address], 12/02/2023 07:35:09 12/02/19 24 12/02/2023 CBC hematocrit 45.1 % 39.1-5 0.6 normal Not Available [facility] (Lab) [address] [place], [address], 12/02/2023 07:35:09 12/02/19 24 12/02/2023 CBC MCV 103.0 fL 82.7-1 01.2 high Not Available [facility] (Lab) [address] [place], [address], 12/02/2023 07:35:09 12/02/19 24 12/02/2023 CBC MCH 34.6 pg 27.2-3 4.9 normal Not Available [facility] (Lab) [address] [place], [address], 12/02/2023 07:35:09 12/02/19 24 12/02/2023 CBC MCHC 33.7 g/dL 32.3-3 5.2 normal Not Available [facility] (Lab) [address] [place], [address], 12/02/2023 07:35:09 12/02/19 24 12/02/2023 CBC RDW 12.5 % 10.3-1 4.2 normal Not Available [facility] (Lab) [address] [place], [address], 12/02/2023 07:35:09 12/02/19 24 12/02/2023 CBC platelets 226 X103/ uL 132-36 2 normal Not Available [facility] (Lab) [address] [place], [address], 12/02/2023 07:35:09 12/02/19 24 12/02/2023 CBC MPV 7.2 fL 6.7-9. 1 normal Not Available [facility] (Lab) [address] [place], [address], 12/02/2023 07:35:09 12/02/19 24 12/02/2023 CRP C-reactive protein 3.57 mg/dL 0.10-0 .50 high Not Available [facility] (Lab) [address] [place], [address], 12/02/2023 07:54:33 12/02/19 24 12/02/2023 CMP glucose 106 mg/dL 70-99 [facility] (Lab) [address] [place], [address], 12/02/2023 07:54:56 12/02/19 24 12/02/2023 CMP BUN 23 mg/dL 8-26 normal Not Available [facility] (Lab) [address] [place], [address], 12/02/2023 07:54:56 12/02/19 24 12/02/2023 CMP creatinine 2.1 mg/dL 0.8-1. 3 high Not Available [facility] (Lab) [address] [place], [address], 12/02/2023 07:54:56 12/02/19 24 12/02/2023 CMP eGFR non- 31 mL/mi n/1.7 3m2 Not Available [facility] (Lab) [address] [place], [address], 12/02/2023 07:54:56 12/02/19 24 12/02/2023 CMP eGFR [...] than 15 mL/mi n/1.7 3m^2. Not Available [facility] (Lab) [address] [place], [address], 12/02/2023 07:54:56 12/02/19 24 12/02/2023 CMP bilirubin, total 1.16 mg/dL 0.10-1 .20 normal Not Available [facility] (Lab) [address] [place], [address], 12/02/2023 07:54:56 12/02/19 24 12/02/2023 CMP AST 61 U/L 0-34 high Not Available [facility] (Lab) [address] [place], [address], 12/02/2023 07:54:56 12/02/19 24 12/02/2023 CMP ALT 41 U/L 0-45 normal Not Available [facility] (Lab) [address] [place], [address], 12/02/2023 07:54:56 12/02/19 24 12/02/2023 CMP alkaline phosphatase 49 U/L 56-119 low Not Available [facility] (Lab) [address] [place], [address], 12/02/2023 07:54:56 12/02/19 24 12/02/2023 CMP calcium 9.70 mg/dL 8.60-1 0.30 normal Not Available [facility] (Lab) [address] [place], [address], 12/02/2023 07:54:56 12/02/19 24 12/02/2023 CMP sodium 138 mEq/L 136-14 4 normal Not Available [facility] (Lab) [address] [place], [address], 12/02/2023 07:54:56 12/02/19 24 12/02/2023 CMP potassium 4.13 mEq/L 3.57-4 .71 normal Not Available [facility] (Lab) [address] [place], [address], 12/02/2023 07:54:56 12/02/1912/02/2023 CMP chloride 105 mEq/L 102-11 1 normal Not Available [facility] (Lab) [address] [place], [address], 12/02/2023 07:54:56 12/02/1912/02/2023 CMP CO2 26 mEq/L 21-31 normal Not Available [facility] (Lab) [address] [place], [address], 12/02/2023 07:54:56 12/02/19 24 12/02/2023 CMP total protein 7.4 g/dL 6.4-8. 3 normal Not Available [facility] (Lab) [address] [place], [address], 12/02/2023 07:54:56 12/02/1912/02/2023 CMP albumin 4.2 g/dL 3.2-4. 6 normal Not Available [facility] (Lab) [address] [place], [address], 12/02/2023 07:54:56 12/02/19 24 12/02/2023 CMP globulin 3.2 g/dL Not Availab le [facility] (Lab) [address] [place], [address], 12/02/2023 07:54:56 12/02/19 24 12/02/2023 CMP albumin/glob ulin 1.3 Not Available [facility] (Lab) [address] [place], [address], 12/02/2023 07:54:56 12/02/1912/02/2023 TROPO JAMILAH I troponin I <0.05 NG/mL 0.00-0 .40 normal Not Available [facility] (Lab) [address] [place], [address], 12/02/2023 07:55:49 12/02/1912/02/2023 PT/IN R INR 3.1 INR 0.0-1. 0 high Not Available [facility] (Lab) [address] [place], [address], 12/02/2023 08:19:57 12/02/19 24 12/02/2023 PT/IN R prothrombin time 31.2 sec 10.1-1 2.6 high Not Available [facility] (Lab) [address] [place], [address], 12/02/2023 08:19:57 12/02/19 24 12/02/2023 PTT activated partial thromboplast in time 45.0 sec 23.0-3 3.0 high Not Available [facility] (Lab) [address] [place], [address], 12/02/2023 08:37:26 12/02/1912/02/2023 URINE DRUG SCREE N methamphetam ine Negati ve negati ve normal Not Available [facility] (Lab) [address] [place], [address], 12/02/2023 08:56:55 12/02/19 24 12/02/2023 URINE DRUG SCREE N cocaine metabolite Negati ve negati ve normal Not Available [facility] (Lab) [address] [place], [address], 12/02/2023 08:56:55 12/02/1912/02/2023 URINE DRUG SCREE N THC Negati ve negati ve normal Not Available [facility] (Lab) [address] [place], [address], 12/02/2023 08:56:55 12/02/1912/02/2023 URINE DRUG SCREE N MDMA Negati ve negati ve normal Not Available [facility] (Lab) [address] [place], [address], 12/02/2023 08:56:55 12/02/1912/02/2023 URINE DRUG SCREE N methadone Negati ve negati ve normal Not Available [facility] (Lab) [address] [place], [address], 12/02/2023 08:56:55 12/02/1912/02/2023 URINE DRUG SCREE N opiates Negati ve negati ve normal Not Available [facility] (Lab) [address] [place], [address], 12/02/2023 08:56:55 12/02/1912/02/2023 URINE DRUG SCREE N benzodiazepi ally Negati ve negati ve normal Not Available [facility] (Lab) [address] [place], [address], 12/02/2023 08:56:55 12/02/1912/02/2023 URINE DRUG SCREE N tricyclic antidepressa nts Negati ve negati ve normal Not Available [facility] (Lab) [address] [place], [address], 12/02/2023 08:56:55 12/02/19 24 12/02/2023 URINE DRUG SCREE N barbiturates Negati ve negati ve normal Not Available [facility] (Lab) [address] [place], [address], 12/02/2023 08:56:55 12/02/19 24 12/02/2023 URINE DRUG SCREE N phencyclidin e Negati ve negati ve normal Not Available [facility] (Lab) [address] [place], [address], 12/02/2023 08:56:55 12/02/19 24 12/02/2023 URINE DRUG SCREE N amphetamines Negati ve negati ve normal Not Available [facility] (Lab) [address] [place], [address], 12/02/2023 08:56:55 12/02/19 24 12/02/2023 URINE DRUG [...] 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 Not Available [facility] (Lab) [address] [place], [address], 12/02/2023 08:56:55 12/02/19 24 12/02/2023 URINA LYSIS , COMPL ETE urine color Yellow yellow normal Not Available [facility] (Lab) [address] [place], [address], 12/02/2023 09:06:11 12/02/19 24 12/02/2023 URINA LYSIS , COMPL ETE urine clarity Clear clear normal Not Available [facility] (Lab) [address] [place], [address], 12/02/2023 09:06:11 12/02/1912/02/2023 URINA LYSIS , COMPL ETE urine glucose Negati ve negati ve normal Not Available [facility] (Lab) [address] [place], [address], 12/02/2023 09:06:11 12/02/1912/02/2023 URINA LYSIS , COMPL ETE urine bilirubin Negati ve negati ve normal Not Available [facility] (Lab) [address] [place], [address], 12/02/2023 09:06:11 12/02/19 24 12/02/2023 URINA LYSIS , COMPL ETE urine ketones Negati ve mg/dL negati ve normal Not Available [facility] (Lab) [address] [place], [address], 12/02/2023 09:06:11 12/02/19 24 12/02/2023 URINA LYSIS , COMPL ETE urine specific gravity 1.025 <=1.00 5->=1. 030 normal Not Available [facility] (Lab) [address] [place], [address], 12/02/2023 09:06:11 12/02/1912/02/2023 URINA LYSIS , COMPL ETE urine hemoglobin 3+ negati ve abnormal Not Available [facility] (Lab) [address] [place], [address], 12/02/2023 09:06:11 12/02/19 24 12/02/2023 URINA LYSIS , COMPL ETE urine pH 5.5 5-8.0 normal Not Available [facility] (Lab) [address] [place], [address], 12/02/2023 09:06:11 12/02/19 24 12/02/2023 URINA LYSIS , COMPL ETE urine protein 2+ mg/dL negati ve abnormal Not Available [facility] (Lab) [address] [place], [address], 12/02/2023 09:06:11 12/02/1912/02/2023 URINA LYSIS , COMPL ETE urine urobilinogin 0.2 E.U./d L 0.2 E.U./d L-1.0 E.U./d L normal Not Available [facility] (Lab) [address] [place], [address], 12/02/2023 09:06:11 12/02/19 24 12/02/2023 URINA LYSIS , COMPL ETE urine nitrate Negati ve negati ve normal Not Available [facility] (Lab) [address] [place], [address], 12/02/2023 09:06:11 12/02/19 24 12/02/2023 URINA LYSIS , COMPL ETE urine leukocyte esterase Negati ve negati ve normal Not Available [facility] (Lab) [address] [place], [address], 12/02/2023 09:06:11 12/02/1912/02/2023 URINA LYSIS , COMPL ETE urine white blood cells Occasi onal #/hpf none seen normal Not Available [facility] (Lab) [address] [place], [address], 12/02/2023 09:06:11 12/02/19 24 12/02/2023 URINA LYSIS , COMPL ETE urine red blood cells 10-50 #/hpf none seen abnormal Not Available [facility] (Lab) [address] [place], [address], 12/02/2023 09:06:11 12/02/19 24 12/02/2023 URINA LYSIS , COMPL ETE urine squamous epithelial cells 0-2 #/hpf none seen normal Not Available [facility] (Lab) [address] [place], [address], 12/02/2023 09:06:11 12/02/19 24 12/02/2023 URINA LYSIS , COMPL ETE urine bacteria Few #/hpf none seen abnormal Not Available [facility] (Lab) [address] [place], [address], 12/02/2023 09:06:11 12/02/19 24 12/02/2023 URINA LYSIS , COMPL ETE casts None Seen #/lpf none seen normal Not Available [facility] (Lab) [address] [place], [address], 12/02/2023 09:06:11 12/02/19 24 12/02/2023 URINA LYSIS , COMPL ETE urine crystal None Seen none seen normal Not Available [facility] (Lab) [address] [place], [address], 12/02/2023 09:06:11 12/02/19 24 12/02/2023 URINA LYSIS , COMPL ETE urine mucous Presen t not presen t abnormal Not Available [facility] (Lab) [address] [place], [address], 12/02/2023 09:06:11 12/02/19 24 12/02/2023 URINA LYSIS , COMPL ETE urine yeast None Seen #/hpf none seen normal Not Available [facility] (Lab) [address] [place], [address], 12/02/2023 09:06:11 12/02/19 24 12/02/2023 ELECT ROLYT E PANEL sodium 139 mEq/L 136-14 4 normal Not Available [facility] (Lab) [address] [place], [address], 12/02/2023 17:39:58 12/02/19 24 12/02/2023 ELECT ROLYT E PANEL potassium 3.75 mEq/L 3.57-4 .71 normal Not Available [facility] (Lab) [address] [place], [address], 12/02/2023 17:39:58 12/02/19 24 12/02/2023 ELECT ROLYT E PANEL chloride 106 mEq/L 102-11 1 normal Not Available [facility] (Lab) [address] [place], [address], 12/02/2023 17:39:58 12/02/19 24 12/02/2023 ELECT ROLYT E PANEL CO2 22 mEq/L 21-31 normal Not Available [facility] (Lab) [address] [place], [address], 12/02/2023 17:39:58 12/02/19 24 12/02/2023 CULTU RE, URINE results called to JAMES Man Not Available [facility] (Lab) [address] [place], [address], 12/04/2023 10:30:27 12/02/19 24 12/02/2023 CULTU RE, URINE urine source Clean Catch Midstr eam Not Available [facility] (Lab) [address] [place], [address], 12/04/2023 10:30:27 12/02/19 24 12/02/2023 CULTU RE, URINE micro culture result No Growth @ 48 Hours Not Available [facility] (Lab) [address] [place], [address], 12/04/2023 10:30:27 12/03/19 24 12/03/2023 CBCWA D white blood cell 5.4 X103/ uL 4.6-9. 4 normal Not Available [facility] (Lab) [address] [place], [address], 12/03/2023 09:52:49 12/03/19 24 12/03/2023 CBCWA D red blood cell 3.88 X106/ uL 4.16-5 .60 low Not Available [facility] (Lab) [address] [place], [address], 12/03/2023 09:52:49 12/03/19 24 12/03/2023 CBCWA D hemoglobin 13.7 g/dL 12.9-1 7.4 normal Not Available [facility] (Lab) [address] [place], [address], 12/03/2023 09:52:49 12/03/1912/03/2023 CBCWA D hematocrit 39.8 % 39.1-5 0.6 normal Not Available [facility] (Lab) [address] [place], [address], 12/03/2023 09:52:49 12/03/1912/03/2023 CBCWA D MCV 103.0 fL 82.7-1 01.2 high Not Available [facility] (Lab) [address] [place], [address], 12/03/2023 09:52:49 12/03/1912/03/2023 CBCWA D MCH 35.2 pg 27.2-3 4.9 high Not Available [facility] (Lab) [address] [place], [address], 12/03/2023 09:52:49 12/03/1912/03/2023 CBCWA D MCHC 34.3 g/dL 32.3-3 5.2 normal Not Available [facility] (Lab) [address] [place], [address], 12/03/2023 09:52:49 12/03/1912/03/2023 CBCWA D RDW 12.4 % 10.3-1 4.2 normal Not Available [facility] (Lab) [address] [place], [address], 12/03/2023 09:52:49 12/03/1912/03/2023 CBCWA D platelets 183 X103/ uL 132-36 2 normal Not Available [facility] (Lab) [address] [place], [address], 12/03/2023 09:52:49 12/03/1912/03/2023 CBCWA D MPV 7.3 fL 6.7-9. 1 normal Not Available [facility] (Lab) [address] [place], [address], 12/03/2023 09:52:49 12/03/1912/03/2023 CBCWA D neutrophil % 75.1 % 43.0-7 6.4 normal Not Available [facility] (Lab) [address] [place], [address], 12/03/2023 09:52:49 12/03/1912/03/2023 CBCWA D lymphocyte % 19.2 % 13.5-4 1.5 normal Not Available [facility] (Lab) [address] [place], [address], 12/03/2023 09:52:49 12/03/1912/03/2023 CBCWA D monocyte % 4.6 % 4.6-13 .1 normal Not Available [facility] (Lab) [address] [place], [address], 12/03/2023 09:52:49 12/03/19 24 12/03/2023 CBCWA D eosinophil % 0.8 % 1.0-5. 7 low Not Available [facility] (Lab) [address] [place], [address], 12/03/2023 09:52:49 12/03/19 24 12/03/2023 CBCWA D basophil % 0.3 % 0.2-0. 8 normal Not Available [facility] (Lab) [address] [place], [address], 12/03/2023 09:52:49 12/03/19 24 12/03/2023 CBCWA D neutrophil # 4.08 X103/ uL 2.00-6 .40 normal Not Available [facility] (Lab) [address] [facility], [address], 12/03/2023 09:52:49 12/03/19 24 12/03/2023 CBCWA D lymphocyte # 1.04 X103/ uL 0.90-2 .90 normal Not Available [facility] (Lab) [address] [place] [address] [place], [address], 12/03/2023 09:52:49 12/03/1912/03/2023 CBCWA D monocyte # 0.25 X103/ uL 0.20-1 .00 normal Not Available [facility] (Lab) [address] [place], [address], 12/03/2023 09:52:49 12/03/19 24 12/03/2023 CBCWA D eosinophil # 0.04 X103/ uL 0.10-0 .40 low Not Available [facility] (Lab) [address] [place], [address], 12/03/2023 09:52:49 12/03/19 24 12/03/2023 CBCWA D basophil # 0.02 X103/ uL 0.00-0 .10 normal Not Available [facility] (Lab) [address] [place], [address], 12/03/2023 09:52:49 12/03/19 24 12/03/2023 DDIME R ddimer 287 NG/mL 200-31 1 normal Not Available [facility] (Lab) [address] [place], [address], 12/03/2023 10:05:28 12/03/19 24 12/03/2023 BMP glucose 92 mg/dL 70-99 [facility] (Lab) [address] [place], [address], 12/03/2023 10:14:24 12/03/19 24 12/03/2023 BMP BUN 20 mg/dL 8-26 normal Not Available [facility] (Lab) [address] [place], [address], 12/03/2023 10:14:24 12/03/19 24 12/03/2023 BMP creatinine 1.9 mg/dL 0.8-1. 3 high Not Available [facility] (Lab) [address] [place], [address], 12/03/2023 10:14:24 12/03/19 24 12/03/2023 BMP eGFR non- 35 mL/mi n/1.7 3m2 Not Available [facility] (Lab) [address] [place], [address], 12/03/2023 10:14:24 12/03/19 24 12/03/2023 BMP eGFR [...] than 15 mL/mi n/1.7 3m^2. Not Available [facility] (Lab) [address], [place], [address], 12/03/2023 10:14:24 12/03/19 24 12/03/2023 BMP calcium 8.50 mg/dL 8.60-1 0.30 low Not Available [facility] (Lab) [address] [place], [address], 12/03/2023 10:14:24 12/03/19 24 12/03/2023 BMP sodium 137 mEq/L 136-14 4 normal Not Available [facility] (Lab) [address] [place], [place], [address], 12/03/2023 10:14:24 12/03/19 24 12/03/2023 BMP potassium 4.25 mEq/L 3.57-4 .71 normal Not Available [facility] (Lab) [address] [place], [place], [address], 12/03/2023 10:14:24 12/03/19 24 12/03/2023 BMP chloride 109 mEq/L 102-11 1 normal Not Available [facility] (Lab) [address] [place], [address], 12/03/2023 10:14:24 12/03/19 24 12/03/2023 BMP CO2 19 mEq/L 21-31 low Not Available [facility] (Lab) [address], [place], [address], 12/03/2023 10:14:24 12/03/19 24 12/03/2023 CRP C-reactive protein 24.28 mg/dL 0.10-0 .50 high Not Available [facility] (Lab) [address] [place], [address], 12/03/2023 10:41:51 12/03/19 24 12/03/2023 MANUA L DIFFE RENTI AL segmented neutrophil 52 % 50-70 normal Not Available [facility] (Lab) [address] [place], [address], 12/04/2023 10:31:04 12/03/19 24 12/03/2023 MANUA L DIFFE RENTI AL band neutrophil 29 % 0-5 high Not Available [facility] (Lab) [address] [place], [address], 12/04/2023 10:31:04 12/03/19 24 12/03/2023 MANUA L DIFFE RENTI AL lymphocyte 18 % 20-40 low Not Available [facility] (Lab) [address] [place], [address], 12/04/2023 10:31:04 12/03/19 24 12/03/2023 MANUA L DIFFE RENTI AL monocyte 1 % 1-6 normal Not Available [facility] (Lab) [address] [place], [address], 12/04/2023 10:31:04 12/03/19 24 12/03/2023 MANUA L DIFFE RENTI AL RBC morphology Normal normal normal Not Available [facility] (Lab) [address] [place], [address], 12/04/2023 10:31:04 12/04/19 24 12/04/2023 CBCWA D white blood cell 7.7 X103/ uL 4.6-9. 4 normal Not Available [facility] (Lab) [address] [place], [address], 12/04/2023 10:30:26 12/04/19 24 12/04/2023 CBCWA D red blood cell 3.55 X106/ uL 4.16-5 .60 low Not Available [facility] (Lab) [address] [place], [address], 12/04/2023 10:30:26 12/04/19 24 12/04/2023 CBCWA D hemoglobin 12.4 g/dL 12.9-1 7.4 low Not Available [facility] (Lab) [address] [place], [address], 12/04/2023 10:30:26 12/04/19 24 12/04/2023 CBCWA D hematocrit 35.8 % 39.1-5 0.6 low Not Available [facility] (Lab) [address] [place], [address], 12/04/2023 10:30:26 12/04/19 24 12/04/2023 CBCWA D MCV 101.0 fL 82.7-1 01.2 normal Not Available [facility] (Lab) [address] [place], [address], 12/04/2023 10:30:26 12/04/19 24 12/04/2023 CBCWA D MCH 35.0 pg 27.2-3 4.9 high Not Available [facility] (Lab) [address] [place], [address], 12/04/2023 10:30:26 12/04/19 24 12/04/2023 CBCWA D MCHC 34.7 g/dL 32.3-3 5.2 normal Not Available [facility] (Lab) [address] [place], [address], 12/04/2023 10:30:26 12/04/19 24 12/04/2023 CBCWA D RDW 13.1 % 10.3-1 4.2 normal Not Available [facility] (Lab) [address] [place], [address], 12/04/2023 10:30:26 12/04/19 24 12/04/2023 CBCWA D platelets 171 X103/ uL 132-36 2 normal Not Available [facility] (Lab) [address] [place], [address], 12/04/2023 10:30:26 12/04/19 24 12/04/2023 CBCWA D MPV 7.4 fL 6.7-9. 1 normal Not Available [facility] (Lab) [address] [place], [address], 12/04/2023 10:30:26 12/04/19 24 12/04/2023 CBCWA D neutrophil % 90.5 % 43.0-7 6.4 high Not Available [facility] (Lab) [address] [place], [address], 12/04/2023 10:30:26 12/04/19 24 12/04/2023 CBCWA D lymphocyte % 4.5 % 13.5-4 1.5 low Not Available [facility] (Lab) [address] [place], [id number], 12/04/2023 10:30:26 12/04/19 24 12/04/2023 CBCWA D monocyte % 3.8 % 4.6-13 .1 low Not Available [facility] (Lab) [address] [place], [id number], 12/04/2023 10:30:26 12/04/19 24 12/04/2023 CBCWA D eosinophil % 0.9 % 1.0-5. 7 low Not Available [facility] (Lab) [address] [facility] [place], [id number], 12/04/2023 10:30:26 12/04/19 24 12/04/2023 CBCWA D basophil % 0.3 % 0.2-0. 8 normal Not Available [facility] (Lab) [address] [place], [id number], 12/04/2023 10:30:26 12/04/19 24 12/04/2023 CBCWA D neutrophil # 6.93 X103/ uL 2.00-6 .40 high Not Available [facility] (Lab) [address] [facility] [place], [id number], 12/04/2023 10:30:26 12/04/19 24 12/04/2023 CBCWA D lymphocyte # 0.34 X103/ uL 0.90-2 .90 low Not Available [facility] (Lab) [address] [facility], [address], 12/04/2023 10:30:26 12/04/19 24 12/04/2023 CBCWA D monocyte # 0.29 X103/ uL 0.20-1 .00 normal Not Available [facility] (Lab) [address] [facility], [address], 12/04/2023 10:30:26 12/04/19 24 12/04/2023 CBCWA D eosinophil # 0.07 X103/ uL 0.10-0 .40 low Not Available [facility] (Lab) [address] [place], [address], 12/04/2023 10:30:26 12/04/19 24 12/04/2023 CBCWA D basophil # 0.02 X103/ uL 0.00-0 .10 normal Manua l Diffe sarah al Used to Treat Patie nt Not Available [facility] (Lab) [address] [place], [address], 12/04/2023 10:30:26 12/04/19 24 12/04/2023 BMP glucose 125 mg/dL 70-99 high Not Availabl e [facility] (Lab) [address] [place], [address], 12/04/2023 10:30:29 12/04/19 24 12/04/2023 BMP BUN 24 mg/dL 8-26 normal Not Available [facility] (Lab) [address], [place], [address], 12/04/2023 10:30:29 12/04/19 24 12/04/2023 BMP creatinine 1.6 mg/dL 0.8-1. 3 high Not Available [facility] (Lab) [address], [place], [address], 12/04/2023 10:30:29 12/04/19 24 12/04/2023 BMP eGFR non- 43 mL/mi n/1.7 3m2 Not Available [facility] (Lab) [address] [place], [address], 12/04/2023 10:30:29 12/04/19 24 12/04/2023 BMP eGFR [...] than 15 mL/mi n/1.7 3m^2. Not Available [facility] (Lab) [address] [place], [address], 12/04/2023 10:30:29 12/04/19 24 12/04/2023 BMP calcium 8.90 mg/dL 8.60-1 0.30 normal Not Available [facility] (Lab) [address] [place], [address], 12/04/2023 10:30:29 12/04/19 24 12/04/2023 BMP sodium 142 mEq/L 136-14 4 normal Not Available [facility] (Lab) [address] [place], [address], 12/04/2023 10:30:29 12/04/19 24 12/04/2023 BMP potassium 4.03 mEq/L 3.57-4 .71 normal Not Available [facility] (Lab) [address] [place], [address], 12/04/2023 10:30:29 12/04/19 24 12/04/2023 BMP chloride 111 mEq/L 102-11 1 normal Not Available [facility] (Lab) [address] [place], [address], 12/04/2023 10:30:29 12/04/19 24 12/04/2023 BMP CO2 21 mEq/L 21-31 normal Not Available [facility] (Lab) [address] [place], [address], 12/04/2023 10:30:29 12/04/19 24 12/04/2023 CRP C-reactive protein 35.65 mg/dL 0.10-0 .50 high Not Available [facility] (Lab) [address] [place], [address], 12/04/2023 10:30:32 12/04/19 24 12/04/2023 MANUA L DIFFE RENTI AL segmented neutrophil 78 % 50-70 high Not Available [facility] (Lab) [address], [place], [address], 12/04/2023 10:35:12 12/04/19 24 12/04/2023 MANUA L DIFFE RENTI AL band neutrophil 14 % 0-5 high Not Available [facility] (Lab) [address], [place], [address], 12/04/2023 10:35:12 12/04/19 24 12/04/2023 MANUA L DIFFE RENTI AL lymphocyte 7 % 20-40 low Not Available [facility] (Lab) [address], [place], [address], 12/04/2023 10:35:12 12/04/19 24 12/04/2023 MANUA L DIFFE RENTI AL monocyte 2 % 1-6 normal Not Available [facility] (Lab) [address], [place], [address], 12/04/2023 10:35:12 12/04/19 24 12/04/2023 MANUA L DIFFE RENTI AL toxic granulation 2+ none seen abnormal Resul t amend ed from () (00/0 0/00 12:00 AM) to (2+) by CJN. Not Available [facility] (Lab) [address], [place], [address], 12/04/2023 10:35:12 12/04/19 24 12/04/2023 COVID / [...] or revok ed soone r. Not Available [facility] (Lab) [address], [place], [address], 12/04/2023 18:46:27 12/04/19 24 12/04/2023 COVID / INFLU A/B / RSV PCR influ A PCR Negati ve negati ve normal Not Available [facility] (Lab) [address], [place], [address], 12/04/2023 18:46:27 12/04/19 24 12/04/2023 COVID / [...] or revok ed soone r. Not Available [facility] (Lab) [address] [place], [address], 12/04/2023 18:46:27 12/04/19 24 12/04/2023 COVID / [...] or revok ed soone r. Not Available [facility] (Lab) [address] [place], [address], 12/04/2023 18:46:27 12/05/19 24 12/05/2023 CBCWA D white blood cell 8.9 X103/ uL 4.6-9. 4 normal Not Available [facility] (Lab) [address] [place], [address], 12/05/2023 09:53:36 12/05/19 24 12/05/2023 CBCWA D red blood cell 3.67 X106/ uL 4.16-5 .60 low Not Available [facility] (Lab) [address] [place], [address], 12/05/2023 09:53:36 12/05/19 24 12/05/2023 CBCWA D hemoglobin 12.6 g/dL 12.9-1 7.4 low Not Available [facility] (Lab) [address] [place], [address], 12/05/2023 09:53:36 12/05/19 24 12/05/2023 CBCWA D hematocrit 37.2 % 39.1-5 0.6 low Not Available [facility] (Lab) [address] [place], [address], 12/05/2023 09:53:36 12/05/19 24 12/05/2023 CBCWA D MCV 102.0 fL 82.7-1 01.2 high Not Available [facility] (Lab) [address] [place], [address], 12/05/2023 09:53:36 12/05/19 24 12/05/2023 CBCWA D MCH 34.4 pg 27.2-3 4.9 normal Not Available [facility] (Lab) [address] [place], [address], 12/05/2023 09:53:36 12/05/19 24 12/05/2023 CBCWA D MCHC 33.9 g/dL 32.3-3 5.2 normal Not Available [facility] (Lab) [address] [place], [address], 12/05/2023 09:53:36 12/05/19 24 12/05/2023 CBCWA D RDW 12.4 % 10.3-1 4.2 normal Not Available [facility] (Lab) [address] [place], [address], 12/05/2023 09:53:36 12/05/19 24 12/05/2023 CBCWA D platelets 201 X103/ uL 132-36 2 normal Not Available [facility] (Lab) [address] [place], [address], 12/05/2023 09:53:36 12/05/19 24 12/05/2023 CBCWA D MPV 7.9 fL 6.7-9. 1 normal Not Available [facility] (Lab) [address] [place], [address], 12/05/2023 09:53:36 12/05/19 24 12/05/2023 CBCWA D neutrophil % 94.6 % 43.0-7 6.4 high Not Available [facility] (Lab) [address] [place], [address], 12/05/2023 09:53:36 12/05/19 24 12/05/2023 CBCWA D lymphocyte % 2.0 % 13.5-4 1.5 low Not Available [facility] (Lab) [address] [place], [address], 12/05/2023 09:53:36 12/05/19 24 12/05/2023 CBCWA D monocyte % 2.2 % 4.6-13 .1 low Not Available [facility] (Lab) [address] [place], [address], 12/05/2023 09:53:36 12/05/19 24 12/05/2023 CBCWA D eosinophil % 0.9 % 1.0-5. 7 low Not Available [facility] (Lab) [address] [place], [address], 12/05/2023 09:53:36 12/05/1912/05/2023 CBCWA D basophil % 0.3 % 0.2-0. 8 normal Not Available [facility] (Lab) [address] [place], [address], 12/05/2023 09:53:36 12/05/19 24 12/05/2023 CBCWA D neutrophil # 8.45 X103/ uL 2.00-6 .40 high Not Available [facility] (Lab) [address] [place], [address], 12/05/2023 09:53:36 12/05/19 24 12/05/2023 CBCWA D lymphocyte # 0.18 X103/ uL 0.90-2 .90 low Not Available [facility] (Lab) [address] [place], [address], 12/05/2023 09:53:36 12/05/1912/05/2023 CBCWA D monocyte # 0.20 X103/ uL 0.20-1 .00 normal Not Available [facility] (Lab) [address] [place] [address] [place], [address], 12/05/2023 09:53:36 12/05/19 24 12/05/2023 CBCWA D eosinophil # 0.08 X103/ uL 0.10-0 .40 low Not Available [facility] (Lab) [address] [place] [address] [place], [address], 12/05/2023 09:53:36 12/05/19 24 12/05/2023 CBCWA D basophil # 0.03 X103/ uL 0.00-0 .10 normal Aixa tripathi al Used to Treat Patie nt Not Available [facility] (Lab) [address] [place], [address], 12/05/2023 09:53:36 12/05/1912/05/2023 BMP glucose 123 mg/dL 70-99 [facility] [address] [place], [address], 12/05/2023 10:06:42 12/05/19 24 12/05/2023 BMP BUN 29 mg/dL 8-26 high Not Available [facility] (Lab) [address] [place], [address], 12/05/2023 10:06:42 12/05/19 24 12/05/2023 BMP creatinine 1.7 mg/dL 0.8-1. 3 high Not Available [facility] (Lab) [address] [place], [address], 12/05/2023 10:06:42 12/05/19 24 12/05/2023 BMP eGFR non- 40 mL/mi n/1.7 3m2 Not Available [facility] (Lab) [address] [place], [address], 12/05/2023 10:06:42 12/05/19 24 12/05/2023 BMP eGFR [...] than 15 mL/mi n/1.7 3m^2. Not Available [facility] (Lab) [address] [place], [address], 12/05/2023 10:06:42 12/05/19 24 12/05/2023 BMP calcium 8.90 mg/dL 8.60-1 0.30 normal Not Available [facility] (Lab) [address] [place], [address], 12/05/2023 10:06:42 12/05/19 24 12/05/2023 BMP sodium 142 mEq/L 136-14 4 normal Not Available [facility] (Lab) [address] [place], [address], 12/05/2023 10:06:42 12/05/19 24 12/05/2023 BMP potassium 4.08 mEq/L 3.57-4 .71 normal Not Available [facility] (Lab) [address] [place], [address], 12/05/2023 10:06:42 12/05/19 24 12/05/2023 BMP chloride 111 mEq/L 102-11 1 normal Not Available [facility] (Lab) [address] [place], [address], 12/05/2023 10:06:42 12/05/19 24 12/05/2023 BMP CO2 21 mEq/L 21-31 normal Not Available [facility] (Lab) [address] [place], [address], 12/05/2023 10:06:42 12/05/19 24 12/05/2023 CRP C-reactive protein 18.30 mg/dL 0.10-0 .50 high Not Available [facility] (Lab) [address] [place], [address], 12/05/2023 10:06:44 12/05/19 24 12/05/2023 MANUA L DIFFE RENTI AL segmented neutrophil 84 % 50-70 high Not Available [facility] (Lab) [address] [place], [address], 12/05/2023 10:08:21 12/05/19 24 12/05/2023 MANUA L DIFFE RENTI AL band neutrophil 8 % 0-5 high Not Available [facility] (Lab) [address] [place], [address], 12/05/2023 10:08:21 12/05/19 24 12/05/2023 MANUA L DIFFE RENTI AL lymphocyte 6 % 20-40 low Not Available [facility] (Lab) [address] [place], [address], 12/05/2023 10:08:21 12/05/19 24 12/05/2023 AIXA TRIPATHI AL monocyte 2 % 1-6 normal Not Available [facility] (Lab) [address] [place], [address], 12/05/2023 10:08:21 12/05/19 24 12/05/2023 AIXA TRIPATHI AL RBC morphology Normal normal normal Not Available [facility] (Lab) [address] [place], [address], 12/05/2023 10:08:21 12/06/19 24 12/06/2023 CBCWA D white blood cell 6.5 X103/ uL 4.6-9. 4 normal Not Available [facility] (Lab) [address] [place], [address], 12/06/2023 12:48:33 12/06/19 24 12/06/2023 CBCWA D red blood cell 3.67 X106/ uL 4.16-5 .60 low Not Available [facility] (Lab) [address] [place], [address], 12/06/2023 12:48:33 12/06/19 24 12/06/2023 CBCWA D hemoglobin 12.7 g/dL 12.9-1 7.4 low Not Available [facility] (Lab) [address] [place], [address], 12/06/2023 12:48:33 12/06/19 24 12/06/2023 CBCWA D hematocrit 37.2 % 39.1-5 0.6 low Not Available [facility] (Lab) [address] [place], [address], 12/06/2023 12:48:33 12/06/19 24 12/06/2023 CBCWA D MCV 101.0 fL 82.7-1 01.2 normal Not Available [facility] (Lab) [address] [place], [address], 12/06/2023 12:48:33 12/06/19 24 12/06/2023 CBCWA D MCH 34.5 pg 27.2-3 4.9 normal Not Available [facility] (Lab) [address] [place], [address], 12/06/2023 12:48:33 12/06/19 24 12/06/2023 CBCWA D MCHC 34.0 g/dL 32.3-3 5.2 normal Not Available [facility] (Lab) [address] [place], [address], 12/06/2023 12:48:33 12/06/19 24 12/06/2023 CBCWA D RDW 12.5 % 10.3-1 4.2 normal Not Available [facility] (Lab) [address] [place], [address], 12/06/2023 12:48:33 12/06/19 24 12/06/2023 CBCWA D platelets 203 X103/ uL 132-36 2 normal Not Available [facility] (Lab) [address] [place], [address], 12/06/2023 12:48:33 12/06/19 24 12/06/2023 CBCWA D MPV 7.7 fL 6.7-9. 1 normal Not Available [facility] (Lab) [address] [place], [address], 12/06/2023 12:48:33 12/06/19 24 12/06/2023 CBCWA D neutrophil % 90.2 % 43.0-7 6.4 high Not Available [facility] (Lab) [address] [place], [address], 12/06/2023 12:48:33 12/06/19 24 12/06/2023 CBCWA D lymphocyte % 5.2 % 13.5-4 1.5 low Not Available [facility] (Lab) [place], [address], 12/06/2023 12:48:33 12/06/19 24 12/06/2023 CBCWA D monocyte % 3.2 % 4.6-13 .1 low Not Available [facility] (Lab) [place], [address], 12/06/2023 12:48:33 12/06/19 24 12/06/2023 CBCWA D eosinophil % 1.0 % 1.0-5. 7 normal Not Available [facility] (Lab) [address] [place], [address], 12/06/2023 12:48:33 12/06/19 24 12/06/2023 CBCWA D basophil % 0.4 % 0.2-0. 8 normal Not Available [facility] (Lab) [address] [place] [address] [place], [address], 12/06/2023 12:48:33 12/06/19 24 12/06/2023 CBCWA D neutrophil # 5.82 X103/ uL 2.00-6 .40 normal Not Available [facility] (Lab) [facility], [address], 12/06/2023 12:48:33 12/06/19 24 12/06/2023 CBCWA D lymphocyte # 0.34 X103/ uL 0.90-2 .90 low Not Available [facility] (Lab) [facility], [address], 12/06/2023 12:48:33 12/06/19 24 12/06/2023 CBCWA D monocyte # 0.21 X103/ uL 0.20-1 .00 normal Not Available [facility] (Lab) [address] [place], [address], 12/06/2023 12:48:33 12/06/19 24 12/06/2023 CBCWA D eosinophil # 0.06 X103/ uL 0.10-0 .40 low Not Available [facility] (Lab) [address] [place], [address], 12/06/2023 12:48:33 12/06/19 24 12/06/2023 CBCWA D basophil # 0.03 X103/ uL 0.00-0 .10 normal Aixa tripathi al Used to Treat Patie nt Not Available [facility] (Lab) [address] [place], [address], 12/06/2023 12:48:33 12/06/19 24 12/06/2023 CRP C-reactive protein 11.17 mg/dL 0.10-0 .50 high Not Available [facility] (Lab) [address] [place], [address], 12/06/2023 12:48:37 12/06/19 24 12/06/2023 BMP glucose 103 mg/dL 70-99 high [facility] [address] [place], [address], 12/06/2023 12:49:28 12/06/19 24 12/06/2023 BMP BUN 33 mg/dL 8-26 high Not Available [facility] (Lab) [address] [place], [address], 12/06/2023 12:49:28 12/06/19 24 12/06/2023 BMP creatinine 1.7 mg/dL 0.8-1. 3 high Not Available [facility] (Lab) [address] [place], [address], 12/06/2023 12:49:28 12/06/19 24 12/06/2023 BMP eGFR non- 40 mL/mi n/1.7 3m2 Not Available [facility] (Lab) [address] [place], [address], 12/06/2023 12:49:28 12/06/19 24 12/06/2023 BMP eGFR [...] than 15 mL/mi n/1.7 3m^2. Not Available [facility] (Lab) [address] [place], [address], 12/06/2023 12:49:28 12/06/19 24 12/06/2023 BMP calcium 9.00 mg/dL 8.60-1 0.30 normal Not Available [facility] (Lab) [address] [place], [address], 12/06/2023 12:49:28 12/06/19 24 12/06/2023 BMP sodium 139 mEq/L 136-14 4 normal Not Available [facility] (Lab) [address] [place], [address], 12/06/2023 12:49:28 12/06/19 24 12/06/2023 BMP potassium 3.65 mEq/L 3.57-4 .71 normal Not Available [facility] (Lab) [address] [place], [address], 12/06/2023 12:49:28 12/06/19 24 12/06/2023 BMP chloride 110 mEq/L 102-11 1 normal Not Available [facility] (Lab) [address] [place], [address], 12/06/2023 12:49:28 12/06/19 24 12/06/2023 BMP CO2 26 mEq/L 21-31 normal Not Available [facility] (Lab) [address] [place], [address], 12/06/2023 12:49:28 12/06/19 24 12/06/2023 MAGNE SIUM magnesium 2.09 mg/dL 1.80-2 .60 normal Not Available [facility] (Lab) [address] [place], [address], 12/06/2023 12:49:29 12/06/19 24 12/06/2023 MANUA L DIFFE RENTI AL segmented neutrophil 88 % 50-70 high Not Available [facility] (Lab) [address] [place], [address], 12/06/2023 13:32:43 12/06/19 24 12/06/2023 MANUA L DIFFE RENTI AL band neutrophil 5 % 0-5 normal Not Available [facility] (Lab) [address] [place], [address], 12/06/2023 13:32:43 12/06/19 24 12/06/2023 MANUA L DIFFE RENTI AL lymphocyte 5 % 20-40 low Not Available [facility] (Lab) [address] [place], [address], 12/06/2023 13:32:43 12/06/19 24 12/06/2023 AIXA TRIPATHI AL monocyte 2 % 1-6 normal Not Available [facility] (Lab) [address], [place], [address], 12/06/2023 13:32:43 12/02/19 24 12/02/2023 CT, head + brain , w/o contr ast No observ ation record ed. [address], [place], [address], 12/03/2023 11:44:52 12/03/1912/03/2023 CT, cervi pj spine , w/o contr ast No observ ation record ed. [address], [place], [address], 12/03/2023 18:44:12 12/03/19 24 12/03/2023 CT, chest , w/o contr ast No observ ation record ed. [address], [place], [address], 12/03/2023 18:40:57 Result Notes None recorded. Problems Name Problem SNOMED Code Status Onset Date Resolution Date Notes Provider Name and Address Organization Details Recorded Time Hypertensive disorder 36559157 Active 2023 [address] [place], [address], [facility] 4 07:28:25 Mechanical prosthetic mitral valve replacement Active 2023 mitral JAMES Gresham [address] [place], [address], [facility] 4 07:28:58 Hyperlipidemi a 81124881 Active 2023 JAMES Gresham [address] [place], [address], [facility] 4 07:29:05 Chronic tremor 347589540 Active [address], [place], [address], [facility] 4 07:29:12 Seizure disorder 566635255 Active 2023 JAMES Gresham [address], [place], [address], [facility] 4 07:29:26 Warfarin therapy Active 2023 RUBI G[address]P [address], [place], [address] , [facility] 4 07:30:23 Iron deficiency anemia 28934237 Active 2023 AJMES Gresham [address], [place], [address], [facility] 4 07:30:38 Gastroesophag eal reflux disease 501245349 Active 2023 RUBI G[address]P [address], [place], [address], [facility] 4 07:30:46 Essential hypertension 62766027 Active 2023 RUBI [address]P [address], [place], [address] , [facility] 4 07:31:02 Chronic kidney disease 198031683 Active 2023 thinks eGFR was 25% last check JAMES Gresham [address], [place], [address], [facility] 4 07:48:42 Persistent microscopic hematuria 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 Procedures Surgical History Date Name Laterality Status Provider Name and Address Organization Details Recorded Time 4 CT of chest without contrast [place], [address], [facility] 12/03/2023 18:40:34 CT cervical spine without contrast [place], [address], [facility] 12/03/2023 18:43:[address] head/brain w/o dye [place], [address], [facility] 12/03/2023 11:44:23 mechanical prosthetic mitral valve replacement completed JAMES Gresham [address] [place], [address], [facility] 12/02/2023 07:38:51 repair of inguinal hernia completed JAMES [place], [address], [facility] 12/02/2023 07:39:00 Imaging Results None recorded. Procedure [...] Address Organization Details Last Updated DateTime 4 [id number] 2222 Frances 120 /min 34 /min 94 % 126/75 mm[Hg] Padmini Nguyen CNA [address], [place], [address] [place] [address] 4 20:56:46 Date Recorded Body temperature Heart rate Respiratory rate Oxygen saturation Body temperature Heart rate Respiratory rate Oxygen saturation Body temperature Heart rate Respiratory rate Oxygen saturation Provider Name and Address Organization Details Last Updated DateTime 4 [id number] 5556 Frances 91 /min 16 /min 91 % 37.713414570 3333 Frances 101 /min 16 /min 95 % 37.568210553 4444 Frances 98 /min 16 /min 96 % Ashley Hanson CNA [address] [place], [address] [place] [address] 4 10:03:08 Date Recorded Inhaled oxygen flow [...] /min 18 /min 100 % 2 L/min 37.676069771 5556 Frances 102 /min 18 /min 96 % 2 L/min 133/70 mm[Hg] 144/67 mm[Hg] 119/79 mm[Hg] 124/72 mm[Hg] 136/74 mm[Hg] Ashley Hanson CNA [address] [place], [address] [place] [address] 4 18:09:23 Date Recorded Heart rate Respiratory [...] John RN [address], [place], [address] [place] [address] 4 09:23:38 Date Recorded Systolic And Diastolic Systolic And Diastolic Systolic And Diastolic Systolic And Diastolic Provider Name and Address Organization Details Last Updated DateTime 12/02/2023 131/69 mm[Hg] 132/79 mm[Hg] 127/77 mm[Hg] 135/77 mm[Hg] Larissa John RN [address], [place], [address] [place] [address] 4 09:23:38 Date Recorded Body temperature Heart rate Respiratory rate Oxygen saturation Body temperature Heart rate Respiratory rate Oxygen saturation Body temperature Heart rate Respiratory rate Oxygen saturation Provider Name and Address Organization Details Last Updated DateTime 4 37.248918583 6667 Frances 98 /min 18 /min 94 % 37.011449883 2222 Frances 89 /min 18 /min 94 % 37.031865697 2222 Frances 92 /min 20 /min 94 % Tucker Blank RN [address] [place], [address] [place] [address] 4 08:13:58 Date Recorded Oxygen saturation Inhaled oxygen flow rate Systolic And Diastolic Systolic And Diastolic Systolic And Diastolic Provider Name and Address Organization Details Last Updated DateTime 4 90 % 2 L/min 124/74 mm[Hg] 149/64 mm[Hg] 137/73 mm[Hg] Tucker Blank RN [address] [place], [address] [place] [address] 4 08:13:58 Date Recorded Body temperature Heart rate Respiratory rate Oxygen saturation Systolic And Diastolic Provider Name and Address Organization Details Last Updated DateTime 4 [id number] 2222 Frances 95 /min 17 /min 94 % 128/76 mm[Hg] Sallie Reeves [facility] 4 06:39:17 Date Recorded Body temperature Heart rate Respiratory rate Oxygen saturation Inhaled oxygen flow rate Systolic And Diastolic Provider Name and Address Organization Details Last Updated DateTime 4 37 Frances 94 /min 20 /min 97 % 3 L/min 100/62 mm[Hg] Bernadine Ling [address], [place], [address] , [facility] 22:06:39 Date Recorded Body temperature Oxygen saturation Inhaled oxygen flow rate Provider Name and Address Organization Details Last Updated DateTime 12/03/2023 37.75084565252 67 Frances 93 % 3 L/min Tucker Blank RN [address], [place], [address], [facility] 12/03/2023 07:31:00 Date Recorded Body temperature Heart rate Respiratory rate Oxygen saturation Inhaled oxygen flow rate Body temperature Heart rate Respiratory rate Oxygen saturation Inhaled oxygen flow rate Body temperature Heart rate Provider Name and Address Organization Details Last Updated DateTime 37.306387460 4444 Frances 85 /min 14 /min 94 % 3 L/min 38 Frances 109 /min 14 /min 93 % 3 L/min 36.751617931 8889 Frances 89 /min Connie Santiago CNA [address], [place], [address], [facility] 4 17:19:57 Date Recorded Respiratory rate Oxygen saturation Inhaled oxygen flow rate Systolic And Diastolic Systolic And Diastolic Systolic And Diastolic Provider Name and Address Organization Details Last Updated DateTime 4 14 /min 94 % 3 L/min 112/75 mm[Hg] 106/66 mm[Hg] 94/62 mm[Hg] Connie Santiago CNA [address], [place], [address] [facility] 4 17:19:57 Date Recorded Body temperature Heart rate Respiratory rate Oxygen saturation Inhaled oxygen flow rate Body temperature Heart rate Respiratory rate Oxygen saturation Inhaled oxygen flow rate Systolic And Diastolic Systolic And Diastolic Provider Name and Address Organization Details Last Updated DateTime 4 39 Frances 99 /min 16 /min 94 % 4 L/min 36.270324797 8889 Frances 88 /min 16 /min 94 % 4 L/min 118/73 mm[Hg] 100/59 mm[Hg] Sallie Reeves [facility] 4 05:50:21 Date Recorded Body weight Provider Name an d Address Organization Details Last Updated DateTime 12/04/2023 18566.721 g Seema Gardner, RN [address], [address], [facility] 12/04/2023 12:20:35 Date Recorded Body temperature Heart rate Respiratory rate Oxygen saturation Inhaled oxygen flow rate Body temperature Heart rate Respiratory rate Oxygen saturation Inhaled oxygen concentration Body temperature Heart rate Provider Name and Address Organization Details Last Updated DateTime 4 36.373786269 2222 Frances 83 /min 21 /min 95 % 2 L/min 37.988138323 5556 Frances 86 /min 20 /min 94 % 2 % 36.232171022 2222 Frances 82 /min Bernadine Ling [address] [place], [address] , [facility] 4 22:25:20 Date Recorded Respiratory rate Oxygen saturation Inhaled oxygen flow rate Systolic And Diastolic Systolic And Diastolic Systolic And Diastolic Provider Name and Address Organization Details Last Updated DateTime 4 20 /min 91 % 2 L/min 104/67 mm[Hg] 107/64 mm[Hg] 112/64 mm[Hg] Bernadine Ling [address] [place], [address] , [facility] 4 22:25:20 Date Recorded Body temperature Heart rate Respiratory rate Oxygen saturation Inhaled oxygen flow rate Body temperature Heart rate Respiratory rate Oxygen saturation Body temperature Heart rate Respiratory rate Provider Name and Address Organization Details Last Updated DateTime 4 36.732488862 2222 Frances 100 /min 20 /min 92 % 1 L/min 36.013528208 6667 Frances 97 /min 18 /min 92 % 36.252177215 2222 Frances 79 /min 18 /min Pamella Espinoza son, TEST TECHNICIAN [address], [place], [address] 6[facility] 4 18:18:04 Date Recorded Oxygen saturation Inhaled oxygen flow rate Systolic And Diastolic Systolic And Diastolic Systolic And Diastolic Provider Name and Address Organization Details Last Updated DateTime 4 91 % 2 L/min 107/63 mm[Hg] 110/72 mm[Hg] 101/65 mm[Hg] Pamella Espinoza son, TEST TECHNICIAN [address], [place], [address], [facility] 4 18:18:04 Date Recorded Body temperature Heart rate Respiratory rate Oxygen saturation Inhaled oxygen flow rate Systolic And Diastolic Provider Name and Address Organization Details Last Updated DateTime 4 36.732826301 6667 Frances 81 /min 16 /min 97 % 1 L/min 107/64 mm[Hg] Sallie Reeves [facility] 4 06:10:12 Date Recorded Body weight Provider Name an d Address Organization Details Last Updated DateTime 12/05/2023 98657.788 g Larissa John, MAYE [address], [place], [address], [facility] 12/05/2023 11:12:41 Date Recorded Body temperature Heart rate Respiratory rate Oxygen saturation Inhaled oxygen flow rate Systolic And Diastolic Provider Name and Address Organization Details Last Updated DateTime 4 37.464971966 7778 Frances 101 /min 19 /min 90 % 2 L/min 113/70 mm[Hg] Afua Mccain [address] [place], [address], [facility] 4 11:37:31 Date Recorded Body temperature Heart rate Respiratory rate Oxygen saturation Inhaled oxygen flow rate Body temperature Heart rate Respiratory rate Oxygen saturation Inhaled oxygen flow rate Systolic And Diastolic Systolic And Diastolic Provider Name and Address Organization Details Last Updated DateTime 4 36.361419925 3333 Frances 88 /min 18 /min 92 % 1 L/min 36.146248371 2222 Frances 86 /min 18 /min 94 % 1 L/min 126/56 mm[Hg] 122/62 mm[Hg] Bernadine Ling [address], [place], [address] [place] [address] 4 06:19:35 Date Recorded Body temperature Heart rate Respiratory rate Oxygen saturation Body temperature Heart rate Respiratory rate Oxygen saturation Systolic And Diastolic Systolic And Diastolic Provider Name and Address Organization Details Last Updated DateTime 4 36.511131223 2222 Frances 85 /min 16 /min 89 % 36.647379005 3333 Frances 100 /min 18 /min 86 % 107/57 mm[Hg] 124/77 mm[Hg] Mel Lemus CNA [address] [place], [address] [place] [address] 4 18:14:33 Date Recorded Body temperature Heart rate Respiratory rate Oxygen saturation Systolic And Diastolic Provider Name and Address Organization Details Last Updated DateTime 4 37.048388429 2222 Frances 97 /min 20 /min 92 % 127/76 mm[Hg] Tucker Blank RN [address] [facility] [place], [address] [place] [address] 4 21:29:38 Date Recorded Body temperature Heart rate Respiratory rate Oxygen saturation Inhaled oxygen flow rate Systolic And Diastolic Provider Name and Address Organization Details Last Updated DateTime 4 36.129120427 3333 Frances 84 /min 18 /min 90 % 1 L/min 119/72 mm[Hg] Tucker Blank RN [address] [facility] [place], [address] [place] [address] 4 02:05:18 Date Recorded Body temperature Heart rate Respiratory rate Oxygen saturation Body weight Body temperature Heart rate Respiratory rate Oxygen saturation Systolic And Diastolic Systolic And Diastolic Provider Name and Address Organization Details Last Updated DateTime 4 37.104023532 5556 Frances 103 /min 16 /min 93 % 14968.6 24 g 36.139126745 6667 Frances 106 /min 14 /min 91 % 105/58 mm[Hg] 112/72 mm[Hg] Connie Santiago CNA [address] [place], [address], [facility] 14:13:07 Social History Question Answer Notes LastModified by Organizat ion Details LastModified Time Tobacco Smoking Status Never Smoker Tucker Blank, RN [address], [place], [address], [facility] 12/02/2023 07:03:30 What Is Your Level Of [...] ICD10 Code Diagnosis IMO Codes Diagnosis Note [id number] Gaby Monte, [facility] [address] [place] [address] 12/02/2023 10:07:49 12/03/2023 09:53:35 [id number] Gaby Monte, [facility] [address] [place] [address] 12/03/2023 10:39:23 12/03/2023 15:22:18 [id number] Ede Brown MD [facility] [address] [place] [address] 12/04/2023 10:26:17 12/04/2023 14:04:05 [id number] Ryan Schneider [place] [address] [place] [address] 12/04/2023 11:50:58 12/04/2023 18:24:48 [id number] [facility] [address] [place] [address] 12/05/2023 10:44:14 12/05/2023 18:07:02 Health Concerns Section Related Observation LastModified by Organization Detai ls LastModified Time None Recorded Concern Status LastModified by Organization Details LastModified Time None Recorded Advance Directives Directive None Recorded Payers Insurance Date Sequence Insurance Name Policy Number Policy Reynolds Covered Member ID Reynolds Member ID Guarantor Name 12/15/2023 1 [place]: [employer] Glenn Clayton [id number] Glenn Clayton 12/04/2023 2 [email or web address] (MEDICARE SUPPLEMENT) Glenn Clayton [id number] Glenn Clayton 12/04/2023 [place] [employer] Glenn Clayton [id number] Glenn Clayton 12/04/2023 3 [place] Glenn Clayton [id number] Glnen Clayton Notes Date Note Type Note Provider [...] Assessment & Plan None recorded Gaby Monte, [employer] 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 He doesn't want to delay here in [place] any longer if possible. 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 amLODIPine Oral10 mgevery day08:, 08 1 3 2 024 Gaby Monte, [employer] SCIENCE TEACHER-C aspirin Oral81 mgevery day08:, 08 1 3 2 024 Gaby Monte, [employer] SCIENCE TEACHER-C atorvastatin Oral20 mgevery day at coejwya76:00, 08 1 3 2 024 Gaby Monte, [employer] SCIENCE TEACHER-C azaTHIOprine Heoq130 mgevery day08:, 08 1 3 2 024 Gaby Monte, [employer] SCI[employer] TEACHER-C azithromycin IV500 mgevery 24 hours for 4 inlq707uxye053nJ9.9 % sodium chloride(2 mg/mL)250 mL/hr for 1 hour08:00, 08 1 4 2 024 09:00, 08 1 7 2 024 Gaby Monte, [employer] SCIENCE TEACHER-C cefTRIAXone IV1 gevery 12 hours for 5 uegj4bfj683jD7.9 % sodium chloride(0.01 g/mL)100 mL/hr for 1 hour07:32, 08 1 3 2 024 20:32, 08 1 7 2 024 Gaby Monte, DA[employer] SCIENCE TEACHER-C ferrous gluconate Eypd458 mg2 times per day19:00, 08 1 3 2 024 Gaby Monte, DA[employer] SCIENCE TEACHER-C Keppra Kyry448 mg2 times per day08:01, 08 1 3 2 024 RUBI GreshamP-C multivitamins, tx-minerals Oral Tablet1 tabevery day08:01, 08 1 3 2 024 RUBI GreshamP-C omeprazole Oral Delayed Release Ktogjhr12 mgevery 24 hours21:00, 08 1 3 2 024 RUBI GreshamP-C warfarin Oral2 mgEvery evening at 6 pmfor a total of 7mg18:00, 08 1 3 2 024 RUBI GreshamP-C warfarin Oral5 mgEvery evening at 6 pmfor a total of 7mg18:00, 08 1 3 2 024 Gaby Monte [employer] SCIENCE TEACHER-C PRN Medications Name Sig Start Stop Ordered by acetaminophen Oral1,000 mg4 times per day08:39, 08 1 3 2 024 Gaby Monte, DA[employer]Y SCIENCE TEACHER-C IV Fluids Name Sig Start Stop Ordered [...] MonteJAMES [address], [place], [address], [facility] 12/03/2023 14:32:57 12/04/2023 text/html Rolanda Elizabeth is [...] x 3, normal mood and affect. Skin: Auxier, warm, and dry. Lower eyelids puffy in [...] station, CORTE[place], ambulats in hallway Vitals VitalMost LwuzccRaio64 Hour Range Rwsulinfwcw41.1 Ftemporal tpbsdy73-42-2305 16:1798 F-100.4 F Heart hdld42ywhrrlgf jdhvtruz02-73-6046 16:1779bpm-109bpm Blood yzddobkt878/65sitting -68-7523 16:1794/62 - 112/75 Respiratory opop5994-01-8621 16:1714-21 Oxygen oxjupjenif06%room air2L/nkr70-38-8620 16:1791%-97% Chafrd717rcb3fk07-10- 2024 10:11067gbn0gz-134gpn 6oz Pain cbfiz0nhuwuhh60-97-99 24 12:000-0 Intake & Dyuuom71 Hour Total Efrmiq025.0mL Output0.0mL Net Jhnjexz558qK Recent Labs Na + 142 mEq/L Cl [...] 08 1 4 2 024 Gaby Monte, [employer] SCIENCE TEACHER-C albuterol-ipratropium Nebulized 3 mg (2.5 mg base)-0.5 mg/3 mL3 mL3 times per day08:58, 08 1 3 2 024 RUBI GreshamP-C amLODIPine Oral10 mgevery day08:, 08 1 3 2 024 Gaby Monte, [employer] SCI[employer] TE[employer]ER-C aspirin Oral81 mgevery day08:, 08 1 3 2 024 Gaby Monte, DA[employer] SCIENCE TEACHER-C atorvastatin Oral20 mgevery day at pvjgxir17:00, 08 1 3 2 024 RUBI GreshamP-C azaTHIOprine Jsdk029 mgevery day08:, 08 1 3 2 024 Gaby Monte, DA[employer] SCIENCE TEACHER-C azithromycin IV500 mgevery 24 hours for 4 ikdj379aoew098zQ8.9 % sodium chloride(2 mg/mL)250 mL/hr for 1 hour08:00, 08 1 4 2 024 09:00, 08 1 7 2 024 Gaby Monte, DA[employer] SCIENCE TEACHER-C cefTRIAXone IV1 gevery 12 hours for 5 ioat9qny610bV3.9 % sodium chloride(0.01 g/mL)100 mL/hr for 1 hour07:32, 08 1 3 2 024 20:32, 08 1 7 2 024 Gaby Monte, DA[employer] SCIENCE TEACHER-C ferrous gluconate Mvjy252 mg2 times per day19:00, 08 1 3 2 024 Gaby Monte, DA[employer] SCIENCE TEACHER-C Keppra Arkc315 mg2 times per day08:, 08 1 3 2 024 Gaby Monte, DA[employer] SCIENCE TEACHER-C multivitamins, tx-minerals Oral Tablet1 tabevery day08:, 08 1 3 2 024 Gaby Monte, DA[employer] SCIENCE TEACHER-C omeprazole Oral Delayed Release Guhohxi52 mgevery 24 hours21:00, 08 1 3 2 024 RUBI GreshamP-C SOLU-MedroL (PF) IV62.5 mgpush2 times per day19:00, 08 1 4 2 024 Gaby Monte, DA[employer] SCIENCE TEACHER-C warfarin Oral2 mgEvery evening at 6 pmfor a total of 7mg18:00, 08 1 3 2 024 Gaby Corinaere, DA[employer] SCIENCE TEACHER-C warfarin Oral5 mgEvery evening at 6 pmfor a total of 7mg18:00, 08 1 3 2 024 Gaby Fugere, DA[employer] SCIENCE TEACHER-C PRN Medications None Recorded IV Fluids Name Sig Start Stop Ordered by sodium chloride IV 0.9 %sodium chloride 0.9 % 50 mL/hr IV Rate: 50 mL/hr19:42, 08 1 4 2 024 Gaby Fugere, DA[employer] SCIENCE TEACHER-C Assessment & Plan bilateral pneumonia - UTI [...] w/ assistance in room only Ryan Schneider, DAIRY SCIENCE TEACHER [address] [facility] [address], [place], [address], [facility] 12/04/2023 19:09:46 12/05/2023 text/html Subjective Glenn reports [...] LE. Musculoskeletal: Normal station, CORTE[place]. Vitals VitalMost ThkgygIuvp09 Hour Range Nvvyekujtty80.1 Ubgfdgknt28-29-9933 08:3098 F-99.1 F Heart iymc059poajzwin ctvydrrq45-11-0936 08:3079bpm-101bpm Blood ogzkrhpj171/70sitting upper arm - rightadult - sguau00-51-6123 08:12527/65 - 126/56 Respiratory edhx5885-11-1073 08:3016-21 Oxygen dirwspdssg65%nasal zohnwvd9E/qqj20-97-67 24 08:3090%-97% Aijqpv806lpx9ke67-96- 2024 09:65098rqo7ry-197pvl 8oz Pain ghdix2epjcgtz75-66-20 24 12:000-0 Intake & Spkpuv23 Hour Total Beyxna574.0mL Output0.0mL Net Wszhwpw472qV More recent vital readings have been recorded [...] 08 1 3 2 024 Gaby Monte, DA[employer] SCIENCE TEACHER-C atorvastatin Oral20 mgevery day at mqriphh91:00, 08 1 3 2 024 Gaby Monte, DAIRY SCIENCE TEACHER-C azaTHIOprine Ketw858 mgevery day08:01, 08 1 3 2 024 Gaby Monte, DAIRY SCIENCE TEACHER-C dexAMETHasone Oral6 mgevery dayDC Solu-Medrol after 2nd dose on 12/03/2406:00, 08 1 6 2 024 RUBI OrdazP-Nancy ferrous gluconate Ynob704 mg2 times per day19:00, 08 1 3 2 024 Gaby Monte DAIRY SCIENCE TEACHER-Nancy Keppra Bamk862 mg2 times per day08:01, 08 1 3 2 024 Gaby Monte, DAIRY SCIENCE TEACHER-C multivitamins, tx-minerals Oral Tablet1 tabevery day08:01, 08 1 3 2 024 Gaby Monte, DAIRY SCIENCE TEACHER-C omeprazole Oral Delayed Release Lqrkapm14 mgevery 24 hours21:00, 08 1 3 2 024 Gaby Monte, DAIRY SCIENCE TEACHER-C warfarin Oral2 mgEvery evening at 6 pmfor a total of 7mg18:00, 08 1 3 2 024 Gaby Monte, DAIRY SCIENCE TEACHER-C warfarin Oral5 mgEvery evening at 6 pmfor a total of 7mg18:00, 08 1 3 2 024 Gaby Monte DAIRY SCIENCE TEACHER-C PRN Medications None Recorded IV Fluids None [...] to home as soon as medically prudent Ftvjx-01-Lhewdlqkf to have increased supplemental O2 need.-Transitioned to PO dexamethasone yesterday, to continue for 6 days from today-Covid infection complicates overall treatment and picture of recovery.-Transitione d to inhaler from nebulizer Dispo-To discharge to drive home as soon as he can maintain on room air. Last dose azithromycin for 12/05. Ceftriaxone complete. Continue dexamethasone for 6 days. Ryan Schneider, DAIRY SCIENCE TEACHER [address] [facility] [place], [address], [facility] 12/05/2023 21:48:42
--- OUTSIDE RECORDS SUMMARY | 2025-04-08 11:54 | XMS_ITS | Clinical Summary ---
Author Organization [facility] Address [address] [place] [address] Care Team Providers Care Non Destructive Evaluation Specialist Name Role Phone Jerrell Parrish MD Primary Care Provider [phone] Allergies Active Allergy Reactions Criticality Noted Date [...] Mother Cancer Mother Osteoarthritis Mother Osteoporosis Mother [place]'s Disease Sister Relation Status Comments Father Mother [...] age to complete this topic Insurance MEDICARE [employer] MEDICARE [employer] [facility] [employer] * Guarantor: Glenn Clayton Nelida Account Type Relation to Patient Date of Phone Billing Address Personal/Family Self 12/06/[birth year]79 Advance Directives Documents on File Type Date Recorded Patient Project Engineering Director Expl anation Advance Directives and Living Will 10/07/2019 2:14 PM Refer to NIURKA fredy lee regarding Advanced Directives Power of Wall Crane Operator 10/07/2019 2:14 PM Reji Echeverria, [facility]-Healthcare Agent; Neelam De La Torre, 1st alternate [facility]-other; Nancy Reyes, 2nd alternate [facility]-other; * Full Code (Latest Code Status on File) Date Activated Date Inactivated Comments 12/06/2019 5:56 PM 12/09/2019 4:40 PM Healthcare Agents on File Name Relationship Healthcare Agent Relationship Communication Reji A. ([facility]) Jacki Healthcare Agent Health Care Agent Neelam De La Torre Other First Alternate Health Care Agent Nancy Reyes Other Second Alternate Health Care Agent Care Teams Non Destructive Evaluation Specialist Relationship Specialty Start Date End Date Jerrell Parrish MD [address] [place] [address] PCP - General INTERNAL MEDICINE 09/07/19
--- OUTSIDE RECORDS SUMMARY | 2025-04-08 11:54 | XMS_ITS | Encounter Summary ---
Author Organization [facility] Address [address] [place] [address] Phone Care Team Providers Care Charting Clerk Name Role Phone Jerrell Parrish MD Primary Care Provider [phone] Jerrell Parrish MD Unavailable [phone] Encounter Details Date Type Department Care [...] on file Legal Sex Male 7:13 AM IT BUSINESS PROCESS ARCHITECT Gender Identity Male 11/28/2020 8:17 AM CDT [...] on filedocumented in this encounter Care Teams Charting Clerk Relationship Specialty Start Date End Date Jerrell Parrish MD PCP - General Internal Medicine 05/17/17 Jerrell Parrish MD Internal Medicine 05/17/17 documented as of this encounter
--- OUTSIDE RECORDS SUMMARY | 2025-04-08 11:54 | XMS_ITS | Clinical Summary ---
Author Organization [facility] [address] Address [address] [place] [address] Care Team Providers Care Faucets Assembler Name Role Phone Jerrell Parrish MD Primary Care Provider [phone] Jerrell Parrish MD Unavailable [phone] Allergies No known active allergies Medications [...] Department Care Team Description 03/09/2025 4:20 PM TELEVISION ANTENNA INSTALLER Lab [facility] Medicine Endocrinology Metabolism and Lipid [address] [place] [address] 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) 03/09/2025 3:00 PM TELEVISION ANTENNA INSTALLER Office Visit [facility] Medicine Rheumatology [address] [place] [address] [place] [id number] 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) [...] on file Legal Sex Male 7:13 AM TELEVISION ANTENNA INSTALLER Gender Identity Male 11/28/2020 8:17 AM CDT Sexual Orientation Choose not to disclose 2020 8:17 AM CDT Last Filed Vital Signs Vital Sign Reading Time Taken Comments Blood Pressure 114/78 03/09/2025 2:55 PM TELEVISION ANTENNA INSTALLER Pulse 112 03/09/2025 2:55 PM TELEVISION ANTENNA INSTALLER Temperature 36.4 C (97.6 F) 03/09/2025 2:55 PM TELEVISION ANTENNA INSTALLER Respiratory Rate 18 02/04/2023 9:21 AM CDT Oxygen Saturation 97% 02/18/2023 12:40 PM CDT Inhaled Oxygen Concentration - - Weight 81.6 kg (180 lb) 03/09/2025 2:55 PM TELEVISION ANTENNA INSTALLER Height 172.7 cm (5' 8) 03/09/2025 2:55 PM TELEVISION ANTENNA INSTALLER Body Mass Index 27.37 03/09/2025 2:55 PM TELEVISION ANTENNA INSTALLER Plan of Treatment Health Maintenance Due Date [...] CBC WITHOUT DIFFERENTIAL Routine 03/09/2025 4:01 PM TELEVISION ANTENNA INSTALLER 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) COMPREHENSIVE METABOLIC PANEL Routine 03/09/2025 4:01 PM TELEVISION ANTENNA INSTALLER 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) ERYTHROCYTE SEDIMENTATION RATE Routine 03/09/2025 4:01 PM TELEVISION ANTENNA INSTALLER 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) CRP (ACUTE PHASE) Routine 03/09/2025 4:0 1 PM TELEVISION ANTENNA INSTALLER 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) HEPATITIS C ANTIBODY Routine 11/23/2019 2:25 PM CDT ANCA-associated vasculitis (HCC) from Last 3 Months or Most Recently Relevant to Health Maintenance Results * (ABNORMAL) Erythrocyte sedimentation rate (03/09/2025 4:01 PM TELEVISION ANTENNA INSTALLER) Erythrocyte Sedimentation Rate 25(H) <20 mm/hr [facility] Blood 03/09/2025 4:01 PM TELEVISION ANTENNA INSTALLER 03/09/2025 4:16 PM TELEVISION ANTENNA INSTALLER us Maximiliano Hernandez MD LAB BLOOD ORDERABLES Final Re sult [facility] * (ABNORMAL) CBC without differential (03/09/2025 4:01 PM TELEVISION ANTENNA INSTALLER) White Blood Count 8.9 3.6 - 11.2 [...] [facility] Blood 03/09/2025 4:01 PM TELEVISION ANTENNA INSTALLER 03/09/2025 4:16 PM TELEVISION ANTENNA INSTALLER Maximiliano Hernandez MD LAB BLOOD ORDERABLES Final Re sult [facility] * (ABNORMAL) CRP (acute phase) (03/09/2025 4:01 PM TELEVISION ANTENNA INSTALLER) Pathologist [facility] C-Reactive Protein, Acute 20.8(H) <5.0 mg/L [facility] Blood 03/09/2025 4:01 PM TELEVISION ANTENNA INSTALLER 03/09/2025 4:16 PM TELEVISION ANTENNA INSTALLER Maximiliano Hernandez MD LAB BLOOD ORDERABLES Final Re sult Performing Organization Address [facility] Co de Phone Number [facility] * (ABNORMAL) Comprehensive metabolic panel (03/09/2025 4:01 PM TELEVISION ANTENNA INSTALLER) Pathologist [facility] Total Protein 7.4 6.1 - 8.4 g/dL [...] [facility] Blood 03/09/2025 4:01 PM TELEVISION ANTENNA INSTALLER 03/09/2025 4:16 PM TELEVISION ANTENNA INSTALLER Maximiliano Hernandez MD LAB BLOOD ORDERABLES Final Re sult [facility] * Hepatitis C antibody (11/23/2019 2:25 PM CDT) Hep C Ab Nonreactive Nonreactive [facility] Comment:Antibodies to HCV no t detected. Does NOT exclude the possibility of recent exposure to HCV. Blood specimen (specimen) 11/23/2019 2:25 PM CDT 11/23/2019 3:57 PM CDT Maximiliano Hernandez MD LAB MICROBIOLOGY - GENERAL OR DERABLES Edited Result - Final [facility] [place] [address] from Last 3 Months or Most Recently Relevant to Health Maintenance Insurance [facility]IC[facility] MEDICARE MEDICARE [facility] Care Teams Faucets Assembler Relationship Specialty Start Date End Date Jerrell Parrish MD PCP - General Internal Medicine 05/17/17 Jerrell Parrish MD Internal Medicine 05/17/17
[2025-04-08 17:20] LABS: Hematocrit 41.6 % (37.0-46.0); Hemoglobin 13.6 g/dL (12.4-15.3); Mean Corpuscular HGB Conc 32.7 g/dL (32-36); Mean Corpuscular Hemoglobin 32.5 pg (27.0-31.0); Mean Corpuscular Volume 99.5 fL (78.0-102.0); Platelet Count Result 252 K/mm3 (150-420); Red Blood Count 4.18 M/mm3 (4.70-6.10); White Blood Count 8.0 K/mm3 (4.8-10.8)
[2025-04-08 17:24] LABS: INR 2.4; Prothrombin Time 24.3 Seconds (9.50-12.1)
[2025-04-08 17:32] LABS: Alanine Aminotransferase 38 U/L (6-50); Albumin Level 4.0 g/dL (3.5-5.1); Alkaline Phosphatase 67 U/L (38-126); Anion Gap 11 mmol/L (4-12); Aspartate Amino Transferase 33 U/L (17-59); Bilirubin,Total 0.7 mg/dL (0.2-1.3); Blood Urea Nitrogen 34 mg/dL (9-20); CRP 2.1 mg/dL (<1.0); Calcium 9.5 mg/dL (8.4-10.2); Carbon Dioxide 22 mmol/L (22-30); Chloride 107 mmol/L (98-107); Estimated Glomerular Filt Rate 36; Glucose 143 mg/dL (65-110); Osmolality Calculated 299 mOsm/kg (285-295); Potassium 3.4 mmol/L (3.4-5.0); Sodium 140 mmol/L (137-145); Total Protein 6.6 g/dL (6.3-8.2)
== END 2025-04-08 11:29 | disposition home or self-care (01) ==
PROVIDERS: PCP Internal Medicine; Visit Provider Internal Medicine
DX: K62.5 Hemorrhage of anus and rectum (principal); K59.00 Constipation, unspecified; Z79.01 Long term (current) use of anticoagulants
CPT/HCPCS: 36415; 80053; 85014; 85018; 85027; 85610; 86140

== ENCOUNTER 2025-04-11 10:08 | Outpatient (CLI) | payer MEDICARE, SELFPAY ==
[2025-04-11 10:26] LABS: Hematocrit 43.4 % (37.0-46.0); Hemoglobin 13.8 g/dL (12.4-15.3); Mean Corpuscular HGB Conc 31.8 g/dL (32-36); Mean Corpuscular Hemoglobin 32.6 pg (27.0-31.0); Mean Corpuscular Volume 102.6 fL (78.0-102.0); Platelet Count Result 259 K/mm3 (150-420); Red Blood Count 4.23 M/mm3 (4.70-6.10); White Blood Count 8.7 K/mm3 (4.8-10.8)
[2025-04-11 10:43] LABS: INR 1.1; Prothrombin Time 12.1 Seconds (9.50-12.1)
[2025-04-11 10:46] LABS: Alanine Aminotransferase 37 U/L (6-50); Albumin Level 4.3 g/dL (3.5-5.1); Alkaline Phosphatase 66 U/L (38-126); Anion Gap 11 mmol/L (4-12); Aspartate Amino Transferase 36 U/L (17-59); Bilirubin,Total 0.7 mg/dL (0.2-1.3); Blood Urea Nitrogen 28 mg/dL (9-20); CRP 2.9 mg/dL (<1.0); Calcium 9.7 mg/dL (8.4-10.2); Carbon Dioxide 23 mmol/L (22-30); Chloride 109 mmol/L (98-107); Estimated Glomerular Filt Rate 37; Glucose 149 mg/dL (65-110); Osmolality Calculated 304 mOsm/kg (285-295); Potassium 3.4 mmol/L (3.4-5.0); Sodium 143 mmol/L (137-145); Total Protein 7.0 g/dL (6.3-8.2)
--- OUTSIDE RECORDS SUMMARY | 2025-04-11 11:37 | XMS_ITS | Encounter Summary ---
Author Organization [facility] Address [address] [place] [address] Phone Care Team Providers Care Life Sciences Manager Name Role Phone Jerrell Parrish MD Primary Care Provider Jerrell Parrish MD Unavailable [phone] Encounter Details Date Type Department Care [...] on file Legal Sex Male 7:13 AM MEDICAL ASSISTANT INTERNAL MEDICINE Gender Identity Male 11/28/2020 8:17 AM CDT [...] on filedocumented in this encounter Care Teams Life Sciences Manager Relationship Specialty Start Date End Date Jerrell Parrish MD PCP - General Internal Medicine 05/17/17 Jerrell Parrish MD Internal Medicine 05/17/17 documented as of this encounter
--- OUTSIDE RECORDS SUMMARY | 2025-04-11 11:37 | XMS_ITS | Clinical Summary ---
Author Organization [facility] Address [address] [place] [address] Care Team Providers Care Managing Director Name Role Phone Jerrell Parrish MD Primary Care Provider [phone] Allergies Active Allergy Reactions Criticality Noted Date [...] Mother Cancer Mother Osteoarthritis Mother Osteoporosis Mother Pelsor's Disease Sister Relation Status Comments Father Mother [...] age to complete this topic Insurance MEDICARE [place] [employer] MEDICARE [facility] [employer] * Guarantor: Glenn Clayton Nelida Account Type Relation to Patient Date of Phone Billing Address Personal/Family Self [birth year]06/1881 Advance Directives Documents on File Type Date Recorded Patient Cop Winder Expl anation Advance Directives and Living Will 10/07/2019 2:14 PM Refer to NIURKA fredy lee regarding Advanced Directives Power of Farm Machinery Assembler 10/07/2019 2:14 PM Reji Echeverria, [facility]-Healthcare Agent; Neelam De La Torre, 1st alternate [facility]-other; Nancy Reyes, 2nd alternate [facility]-other; * Full Code (Latest Code Status on File) Date Activated Date Inactivated Comments 12/06/2019 5:56 PM 12/09/2019 4:40 PM Healthcare Agents on File Name Relationship Healthcare Agent Relationship Communication Reji A. ([facility] Jacki Healthcare Agent Health Care Agent Neelam De La Torre Other First Alternate Health Care Agent Nancy Reyes Other Second Alternate Health Care Agent Care Teams Managing Director Relationship Specialty Start Date End Date Jerrell Parrish MD [address] [place] [address] PCP - General INTERNAL MEDICINE 09/07/19
--- OUTSIDE RECORDS SUMMARY | 2025-04-11 11:37 | XMS_ITS | Data Portability ---
Author Organization [facility], OP Lab/Rad Address [address] [place] [address] Assessment Encounter Date Assessment Date Assessment LastModified by Organization Details LastModified Time 12/04/2023 12/04/2023 Placeholder appt, no charge [email or web address] Not available 12/26/2023 18:08:01 12/05/2023 12/05/2023 Placeholder appt for inpatient visit. [email or web address] Not available 12/26/2023 17:47:24 Plan of Treatment [...] X103/ uL 4.6-9. 4 normal Not Available [facility] (Lab) [address] [place], [address], 12/02/2023 07:35:09 12/02/1912/02/2023 CBC red blood cell 4.39 X106/ uL 4.16-5 .60 normal Not Available [facility] (Lab) [address] [place], [address], 12/02/2023 07:35:09 12/02/19 24 12/02/2023 CBC hemoglobin 15.2 g/dL 12.9-1 7.4 normal Not Available [facility] (Lab) [address] [place], [address], 12/02/2023 07:35:09 12/02/19 24 12/02/2023 CBC hematocrit 45.1 % 39.1-5 0.6 normal Not Available [facility] (Lab) [address] [place], [address], 12/02/2023 07:35:09 12/02/19 24 12/02/2023 CBC MCV 103.0 fL 82.7-1 01.2 high Not Available [facility] (Lab) [address] [place], [address], 12/02/2023 07:35:09 12/02/19 24 12/02/2023 CBC MCH 34.6 pg 27.2-3 4.9 normal Not Available [facility] (Lab) [address] [place], [address], 12/02/2023 07:35:09 12/02/19 24 12/02/2023 CBC MCHC 33.7 g/dL 32.3-3 5.2 normal Not Available [facility] (Lab) [address] [place], [address], 12/02/2023 07:35:09 12/02/19 24 12/02/2023 CBC RDW 12.5 % 10.3-1 4.2 normal Not Available [facility] (Lab) [address] [place], [address], 12/02/2023 07:35:09 12/02/19 24 12/02/2023 CBC platelets 226 X103/ uL 132-36 2 normal Not Available [facility] (Lab) [address] [place], [address], 12/02/2023 07:35:09 12/02/19 24 12/02/2023 CBC MPV 7.2 fL 6.7-9. 1 normal Not Available [facility] (Lab) [address] [place], [address], 12/02/2023 07:35:09 12/02/19 24 12/02/2023 CRP C-reactive protein 3.57 mg/dL 0.10-0 .50 high Not Available [facility] (Lab) [address] [place], [address], 12/02/2023 07:54:33 12/02/19 24 12/02/2023 CMP glucose 106 mg/dL 70-99 high Not [facility] (Lab) [address] [place], [address], 12/02/2023 07:54:56 12/02/19 24 12/02/2023 CMP BUN 23 mg/dL 8-26 normal Not Available [facility] (Lab) [address] [place], [address], 12/02/2023 07:54:56 12/02/19 24 12/02/2023 CMP creatinine 2.1 mg/dL 0.8-1. 3 high Not Available [facility] (Lab) [address] [place], [address], 12/02/2023 07:54:56 12/02/19 24 12/02/2023 CMP eGFR non- 31 mL/mi n/1.7 3m2 Not Available [facility] (Lab) [address] [place], [address], 12/02/2023 07:54:56 12/02/19 24 12/02/2023 CMP eGFR [...] than 15 mL/mi n/1.7 3m^2. Not Available [facility] (Lab) [address] [place], [address], 12/02/2023 07:54:56 12/02/19 24 12/02/2023 CMP bilirubin, total 1.16 mg/dL 0.10-1 .20 normal Not Available [facility] (Lab) [address] [place], [address], 12/02/2023 07:54:56 12/02/19 24 12/02/2023 CMP AST 61 U/L 0-34 high Not Available [facility] (Lab) [address] [place], [address], 12/02/2023 07:54:56 12/02/19 24 12/02/2023 CMP ALT 41 U/L 0-45 normal Not Available [facility] (Lab) [address] [place], [address], 12/02/2023 07:54:56 12/02/19 24 12/02/2023 CMP alkaline phosphatase 49 U/L 56-119 low Not Available [facility] (Lab) [address] [place], [address], 12/02/2023 07:54:56 12/02/19 24 12/02/2023 CMP calcium 9.70 mg/dL 8.60-1 0.30 normal Not Available [facility] (Lab) [address] [place], [address], 12/02/2023 07:54:56 12/02/19 24 12/02/2023 CMP sodium 138 mEq/L 136-14 4 normal Not Available [facility] (Lab) [address] [place], [address], 12/02/2023 07:54:56 12/02/19 24 12/02/2023 CMP potassium 4.13 mEq/L 3.57-4 .71 normal Not Available [facility] (Lab) [address] [place], [address], 12/02/2023 07:54:56 12/02/1912/02/2023 CMP chloride 105 mEq/L 102-11 1 normal Not Available [facility] (Lab) [address] [place], [address], 12/02/2023 07:54:56 12/02/1912/02/2023 CMP CO2 26 mEq/L 21-31 normal Not Available [facility] (Lab) [address] [place], [address], 12/02/2023 07:54:56 12/02/19 24 12/02/2023 CMP total protein 7.4 g/dL 6.4-8. 3 normal Not Available [facility] (Lab) [address] [place], [address], 12/02/2023 07:54:56 12/02/1912/02/2023 CMP albumin 4.2 g/dL 3.2-4. 6 normal Not Available [facility] (Lab) [address] [place], [address], 12/02/2023 07:54:56 12/02/19 24 12/02/2023 CMP globulin 3.2 g/dL Not [facility] (Lab) [address] [place], [address], 12/02/2023 07:54:56 12/02/19 24 12/02/2023 CMP albumin/glob ulin 1.3 Not Available [facility] (Lab) [address] [place], [address], 12/02/2023 07:54:56 12/02/1912/02/2023 TROPO JAMILAH I troponin I <0.05 NG/mL 0.00-0 .40 normal Not Available [facility] (Lab) [address] [place], [address], 12/02/2023 07:55:49 12/02/1912/02/2023 PT/IN R INR 3.1 INR 0.0-1. 0 high Not Available [facility] (Lab) [address] [place], [address], 12/02/2023 08:19:57 12/02/19 24 12/02/2023 PT/IN R prothrombin time 31.2 sec 10.1-1 2.6 high Not Available [facility] (Lab) [address] [place], [address], 12/02/2023 08:19:57 12/02/19 24 12/02/2023 PTT activated partial thromboplast in time 45.0 sec 23.0-3 3.0 high Not Available [facility] (Lab) [address] [place], [address], 12/02/2023 08:37:26 12/02/1912/02/2023 URINE DRUG SCREE N methamphetam ine Negati ve negati ve normal Not Available [facility] (Lab) [address] [place], [address], 12/02/2023 08:56:55 12/02/19 24 12/02/2023 URINE DRUG SCREE N cocaine metabolite Negati ve negati ve normal Not Available [facility] (Lab) [address] [place], [address], 12/02/2023 08:56:55 12/02/1912/02/2023 URINE DRUG SCREE N THC Negati ve negati ve normal Not Available [facility] (Lab) [address] [place], [address], 12/02/2023 08:56:55 12/02/1912/02/2023 URINE DRUG SCREE N MDMA Negati ve negati ve normal Not Available [facility] (Lab) [address] [place], [address], 12/02/2023 08:56:55 12/02/1912/02/2023 URINE DRUG SCREE N methadone Negati ve negati ve normal Not Available [facility] (Lab) [address] [place], [address], 12/02/2023 08:56:55 12/02/1912/02/2023 URINE DRUG SCREE N opiates Negati ve negati ve normal Not Available [facility] (Lab) [address] [place], [address], 12/02/2023 08:56:55 12/02/1912/02/2023 URINE DRUG SCREE N benzodiazepi ally Negati ve negati ve normal Not Available [facility] (Lab) [address] [place], [address], 12/02/2023 08:56:55 12/02/1912/02/2023 URINE DRUG SCREE N tricyclic antidepressa nts Negati ve negati ve normal Not Available [facility] (Lab) [address] [place], [address], 12/02/2023 08:56:55 12/02/19 24 12/02/2023 URINE DRUG SCREE N barbiturates Negati ve negati ve normal Not Available [facility] (Lab) [address] [place], [address], 12/02/2023 08:56:55 12/02/19 24 12/02/2023 URINE DRUG SCREE N phencyclidin e Negati ve negati ve normal Not Available [facility] (Lab) [address] [place], [address], 12/02/2023 08:56:55 12/02/19 24 12/02/2023 URINE DRUG SCREE N amphetamines Negati ve negati ve normal Not Available [facility] (Lab) [address] [place], [address], 12/02/2023 08:56:55 12/02/19 24 12/02/2023 URINE DRUG [...] 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 Not Available [facility] (Lab) [address] [place], [address], 12/02/2023 08:56:55 12/02/19 24 12/02/2023 URINA LYSIS , COMPL ETE urine color Yellow yellow normal Not Available [facility] (Lab) [address] [place], [address], 12/02/2023 09:06:11 12/02/19 24 12/02/2023 URINA LYSIS , COMPL ETE urine clarity Clear clear normal Not Available [facility] (Lab) [address] [place], [address], 12/02/2023 09:06:11 12/02/1912/02/2023 URINA LYSIS , COMPL ETE urine glucose Negati ve negati ve normal Not Available [facility] (Lab) [address] [place], [address], 12/02/2023 09:06:11 12/02/1912/02/2023 URINA LYSIS , COMPL ETE urine bilirubin Negati ve negati ve normal Not Available [facility] (Lab) [address] [place], [address], 12/02/2023 09:06:11 12/02/19 24 12/02/2023 URINA LYSIS , COMPL ETE urine ketones Negati ve mg/dL negati ve normal Not Available [facility] (Lab) [address] [place], [address], 12/02/2023 09:06:11 12/02/19 24 12/02/2023 URINA LYSIS , COMPL ETE urine specific gravity 1.025 <=1.00 5->=1. 030 normal Not Available [facility] (Lab) [address] [place], [address], 12/02/2023 09:06:11 12/02/1912/02/2023 URINA LYSIS , COMPL ETE urine hemoglobin 3+ negati ve abnormal Not Available [facility] (Lab) [address] [place], [address], 12/02/2023 09:06:11 12/02/19 24 12/02/2023 URINA LYSIS , COMPL ETE urine pH 5.5 5-8.0 normal Not Available [facility] (Lab) [address] [place], [address], 12/02/2023 09:06:11 12/02/19 24 12/02/2023 URINA LYSIS , COMPL ETE urine protein 2+ mg/dL negati ve abnormal Not Available [facility] (Lab) [address] [place], [address], 12/02/2023 09:06:11 12/02/1912/02/2023 URINA LYSIS , COMPL ETE urine urobilinogin 0.2 E.U./d L 0.2 E.U./d L-1.0 E.U./d L normal Not Available [facility] (Lab) [address] [place], [address], 12/02/2023 09:06:11 12/02/19 24 12/02/2023 URINA LYSIS , COMPL ETE urine nitrate Negati ve negati ve normal Not Available [facility] (Lab) [address] [place], [address], 12/02/2023 09:06:11 12/02/19 24 12/02/2023 URINA LYSIS , COMPL ETE urine leukocyte esterase Negati ve negati ve normal Not Available [facility] (Lab) [address] [place], [address], 12/02/2023 09:06:11 12/02/1912/02/2023 URINA LYSIS , COMPL ETE urine white blood cells Occasi onal #/hpf none seen normal Not Available [facility] (Lab) [address] [place], [address], 12/02/2023 09:06:11 12/02/19 24 12/02/2023 URINA LYSIS , COMPL ETE urine red blood cells 10-50 #/hpf none seen abnormal Not Available [facility] (Lab) [address] [place], [address], 12/02/2023 09:06:11 12/02/19 24 12/02/2023 URINA LYSIS , COMPL ETE urine squamous epithelial cells 0-2 #/hpf none seen normal Not Available [facility] (Lab) [address] [place], [address], 12/02/2023 09:06:11 12/02/19 24 12/02/2023 URINA LYSIS , COMPL ETE urine bacteria Few #/hpf none seen abnormal Not Available [facility] (Lab) [address] [place], [address], 12/02/2023 09:06:11 12/02/19 24 12/02/2023 URINA LYSIS , COMPL ETE casts None Seen #/lpf none seen normal Not Available [facility] (Lab) [address] [place], [address], 12/02/2023 09:06:11 12/02/19 24 12/02/2023 URINA LYSIS , COMPL ETE urine crystal None Seen none seen normal Not Available [facility] (Lab) [address] [place], [address], 12/02/2023 09:06:11 12/02/19 24 12/02/2023 URINA LYSIS , COMPL ETE urine mucous Presen t not presen t abnormal Not Available [facility] (Lab) [address] [place], [address], 12/02/2023 09:06:11 12/02/19 24 12/02/2023 URINA LYSIS , COMPL ETE urine yeast None Seen #/hpf none seen normal Not Available [facility] (Lab) [address] [place], [address], 12/02/2023 09:06:11 12/02/19 24 12/02/2023 ELECT ROLYT E PANEL sodium 139 mEq/L 136-14 4 normal Not Available [facility] (Lab) [address] [place], [address], 12/02/2023 17:39:58 12/02/19 24 12/02/2023 ELECT ROLYT E PANEL potassium 3.75 mEq/L 3.57-4 .71 normal Not Available [facility] (Lab) [address] [place], [address], 12/02/2023 17:39:58 12/02/19 24 12/02/2023 ELECT ROLYT E PANEL chloride 106 mEq/L 102-11 1 normal Not Available [facility] (Lab) [address] [place], [address], 12/02/2023 17:39:58 12/02/19 24 12/02/2023 ELECT ROLYT E PANEL CO2 22 mEq/L 21-31 normal Not Available [facility] (Lab) [address] [place], [address], 12/02/2023 17:39:58 12/02/19 24 12/02/2023 CULTU RE, URINE results called to JAMES Man Not Available [facility] (Lab) [address] [place], [address], 12/04/2023 10:30:27 12/02/19 24 12/02/2023 CULTU RE, URINE urine source Clean Catch Midstr eam Not Available [facility] (Lab) [address] [place], [address], 12/04/2023 10:30:27 12/02/19 24 12/02/2023 CULTU RE, URINE micro culture result No Growth @ 48 Hours Not Available [facility] (Lab) [address] [place], [address], 12/04/2023 10:30:27 12/03/19 24 12/03/2023 CBCWA D white blood cell 5.4 X103/ uL 4.6-9. 4 normal Not Available [facility] (Lab) [address] [place], [address], 12/03/2023 09:52:49 12/03/19 24 12/03/2023 CBCWA D red blood cell 3.88 X106/ uL 4.16-5 .60 low Not Available [facility] (Lab) [address] [place], [address], 12/03/2023 09:52:49 12/03/19 24 12/03/2023 CBCWA D hemoglobin 13.7 g/dL 12.9-1 7.4 normal Not Available [facility] (Lab) [address] [place], [address], 12/03/2023 09:52:49 12/03/1912/03/2023 CBCWA D hematocrit 39.8 % 39.1-5 0.6 normal Not Available [facility] (Lab) [address] [place], [address], 12/03/2023 09:52:49 12/03/1912/03/2023 CBCWA D MCV 103.0 fL 82.7-1 01.2 high Not Available [facility] (Lab) [address] [place], [address], 12/03/2023 09:52:49 12/03/1912/03/2023 CBCWA D MCH 35.2 pg 27.2-3 4.9 high Not Available [facility] (Lab) [address] [place], [address], 12/03/2023 09:52:49 12/03/1912/03/2023 CBCWA D MCHC 34.3 g/dL 32.3-3 5.2 normal Not Available [facility] (Lab) [address] [place], [address], 12/03/2023 09:52:49 12/03/1912/03/2023 CBCWA D RDW 12.4 % 10.3-1 4.2 normal Not Available [facility] (Lab) [address] [place], [address], 12/03/2023 09:52:49 12/03/1912/03/2023 CBCWA D platelets 183 X103/ uL 132-36 2 normal Not Available [facility] (Lab) [address] [place], [address], 12/03/2023 09:52:49 12/03/1912/03/2023 CBCWA D MPV 7.3 fL 6.7-9. 1 normal Not Available [facility] (Lab) [address] [place], [address], 12/03/2023 09:52:49 12/03/1912/03/2023 CBCWA D neutrophil % 75.1 % 43.0-7 6.4 normal Not Available [facility] (Lab) [address] [place], [address], 12/03/2023 09:52:49 12/03/1912/03/2023 CBCWA D lymphocyte % 19.2 % 13.5-4 1.5 normal Not Available [facility] (Lab) [address] [place], [address], 12/03/2023 09:52:49 12/03/1912/03/2023 CBCWA D monocyte % 4.6 % 4.6-13 .1 normal Not Available [facility] (Lab) [address] [place], [address], 12/03/2023 09:52:49 12/03/19 24 12/03/2023 CBCWA D eosinophil % 0.8 % 1.0-5. 7 low Not Available [facility] (Lab) [address] [place], [address], 12/03/2023 09:52:49 12/03/19 24 12/03/2023 CBCWA D basophil % 0.3 % 0.2-0. 8 normal Not Available [facility] (Lab) [address] [place], [address], 12/03/2023 09:52:49 12/03/19 24 12/03/2023 CBCWA D neutrophil # 4.08 X103/ uL 2.00-6 .40 normal Not Available [facility] (Lab) [address] [place], [address], 12/03/2023 09:52:49 12/03/19 24 12/03/2023 CBCWA D lymphocyte # 1.04 X103/ uL 0.90-2 .90 normal Not Available [facility] (Lab) [address] [place] [address] [place], [address], 12/03/2023 09:52:49 12/03/1912/03/2023 CBCWA D monocyte # 0.25 X103/ uL 0.20-1 .00 normal Not Available [facility] (Lab) [address] [place], [address], 12/03/2023 09:52:49 12/03/19 24 12/03/2023 CBCWA D eosinophil # 0.04 X103/ uL 0.10-0 .40 low Not Available [facility] (Lab) [address] [place], [address], 12/03/2023 09:52:49 12/03/19 24 12/03/2023 CBCWA D basophil # 0.02 X103/ uL 0.00-0 .10 normal Not Available [facility] (Lab) [address] [place], [address], 12/03/2023 09:52:49 12/03/19 24 12/03/2023 DDIME R ddimer 287 NG/mL 200-31 1 normal Not Available [facility] (Lab) [address] [place], [address], 12/03/2023 10:05:28 12/03/19 24 12/03/2023 BMP glucose 92 mg/dL 70-99 normal Not [facility] (Lab) [address] [place], [address], 12/03/2023 10:14:24 12/03/19 24 12/03/2023 BMP BUN 20 mg/dL 8-26 normal Not Available [facility] (Lab) [address] [place], [address], 12/03/2023 10:14:24 12/03/19 24 12/03/2023 BMP creatinine 1.9 mg/dL 0.8-1. 3 high Not Available [facility] (Lab) [address] [place], [address], 12/03/2023 10:14:24 12/03/19 24 12/03/2023 BMP eGFR non- 35 mL/mi n/1.7 3m2 Not Available [facility] (Lab) [address] [place], [address], 12/03/2023 10:14:24 12/03/19 24 12/03/2023 BMP eGFR [...] than 15 mL/mi n/1.7 3m^2. Not Available [facility] (Lab) [address], [place], [address], 12/03/2023 10:14:24 12/03/19 24 12/03/2023 BMP calcium 8.50 mg/dL 8.60-1 0.30 low Not Available [facility] (Lab) [address] [place], [address], 12/03/2023 10:14:24 12/03/19 24 12/03/2023 BMP sodium 137 mEq/L 136-14 4 normal Not Available [facility] (Lab) [address] [place], [place], [address], 12/03/2023 10:14:24 12/03/19 24 12/03/2023 BMP potassium 4.25 mEq/L 3.57-4 .71 normal Not Available [facility] (Lab) [address] [place], [place], [address], 12/03/2023 10:14:24 12/03/19 24 12/03/2023 BMP chloride 109 mEq/L 102-11 1 normal Not Available [facility] (Lab) [address] [place], [address], 12/03/2023 10:14:24 12/03/19 24 12/03/2023 BMP CO2 19 mEq/L 21-31 low Not Available [facility] (Lab) [address], [place], [address], 12/03/2023 10:14:24 12/03/19 24 12/03/2023 CRP C-reactive protein 24.28 mg/dL 0.10-0 .50 high Not Available [facility] (Lab) [address] [place], [address], 12/03/2023 10:41:51 12/03/19 24 12/03/2023 MANUA L DIFFE RENTI AL segmented neutrophil 52 % 50-70 normal Not Available [facility] (Lab) [address] [place], [address], 12/04/2023 10:31:04 12/03/19 24 12/03/2023 MANUA L DIFFE RENTI AL band neutrophil 29 % 0-5 high Not Available [facility] (Lab) [address] [place], [address], 12/04/2023 10:31:04 12/03/19 24 12/03/2023 MANUA L DIFFE RENTI AL lymphocyte 18 % 20-[address] [facility] (Lab) [address] [place], [address], 12/04/2023 10:31:04 12/03/19 24 12/03/2023 MANUA L DIFFE RENTI AL monocyte 1 % 1-6 normal Not Available [facility] (Lab) [address] [place], [address], 12/04/2023 10:31:04 12/03/19 24 12/03/2023 MANUA L DIFFE RENTI AL RBC morphology Normal normal normal Not Available [facility] (Lab) [address] [place], [address], 12/04/2023 10:31:04 12/04/19 24 12/04/2023 CBCWA D white blood cell 7.7 X103/ uL 4.6-9. 4 normal Not Available [facility] (Lab) [address] [place], [address], 12/04/2023 10:30:26 12/04/19 24 12/04/2023 CBCWA D red blood cell 3.55 X106/ uL 4.16-5 .60 low Not Available [facility] (Lab) [address] [place], [address], 12/04/2023 10:30:26 12/04/19 24 12/04/2023 CBCWA D hemoglobin 12.4 g/dL 12.9-1 7.4 low Not Available [facility] (Lab) [address] [place], [address], 12/04/2023 10:30:26 12/04/19 24 12/04/2023 CBCWA D hematocrit 35.8 % 39.1-5 0.6 low Not Available [facility] (Lab) [address] [place], [address], 12/04/2023 10:30:26 12/04/19 24 12/04/2023 CBCWA D MCV 101.0 fL 82.7-1 01.2 normal Not Available [facility] (Lab) [address] [place], [address], 12/04/2023 10:30:26 12/04/19 24 12/04/2023 CBCWA D MCH 35.0 pg 27.2-3 4.9 high Not Available [facility] (Lab) [address] [place], [address], 12/04/2023 10:30:26 12/04/19 24 12/04/2023 CBCWA D MCHC 34.7 g/dL 32.3-3 5.2 normal Not Available [facility] (Lab) [address] [place], [address], 12/04/2023 10:30:26 12/04/19 24 12/04/2023 CBCWA D RDW 13.1 % 10.3-1 4.2 normal Not Available [facility] (Lab) [address] [place], [address], 12/04/2023 10:30:26 12/04/19 24 12/04/2023 CBCWA D platelets 171 X103/ uL 132-36 2 normal Not Available [facility] (Lab) [address] [place], [address], 12/04/2023 10:30:26 12/04/19 24 12/04/2023 CBCWA D MPV 7.4 fL 6.7-9. 1 normal Not Available [facility] (Lab) [address] [place], [address], 12/04/2023 10:30:26 12/04/19 24 12/04/2023 CBCWA D neutrophil % 90.5 % 43.0-7 6.4 high Not Available [facility] (Lab) [address] [place], [address], 12/04/2023 10:30:26 12/04/19 24 12/04/2023 CBCWA D lymphocyte % 4.5 % 13.5-4 1.5 low Not Available [facility] (Lab) [address] [place], [address], 12/04/2023 10:30:26 12/04/19 24 12/04/2023 CBCWA D monocyte % 3.8 % 4.6-13 .1 low Not Available [facility] (Lab) [address] [place], [id number], 12/04/2023 10:30:26 12/04/19 24 12/04/2023 CBCWA D eosinophil % 0.9 % 1.0-5. 7 low Not Available [facility] (Lab) [address] [place], [address], 12/04/2023 10:30:26 12/04/19 24 12/04/2023 CBCWA D basophil % 0.3 % 0.2-0. 8 normal Not Available [facility] (Lab) [address] [place], [address], 12/04/2023 10:30:26 12/04/19 24 12/04/2023 CBCWA D neutrophil # 6.93 X103/ uL 2.00-6 .40 high Not Available [facility] (Lab) [address] [place], [address], 12/04/2023 10:30:26 12/04/19 24 12/04/2023 CBCWA D lymphocyte # 0.34 X103/ uL 0.90-2 .90 low Not Available [facility] (Lab) [address] [place], [address], 12/04/2023 10:30:26 12/04/19 24 12/04/2023 CBCWA D monocyte # 0.29 X103/ uL 0.20-1 .00 normal Not Available [facility] (Lab) [address] [place], [address], 12/04/2023 10:30:26 12/04/19 24 12/04/2023 CBCWA D eosinophil # 0.07 X103/ uL 0.10-0 .40 low Not Available [facility] (Lab) [address] [place], [address], 12/04/2023 10:30:26 12/04/19 24 12/04/2023 CBCWA D basophil # 0.02 X103/ uL 0.00-0 .10 normal Manua l Diffe sarah al Used to Treat Patie nt Not Available [facility] (Lab) [address] [place], [address], 12/04/2023 10:30:26 12/04/19 24 12/04/2023 BMP glucose 125 mg/dL 70-99 high Not Availabl e [facility] (Lab) [address] [place], [address], 12/04/2023 10:30:29 12/04/19 24 12/04/2023 BMP BUN 24 mg/dL 8-26 normal Not Available [facility] (Lab) [address], [place], [address], 12/04/2023 10:30:29 12/04/19 24 12/04/2023 BMP creatinine 1.6 mg/dL 0.8-1. 3 high Not Available [facility] (Lab) [address], [place], [address], 12/04/2023 10:30:29 12/04/19 24 12/04/2023 BMP eGFR non- 43 mL/mi n/1.7 3m2 Not Available [facility] [facility] [address] [place], [address], 12/04/2023 10:30:29 12/04/19 24 12/04/2023 BMP eGFR [...] than 15 mL/mi n/1.7 3m^2. Not Available [facility] (Lab) [address] [place], [address], 12/04/2023 10:30:29 12/04/19 24 12/04/2023 BMP calcium 8.90 mg/dL 8.60-1 0.30 normal Not Available [facility] (Lab) [address] [place], [address], 12/04/2023 10:30:29 12/04/19 24 12/04/2023 BMP sodium 142 mEq/L 136-14 4 normal Not Available [facility] (Lab) [address] [place], [address], 12/04/2023 10:30:29 12/04/19 24 12/04/2023 BMP potassium 4.03 mEq/L 3.57-4 .71 normal Not Available [facility] (Lab) [address] [place], [address], 12/04/2023 10:30:29 12/04/19 24 12/04/2023 BMP chloride 111 mEq/L 102-11 1 normal Not Available [facility] (Lab) [address] [place], [address], 12/04/2023 10:30:29 12/04/19 24 12/04/2023 BMP CO2 21 mEq/L 21-31 normal Not Available [facility] (Lab) [address] [place], [address], 12/04/2023 10:30:29 12/04/19 24 12/04/2023 CRP C-reactive protein 35.65 mg/dL 0.10-0 .50 high Not Available [facility] (Lab) [address] [place], [address], 12/04/2023 10:30:32 12/04/19 24 12/04/2023 MANUA L DIFFE RENTI AL segmented neutrophil 78 % 50-70 high Not Available [facility] (Lab) [address], [place], [address], 12/04/2023 10:35:12 12/04/19 24 12/04/2023 MANUA L DIFFE RENTI AL band neutrophil 14 % 0-5 high Not Available [facility] (Lab) [address], [place], [address], 12/04/2023 10:35:12 12/04/19 24 12/04/2023 MANUA L DIFFE RENTI AL lymphocyte 7 % 20-[address] [facility] (Lab) [address], [place], [address], 12/04/2023 10:35:12 12/04/19 24 12/04/2023 MANUA L DIFFE RENTI AL monocyte 2 % 1-6 normal Not Available [facility] (Lab) [address] [place], [place], [address], 12/04/2023 10:35:12 12/04/19 24 12/04/2023 MANUA L DIFFE RENTI AL toxic granulation 2+ none seen abnormal Resul t amend ed from () (00/0 0/00 12:00 AM) to (2+) by CJN. Not Available [facility] (Lab) [address], [place], [address], 12/04/2023 10:35:12 12/04/19 24 12/04/2023 COVID / [...] or revok ed soone r. Not Available [facility] (Lab) [address], [place], [address], 12/04/2023 18:46:27 12/04/19 24 12/04/2023 COVID / INFLU A/B / RSV PCR influ A PCR Negati ve negati ve normal Not Available [facility] (Lab) [address], [place], [address], 12/04/2023 18:46:27 12/04/19 24 12/04/2023 COVID / [...] or revok ed soone r. Not Available [facility] (Lab) [address] [place], [address], 12/04/2023 18:46:27 12/04/19 24 12/04/2023 COVID / [...] or revok ed soone r. Not Available [facility] (Lab) [address] [place], [address], 12/04/2023 18:46:27 12/05/19 24 12/05/2023 CBCWA D white blood cell 8.9 X103/ uL 4.6-9. 4 normal Not Available [facility] (Lab) [address] [place], [address], 12/05/2023 09:53:36 12/05/19 24 12/05/2023 CBCWA D red blood cell 3.67 X106/ uL 4.16-5 .60 low Not Available [facility] (Lab) [address] [place], [address], 12/05/2023 09:53:36 12/05/19 24 12/05/2023 CBCWA D hemoglobin 12.6 g/dL 12.9-1 7.4 low Not Available [facility] (Lab) [address] [place], [address], 12/05/2023 09:53:36 12/05/19 24 12/05/2023 CBCWA D hematocrit 37.2 % 39.1-5 0.6 low Not Available [facility] (Lab) [address] [place], [address], 12/05/2023 09:53:36 12/05/19 24 12/05/2023 CBCWA D MCV 102.0 fL 82.7-1 01.2 high Not Available [facility] (Lab) [address] [place], [address], 12/05/2023 09:53:36 12/05/19 24 12/05/2023 CBCWA D MCH 34.4 pg 27.2-3 4.9 normal Not Available [facility] (Lab) [address] [place], [address], 12/05/2023 09:53:36 12/05/19 24 12/05/2023 CBCWA D MCHC 33.9 g/dL 32.3-3 5.2 normal Not Available [facility] (Lab) [address] [place], [address], 12/05/2023 09:53:36 12/05/19 24 12/05/2023 CBCWA D RDW 12.4 % 10.3-1 4.2 normal Not Available [facility] (Lab) [address] [place], [address], 12/05/2023 09:53:36 12/05/19 24 12/05/2023 CBCWA D platelets 201 X103/ uL 132-36 2 normal Not Available [facility] (Lab) [address] [place], [address], 12/05/2023 09:53:36 12/05/19 24 12/05/2023 CBCWA D MPV 7.9 fL 6.7-9. 1 normal Not Available [facility] (Lab) [address] [place], [address], 12/05/2023 09:53:36 12/05/19 24 12/05/2023 CBCWA D neutrophil % 94.6 % 43.0-7 6.4 high Not Available [facility] (Lab) [address] [place], [address], 12/05/2023 09:53:36 12/05/19 24 12/05/2023 CBCWA D lymphocyte % 2.0 % 13.5-4 1.5 low Not Available [facility] (Lab) [address] [place], [address], 12/05/2023 09:53:36 12/05/19 24 12/05/2023 CBCWA D monocyte % 2.2 % 4.6-13 .1 low Not Available [facility] (Lab) [address] [place], [address], 12/05/2023 09:53:36 12/05/19 24 12/05/2023 CBCWA D eosinophil % 0.9 % 1.0-5. 7 low Not Available [facility] (Lab) [address] [place], [address], 12/05/2023 09:53:36 12/05/1912/05/2023 CBCWA D basophil % 0.3 % 0.2-0. 8 normal Not Available [facility] (Lab) [address] [place], [address], 12/05/2023 09:53:36 12/05/19 24 12/05/2023 CBCWA D neutrophil # 8.45 X103/ uL 2.00-6 .40 high Not Available [facility] (Lab) [address] [place], [address], 12/05/2023 09:53:36 12/05/19 24 12/05/2023 CBCWA D lymphocyte # 0.18 X103/ uL 0.90-2 .90 low Not Available [facility] (Lab) [address], [address], 12/05/2023 09:53:36 12/05/1912/05/2023 CBCWA D monocyte # 0.20 X103/ uL 0.20-1 .00 normal Not Available [facility] (Lab) [address] [place] [address] [place], [address], 12/05/2023 09:53:36 12/05/19 24 12/05/2023 CBCWA D eosinophil # 0.08 X103/ uL 0.10-0 .40 low Not Available [facility] (Lab) [address] [place] [address] [place], [address], 12/05/2023 09:53:36 12/05/19 24 12/05/2023 CBCWA D basophil # 0.03 X103/ uL 0.00-0 .10 normal Aixa tripathi al Used to Treat Patie nt Not Available [facility] (Lab) [address] [place], [address], 12/05/2023 09:53:36 12/05/1912/05/2023 BMP glucose 123 mg/dL 70-99 high [facility] [address] [place], [address], 12/05/2023 10:06:42 12/05/19 24 12/05/2023 BMP BUN 29 mg/dL 8-26 high Not Available [facility] (Lab) [address] [place], [address], 12/05/2023 10:06:42 12/05/19 24 12/05/2023 BMP creatinine 1.7 mg/dL 0.8-1. 3 high Not Available [facility] (Lab) [address] [place], [address], 12/05/2023 10:06:42 12/05/19 24 12/05/2023 BMP eGFR non- 40 mL/mi n/1.7 3m2 Not Available [facility] (Lab) [address] [place], [address], 12/05/2023 10:06:42 12/05/19 24 12/05/2023 BMP eGFR [...] than 15 mL/mi n/1.7 3m^2. Not Available [facility] (Lab) [address] [place], [address], 12/05/2023 10:06:42 12/05/19 24 12/05/2023 BMP calcium 8.90 mg/dL 8.60-1 0.30 normal Not Available [facility] (Lab) [address] [place], [address], 12/05/2023 10:06:42 12/05/19 24 12/05/2023 BMP sodium 142 mEq/L 136-14 4 normal Not Available [facility] (Lab) [address] [place], [address], 12/05/2023 10:06:42 12/05/19 24 12/05/2023 BMP potassium 4.08 mEq/L 3.57-4 .71 normal Not Available [facility] (Lab) [address] [place], [address], 12/05/2023 10:06:42 12/05/19 24 12/05/2023 BMP chloride 111 mEq/L 102-11 1 normal Not Available [facility] (Lab) [address] [place], [address], 12/05/2023 10:06:42 12/05/19 24 12/05/2023 BMP CO2 21 mEq/L 21-31 normal Not Available [facility] (Lab) [address] [place], [address], 12/05/2023 10:06:42 12/05/19 24 12/05/2023 CRP C-reactive protein 18.30 mg/dL 0.10-0 .50 high Not Available [facility] (Lab) [address] [place], [address], 12/05/2023 10:06:44 12/05/19 24 12/05/2023 MANUA L DIFFE RENTI AL segmented neutrophil 84 % 50-70 high Not Available [facility] (Lab) [address] [place], [address], 12/05/2023 10:08:21 12/05/19 24 12/05/2023 MANUA L DIFFE RENTI AL band neutrophil 8 % 0-5 high Not Available [facility] (Lab) [address] [place], [address], 12/05/2023 10:08:21 12/05/19 24 12/05/2023 MANUA L DIFFE RENTI AL lymphocyte 6 % 20-[address] [facility] (Lab) [address] [place], [address], 12/05/2023 10:08:21 12/05/19 24 12/05/2023 AIXA TRIPATHI AL monocyte 2 % 1-6 normal Not Available [facility] (Lab) [address] [place], [address], 12/05/2023 10:08:21 12/05/19 24 12/05/2023 AIXA TRIPATHI AL RBC morphology Normal normal normal Not Available [facility] (Lab) [address] [place], [address], 12/05/2023 10:08:21 12/06/19 24 12/06/2023 CBCWA D white blood cell 6.5 X103/ uL 4.6-9. 4 normal Not Available [facility] (Lab) [address] [place], [address], 12/06/2023 12:48:33 12/06/19 24 12/06/2023 CBCWA D red blood cell 3.67 X106/ uL 4.16-5 .60 low Not Available [facility] (Lab) [address] [place], [address], 12/06/2023 12:48:33 12/06/19 24 12/06/2023 CBCWA D hemoglobin 12.7 g/dL 12.9-1 7.4 low Not Available [facility] (Lab) [address] [place], [address], 12/06/2023 12:48:33 12/06/19 24 12/06/2023 CBCWA D hematocrit 37.2 % 39.1-5 0.6 low Not Available [facility] (Lab) [address] [place], [address], 12/06/2023 12:48:33 12/06/19 24 12/06/2023 CBCWA D MCV 101.0 fL 82.7-1 01.2 normal Not Available [facility] (Lab) [address] [place], [address], 12/06/2023 12:48:33 12/06/19 24 12/06/2023 CBCWA D MCH 34.5 pg 27.2-3 4.9 normal Not Available [facility] (Lab) [address] [place], [address], 12/06/2023 12:48:33 12/06/19 24 12/06/2023 CBCWA D MCHC 34.0 g/dL 32.3-3 5.2 normal Not Available [facility] (Lab) [address] [place], [address], 12/06/2023 12:48:33 12/06/19 24 12/06/2023 CBCWA D RDW 12.5 % 10.3-1 4.2 normal Not Available [facility] (Lab) [address] [place], [address], 12/06/2023 12:48:33 12/06/19 24 12/06/2023 CBCWA D platelets 203 X103/ uL 132-36 2 normal Not Available [facility] (Lab) [address] [place], [address], 12/06/2023 12:48:33 12/06/19 24 12/06/2023 CBCWA D MPV 7.7 fL 6.7-9. 1 normal Not Available [facility] (Lab) [address] [place], [address], 12/06/2023 12:48:33 12/06/19 24 12/06/2023 CBCWA D neutrophil % 90.2 % 43.0-7 6.4 high Not Available [facility] (Lab) [address] [place], [address], 12/06/2023 12:48:33 12/06/19 24 12/06/2023 CBCWA D lymphocyte % 5.2 % 13.5-4 1.5 low Not Available [facility] (Lab) [facility] [place], [address], 12/06/2023 12:48:33 12/06/19 24 12/06/2023 CBCWA D monocyte % 3.2 % 4.6-13 .1 low Not Available [facility] (Lab) [facility] [place], [address], 12/06/2023 12:48:33 12/06/19 24 12/06/2023 CBCWA D eosinophil % 1.0 % 1.0-5. 7 normal Not Available [facility] (Lab) [address] [place], [address], 12/06/2023 12:48:33 12/06/19 24 12/06/2023 CBCWA D basophil % 0.4 % 0.2-0. 8 normal Not Available [facility] (Lab) [address] [place] [address] [place], [address], 12/06/2023 12:48:33 12/06/19 24 12/06/2023 CBCWA D neutrophil # 5.82 X103/ uL 2.00-6 .40 normal Not Available [facility] (Lab) [facility] [place], [address], 12/06/2023 12:48:33 12/06/19 24 12/06/2023 CBCWA D lymphocyte # 0.34 X103/ uL 0.90-2 .90 low Not Available [facility] (Lab) [facility] [place], [address], 12/06/2023 12:48:33 12/06/19 24 12/06/2023 CBCWA D monocyte # 0.21 X103/ uL 0.20-1 .00 normal Not Available [facility] (Lab) [address] [place], [address], 12/06/2023 12:48:33 12/06/19 24 12/06/2023 CBCWA D eosinophil # 0.06 X103/ uL 0.10-0 .40 low Not Available [facility] (Lab) [address] [place], [address], 12/06/2023 12:48:33 12/06/19 24 12/06/2023 CBCWA D basophil # 0.03 X103/ uL 0.00-0 .10 normal Aixa triptahi al Used to Treat Patie nt Not Available [facility] (Lab) [address] [place], [address], 12/06/2023 12:48:33 12/06/19 24 12/06/2023 CRP C-reactive protein 11.17 mg/dL 0.10-0 .50 high Not Available [facility] (Lab) [address] [place], [address], 12/06/2023 12:48:37 12/06/19 24 12/06/2023 BMP glucose 103 mg/dL 70-99 high [facility] [address] [place], [address], 12/06/2023 12:49:28 12/06/19 24 12/06/2023 BMP BUN 33 mg/dL 8-26 high Not Available [facility] (Lab) [address] [place], [address], 12/06/2023 12:49:28 12/06/19 24 12/06/2023 BMP creatinine 1.7 mg/dL 0.8-1. 3 high Not Available [facility] (Lab) [address] [place], [address], 12/06/2023 12:49:28 12/06/19 24 12/06/2023 BMP eGFR non- 40 mL/mi n/1.7 3m2 Not Available [facility] (Lab) [address] [place], [address], 12/06/2023 12:49:28 12/06/19 24 12/06/2023 BMP eGFR [...] than 15 mL/mi n/1.7 3m^2. Not Available [facility] (Lab) [address] [place], [address], 12/06/2023 12:49:28 12/06/19 24 12/06/2023 BMP calcium 9.00 mg/dL 8.60-1 0.30 normal Not Available [facility] (Lab) [address] [place], [address], 12/06/2023 12:49:28 12/06/19 24 12/06/2023 BMP sodium 139 mEq/L 136-14 4 normal Not Available [facility] (Lab) [address] [place], [address], 12/06/2023 12:49:28 12/06/19 24 12/06/2023 BMP potassium 3.65 mEq/L 3.57-4 .71 normal Not Available [facility] (Lab) [address] [place], [address], 12/06/2023 12:49:28 12/06/19 24 12/06/2023 BMP chloride 110 mEq/L 102-11 1 normal Not Available [facility] (Lab) [address] [place], [address], 12/06/2023 12:49:28 12/06/19 24 12/06/2023 BMP CO2 26 mEq/L 21-31 normal Not Available [facility] (Lab) [address] [place], [address], 12/06/2023 12:49:28 12/06/19 24 12/06/2023 MAGNE SIUM magnesium 2.09 mg/dL 1.80-2 .60 normal Not Available [facility] (Lab) [address] [place], [address], 12/06/2023 12:49:29 12/06/19 24 12/06/2023 MANUA L DIFFE RENTI AL segmented neutrophil 88 % 50-70 high Not Available [facility] (Lab) [address] [place], [address], 12/06/2023 13:32:43 12/06/19 24 12/06/2023 MANUA L DIFFE RENTI AL band neutrophil 5 % 0-5 normal Not Available [facility] (Lab) [address] [place], [address], 12/06/2023 13:32:43 12/06/19 24 12/06/2023 MANUA L DIFFE RENTI AL lymphocyte 5 % 20-[address] [facility] (Lab) [address] [place], [address], 12/06/2023 13:32:43 12/06/19 24 12/06/2023 AIXA TRIPATHI AL monocyte 2 % 1-6 normal Not Available [facility] (Lab) [address], [place], [address], 12/06/2023 13:32:43 12/02/19 24 12/02/2023 CT, head + brain , w/o contr ast No observ ation record ed. [address], [place], [address], 12/03/2023 11:44:52 12/03/1912/03/2023 CT, cervi pj spine , w/o contr ast No observ ation record ed. [address], [place], [address], 12/03/2023 18:44:12 12/03/19 24 12/03/2023 CT, chest , w/o contr ast No observ ation record ed. [address], [place], [address], 12/03/2023 18:40:57 Result Notes None recorded. Problems Name Problem SNOMED Code Status Onset Date Resolution Date Notes Provider Name and Address Organization Details Recorded Time Hypertensive disorder 47071707 Active 2023 JAMES Gresham [address] [place], [address], [facility] 4 07:28:25 Mechanical prosthetic mitral valve replacement Active 2023 mitral JAMES Gresham [address] [place], [address], [facility] 4 07:28:58 Hyperlipidemi a 06208288 Active 2023 JAMES Gresham [address] [place], [address], [facility] 4 07:29:05 Chronic tremor 358297499 Active 2023 RU[address]P [address], [place], [address], [facility] 4 07:29:12 Seizure disorder 471105544 Active 2023 JAMES Gresham [address], [place], [address], [facility] 4 07:29:26 Warfarin therapy Active 2023 RUBI [address]P [address], [place], [address] , [facility] 4 07:30:23 Iron deficiency anemia 87858530 Active 2023 JAMES Gresham [address], [place], [address], [facility] 4 07:30:38 Gastroesophag eal reflux disease 415589612 Active 2023 RUBI [address]P [address], [place], [address], [facility] 4 07:30:46 Essential hypertension 31828146 Active 2023 RUBI GreshamP [address], [place], [address] , [facility] 4 07:31:02 Chronic kidney disease 588836740 Active 2023 thinks eGFR was 25% last check JAMES Gresham [address], [place], [address], [facility] 4 07:48:42 Persistent microscopic hematuria 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 Procedures Surgical History Date Name Laterality Status Provider Name and Address Organization Details Recorded Time 4 CT of chest without contrast [place], [address], [facility] 12/03/2023 18:40:34 CT cervical spine without contrast [place], [address], [facility] 12/03/2023 18:43:[address] head/brain w/o dye [place], [address], [facility] 12/03/2023 11:44:23 mechanical prosthetic mitral valve replacement completed JAMES Gresham [address] [place], [address], [facility] 12/02/2023 07:38:51 repair of inguinal hernia completed JAMES [place], [address], [facility] 12/02/2023 07:39:00 Imaging Results None recorded. [...] Address Organization Details Last Updated DateTime 4 37.389371493 2222 Frances 120 /min 34 /min 94 % 126/75 mm[Hg] Padmini Nguyen CNA [address], [place], [address] [place] [address] 4 20:56:46 Date Recorded Body temperature Heart rate Respiratory rate Oxygen saturation Body temperature Heart rate Respiratory rate Oxygen saturation Body temperature Heart rate Respiratory rate Oxygen saturation Provider Name and Address Organization Details Last Updated DateTime 4 38.942480526 5556 Frances 91 /min 16 /min 91 % 37.356184640 3333 Frances 101 /min 16 /min 95 % 37.215148507 4444 Frances 98 /min 16 /min 96 % Ashley Hanson CNA [address] [place], [address] [place] [address] 4 10:03:08 Date Recorded Inhaled oxygen flow [...] /min 18 /min 100 % 2 L/min 37.622642337 5556 Frances 102 /min 18 /min 96 % 2 L/min 133/70 mm[Hg] 144/67 mm[Hg] 119/79 mm[Hg] 124/72 mm[Hg] 136/74 mm[Hg] Ashley Hanson CNA [address] [place], [address] [place] [address] 4 18:09:23 Date Recorded Heart rate Respiratory [...] John RN [address], [place], [address] [place] [address] 4 09:23:38 Date Recorded Systolic And Diastolic Systolic And Diastolic Systolic And Diastolic Systolic And Diastolic Provider Name and Address Organization Details Last Updated DateTime 12/02/2023 131/69 mm[Hg] 132/79 mm[Hg] 127/77 mm[Hg] 135/77 mm[Hg] Larissa John RN [address], [place], [address] [place] [address] 4 09:23:38 Date Recorded Body temperature Heart rate Respiratory rate Oxygen saturation Body temperature Heart rate Respiratory rate Oxygen saturation Body temperature Heart rate Respiratory rate Oxygen saturation Provider Name and Address Organization Details Last Updated DateTime 4 37.911563655 6667 Frances 98 /min 18 /min 94 % 37.843030850 2222 Frances 89 /min 18 /min 94 % 37.984000519 2222 Frances 92 /min 20 /min 94 % Tucker Blank RN [address] [place], [address] [place] [address] 4 08:13:58 Date Recorded Oxygen saturation Inhaled oxygen flow rate Systolic And Diastolic Systolic And Diastolic Systolic And Diastolic Provider Name and Address Organization Details Last Updated DateTime 4 90 % 2 L/min 124/74 mm[Hg] 149/64 mm[Hg] 137/73 mm[Hg] Tucker Blank RN [address] [place], [address] [place] [address] 4 08:13:58 Date Recorded Body temperature Heart rate Respiratory rate Oxygen saturation Systolic And Diastolic Provider Name and Address Organization Details Last Updated DateTime 4 37.605255648 2222 Frances 95 /min 17 /min 94 % 128/76 mm[Hg] Sallie Reeves [facility] 4 06:39:17 Date Recorded Body temperature Heart rate Respiratory rate Oxygen saturation Inhaled oxygen flow rate Systolic And Diastolic Provider Name and Address Organization Details Last Updated DateTime 4 37 Frances 94 /min 20 /min 97 % 3 L/min 100/62 mm[Hg] Bernadine Ling [address], [place], [address] , [facility] 22:06:39 Date Recorded Body temperature Oxygen saturation Inhaled oxygen flow rate Provider Name and Address Organization Details Last Updated DateTime 12/03/2023 37.35478526964 67 Frances 93 % 3 L/min Tucker Blank RN [address], [place], [address], [facility] 12/03/2023 07:31:00 Date Recorded Body temperature Heart rate Respiratory rate Oxygen saturation Inhaled oxygen flow rate Body temperature Heart rate Respiratory rate Oxygen saturation Inhaled oxygen flow rate Body temperature Heart rate Provider Name and Address Organization Details Last Updated DateTime 37.093532748 4444 Frances 85 /min 14 /min 94 % 3 L/min 38 Frances 109 /min 14 /min 93 % 3 L/min 36.370676609 8889 Frances 89 /min Connie Santiago CNA [address], [place], [address], [facility] 4 17:19:57 Date Recorded Respiratory rate Oxygen saturation Inhaled oxygen flow rate Systolic And Diastolic Systolic And Diastolic Systolic And Diastolic Provider Name and Address Organization Details Last Updated DateTime 4 14 /min 94 % 3 L/min 112/75 mm[Hg] 106/66 mm[Hg] 94/62 mm[Hg] Connie Santiago CNA [address], [place], [address] [facility] 4 17:19:57 Date Recorded Body temperature Heart rate Respiratory rate Oxygen saturation Inhaled oxygen flow rate Body temperature Heart rate Respiratory rate Oxygen saturation Inhaled oxygen flow rate Systolic And Diastolic Systolic And Diastolic Provider Name and Address Organization Details Last Updated DateTime 4 39 Frances 99 /min 16 /min 94 % 4 L/min 36.031157489 8889 Frances 88 /min 16 /min 94 % 4 L/min 118/73 mm[Hg] 100/59 mm[Hg] Sallie Reeves [facility] 4 05:50:21 Date Recorded Body weight Provider Name an d Address Organization Details Last Updated DateTime 12/04/2023 80828.721 g Seema Gardner, RN [address] [place], [address], [facility] 12/04/2023 12:20:35 Date Recorded Body temperature Heart rate Respiratory rate Oxygen saturation Inhaled oxygen flow rate Body temperature Heart rate Respiratory rate Oxygen saturation Inhaled oxygen concentration Body temperature Heart rate Provider Name and Address Organization Details Last Updated DateTime 4 [id number] 2222 Frances 83 /min 21 /min 95 % 2 L/min 37.865167951 5556 Frances 86 /min 20 /min 94 % 2 % 36.876540769 2222 Frances 82 /min Bernadine Ling [address] [place], [address] , [facility] 4 22:25:20 Date Recorded Respiratory rate Oxygen saturation Inhaled oxygen flow rate Systolic And Diastolic Systolic And Diastolic Systolic And Diastolic Provider Name and Address Organization Details Last Updated DateTime 4 20 /min 91 % 2 L/min 104/67 mm[Hg] 107/64 mm[Hg] 112/64 mm[Hg] Bernadine Ling [address] [place], [address] , [facility] 4 22:25:20 Date Recorded Body temperature Heart rate Respiratory rate Oxygen saturation Inhaled oxygen flow rate Body temperature Heart rate Respiratory rate Oxygen saturation Body temperature Heart rate Respiratory rate Provider Name and Address Organization Details Last Updated DateTime 4 36.934141727 2222 Frances 100 /min 20 /min 92 % 1 L/min 36.992281261 6667 Frances 97 /min 18 /min 92 % 36.179543569 2222 Frances 79 /min 18 /min Pamella Espinoza son, CRAWLER CRANE OPERATOR [address], [place], [address] 4 18:18:04 Date Recorded Oxygen saturation Inhaled oxygen flow rate Systolic And Diastolic Systolic And Diastolic Systolic And Diastolic Provider Name and Address Organization Details Last Updated DateTime 4 91 % 2 L/min 107/63 mm[Hg] 110/72 mm[Hg] 101/65 mm[Hg] Pamella Espinoza son, CRAWLER CRANE OPERATOR [address], [place], [address], [facility] 4 18:18:04 Date Recorded Body temperature Heart rate Respiratory rate Oxygen saturation Inhaled oxygen flow rate Systolic And Diastolic Provider Name and Address Organization Details Last Updated DateTime 4 36.346582993 6667 Frances 81 /min 16 /min 97 % 1 L/min 107/64 mm[Hg] Sallie Reeves [facility] 4 06:10:12 Date Recorded Body weight Provider Name an d Address Organization Details Last Updated DateTime 12/05/2023 81314.788 g Larissa John, MAYE [address], [place], [address], [facility] 12/05/2023 11:12:41 Date Recorded Body temperature Heart rate Respiratory rate Oxygen saturation Inhaled oxygen flow rate Systolic And Diastolic Provider Name and Address Organization Details Last Updated DateTime 4 37.943600568 7778 Frances 101 /min 19 /min 90 % 2 L/min 113/70 mm[Hg] Afua Mccain [address] [place], [address], [facility] 4 11:37:31 Date Recorded Body temperature Heart rate Respiratory rate Oxygen saturation Inhaled oxygen flow rate Body temperature Heart rate Respiratory rate Oxygen saturation Inhaled oxygen flow rate Systolic And Diastolic Systolic And Diastolic Provider Name and Address Organization Details Last Updated DateTime 4 36.109775273 3333 Frances 88 /min 18 /min 92 % 1 L/min 36.522154468 2222 Frances 86 /min 18 /min 94 % 1 L/min 126/56 mm[Hg] 122/62 mm[Hg] Bernadine Ling [address], [place], [address] [place] [address] 4 06:19:35 Date Recorded Body temperature Heart rate Respiratory rate Oxygen saturation Body temperature Heart rate Respiratory rate Oxygen saturation Systolic And Diastolic Systolic And Diastolic Provider Name and Address Organization Details Last Updated DateTime 4 36.664196265 2222 Frances 85 /min 16 /min 89 % 36.299584528 3333 Frances 100 /min 18 /min 86 % 107/57 mm[Hg] 124/77 mm[Hg] Mel Lemus CNA [address] [place], [address] [place] [address] 4 18:14:33 Date Recorded Body temperature Heart rate Respiratory rate Oxygen saturation Systolic And Diastolic Provider Name and Address Organization Details Last Updated DateTime 4 37.838681531 2222 Frances 97 /min 20 /min 92 % 127/76 mm[Hg] Tucker Blank RN [address] [place], [address] [place] [address] 4 21:29:38 Date Recorded Body temperature Heart rate Respiratory rate Oxygen saturation Inhaled oxygen flow rate Systolic And Diastolic Provider Name and Address Organization Details Last Updated DateTime 4 36.568720849 3333 Frances 84 /min 18 /min 90 % 1 L/min 119/72 mm[Hg] Tucker Blank RN [address] [facility] [place], [address] [place] [address] 4 02:05:18 Date Recorded Body temperature Heart rate Respiratory rate Oxygen saturation Body weight Body temperature Heart rate Respiratory rate Oxygen saturation Systolic And Diastolic Systolic And Diastolic Provider Name and Address Organization Details Last Updated DateTime 4 37.525753723 5556 Frances 103 /min 16 /min 93 % [address].6 24 g 36.485507897 6667 Frances 106 /min 14 /min 91 % 105/58 mm[Hg] 112/72 mm[Hg] Connie Santiago CNA [address] [place], [address], [facility] 14:13:07 Social History Question Answer Notes LastModified by Organizat ion Details LastModified Time Tobacco Smoking Status Never Smoker Tucker Blank, RN [address] [place], [place], [address], [facility] 12/02/2023 07:03:30 What Is Your Level [...] ICD10 Code Diagnosis IMO Codes Diagnosis Note [id number] Gaby Monte, [facility] [address] [place] [address] 12/02/2023 10:07:49 12/03/2023 09:53:35 [id number] Gaby Monte, [facility] [address] [place] [address] 12/03/2023 10:39:23 12/03/2023 15:22:18 [id number] Ede Brown MD [facility] [address] [place] [address] 12/04/2023 10:26:17 12/04/2023 14:04:05 [id number] Ryan Schneider [place] [address] [place] [address] 12/04/2023 11:50:58 12/04/2023 18:24:48 [id number] [facility] [address] [place] [address] 12/05/2023 10:44:14 12/05/2023 18:07:02 Health Concerns Section Related Observation LastModified by Organization Detai ls LastModified Time None Recorded Concern Status LastModified by Organization Details LastModified Time None Recorded Advance Directives Directive None Recorded Payers Insurance Date Sequence Insurance Name Policy Number Policy Reynolds Covered Member ID Reynolds Member ID Guarantor Name 12/15/2023 1 [place] 1 Glenn Clayton [id number] Glenn Clayton 12/04/2023 2 [employer] (MEDICARE SUPPLEMENT) Glenn Clayton [id number] Glenn Clayton 12/04/2023 [place] 1 Glenn Clayton [id number] Glenn Clayton 12/04/2023 3 [place] Glenn Clayton [id number] Glenn Clayton Notes Date Note Type [...] Assessment & Plan None recorded Gaby Monte, TECHNICAL MARKETING ENGINEER [address], [place], [address], [facility] 12/02/2023 22:58:52 12/03/2023 text/html Subjective Harish [...] then to send him back home to [place] to do any swallow studies or referrals that may need to occur. He doesn't want to delay here in [place] any longer if possible. Reji printed off [...] hot, dry Vitals VitalMost RecentTime8 Hour Range Zvgcgkgxmql037.4 P40-48-1092 11:0498.4 F-102.2 F Heart jldi551chumfjzr bekpuuxo46-25-0334 11:0485bpm-120bpm Blood ptbhdfij739/66sitting 12-03-2023 11:76359/59 - 149/64 Respiratory kvib6875-09-1768 11:0414-34 Oxygen qgpycnjyee95%nasal nabwtgx5W/ryg66-47-55 24 11:0490%-100% Intake & Tqjrej15 Hour Total Zpkxvu2982.0mL Dzqnwf5923.0mL Net Fgiabnz3291jB Recent Labs Na + 137 mEq/L Cl [...] 08 1 3 2 024 Gaby Monte, TECHNICAL MARKETING ENGINEER-C amLODIPine Oral10 mgevery day08:, 08 1 3 2 024 Gaby Monte, TECHNICAL MARKETING ENGINEER-C aspirin Oral81 mgevery day08:, 08 1 3 2 024 Gaby Monte, TECHNICAL MARKETING ENGINEER-C atorvastatin Oral20 mgevery day at tdmgjem69:00, 08 1 3 2 024 Gaby Monte, TECHNICAL MARKETING ENGINEER-C azaTHIOprine Fwew018 mgevery day08:, 08 1 3 2 024 Gaby Monte, TECHNICAL MARKETING ENGINEER-C azithromycin IV500 mgevery 24 hours for 4 wpco334liip915oU7.9 % sodium chloride(2 mg/mL)250 mL/hr for 1 hour08:00, 08 1 4 2 024 09:00, 08 1 7 2 024 Gaby Monte, TECHNICAL MARKETING ENGINEER-C cefTRIAXone IV1 gevery 12 hours for 5 nhrl2pkr648yK2.9 % sodium chloride(0.01 g/mL)100 mL/hr for 1 hour07:32, 08 1 3 2 024 20:32, 08 1 7 2 024 Gaby Monte, TECHNICAL MARKETING ENGINEER-C ferrous gluconate Jjww613 mg2 times per day19:00, 08 1 3 2 024 Gaby Monte, TECHNICAL MARKETING ENGINEER-C Keppra Rtft760 mg2 times per day08:01, 08 1 3 2 024 RUBI GreshamP-C multivitamins, tx-minerals Oral Tablet1 tabevery day08:01, 08 1 3 2 024 RUBI GreshamP-C omeprazole Oral Delayed Release Yleaieu43 mgevery 24 hours21:00, 08 1 3 2 024 RUBI GreshamP-C warfarin Oral2 mgEvery evening at 6 pmfor a total of 7mg18:00, 08 1 3 2 024 RUBI GreshamP-C warfarin Oral5 mgEvery evening at 6 pmfor a total of 7mg18:00, 08 1 3 2 024 Gaby Monte TECHNICAL MARKETING ENGINEER-C PRN Medications Name Sig Start Stop Ordered by acetaminophen Oral1,000 mg4 times per day08:39, 08 1 3 2 024 Gaby Monte, TECHNICAL MARKETING ENGINEER-C IV Fluids Name Sig Start Stop Ordered [...] MonteJAMES [address], [place], [address], [facility] 12/03/2023 14:32:57 12/04/2023 text/html Rolanda Elizabeth [...] x 3, normal mood and affect. Skin: [place], warm, and dry. Lower eyelids puffy in [...] station, [place], ambulats in hallway Vitals VitalMost WapidmBxrr52 Hour Range Fyaurjeazrh08.1 Ftemporal neiplu60-34-7947 16:1798 F-100.4 F Heart eubj61nqeqrcqo etlvhjbk62-38-7611 16:1779bpm-109bpm Blood uupvsvvn049/65sitting -03-7656 16:1794/62 - 112/75 Respiratory ruwz1084-77-4478 16:1714-21 Oxygen aeyjtvsqhh62%room air2L/umz18-44-8863 16:1791%-97% Mgiuny280lfo4bn13-25- 2024 10:37479ubp7gu-393iwd 6oz Pain luipt2yaohbpt59-13-89 24 12:000-0 Intake & Pwdtlm82 Hour Total Bdhmda982.0mL Output0.0mL Net Fzjkgba005kV Recent Labs Na + 142 mEq/L Cl [...] 08 1 4 2 024 Gaby Monte, TECHNICAL MARKETING ENGINEER-C albuterol-ipratropium Nebulized 3 mg (2.5 mg base)-0.5 mg/3 mL3 mL3 times per day08:58, 08 1 3 2 024 RUBI GreshamP-C amLODIPine Oral10 mgevery day08:, 08 1 3 2 024 Gaby Monte, TECHNICAL MARKETING ENGINEER-C aspirin Oral81 mgevery day08:, 08 1 3 2 024 Gaby Monte, TECHNICAL MARKETING ENGINEER-C atorvastatin Oral20 mgevery day at :00, 08 1 3 2 024 RUBI GreshamP-C azaTHIOprine Mkfm904 mgevery day08:, 08 1 3 2 024 Gaby Monte, TECHNICAL MARKETING ENGINEER-C azithromycin IV500 mgevery 24 hours for 4 jxzs132pavv072hF9.9 % sodium chloride(2 mg/mL)250 mL/hr for 1 hour08:00, 08 1 4 2 024 09:00, 08 1 7 2 024 Gaby Monte, TECHNICAL MARKETING ENGINEER-C cefTRIAXone IV1 gevery 12 hours for 5 hapf9bhb990gO2.9 % sodium chloride(0.01 g/mL)100 mL/hr for 1 hour07:32, 08 1 3 2 024 20:32, 08 1 7 2 024 Gaby Monte, TECHNICAL MARKETING ENGINEER-C ferrous gluconate Vqlf765 mg2 times per day19:00, 08 1 3 2 024 Gaby Monte, TECHNICAL MARKETING ENGINEER-C Keppra Glpc321 mg2 times per day08:, 08 1 3 2 024 Gaby Monte, TECHNICAL MARKETING ENGINEER-C multivitamins, tx-minerals Oral Tablet1 tabevery day08:, 08 1 3 2 024 Gaby Monte, TECHNICAL MARKETING ENGINEER-C omeprazole Oral Delayed Release Mbzrvbj87 mgevery 24 hours21:00, 08 1 3 2 024 RUBI GreshamP-C SOLU-MedroL (PF) IV62.5 mgpush2 times per day19:00, 08 1 4 2 024 Gaby Monte, TECHNICAL MARKETING ENGINEER-C warfarin Oral2 mgEvery evening at 6 pmfor a total of 7mg18:00, 08 1 3 2 024 Gaby Corinaere, TECHNICAL MARKETING ENGINEER-C warfarin Oral5 mgEvery evening at 6 pmfor a total of 7mg18:00, 08 1 3 2 024 Gaby Fugere, TECHNICAL MARKETING ENGINEER-C PRN Medications None Recorded IV Fluids Name Sig Start Stop Ordered by sodium chloride IV 0.9 %sodium chloride 0.9 % 50 mL/hr IV Rate: 50 mL/hr19:42, 08 1 4 2 024 Gaby Fugere, TECHNICAL MARKETING ENGINEER-C Assessment & Plan bilateral pneumonia - UTI [...] tid w/ assistance in room only Ryan Schneiedr, TECHNICAL MARKETING ENGINEER [address] [facility], [place], [address], [facility] 12/04/2023 19:09:46 12/05/2023 text/html Subjective Glenn [...] LE. Musculoskeletal: Normal station, [place]TE[place]. Vitals VitalMost NiyxjsAfkx30 Hour Range Lotasccyxrc44.1 Kxltmczdq53-47-6782 08:3098 F-99.1 F Heart ulij757gmpfaoin peztxarx45-07-9619 08:3079bpm-101bpm Blood snfastok800/70sitting upper arm - rightadult - arptj10-78-6237 08:10586/65 - 126/56 Respiratory fnlm2784-94-8293 08:3016-21 Oxygen %nasal mzfgqzo1S/nun28-72-44 24 08:3090%-97% Khcfnp226plf9ph37-92- 2024 09:78635wwu2ih-273dak 8oz Pain hofek7qcoyhsl88-62-81 24 12:000-0 Intake & Wzfqnq53 Hour Total Lvtijm369.0mL Output0.0mL Net Gdsbwvg788lF More recent vital readings have been recorded [...] 08 1 3 2 024 Gaby Monte, TECHNICAL MARKETING ENGINEER-C atorvastatin Oral20 mgevery day at lxhaoru87:00, 08 1 3 2 024 Gaby Monte, TECHNICAL MARKETING ENGINEER-C azaTHIOprine Yqmq372 mgevery day08:01, 08 1 3 2 024 Gaby Monte, TECHNICAL MARKETING ENGINEER-C dexAMETHasone Oral6 mgevery dayDC Solu-Medrol after 2nd dose on 12/03/2406:00, 08 1 6 2 024 RUBI OrdazP-Nancy ferrous gluconate Vjzk602 mg2 times per day19:00, 08 1 3 2 024 Gaby Monte TECHNICAL MARKETING ENGINEER-Nancy Keppra Azal752 mg2 times per day08:01, 08 1 3 2 024 Gaby Monte, TECHNICAL MARKETING ENGINEER-C multivitamins, tx-minerals Oral Tablet1 tabevery day08:01, 08 1 3 2 024 Gaby Monte, TECHNICAL MARKETING ENGINEER-C omeprazole Oral Delayed Release Gfkzwal47 mgevery 24 hours21:00, 08 1 3 2 024 Gaby Monte, TECHNICAL MARKETING ENGINEER-C warfarin Oral2 mgEvery evening at 6 pmfor a total of 7mg18:00, 08 1 3 2 024 Gaby Monte, TECHNICAL MARKETING ENGINEER-C warfarin Oral5 mgEvery evening at 6 pmfor a total of 7mg18:00, 08 1 3 2 024 Gaby Monte TECHNICAL MARKETING ENGINEER-C PRN Medications None Recorded IV Fluids None [...] to home as soon as medically prudent Vdomp-60-Ksiqkaqvk to have increased supplemental O2 need.-Transitioned to PO dexamethasone yesterday, to continue for 6 days from today-Covid infection complicates overall treatment and picture of recovery.-Transitione d to inhaler from nebulizer Dispo-To discharge to drive home as soon as he can maintain on room air. Last dose azithromycin for 12/05. Ceftriaxone complete. Continue dexamethasone for 6 days. Ryan Schneider, TECHNICAL MARKETING ENGINEER [address] [facility] [place], [address], [facility] 12/05/2023 21:48:42
--- OUTSIDE RECORDS SUMMARY | 2025-04-11 11:37 | XMS_ITS | Clinical Summary ---
Author Organization [facility] [address] Address [address] [place] [address] Care Team Providers Care Rumper Name Role Phone Jerrell Parrish MD Primary Care Provider [phone] Jerrell Parrish MD Unavailable [phone] Allergies No known active allergies Medications [...] Department Care Team Description 03/09/2025 4:20 PM 3RD GRADE TEACHER Lab [facility] Medicine Endocrinology Metabolism and Lipid [address] [place] [address] 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) 03/09/2025 3:00 PM 3RD GRADE TEACHER Office Visit [facility] Medicine Rheumatology [address] [place] [id number] 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) [...] on file Legal Sex Male 7:13 AM 3RD GRADE TEACHER Gender Identity Male 11/28/2020 8:17 AM CDT Sexual Orientation Choose not to disclose 2020 8:17 AM CDT Last Filed Vital Signs Vital Sign Reading Time Taken Comments Blood Pressure 114/78 03/09/2025 2:55 PM 3RD GRADE TEACHER Pulse 112 03/09/2025 2:55 PM 3RD GRADE TEACHER Temperature 36.4 C (97.6 F) 03/09/2025 2:55 PM 3RD GRADE TEACHER Respiratory Rate 18 02/04/2023 9:21 AM CDT Oxygen Saturation 97% 02/18/2023 12:40 PM CDT Inhaled Oxygen Concentration - - Weight 81.6 kg (180 lb) 03/09/2025 2:55 PM 3RD GRADE TEACHER Height 172.7 cm (5' 8) 03/09/2025 2:55 PM 3RD GRADE TEACHER Body Mass Index 27.37 03/09/2025 2:55 PM 3RD GRADE TEACHER Plan of Treatment Health Maintenance Due Date [...] CBC WITHOUT DIFFERENTIAL Routine 03/09/2025 4:01 PM 3RD GRADE TEACHER 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) COMPREHENSIVE METABOLIC PANEL Routine 03/09/2025 4:01 PM 3RD GRADE TEACHER 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) ERYTHROCYTE SEDIMENTATION RATE Routine 03/09/2025 4:01 PM 3RD GRADE TEACHER 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) CRP (ACUTE PHASE) Routine 03/09/2025 4:0 1 PM 3RD GRADE TEACHER 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) HEPATITIS C ANTIBODY Routine 11/23/2019 2:25 PM CDT ANCA-associated vasculitis (HCC) from Last 3 Months or Most Recently Relevant to Health Maintenance Results * (ABNORMAL) Erythrocyte sedimentation rate (03/09/2025 4:01 PM 3RD GRADE TEACHER) Erythrocyte Sedimentation Rate 25(H) <20 mm/hr [facility] Blood 03/09/2025 4:01 PM 3RD GRADE TEACHER 03/09/2025 4:16 PM 3RD GRADE TEACHER us Maximiliano Hernandez MD LAB BLOOD ORDERABLES Final Re sult [facility] * (ABNORMAL) CBC without differential (03/09/2025 4:01 PM 3RD GRADE TEACHER) White Blood Count 8.9 3.6 - 11.2 [...] [facility] Blood 03/09/2025 4:01 PM 3RD GRADE TEACHER 03/09/2025 4:16 PM 3RD GRADE TEACHER Maximiliano Hernandez MD LAB BLOOD ORDERABLES Final Re sult [facility] * (ABNORMAL) CRP (acute phase) (03/09/2025 4:01 PM 3RD GRADE TEACHER) Pathologist [facility] C-Reactive Protein, Acute 20.8(H) <5.0 mg/L [facility] Blood 03/09/2025 4:01 PM 3RD GRADE TEACHER 03/09/2025 4:16 PM 3RD GRADE TEACHER Maximiliano Hernandez MD LAB BLOOD ORDERABLES Final Re sult Performing Organization Address [facility] Co de Phone Number [facility] * (ABNORMAL) Comprehensive metabolic panel (03/09/2025 4:01 PM 3RD GRADE TEACHER) Pathologist [facility] Total Protein 7.4 6.1 - 8.4 g/dL [...] [facility] Blood 03/09/2025 4:01 PM 3RD GRADE TEACHER 03/09/2025 4:16 PM 3RD GRADE TEACHER Maximiliano Hernandez MD LAB BLOOD ORDERABLES Final Re sult [facility] * Hepatitis C antibody (11/23/2019 2:25 PM CDT) Hep C Ab Nonreactive Nonreactive [facility] Comment:Antibodies to HCV no t detected. Does NOT exclude the possibility of recent exposure to HCV. Blood specimen (specimen) 11/23/2019 2:25 PM CDT 11/23/2019 3:57 PM CDT Maximiliano Hernandez MD LAB MICROBIOLOGY - GENERAL OR DERABLES Edited Result - Final [facility] Department [place] [address] from Last 3 Months or Most Recently Relevant to Health Maintenance Insurance MEDICARE [facility] MEDICARE MEDICARE [facility] Care Teams Rumper Relationship Specialty Start Date End Date Jerrell Parrish MD PCP - General Internal Medicine 05/17/17 Jerrell Parrish MD Internal Medicine 05/17/17
--- OUTSIDE RECORDS SUMMARY | 2025-04-11 11:38 | XMS_ITS | Encounter Summary ---
Author Organization [facility] Address [address] [place] [address] Phone Care Team Providers Care Turfgrass Management Professor Name Role Phone Jerrell Parrish MD Primary Care Provider [phone] Jerrell Parrish MD Unavailable [phone] Encounter Details Date Type Department Care Team [...] on file Legal Sex Male 7:13 AM BROADCAST TRAFFIC COORDINATOR Gender Identity Male 11/28/2020 8:17 AM CDT [...] on filedocumented in this encounter Care Teams [employer] Management Professor Relationship Specialty Start Date End Date Jerrell Parrish MD PCP - General Internal Medicine 05/17/17 Jerrell Parrish MD Internal Medicine 05/17/17 documented as of this encounter
--- OUTSIDE RECORDS SUMMARY | 2025-04-11 11:38 | XMS_ITS | Encounter Summary ---
Author Organization [facility] Address [address] [place] [address] Phone Care Team Providers Care Clinical Lab Scientist Name Role Phone Jerrell Parrish MD Primary Care Provider [phone] Jerrell Parrish MD Unavailable [phone] Encounter Details Date Type Department Care [...] on file Legal Sex Male 7:13 AM DIRECTOR COMMUNICATIONS Gender Identity Male 11/28/2020 8:17 AM CDT [...] on filedocumented in this encounter Care Teams Clinical Lab Scientist Relationship Specialty Start Date End Date Jerrell Parrish MD PCP - General Internal Medicine 05/17/17 Jerrell Parrish MD Internal Medicine 05/17/17 documented as of this encounter
== END 2025-04-11 10:09 | disposition home or self-care (01) ==
LOC: CHSLAB 10:10
PROVIDERS: PCP Internal Medicine; Visit Provider Internal Medicine
DX: K92.1 Melena (principal); I63.10 Cerebral infarction due to embolism of unspecified precerebral artery; Z79.01 Long term (current) use of anticoagulants
CPT/HCPCS: 36415; 80053; 85027; 85610; 86140

== ENCOUNTER 2025-04-13 08:52 | Outpatient (CLI) | payer MEDICARE, OTHER, SELFPAY ==
--- OUTSIDE RECORDS SUMMARY | 2025-04-13 08:59 | XMS_ITS | Encounter Summary ---
Author Organization [facility] Address [address] [place] [address] Phone Care Team Providers Care Fish Conservationist Name Role Phone Jerrell Parrish MD Primary Care Provider [phone] Jerrell Parrish MD Unavailable [phone] Encounter Details Date Type Department Care [...] on file Legal Sex Male 7:13 AM TAKE DOWN SORTER Gender Identity Male 11/28/2020 8:17 AM CDT [...] on filedocumented in this encounter Care Teams Fish Conservationist Relationship Specialty Start Date End Date Jerrell Parrish MD PCP - General Internal Medicine 05/17/17 Jerrell Parrish MD Internal Medicine 05/17/17 documented as of this encounter
--- OUTSIDE RECORDS SUMMARY | 2025-04-13 08:59 | XMS_ITS | Data Portability ---
Author Organization [facility], OP Lab/Rad Address [address] [place] [address] Assessment Encounter Date Assessment Date Assessment LastModified by Organization Details LastModified Time 12/04/2023 12/04/2023 Placeholder appt, no charge Not available 12/26/2023 18:08:01 12/05/2023 12/05/2023 Placeholder appt for inpatient visit. [email or web address] Not available 12/26/2023 17:47:24 Plan of Treatment [...] X103/ uL 4.6-9. 4 normal Not Available [facility] (Lab) [address] [place], [address], 12/02/2023 07:35:09 12/02/1912/02/2023 CBC red blood cell 4.39 X106/ uL 4.16-5 .60 normal Not Available [facility] (Lab) [address] [place], [address], 12/02/2023 07:35:09 12/02/19 24 12/02/2023 CBC hemoglobin 15.2 g/dL 12.9-1 7.4 normal Not Available [facility] (Lab) [address] [place], [address], 12/02/2023 07:35:09 12/02/19 24 12/02/2023 CBC hematocrit 45.1 % 39.1-5 0.6 normal Not Available [facility] (Lab) [address] [place], [address], 12/02/2023 07:35:09 12/02/19 24 12/02/2023 CBC MCV 103.0 fL 82.7-1 01.2 high Not Available [facility] (Lab) [address] [place], [address], 12/02/2023 07:35:09 12/02/19 24 12/02/2023 CBC MCH 34.6 pg 27.2-3 4.9 normal Not Available [facility] (Lab) [address] [place], [address], 12/02/2023 07:35:09 12/02/19 24 12/02/2023 CBC MCHC 33.7 g/dL 32.3-3 5.2 normal Not Available [facility] (Lab) [address] [place], [address], 12/02/2023 07:35:09 12/02/19 24 12/02/2023 CBC RDW 12.5 % 10.3-1 4.2 normal Not Available [facility] (Lab) [address] [place], [address], 12/02/2023 07:35:09 12/02/19 24 12/02/2023 CBC platelets 226 X103/ uL 132-36 2 normal Not Available [facility] (Lab) [address] [place], [address], 12/02/2023 07:35:09 12/02/19 24 12/02/2023 CBC MPV 7.2 fL 6.7-9. 1 normal Not Available [facility] (Lab) [address] [place], [address], 12/02/2023 07:35:09 12/02/19 24 12/02/2023 CRP C-reactive protein 3.57 mg/dL 0.10-0 .50 high Not Available [facility] (Lab) [address] [place], [address], 12/02/2023 07:54:33 12/02/19 24 12/02/2023 CMP glucose 106 mg/dL 70-99 high Not [facility] (Lab) [address] [place], [address], 12/02/2023 07:54:56 12/02/19 24 12/02/2023 CMP BUN 23 mg/dL 8-26 normal Not Available [facility] (Lab) [address] [place], [address], 12/02/2023 07:54:56 12/02/19 24 12/02/2023 CMP creatinine 2.1 mg/dL 0.8-1. 3 high Not Available [facility] (Lab) [address] [place], [address], 12/02/2023 07:54:56 12/02/19 24 12/02/2023 CMP eGFR non- 31 mL/mi n/1.7 3m2 Not Available [facility] (Lab) [address] [place], [address], 12/02/2023 07:54:56 12/02/19 24 12/02/2023 CMP eGFR [...] than 15 mL/mi n/1.7 3m^2. Not Available [facility] (Lab) [address] [place], [address], 12/02/2023 07:54:56 12/02/19 24 12/02/2023 CMP bilirubin, total 1.16 mg/dL 0.10-1 .20 normal Not Available [facility] (Lab) [address] [place], [address], 12/02/2023 07:54:56 12/02/19 24 12/02/2023 CMP AST 61 U/L 0-34 high Not Available [facility] (Lab) [address] [place], [address], 12/02/2023 07:54:56 12/02/19 24 12/02/2023 CMP ALT 41 U/L 0-45 normal Not Available [facility] (Lab) [address] [place], [address], 12/02/2023 07:54:56 12/02/19 24 12/02/2023 CMP alkaline phosphatase 49 U/L 56-119 low Not Available [facility] (Lab) [address] [place], [address], 12/02/2023 07:54:56 12/02/19 24 12/02/2023 CMP calcium 9.70 mg/dL 8.60-1 0.30 normal Not Available [facility] (Lab) [address] [place], [address], 12/02/2023 07:54:56 12/02/19 24 12/02/2023 CMP sodium 138 mEq/L 136-14 4 normal Not Available [facility] (Lab) [address] [place], [address], 12/02/2023 07:54:56 12/02/19 24 12/02/2023 CMP potassium 4.13 mEq/L 3.57-4 .71 normal Not Available [facility] (Lab) [address] [place], [address], 12/02/2023 07:54:56 12/02/1912/02/2023 CMP chloride 105 mEq/L 102-11 1 normal Not Available [facility] (Lab) [address] [place], [address], 12/02/2023 07:54:56 12/02/1912/02/2023 CMP CO2 26 mEq/L 21-31 normal Not Available [facility] (Lab) [address] [place], [address], 12/02/2023 07:54:56 12/02/19 24 12/02/2023 CMP total protein 7.4 g/dL 6.4-8. 3 normal Not Available [facility] (Lab) [address] [place], [address], 12/02/2023 07:54:56 12/02/1912/02/2023 CMP albumin 4.2 g/dL 3.2-4. 6 normal Not Available [facility] (Lab) [address] [place], [address], 12/02/2023 07:54:56 12/02/19 24 12/02/2023 CMP globulin 3.2 g/dL Not [facility] (Lab) [address] [place], [address], 12/02/2023 07:54:56 12/02/19 24 12/02/2023 CMP albumin/glob ulin 1.3 Not Available [facility] (Lab) [address] [place], [address], 12/02/2023 07:54:56 12/02/1912/02/2023 TROPO JAMILAH I troponin I <0.05 NG/mL 0.00-0 .40 normal Not Available [facility] (Lab) [address] [place], [address], 12/02/2023 07:55:49 12/02/1912/02/2023 PT/IN R INR 3.1 INR 0.0-1. 0 high Not Available [facility] (Lab) [address] [place], [address], 12/02/2023 08:19:57 12/02/19 24 12/02/2023 PT/IN R prothrombin time 31.2 sec 10.1-1 2.6 high Not Available [facility] (Lab) [address] [place], [address], 12/02/2023 08:19:57 12/02/19 24 12/02/2023 PTT activated partial thromboplast in time 45.0 sec 23.0-3 3.0 high Not Available [facility] (Lab) [address] [place], [address], 12/02/2023 08:37:26 12/02/1912/02/2023 URINE DRUG SCREE N methamphetam ine Negati ve negati ve normal Not Available [facility] (Lab) [address] [place], [address], 12/02/2023 08:56:55 12/02/19 24 12/02/2023 URINE DRUG SCREE N cocaine metabolite Negati ve negati ve normal Not Available [facility] (Lab) [address] [place], [address], 12/02/2023 08:56:55 12/02/1912/02/2023 URINE DRUG SCREE N THC Negati ve negati ve normal Not Available [facility] (Lab) [address] [place], [address], 12/02/2023 08:56:55 12/02/1912/02/2023 URINE DRUG SCREE N MDMA Negati ve negati ve normal Not Available [facility] (Lab) [address] [place], [address], 12/02/2023 08:56:55 12/02/1912/02/2023 URINE DRUG SCREE N methadone Negati ve negati ve normal Not Available [facility] (Lab) [address] [place], [address], 12/02/2023 08:56:55 12/02/1912/02/2023 URINE DRUG SCREE N opiates Negati ve negati ve normal Not Available [facility] (Lab) [address] [place], [address], 12/02/2023 08:56:55 12/02/1912/02/2023 URINE DRUG SCREE N benzodiazepi ally Negati ve negati ve normal Not Available [facility] (Lab) [address] [place], [address], 12/02/2023 08:56:55 12/02/1912/02/2023 URINE DRUG SCREE N tricyclic antidepressa nts Negati ve negati ve normal Not Available [facility] (Lab) [address] [place], [address], 12/02/2023 08:56:55 12/02/19 24 12/02/2023 URINE DRUG SCREE N barbiturates Negati ve negati ve normal Not Available [facility] (Lab) [address] [place], [address], 12/02/2023 08:56:55 12/02/19 24 12/02/2023 URINE DRUG SCREE N phencyclidin e Negati ve negati ve normal Not Available [facility] (Lab) [address] [place], [address], 12/02/2023 08:56:55 12/02/19 24 12/02/2023 URINE DRUG SCREE N amphetamines Negati ve negati ve normal Not Available [facility] (Lab) [address] [place], [address], 12/02/2023 08:56:55 12/02/19 24 12/02/2023 URINE DRUG [...] 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 Not Available [facility] (Lab) [address] [place], [address], 12/02/2023 08:56:55 12/02/19 24 12/02/2023 URINA LYSIS , COMPL ETE urine color Yellow yellow normal Not Available [facility] (Lab) [address] [place], [address], 12/02/2023 09:06:11 12/02/19 24 12/02/2023 URINA LYSIS , COMPL ETE urine clarity Clear clear normal Not Available [facility] (Lab) [address] [place], [address], 12/02/2023 09:06:11 12/02/1912/02/2023 URINA LYSIS , COMPL ETE urine glucose Negati ve negati ve normal Not Available [facility] (Lab) [address] [place], [address], 12/02/2023 09:06:11 12/02/1912/02/2023 URINA LYSIS , COMPL ETE urine bilirubin Negati ve negati ve normal Not Available [facility] (Lab) [address] [place], [address], 12/02/2023 09:06:11 12/02/19 24 12/02/2023 URINA LYSIS , COMPL ETE urine ketones Negati ve mg/dL negati ve normal Not Available [facility] (Lab) [address] [place], [address], 12/02/2023 09:06:11 12/02/19 24 12/02/2023 URINA LYSIS , COMPL ETE urine specific gravity 1.025 <=1.00 5->=1. 030 normal Not Available [facility] (Lab) [address] [place], [address], 12/02/2023 09:06:11 12/02/1912/02/2023 URINA LYSIS , COMPL ETE urine hemoglobin 3+ negati ve abnormal Not Available [facility] (Lab) [address] [place], [address], 12/02/2023 09:06:11 12/02/19 24 12/02/2023 URINA LYSIS , COMPL ETE urine pH 5.5 5-8.0 normal Not Available [facility] (Lab) [address] [place], [address], 12/02/2023 09:06:11 12/02/19 24 12/02/2023 URINA LYSIS , COMPL ETE urine protein 2+ mg/dL negati ve abnormal Not Available [facility] (Lab) [address] [place], [address], 12/02/2023 09:06:11 12/02/1912/02/2023 URINA LYSIS , COMPL ETE urine urobilinogin 0.2 E.U./d L 0.2 E.U./d L-1.0 E.U./d L normal Not Available [facility] (Lab) [address] [place], [address], 12/02/2023 09:06:11 12/02/19 24 12/02/2023 URINA LYSIS , COMPL ETE urine nitrate Negati ve negati ve normal Not Available [facility] (Lab) [address] [place], [address], 12/02/2023 09:06:11 12/02/19 24 12/02/2023 URINA LYSIS , COMPL ETE urine leukocyte esterase Negati ve negati ve normal Not Available [facility] (Lab) [address] [place], [address], 12/02/2023 09:06:11 12/02/1912/02/2023 URINA LYSIS , COMPL ETE urine white blood cells Occasi onal #/hpf none seen normal Not Available [facility] (Lab) [address] [place], [address], 12/02/2023 09:06:11 12/02/19 24 12/02/2023 URINA LYSIS , COMPL ETE urine red blood cells 10-50 #/hpf none seen abnormal Not Available [facility] (Lab) [address] [place], [address], 12/02/2023 09:06:11 12/02/19 24 12/02/2023 URINA LYSIS , COMPL ETE urine squamous epithelial cells 0-2 #/hpf none seen normal Not Available [facility] (Lab) [address] [place], [address], 12/02/2023 09:06:11 12/02/19 24 12/02/2023 URINA LYSIS , COMPL ETE urine bacteria Few #/hpf none seen abnormal Not Available [facility] (Lab) [address] [place], [address], 12/02/2023 09:06:11 12/02/19 24 12/02/2023 URINA LYSIS , COMPL ETE casts None Seen #/lpf none seen normal Not Available [facility] (Lab) [address] [place], [address], 12/02/2023 09:06:11 12/02/19 24 12/02/2023 URINA LYSIS , COMPL ETE urine crystal None Seen none seen normal Not Available [facility] (Lab) [address] [place], [address], 12/02/2023 09:06:11 12/02/19 24 12/02/2023 URINA LYSIS , COMPL ETE urine mucous Presen t not presen t abnormal Not Available [facility] (Lab) [address] [place], [address], 12/02/2023 09:06:11 12/02/19 24 12/02/2023 URINA LYSIS , COMPL ETE urine yeast None Seen #/hpf none seen normal Not Available [facility] (Lab) [address] [place], [address], 12/02/2023 09:06:11 12/02/19 24 12/02/2023 ELECT ROLYT E PANEL sodium 139 mEq/L 136-14 4 normal Not Available [facility] (Lab) [address] [place], [address], 12/02/2023 17:39:58 12/02/19 24 12/02/2023 ELECT ROLYT E PANEL potassium 3.75 mEq/L 3.57-4 .71 normal Not Available [facility] (Lab) [address] [place], [address], 12/02/2023 17:39:58 12/02/19 24 12/02/2023 ELECT ROLYT E PANEL chloride 106 mEq/L 102-11 1 normal Not Available [facility] (Lab) [address] [place], [address], 12/02/2023 17:39:58 12/02/19 24 12/02/2023 ELECT ROLYT E PANEL CO2 22 mEq/L 21-31 normal Not Available [facility] (Lab) [address] [place], [address], 12/02/2023 17:39:58 12/02/19 24 12/02/2023 CULTU RE, URINE results called to JAMES Man Not Available [facility] (Lab) [address] [place], [address], 12/04/2023 10:30:27 12/02/19 24 12/02/2023 CULTU RE, URINE urine source Clean Catch Midstr eam Not Available [facility] (Lab) [address] [place], [address], 12/04/2023 10:30:27 12/02/19 24 12/02/2023 CULTU RE, URINE micro culture result No Growth @ 48 Hours Not Available [facility] (Lab) [address] [place], [address], 12/04/2023 10:30:27 12/03/19 24 12/03/2023 CBCWA D white blood cell 5.4 X103/ uL 4.6-9. 4 normal Not Available [facility] (Lab) [address] [place], [address], 12/03/2023 09:52:49 12/03/19 24 12/03/2023 CBCWA D red blood cell 3.88 X106/ uL 4.16-5 .60 low Not Available [facility] (Lab) [address] [place], [address], 12/03/2023 09:52:49 12/03/19 24 12/03/2023 CBCWA D hemoglobin 13.7 g/dL 12.9-1 7.4 normal Not Available [facility] (Lab) [address] [place], [address], 12/03/2023 09:52:49 12/03/1912/03/2023 CBCWA D hematocrit 39.8 % 39.1-5 0.6 normal Not Available [facility] (Lab) [address] [place], [address], 12/03/2023 09:52:49 12/03/1912/03/2023 CBCWA D MCV 103.0 fL 82.7-1 01.2 high Not Available [facility] (Lab) [address] [place], [address], 12/03/2023 09:52:49 12/03/1912/03/2023 CBCWA D MCH 35.2 pg 27.2-3 4.9 high Not Available [facility] (Lab) [address] [place], [address], 12/03/2023 09:52:49 12/03/1912/03/2023 CBCWA D MCHC 34.3 g/dL 32.3-3 5.2 normal Not Available [facility] (Lab) [address] [place], [address], 12/03/2023 09:52:49 12/03/1912/03/2023 CBCWA D RDW 12.4 % 10.3-1 4.2 normal Not Available [facility] (Lab) [address] [place], [address], 12/03/2023 09:52:49 12/03/1912/03/2023 CBCWA D platelets 183 X103/ uL 132-36 2 normal Not Available [facility] (Lab) [address] [place], [address], 12/03/2023 09:52:49 12/03/1912/03/2023 CBCWA D MPV 7.3 fL 6.7-9. 1 normal Not Available [facility] (Lab) [address] [place], [address], 12/03/2023 09:52:49 12/03/1912/03/2023 CBCWA D neutrophil % 75.1 % 43.0-7 6.4 normal Not Available [facility] (Lab) [address] [place], [address], 12/03/2023 09:52:49 12/03/1912/03/2023 CBCWA D lymphocyte % 19.2 % 13.5-4 1.5 normal Not Available [facility] (Lab) [address] [place], [address], 12/03/2023 09:52:49 12/03/1912/03/2023 CBCWA D monocyte % 4.6 % 4.6-13 .1 normal Not Available [facility] (Lab) [address] [place], [address], 12/03/2023 09:52:49 12/03/19 24 12/03/2023 CBCWA D eosinophil % 0.8 % 1.0-5. 7 low Not Available [facility] (Lab) [address] [place], [address], 12/03/2023 09:52:49 12/03/19 24 12/03/2023 CBCWA D basophil % 0.3 % 0.2-0. 8 normal Not Available [facility] (Lab) [address] [place], [address], 12/03/2023 09:52:49 12/03/19 24 12/03/2023 CBCWA D neutrophil # 4.08 X103/ uL 2.00-6 .40 normal Not Available [facility] (Lab) [address] [facility] [place], [address], 12/03/2023 09:52:49 12/03/19 24 12/03/2023 CBCWA D lymphocyte # 1.04 X103/ uL 0.90-2 .90 normal Not Available [facility] (Lab) [address] [place] [address] [place], [address], 12/03/2023 09:52:49 12/03/1912/03/2023 CBCWA D monocyte # 0.25 X103/ uL 0.20-1 .00 normal Not Available [facility] (Lab) [address] [place], [address], 12/03/2023 09:52:49 12/03/19 24 12/03/2023 CBCWA D eosinophil # 0.04 X103/ uL 0.10-0 .40 low Not Available [facility] (Lab) [address] [place], [address], 12/03/2023 09:52:49 12/03/19 24 12/03/2023 CBCWA D basophil # 0.02 X103/ uL 0.00-0 .10 normal Not Available [facility] (Lab) [address] [place], [address], 12/03/2023 09:52:49 12/03/19 24 12/03/2023 DDIME R ddimer 287 NG/mL 200-31 1 normal Not Available [facility] (Lab) [address] [place], [address], 12/03/2023 10:05:28 12/03/19 24 12/03/2023 BMP glucose 92 mg/dL 70-99 normal Not [facility] (Lab) [address] [place], [address], 12/03/2023 10:14:24 12/03/19 24 12/03/2023 BMP BUN 20 mg/dL 8-26 normal Not Available [facility] (Lab) [address] [place], [address], 12/03/2023 10:14:24 12/03/19 24 12/03/2023 BMP creatinine 1.9 mg/dL 0.8-1. 3 high Not Available [facility] (Lab) [address] [place], [address], 12/03/2023 10:14:24 12/03/19 24 12/03/2023 BMP eGFR non- 35 mL/mi n/1.7 3m2 Not Available [facility] (Lab) [address] [place], [address], 12/03/2023 10:14:24 12/03/19 24 12/03/2023 BMP eGFR [...] than 15 mL/mi n/1.7 3m^2. Not Available [facility] (Lab) [address], [place], [address], 12/03/2023 10:14:24 12/03/19 24 12/03/2023 BMP calcium 8.50 mg/dL 8.60-1 0.30 low Not Available [facility] (Lab) [address] [place], [address], 12/03/2023 10:14:24 12/03/19 24 12/03/2023 BMP sodium 137 mEq/L 136-14 4 normal Not Available [facility] (Lab) [address] [place], [place], [address], 12/03/2023 10:14:24 12/03/19 24 12/03/2023 BMP potassium 4.25 mEq/L 3.57-4 .71 normal Not Available [facility] (Lab) [address] [place], [place], [address], 12/03/2023 10:14:24 12/03/19 24 12/03/2023 BMP chloride 109 mEq/L 102-11 1 normal Not Available [facility] (Lab) [address] [place], [address], 12/03/2023 10:14:24 12/03/19 24 12/03/2023 BMP CO2 19 mEq/L 21-31 low Not Available [facility] (Lab) [address], [place], [address], 12/03/2023 10:14:24 12/03/19 24 12/03/2023 CRP C-reactive protein 24.28 mg/dL 0.10-0 .50 high Not Available [facility] (Lab) [address] [place], [address], 12/03/2023 10:41:51 12/03/19 24 12/03/2023 MANUA L DIFFE RENTI AL segmented neutrophil 52 % 50-70 normal Not Available [facility] (Lab) [address] [place], [address], 12/04/2023 10:31:04 12/03/19 24 12/03/2023 MANUA L DIFFE RENTI AL band neutrophil 29 % 0-5 high Not Available [facility] (Lab) [address] [place], [address], 12/04/2023 10:31:04 12/03/19 24 12/03/2023 MANUA L DIFFE RENTI AL lymphocyte 18 % 20-40 low Not Available [facility] (Lab) [address] [place], [address], 12/04/2023 10:31:04 12/03/19 24 12/03/2023 MANUA L DIFFE RENTI AL monocyte 1 % 1-6 normal Not Available [facility] (Lab) [address] [place], [address], 12/04/2023 10:31:04 12/03/19 24 12/03/2023 MANUA L DIFFE RENTI AL RBC morphology Normal normal normal Not Available [facility] (Lab) [address] [place], [address], 12/04/2023 10:31:04 12/04/19 24 12/04/2023 CBCWA D white blood cell 7.7 X103/ uL 4.6-9. 4 normal Not Available [facility] (Lab) [address] [place], [address], 12/04/2023 10:30:26 12/04/19 24 12/04/2023 CBCWA D red blood cell 3.55 X106/ uL 4.16-5 .60 low Not Available [facility] (Lab) [address] [place], [address], 12/04/2023 10:30:26 12/04/19 24 12/04/2023 CBCWA D hemoglobin 12.4 g/dL 12.9-1 7.4 low Not Available [facility] (Lab) [address] [place], [address], 12/04/2023 10:30:26 12/04/19 24 12/04/2023 CBCWA D hematocrit 35.8 % 39.1-5 0.6 low Not Available [facility] (Lab) [address] [place], [address], 12/04/2023 10:30:26 12/04/19 24 12/04/2023 CBCWA D MCV 101.0 fL 82.7-1 01.2 normal Not Available [facility] (Lab) [address] [place], [address], 12/04/2023 10:30:26 12/04/19 24 12/04/2023 CBCWA D MCH 35.0 pg 27.2-3 4.9 high Not Available [facility] (Lab) [address] [place], [address], 12/04/2023 10:30:26 12/04/19 24 12/04/2023 CBCWA D MCHC 34.7 g/dL 32.3-3 5.2 normal Not Available [facility] (Lab) [address] [place], [address], 12/04/2023 10:30:26 12/04/19 24 12/04/2023 CBCWA D RDW 13.1 % 10.3-1 4.2 normal Not Available [facility] (Lab) [address] [place], [address], 12/04/2023 10:30:26 12/04/19 24 12/04/2023 CBCWA D platelets 171 X103/ uL 132-36 2 normal Not Available [facility] (Lab) [address] [place], [address], 12/04/2023 10:30:26 12/04/19 24 12/04/2023 CBCWA D MPV 7.4 fL 6.7-9. 1 normal Not Available [facility] (Lab) [address] [place], [address], 12/04/2023 10:30:26 12/04/19 24 12/04/2023 CBCWA D neutrophil % 90.5 % 43.0-7 6.4 high Not Available [facility] (Lab) [address] [place], [address], 12/04/2023 10:30:26 12/04/19 24 12/04/2023 CBCWA D lymphocyte % 4.5 % 13.5-4 1.5 low Not Available [facility] (Lab) [address] [place], [address], 12/04/2023 10:30:26 12/04/19 24 12/04/2023 CBCWA D monocyte % 3.8 % 4.6-13 .1 low Not Available [facility] (Lab) [address] [place], [address], 12/04/2023 10:30:26 12/04/19 24 12/04/2023 CBCWA D eosinophil % 0.9 % 1.0-5. 7 low Not Available [facility] (Lab) [address] [facility] [place], [address], 12/04/2023 10:30:26 12/04/19 24 12/04/2023 CBCWA D basophil % 0.3 % 0.2-0. 8 normal Not Available [facility] (Lab) [address] [place], [address], 12/04/2023 10:30:26 12/04/19 24 12/04/2023 CBCWA D neutrophil # 6.93 X103/ uL 2.00-6 .40 high Not Available [facility] (Lab) [address] [facility] [place], [address], 12/04/2023 10:30:26 12/04/19 24 12/04/2023 CBCWA D lymphocyte # 0.34 X103/ uL 0.90-2 .90 low Not Available [facility] (Lab) [address] [facility] [place], [address], 12/04/2023 10:30:26 12/04/19 24 12/04/2023 CBCWA D monocyte # 0.29 X103/ uL 0.20-1 .00 normal Not Available [facility] (Lab) [address] [place] [place], [address], 12/04/2023 10:30:26 12/04/19 24 12/04/2023 CBCWA D eosinophil # 0.07 X103/ uL 0.10-0 .40 low Not Available [facility] (Lab) [address] [place] [place], [address], 12/04/2023 10:30:26 12/04/19 24 12/04/2023 CBCWA D basophil # 0.02 X103/ uL 0.00-0 .10 normal Manua l Diffe sarah al Used to Treat Patie nt Not Available [facility] (Lab) [address] [place], [address], 12/04/2023 10:30:26 12/04/19 24 12/04/2023 BMP glucose 125 mg/dL 70-99 high Not Availabl e [facility] (Lab) [address] [place], [address], 12/04/2023 10:30:29 12/04/19 24 12/04/2023 BMP BUN 24 mg/dL 8-26 normal Not Available [facility] (Lab) [address], [place], [address], 12/04/2023 10:30:29 12/04/19 24 12/04/2023 BMP creatinine 1.6 mg/dL 0.8-1. 3 high Not Available [facility] (Lab) [address], [place], [address], 12/04/2023 10:30:29 12/04/19 24 12/04/2023 BMP eGFR non- 43 mL/mi n/1.7 3m2 Not Available [facility] (Lab) [address] [place], [address], 12/04/2023 10:30:29 12/04/19 24 12/04/2023 BMP eGFR [...] than 15 mL/mi n/1.7 3m^2. Not Available [facility] (Lab) [address] [place], [address], 12/04/2023 10:30:29 12/04/19 24 12/04/2023 BMP calcium 8.90 mg/dL 8.60-1 0.30 normal Not Available [facility] (Lab) [address] [place], [address], 12/04/2023 10:30:29 12/04/19 24 12/04/2023 BMP sodium 142 mEq/L 136-14 4 normal Not Available [facility] (Lab) [address] [place], [address], 12/04/2023 10:30:29 12/04/19 24 12/04/2023 BMP potassium 4.03 mEq/L 3.57-4 .71 normal Not Available [facility] (Lab) [address] [place], [address], 12/04/2023 10:30:29 12/04/19 24 12/04/2023 BMP chloride 111 mEq/L 102-11 1 normal Not Available [facility] (Lab) [address] [place], [address], 12/04/2023 10:30:29 12/04/19 24 12/04/2023 BMP CO2 21 mEq/L 21-31 normal Not Available [facility] (Lab) [address] [place], [address], 12/04/2023 10:30:29 12/04/19 24 12/04/2023 CRP C-reactive protein 35.65 mg/dL 0.10-0 .50 high Not Available [facility] (Lab) [address] [place], [address], 12/04/2023 10:30:32 12/04/19 24 12/04/2023 MANUA L DIFFE RENTI AL segmented neutrophil 78 % 50-70 high Not Available [facility] (Lab) [address], [place], [address], 12/04/2023 10:35:12 12/04/19 24 12/04/2023 MANUA L DIFFE RENTI AL band neutrophil 14 % 0-5 high Not Available [facility] (Lab) [address], [place], [address], 12/04/2023 10:35:12 12/04/19 24 12/04/2023 MANUA L DIFFE RENTI AL lymphocyte 7 % 20-40 low Not Available [facility] (Lab) [address] [place], [place], [address], 12/04/2023 10:35:12 12/04/19 24 12/04/2023 MANUA L DIFFE RENTI AL monocyte 2 % 1-6 normal Not Available [facility] (Lab) [address] [place], [place], [address], 12/04/2023 10:35:12 12/04/19 24 12/04/2023 MANUA L DIFFE RENTI AL toxic granulation 2+ none seen abnormal Resul t amend ed from () (00/0 0/00 12:00 AM) to (2+) by CJN. Not Available [facility] (Lab) [address] [place], [place], [address], 12/04/2023 10:35:12 12/04/19 24 12/04/2023 COVID / [...] or revok ed soone r. Not Available [facility] (Lab) [address], [place], [address], 12/04/2023 18:46:27 12/04/19 24 12/04/2023 COVID / INFLU A/B / RSV PCR influ A PCR Negati ve negati ve normal Not Available [facility] (Lab) [address], [place], [address], 12/04/2023 18:46:27 12/04/19 24 12/04/2023 COVID / [...] or revok ed soone r. Not Available [facility] (Lab) [address] [place], [address], 12/04/2023 18:46:27 12/04/19 24 12/04/2023 COVID / [...] or revok ed soone r. Not Available [facility] (Lab) [address] [place], [address], 12/04/2023 18:46:27 12/05/19 24 12/05/2023 CBCWA D white blood cell 8.9 X103/ uL 4.6-9. 4 normal Not Available [facility] (Lab) [address] [place], [address], 12/05/2023 09:53:36 12/05/19 24 12/05/2023 CBCWA D red blood cell 3.67 X106/ uL 4.16-5 .60 low Not Available [facility] (Lab) [address] [place], [address], 12/05/2023 09:53:36 12/05/19 24 12/05/2023 CBCWA D hemoglobin 12.6 g/dL 12.9-1 7.4 low Not Available [facility] (Lab) [address] [place], [address], 12/05/2023 09:53:36 12/05/19 24 12/05/2023 CBCWA D hematocrit 37.2 % 39.1-5 0.6 low Not Available [facility] (Lab) [address] [place], [address], 12/05/2023 09:53:36 12/05/19 24 12/05/2023 CBCWA D MCV 102.0 fL 82.7-1 01.2 high Not Available [facility] (Lab) [address] [place], [address], 12/05/2023 09:53:36 12/05/19 24 12/05/2023 CBCWA D MCH 34.4 pg 27.2-3 4.9 normal Not Available [facility] (Lab) [address] [place], [address], 12/05/2023 09:53:36 12/05/19 24 12/05/2023 CBCWA D MCHC 33.9 g/dL 32.3-3 5.2 normal Not Available [facility] (Lab) [address] [place], [address], 12/05/2023 09:53:36 12/05/19 24 12/05/2023 CBCWA D RDW 12.4 % 10.3-1 4.2 normal Not Available [facility] (Lab) [address] [place], [address], 12/05/2023 09:53:36 12/05/19 24 12/05/2023 CBCWA D platelets 201 X103/ uL 132-36 2 normal Not Available [facility] (Lab) [address] [place], [address], 12/05/2023 09:53:36 12/05/19 24 12/05/2023 CBCWA D MPV 7.9 fL 6.7-9. 1 normal Not Available [facility] (Lab) [address] [place], [address], 12/05/2023 09:53:36 12/05/19 24 12/05/2023 CBCWA D neutrophil % 94.6 % 43.0-7 6.4 high Not Available [facility] (Lab) [address] [place], [address], 12/05/2023 09:53:36 12/05/19 24 12/05/2023 CBCWA D lymphocyte % 2.0 % 13.5-4 1.5 low Not Available [facility] (Lab) [address] [place], [address], 12/05/2023 09:53:36 12/05/19 24 12/05/2023 CBCWA D monocyte % 2.2 % 4.6-13 .1 low Not Available [facility] (Lab) [address] [place], [address], 12/05/2023 09:53:36 12/05/19 24 12/05/2023 CBCWA D eosinophil % 0.9 % 1.0-5. 7 low Not Available [facility] (Lab) [address] [place], [address], 12/05/2023 09:53:36 12/05/1912/05/2023 CBCWA D basophil % 0.3 % 0.2-0. 8 normal Not Available [facility] (Lab) [address] [place], [address], 12/05/2023 09:53:36 12/05/19 24 12/05/2023 CBCWA D neutrophil # 8.45 X103/ uL 2.00-6 .40 high Not Available [facility] (Lab) [address] [facility] [place], [address], 12/05/2023 09:53:36 12/05/19 24 12/05/2023 CBCWA D lymphocyte # 0.18 X103/ uL 0.90-2 .90 low Not Available [facility] (Lab) [address] [place], [address], 12/05/2023 09:53:36 12/05/1912/05/2023 CBCWA D monocyte # 0.20 X103/ uL 0.20-1 .00 normal Not Available [facility] (Lab) [address] [place] [address] [place], [address], 12/05/2023 09:53:36 12/05/19 24 12/05/2023 CBCWA D eosinophil # 0.08 X103/ uL 0.10-0 .40 low Not Available [facility] (Lab) [address] [place] [address] [place], [address], 12/05/2023 09:53:36 12/05/19 24 12/05/2023 CBCWA D basophil # 0.03 X103/ uL 0.00-0 .10 normal Aixa tripathi al Used to Treat Patie nt Not Available [facility] (Lab) [address] [facility] [place], [address], 12/05/2023 09:53:36 12/05/1912/05/2023 BMP glucose 123 mg/dL 70-99 high [facility] [address] [facility] [place], [address], 12/05/2023 10:06:42 12/05/19 24 12/05/2023 BMP BUN 29 mg/dL 8-26 high Not Available [facility] (Lab) [address] [place], [address], 12/05/2023 10:06:42 12/05/19 24 12/05/2023 BMP creatinine 1.7 mg/dL 0.8-1. 3 high Not Available [facility] (Lab) [address] [place], [address], 12/05/2023 10:06:42 12/05/19 24 12/05/2023 BMP eGFR non- 40 mL/mi n/1.7 3m2 Not Available [facility] (Lab) [address] [place], [address], 12/05/2023 10:06:42 12/05/19 24 12/05/2023 BMP eGFR [...] than 15 mL/mi n/1.7 3m^2. Not Available [facility] (Lab) [address] [place], [address], 12/05/2023 10:06:42 12/05/19 24 12/05/2023 BMP calcium 8.90 mg/dL 8.60-1 0.30 normal Not Available [facility] (Lab) [address] [place], [address], 12/05/2023 10:06:42 12/05/19 24 12/05/2023 BMP sodium 142 mEq/L 136-14 4 normal Not Available [facility] (Lab) [address] [place], [address], 12/05/2023 10:06:42 12/05/19 24 12/05/2023 BMP potassium 4.08 mEq/L 3.57-4 .71 normal Not Available [facility] (Lab) [address] [place], [address], 12/05/2023 10:06:42 12/05/19 24 12/05/2023 BMP chloride 111 mEq/L 102-11 1 normal Not Available [facility] (Lab) [address] [place], [address], 12/05/2023 10:06:42 12/05/19 24 12/05/2023 BMP CO2 21 mEq/L 21-31 normal Not Available [facility] (Lab) [address] [place], [address], 12/05/2023 10:06:42 12/05/19 24 12/05/2023 CRP C-reactive protein 18.30 mg/dL 0.10-0 .50 high Not Available [facility] (Lab) [address] [place], [address], 12/05/2023 10:06:44 12/05/19 24 12/05/2023 MANUA L DIFFE RENTI AL segmented neutrophil 84 % 50-70 high Not Available [facility] (Lab) [address] [place], [address], 12/05/2023 10:08:21 12/05/19 24 12/05/2023 MANUA L DIFFE RENTI AL band neutrophil 8 % 0-5 high Not Available [facility] (Lab) [address] [place], [address], 12/05/2023 10:08:21 12/05/19 24 12/05/2023 MANUA L DIFFE RENTI AL lymphocyte 6 % 20-40 low Not Available [facility] (Lab) [address] [place], [address], 12/05/2023 10:08:21 12/05/19 24 12/05/2023 AIXA TRIPATHI AL monocyte 2 % 1-6 normal Not Available [facility] (Lab) [address] [place], [address], 12/05/2023 10:08:21 12/05/19 24 12/05/2023 AIXA TRIPATHI AL RBC morphology Normal normal normal Not Available [facility] (Lab) [address] [place], [address], 12/05/2023 10:08:21 12/06/19 24 12/06/2023 CBCWA D white blood cell 6.5 X103/ uL 4.6-9. 4 normal Not Available [facility] (Lab) [address] [place], [address], 12/06/2023 12:48:33 12/06/19 24 12/06/2023 CBCWA D red blood cell 3.67 X106/ uL 4.16-5 .60 low Not Available [facility] (Lab) [address] [place], [address], 12/06/2023 12:48:33 12/06/19 24 12/06/2023 CBCWA D hemoglobin 12.7 g/dL 12.9-1 7.4 low Not Available [facility] (Lab) [address] [place], [address], 12/06/2023 12:48:33 12/06/19 24 12/06/2023 CBCWA D hematocrit 37.2 % 39.1-5 0.6 low Not Available [facility] (Lab) [address] [place], [address], 12/06/2023 12:48:33 12/06/19 24 12/06/2023 CBCWA D MCV 101.0 fL 82.7-1 01.2 normal Not Available [facility] (Lab) [address] [place], [address], 12/06/2023 12:48:33 12/06/19 24 12/06/2023 CBCWA D MCH 34.5 pg 27.2-3 4.9 normal Not Available [facility] (Lab) [address] [place], [address], 12/06/2023 12:48:33 12/06/19 24 12/06/2023 CBCWA D MCHC 34.0 g/dL 32.3-3 5.2 normal Not Available [facility] (Lab) [address] [place], [address], 12/06/2023 12:48:33 12/06/19 24 12/06/2023 CBCWA D RDW 12.5 % 10.3-1 4.2 normal Not Available [facility] (Lab) [address] [place], [address], 12/06/2023 12:48:33 12/06/19 24 12/06/2023 CBCWA D platelets 203 X103/ uL 132-36 2 normal Not Available [facility] (Lab) [address] [place], [address], 12/06/2023 12:48:33 12/06/19 24 12/06/2023 CBCWA D MPV 7.7 fL 6.7-9. 1 normal Not Available [facility] (Lab) [address] [place], [address], 12/06/2023 12:48:33 12/06/19 24 12/06/2023 CBCWA D neutrophil % 90.2 % 43.0-7 6.4 high Not Available [facility] (Lab) [address] [place], [address], 12/06/2023 12:48:33 12/06/19 24 12/06/2023 CBCWA D lymphocyte % 5.2 % 13.5-4 1.5 low Not Available [facility] (Lab) [facility] [place], [address], 12/06/2023 12:48:33 12/06/19 24 12/06/2023 CBCWA D monocyte % 3.2 % 4.6-13 .1 low Not Available [facility] (Lab) [facility] [place], [address], 12/06/2023 12:48:33 12/06/19 24 12/06/2023 CBCWA D eosinophil % 1.0 % 1.0-5. 7 normal Not Available [facility] (Lab) [address] [place], [address], 12/06/2023 12:48:33 12/06/19 24 12/06/2023 CBCWA D basophil % 0.4 % 0.2-0. 8 normal Not Available [facility] (Lab) [address] [place] [address] [place], [address], 12/06/2023 12:48:33 12/06/19 24 12/06/2023 CBCWA D neutrophil # 5.82 X103/ uL 2.00-6 .40 normal Not Available [facility] (Lab) [facility] [place], [address], 12/06/2023 12:48:33 12/06/19 24 12/06/2023 CBCWA D lymphocyte # 0.34 X103/ uL 0.90-2 .90 low Not Available [facility] (Lab) [facility] [place], [address], 12/06/2023 12:48:33 12/06/19 24 12/06/2023 CBCWA D monocyte # 0.21 X103/ uL 0.20-1 .00 normal Not Available [facility] (Lab) [address] [place], [address], 12/06/2023 12:48:33 12/06/19 24 12/06/2023 CBCWA D eosinophil # 0.06 X103/ uL 0.10-0 .40 low Not Available [facility] (Lab) [address] [place], [address], 12/06/2023 12:48:33 12/06/19 24 12/06/2023 CBCWA D basophil # 0.03 X103/ uL 0.00-0 .10 normal Aixa tripathi al Used to Treat Patie nt Not Available [facility] (Lab) [address] [place], [address], 12/06/2023 12:48:33 12/06/19 24 12/06/2023 CRP C-reactive protein 11.17 mg/dL 0.10-0 .50 high Not Available [facility] (Lab) [address] [place], [address], 12/06/2023 12:48:37 12/06/19 24 12/06/2023 BMP glucose 103 mg/dL 70-99 high [facility] [address] [place], [address], 12/06/2023 12:49:28 12/06/19 24 12/06/2023 BMP BUN 33 mg/dL 8-26 high Not Available [facility] (Lab) [address] [place], [address], 12/06/2023 12:49:28 12/06/19 24 12/06/2023 BMP creatinine 1.7 mg/dL 0.8-1. 3 high Not Available [facility] (Lab) [address] [place], [address], 12/06/2023 12:49:28 12/06/19 24 12/06/2023 BMP eGFR non- 40 mL/mi n/1.7 3m2 Not Available [facility] (Lab) [address] [place], [address], 12/06/2023 12:49:28 12/06/19 24 12/06/2023 BMP eGFR [...] than 15 mL/mi n/1.7 3m^2. Not Available [facility] (Lab) [address] [place], [address], 12/06/2023 12:49:28 12/06/19 24 12/06/2023 BMP calcium 9.00 mg/dL 8.60-1 0.30 normal Not Available [facility] (Lab) [address] [place], [address], 12/06/2023 12:49:28 12/06/19 24 12/06/2023 BMP sodium 139 mEq/L 136-14 4 normal Not Available [facility] (Lab) [address] [place], [address], 12/06/2023 12:49:28 12/06/19 24 12/06/2023 BMP potassium 3.65 mEq/L 3.57-4 .71 normal Not Available [facility] (Lab) [address] [place], [address], 12/06/2023 12:49:28 12/06/19 24 12/06/2023 BMP chloride 110 mEq/L 102-11 1 normal Not Available [facility] (Lab) [address] [place], [address], 12/06/2023 12:49:28 12/06/19 24 12/06/2023 BMP CO2 26 mEq/L 21-31 normal Not Available [facility] (Lab) [address] [place], [address], 12/06/2023 12:49:28 12/06/19 24 12/06/2023 MAGNE SIUM magnesium 2.09 mg/dL 1.80-2 .60 normal Not Available [facility] (Lab) [address] [place], [address], 12/06/2023 12:49:29 12/06/19 24 12/06/2023 MANUA L DIFFE RENTI AL segmented neutrophil 88 % 50-70 high Not Available [facility] (Lab) [address] [place], [address], 12/06/2023 13:32:43 12/06/19 24 12/06/2023 MANUA L DIFFE RENTI AL band neutrophil 5 % 0-5 normal Not Available [facility] (Lab) [address] [place], [address], 12/06/2023 13:32:43 12/06/19 24 12/06/2023 MANUA L DIFFE RENTI AL lymphocyte 5 % 20-40 low Not Available [facility] (Lab) [address] [place], [address], 12/06/2023 13:32:43 12/06/19 24 12/06/2023 AIXA TRIPATHI AL monocyte 2 % 1-6 normal Not Available [facility] (Lab) [address], [place], [address], 12/06/2023 13:32:43 12/02/19 24 12/02/2023 CT, head + brain , w/o contr ast No observ ation record ed. [address], [place], [address], 12/03/2023 11:44:52 12/03/1912/03/2023 CT, cervi pj spine , w/o contr ast No observ ation record ed. [address], [place], [address], 12/03/2023 18:44:12 12/03/19 24 12/03/2023 CT, chest , w/o contr ast No observ ation record ed. [address], [place], [address], 12/03/2023 18:40:57 Result Notes None recorded. Problems Name Problem SNOMED Code Status Onset Date Resolution Date Notes Provider Name and Address Organization Details Recorded Time Hypertensive disorder 64197769 Active 2023 JAMES Gresham [address] [place], [address], [facility] 4 07:28:25 Mechanical prosthetic mitral valve replacement Active 2023 mitral JAMES Gresham [address] [place], [address], [facility] 4 07:28:58 Hyperlipidemi a 52714264 Active 2023 JAMES Gresham [address] [place], [address], [facility] 4 07:29:05 Chronic tremor 976653292 Active 2023 [address]P [address], [place], [address], [facility] 4 07:29:12 Seizure disorder 039013061 Active 2023 JAMES Gresham [address], [place], [address], [facility] 4 07:29:26 Warfarin therapy Active 2023 RUBI G[address]P [address], [place], [address] , [facility] 4 07:30:23 Iron deficiency anemia 12670811 Active 2023 JAMES Gresham [address], [place], [address], [facility] 4 07:30:38 Gastroesophag eal reflux disease 624379762 Active 2023 RUBI G[address]amP [address], [place], [address], [facility] 4 07:30:46 Essential hypertension 27748210 Active 2023 RUBI GreshamP [address], [place], [address] , [facility] 4 07:31:02 Chronic kidney disease 390799030 Active 2023 thinks eGFR was 25% last check JAMES Gresham [address], [place], [address], [facility] 4 07:48:42 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 Procedures Surgical History Date Name Laterality Status Provider Name and Address Organization Details Recorded Time 4 CT of chest without contrast [place], [address], [facility] 12/03/2023 18:40:34 CT cervical spine without contrast [place], [address], [facility] 12/03/2023 18:43:[address] head/brain w/o dye [place], [address], [facility] 12/03/2023 11:44:23 mechanical prosthetic mitral valve replacement completed JAMES Gresham [address] [place], [address], [facility] 12/02/2023 07:38:51 repair of inguinal hernia completed JAMES [place], [address], [facility] 12/02/2023 07:39:00 Imaging Results None recorded. Procedure [...] Address Organization Details Last Updated DateTime 4 37.500489315 2222 [place] 120 /min 34 /min 94 % 126/75 mm[Hg] Padmini Nguyen CNA [address], [place], [address] [address] [place] [address] 4 20:56:46 Date Recorded Body temperature Heart rate Respiratory rate Oxygen saturation Body temperature Heart rate Respiratory rate Oxygen saturation Body temperature Heart rate Respiratory rate Oxygen saturation Provider Name and Address Organization Details Last Updated DateTime 4 38.852236057 5556 Frances 91 /min 16 /min 91 % 37.925917361 3333 Frances 101 /min 16 /min 95 % 37.614861864 4444 Frances 98 /min 16 /min 96 % Ashley Hanson CNA [address] [place], [address] [place] [address] 4 10:03:08 Date Recorded Inhaled oxygen flow [...] /min 18 /min 100 % 2 L/min 37.506035336 5556 Frances 102 /min 18 /min 96 % 2 L/min 133/70 mm[Hg] 144/67 mm[Hg] 119/79 mm[Hg] 124/72 mm[Hg] 136/74 mm[Hg] Ashley Hanson CNA [address] [place], [address] [place] [address] 4 18:09:23 Date Recorded Heart rate Respiratory rate Oxygen saturation Heart rate Respiratory rate Oxygen saturation Heart rate Respiratory rate Oxygen saturation Heart rate Respiratory rate Oxygen saturation Provider Name and Address Organization Details Last Updated DateTime 4 90 /min 16 /min 92 % 97 /min 16 /min 92 % 96 /min 16 /min 91 % 97 /min 16 /min 90 % Lraissa John RN [address], [place], [address] [place] [address] 4 09:23:38 Date Recorded Systolic And Diastolic Systolic And Diastolic Systolic And Diastolic Systolic And Diastolic Provider Name and Address Organization Details Last Updated DateTime 12/02/2023 131/69 mm[Hg] 132/79 mm[Hg] 127/77 mm[Hg] 135/77 mm[Hg] Larissa John RN [address], [place], [address] [place] [address] 4 09:23:38 Date Recorded Body temperature Heart rate Respiratory rate Oxygen saturation Body temperature Heart rate Respiratory rate Oxygen saturation Body temperature Heart rate Respiratory rate Oxygen saturation Provider Name and Address Organization Details Last Updated DateTime 4 37.230376580 6667 Frances 98 /min 18 /min 94 % 37.204140666 2222 Frances 89 /min 18 /min 94 % 37.996091717 2222 Frances 92 /min 20 /min 94 % Tucker Blank RN [address] [place], [address] [place] [address] 4 08:13:58 Date Recorded Oxygen saturation Inhaled oxygen flow rate Systolic And Diastolic Systolic And Diastolic Systolic And Diastolic Provider Name and Address Organization Details Last Updated DateTime 4 90 % 2 L/min 124/74 mm[Hg] 149/64 mm[Hg] 137/73 mm[Hg] Tucker Blank RN [address] [place], [address] [place] [address] 4 08:13:58 Date Recorded Body temperature Heart rate Respiratory rate Oxygen saturation Systolic And Diastolic Provider Name and Address Organization Details Last Updated DateTime 4 37.467248309 2222 Frances 95 /min 17 /min 94 % 128/76 mm[Hg] Sallie Reeves [facility] 4 06:39:17 Date Recorded Body temperature Heart rate Respiratory rate Oxygen saturation Inhaled oxygen flow rate Systolic And Diastolic Provider Name and Address Organization Details Last Updated DateTime 4 37 Frances 94 /min 20 /min 97 % 3 L/min 100/62 mm[Hg] Bernadine Ling [address], [place], [address] , [facility] 22:06:39 Date Recorded Body temperature Oxygen saturation Inhaled oxygen flow rate Provider Name and Address Organization Details Last Updated DateTime 12/03/2023 37.26470530465 67 Frances 93 % 3 L/min Tucker Blank RN [address], [place], [address], [facility] 12/03/2023 07:31:00 Date Recorded Body temperature Heart rate Respiratory rate Oxygen saturation Inhaled oxygen flow rate Body temperature Heart rate Respiratory rate Oxygen saturation Inhaled oxygen flow rate Body temperature Heart rate Provider Name and Address Organization Details Last Updated DateTime 37.224435884 4444 Frances 85 /min 14 /min 94 % 3 L/min 38 Frances 109 /min 14 /min 93 % 3 L/min 36.562460062 8889 Frances 89 /min Connie Santiago CNA [address], [place], [address], [facility] 4 17:19:57 Date Recorded Respiratory rate Oxygen saturation Inhaled oxygen flow rate Systolic And Diastolic Systolic And Diastolic Systolic And Diastolic Provider Name and Address Organization Details Last Updated DateTime 4 14 /min 94 % 3 L/min 112/75 mm[Hg] 106/66 mm[Hg] 94/62 mm[Hg] Connie Santiago CNA [address], [place], [address] 4 17:19:57 Date Recorded Body temperature Heart rate Respiratory rate Oxygen saturation Inhaled oxygen flow rate Body temperature Heart rate Respiratory rate Oxygen saturation Inhaled oxygen flow rate Systolic And Diastolic Systolic And Diastolic Provider Name and Address Organization Details Last Updated DateTime 4 39 Frances 99 /min 16 /min 94 % 4 L/min 36.961331272 8889 Frances 88 /min 16 /min 94 % 4 L/min 118/73 mm[Hg] 100/59 mm[Hg] Sallie Reeves [facility] 4 05:50:21 Date Recorded Body weight Provider Name an d Address Organization Details Last Updated DateTime 12/04/2023 [address] g Seema Gardner, RN [address] [place], [address], [facility] 12/04/2023 12:20:35 Date Recorded Body temperature Heart rate Respiratory rate Oxygen saturation Inhaled oxygen flow rate Body temperature Heart rate Respiratory rate Oxygen saturation Inhaled oxygen concentration Body temperature Heart rate Provider Name and Address Organization Details Last Updated DateTime 4 36.047778273 2222 Frances 83 /min 21 /min 95 % 2 L/min 37.217313134 5556 Frances 86 /min 20 /min 94 % 2 % 36.609089242 2222 Frances 82 /min Bernadine Ling [address] [place], [address] , [facility] 4 22:25:20 Date Recorded Respiratory rate Oxygen saturation Inhaled oxygen flow rate Systolic And Diastolic Systolic And Diastolic Systolic And Diastolic Provider Name and Address Organization Details Last Updated DateTime 4 20 /min 91 % 2 L/min 104/67 mm[Hg] 107/64 mm[Hg] 112/64 mm[Hg] Bernadine Ling [address] [place], [address] , [facility] 4 22:25:20 Date Recorded Body temperature Heart rate Respiratory rate Oxygen saturation Inhaled oxygen flow rate Body temperature Heart rate Respiratory rate Oxygen saturation Body temperature Heart rate Respiratory rate Provider Name and Address Organization Details Last Updated DateTime 4 36.378442119 2222 Frances 100 /min 20 /min 92 % 1 L/min 36.733686500 6667 Frances 97 /min 18 /min 92 % 36.512085969 2222 Francse 79 /min 18 /min Pamella Espinoza son, INSTRUCTOR [employer]CH[employer]ICIAN [address], [place], [address] 4 18:18:04 Date Recorded Oxygen saturation Inhaled oxygen flow rate Systolic And Diastolic Systolic And Diastolic Systolic And Diastolic Provider Name and Address Organization Details Last Updated DateTime 4 91 % 2 L/min 107/63 mm[Hg] 110/72 mm[Hg] 101/65 mm[Hg] Pamella Espinoza son, INSTRUCTOR [employer]JUN[employer] SURGICAL TECHNICIAN [address], [place], [address], [facility] 4 18:18:04 Date Recorded Body temperature Heart rate Respiratory rate Oxygen saturation Inhaled oxygen flow rate Systolic And Diastolic Provider Name and Address Organization Details Last Updated DateTime 4 36.760202552 6667 Frances 81 /min 16 /min 97 % 1 L/min 107/64 mm[Hg] Sallie Reeves [facility] 4 06:10:12 Date Recorded Body weight Provider Name an d Address Organization Details Last Updated DateTime 12/05/2023 [address] g Larissa John, MAYE [address], [place], [address], [facility] 12/05/2023 11:12:41 Date Recorded Body temperature Heart rate Respiratory rate Oxygen saturation Inhaled oxygen flow rate Systolic And Diastolic Provider Name and Address Organization Details Last Updated DateTime 4 [id number] 7778 Frances 101 /min 19 /min 90 % 2 L/min 113/70 mm[Hg] Afua Mccain [address] [place], [address], [facility] 4 11:37:31 Date Recorded Body temperature Heart rate Respiratory rate Oxygen saturation Inhaled oxygen flow rate Body temperature Heart rate Respiratory rate Oxygen saturation Inhaled oxygen flow rate Systolic And Diastolic Systolic And Diastolic Provider Name and Address Organization Details Last Updated DateTime 4 36.870482854 3333 Frances 88 /min 18 /min 92 % 1 L/min 36.904002549 2222 Frances 86 /min 18 /min 94 % 1 L/min 126/56 mm[Hg] 122/62 mm[Hg] Bernadine Ling [address], [place], [address] [place] [address] 4 06:19:35 Date Recorded Body temperature Heart rate Respiratory rate Oxygen saturation Body temperature Heart rate Respiratory rate Oxygen saturation Systolic And Diastolic Systolic And Diastolic Provider Name and Address Organization Details Last Updated DateTime 4 36.616807449 2222 Frances 85 /min 16 /min 89 % 36.949090094 3333 Frances 100 /min 18 /min 86 % 107/57 mm[Hg] 124/77 mm[Hg] Mel Lemus CNA [address] [place], [address] [place] [address] 4 18:14:33 Date Recorded Body temperature Heart rate Respiratory rate Oxygen saturation Systolic And Diastolic Provider Name and Address Organization Details Last Updated DateTime 4 37.175015611 2222 Frances 97 /min 20 /min 92 % 127/76 mm[Hg] Tucker Blank RN [address] [facility] [place], [address] [place] [address] 4 21:29:38 Date Recorded Body temperature Heart rate Respiratory rate Oxygen saturation Inhaled oxygen flow rate Systolic And Diastolic Provider Name and Address Organization Details Last Updated DateTime 4 36.947567382 3333 Frances 84 /min 18 /min 90 % 1 L/min 119/72 mm[Hg] Tucker Blank RN [address] [facility] [place], [address] [place] [address] 4 02:05:18 Date Recorded Body temperature Heart rate Respiratory rate Oxygen saturation Body weight Body temperature Heart rate Respiratory rate Oxygen saturation Systolic And Diastolic Systolic And Diastolic Provider Name and Address Organization Details Last Updated DateTime 4 37.909423443 5556 Frances 103 /min 16 /min 93 % [address] 24 g 36.242977367 6667 Frances 106 /min 14 /min 91 % 105/58 mm[Hg] 112/72 mm[Hg] Connie Santiago CNA [address] [place], [address], [facility] 14:13:07 Social History Question Answer Notes LastModified by Organizat ion Details LastModified Time Tobacco Smoking Status Never Smoker Tucker Blank, RN [address], [place], [address], [facility] 12/02/2023 07:03:30 What Is Your Level Of [...] ICD10 Code Diagnosis IMO Codes Diagnosis Note [id number] Gaby Monte, [facility] [address] [place] [address] 12/02/2023 10:07:49 12/03/2023 09:53:35 [id number] Gaby Monte, [facility] [address] [place] [address] 12/03/2023 10:39:23 12/03/2023 15:22:18 [id number] Ede Brown MD [facility] [address] [place] [address] 12/04/2023 10:26:17 12/04/2023 14:04:05 [id number] Ryan Schneider [place] [address] [place] [address] 12/04/2023 11:50:58 12/04/2023 18:24:48 [id number] [facility] [address] [place] [address] 12/05/2023 10:44:14 12/05/2023 18:07:02 Health Concerns Section Related Observation LastModified by Organization Detai ls LastModified Time None Recorded Concern Status LastModified by Organization Details LastModified Time None Recorded Advance Directives Directive None Recorded Payers Insurance Date Sequence Insurance Name Policy Number Policy Reynolds Covered Member ID Reynolds Member ID Guarantor Name 12/15/2023 1 [place] Credii Glenn Clayton [id number] Glenn Clayton 12/04/2023 2 [employer] (MEDICARE SUPPLEMENT) Glenn Clayton [id number] Glenn Clayton 12/04/2023 [place] Credii Glenn Clayton [id number] Glenn Clayton 12/04/2023 3 [place] Glenn Clayton [id number] Glenn Clayton Notes Date Note Type [...] Assessment & Plan None recorded Gaby Monte, SET UP OPERATOR TOOL [address], [place], [address], [facility] 12/02/2023 22:58:52 12/03/2023 text/html Subjective Harish reports [...] then to send him back home to [place] to do any swallow studies or referrals that may need to occur. He doesn't want to delay here in [place] any longer if possible. Reji printed off [...] hot, dry Vitals VitalMost RecentTime8 Hour Range Xlwuuywtlwo672.4 T58-15-3493 11:0498.4 F-102.2 F Heart bfms218xnejatpi -68-4945 11:0485bpm-120bpm Blood lbktyrbj420/66sitting 12-03-2023 11:48210/59 - 149/64 Respiratory bdsm3389-72-6275 11:0414-34 Oxygen brxjhpzvam49%nasal ykbivsp9X/rip68-04-46 24 11:0490%-100% Intake & Bjfxra84 Hour Total Kaszhj5538.0mL Qabbdk2359.0mL Net Qpunlrx8832qW Recent Labs Na + 137 mEq/L Cl [...] 08 1 3 2 024 Gaby Monte, SET UP OPERATOR TOOL-C amLODIPine Oral10 mgevery day08:, 08 1 3 2 024 Gaby Monte, SET UP OPERATOR TOOL-C aspirin Oral81 mgevery day08:, 08 1 3 2 024 Gaby Monte, SET UP OPERATOR TOOL-C atorvastatin Oral20 mgevery day at tyzjkxf85:00, 08 1 3 2 024 Gaby Monte, SET UP OPERATOR TOOL-C azaTHIOprine Srfv579 mgevery day08:, 08 1 3 2 024 Gaby Monte, SET UP OPERATOR TOOL-C azithromycin IV500 mgevery 24 hours for 4 byhj048wwvv345kO4.9 % sodium chloride(2 mg/mL)250 mL/hr for 1 hour08:00, 08 1 4 2 024 09:00, 08 1 7 2 024 Gaby Monte, SET UP OPERATOR TOOL-C cefTRIAXone IV1 gevery 12 hours for 5 htqg2raj791fY3.9 % sodium chloride(0.01 g/mL)100 mL/hr for 1 hour07:32, 08 1 3 2 024 20:32, 08 1 7 2 024 Gaby Monte, SET UP OPERATOR TOOL-C ferrous gluconate Uuvf023 mg2 times per day19:00, 08 1 3 2 024 Gaby Monte, SET UP OPERATOR TOOL-C Keppra Saos877 mg2 times per day08:01, 08 1 3 2 024 RUBI GreshamP-C multivitamins, tx-minerals Oral Tablet1 tabevery day08:01, 08 1 3 2 024 RUBI GreshamP-C omeprazole Oral Delayed Release Czgaolf75 mgevery 24 hours21:00, 08 1 3 2 024 RUBI GreshamP-C warfarin Oral2 mgEvery evening at 6 pmfor a total of 7mg18:00, 08 1 3 2 024 RUBI GreshamP-C warfarin Oral5 mgEvery evening at 6 pmfor a total of 7mg18:00, 08 1 3 2 024 Gaby Monte SET UP OPERATOR TOOL-C PRN Medications Name Sig Start Stop Ordered by acetaminophen Oral1,000 mg4 times per day08:39, 08 1 3 2 024 Gaby Monte, SET UP OPERATOR TOOL-C IV Fluids Name Sig Start Stop Ordered [...] MonteJAMES [address], [place], [address], [facility] 12/03/2023 14:32:57 12/04/2023 text/html Rolanda Elizabeth is [...] x 3, normal mood and affect. Skin: Kane, warm, and dry. Lower eyelids puffy in [...] station, CORTEZ, ambulats in hallway Vitals VitalMost GkviexVjbp76 Hour Range Ufqsgvwvzaf83.1 Ftemporal -30-2024 16:1798 F-100.4 F Heart iqpn30ptxdttks aldybjix45-06-6950 16:1779bpm-109bpm Blood xjhwkukm038/65sitting -80-5706 16:1794/62 - 112/75 Respiratory npsm3742-18-0477 16:1714-21 Oxygen djuqsmoepr95%room air2L/aqy85-39-1452 16:1791%-97% Qnljcj508qnd3dj73-92- 2024 10:74847ceo1uy-288ivn 6oz Pain znntt4ygsnqhj82-05-59 24 12:000-0 Intake & Mnrusk87 Hour Total Uzhhoi879.0mL Output0.0mL Net Vcngdnj886uU Recent Labs Na + 142 mEq/L Cl [...] 08 1 4 2 024 Gaby Monte, SET UP OPERATOR TOOL-C albuterol-ipratropium Nebulized 3 mg (2.5 mg base)-0.5 mg/3 mL3 mL3 times per day08:58, 08 1 3 2 024 RUBI GreshamP-C amLODIPine Oral10 mgevery day08:, 08 1 3 2 024 Gaby Monte, SET UP OPERATOR TOOL-C aspirin Oral81 mgevery day08:, 08 1 3 2 024 Gaby Monte, SET UP OPERATOR TOOL-C atorvastatin Oral20 mgevery day at :00, 08 1 3 2 024 RUBI GreshamP-C azaTHIOprine Gbnb241 mgevery day08:, 08 1 3 2 024 Gaby Monte, SET UP OPERATOR TOOL-C azithromycin IV500 mgevery 24 hours for 4 slmy529hkpd598mJ8.9 % sodium chloride(2 mg/mL)250 mL/hr for 1 hour08:00, 08 1 4 2 024 09:00, 08 1 7 2 024 Gaby Monte, SET UP OPERATOR TOOL-C cefTRIAXone IV1 gevery 12 hours for 5 sjrl1dzb288aT9.9 % sodium chloride(0.01 g/mL)100 mL/hr for 1 hour07:32, 08 1 3 2 024 20:32, 08 1 7 2 024 Gaby Monte, SET UP OPERATOR TOOL-C ferrous gluconate Srcz170 mg2 times per day19:00, 08 1 3 2 024 Gaby Monte, SET UP OPERATOR TOOL-C Keppra Vqli609 mg2 times per day08:, 08 1 3 2 024 Gaby Monte, SET UP OPERATOR TOOL-C multivitamins, tx-minerals Oral Tablet1 tabevery day08:, 08 1 3 2 024 Gaby Monte, SET UP OPERATOR TOOL-C omeprazole Oral Delayed Release Racqylx69 mgevery 24 hours21:00, 08 1 3 2 024 RUBI GreshamP-C SOLU-MedroL (PF) IV62.5 mgpush2 times per day19:00, 08 1 4 2 024 Gaby Monte, SET UP OPERATOR TOOL-C warfarin Oral2 mgEvery evening at 6 pmfor a total of 7mg18:00, 08 1 3 2 024 Gaby Corinaere, SET UP OPERATOR TOOL-C warfarin Oral5 mgEvery evening at 6 pmfor a total of 7mg18:00, 08 1 3 2 024 Gaby Fugere, SET UP OPERATOR TOOL-C PRN Medications None Recorded IV Fluids Name Sig Start Stop Ordered by sodium chloride IV 0.9 %sodium chloride 0.9 % 50 mL/hr IV Rate: 50 mL/hr19:42, 08 1 4 2 024 Gaby Fugere, SET UP OPERATOR TOOL-C Assessment & Plan bilateral pneumonia - UTI [...] w/ assistance in room only Ryan Schneider, SET UP OPERATOR TOOL [address] [facility] [address], [place], [address], [facility] 12/04/2023 19:09:46 12/05/2023 text/html Subjective Glenn reports [...] LE. Musculoskeletal: Normal station, CORTEZ. Vitals VitalMost JqboxoCwfr87 Hour Range Nvurtogwfbm79.1 Pdiqvrjnj90-95-2495 08:3098 F-99.1 F Heart poyi031moifzqes jqeqnjxo45-35-8555 08:3079bpm-101bpm Blood ybilpvgc256/70sitting upper arm - rightadult - -65-4328 08:39571/65 - 126/56 Respiratory silw6343-08-9080 08:3016-21 Oxygen ktxrmxvhez80%nasal ctywzvh9E/kfp90-53-21 24 08:3090%-97% Ngluqk018enl4px73-98- 2024 09:63641hcs6je-436veu 8oz Pain jghwn7pfjfgal86-76-84 24 12:000-0 Intake & Yrwggg16 Hour Total Qgfqlu671.0mL Output0.0mL Net Uqofoaz589jY More recent vital readings have been recorded [...] 08 1 3 2 024 Gaby Monte, SET UP OPERATOR TOOL-C atorvastatin Oral20 mgevery day at znriqja51:00, 08 1 3 2 024 Gaby Monte, SET UP OPERATOR TOOL-C azaTHIOprine Ynqe749 mgevery day08:01, 08 1 3 2 024 Gaby Monte, SET UP OPERATOR TOOL-C dexAMETHasone Oral6 mgevery dayDC Solu-Medrol after 2nd dose on 12/03/2406:00, 08 1 6 2 024 RUBI OrdazP-Nancy ferrous gluconate Tavz033 mg2 times per day19:00, 08 1 3 2 024 Gaby Monte SET UP OPERATOR TOOL-Nancy Keppra Fomd149 mg2 times per day08:01, 08 1 3 2 024 Gaby Monte, SET UP OPERATOR TOOL-C multivitamins, tx-minerals Oral Tablet1 tabevery day08:01, 08 1 3 2 024 Gaby Monte, SET UP OPERATOR TOOL-C omeprazole Oral Delayed Release Zjqjnom22 mgevery 24 hours21:00, 08 1 3 2 024 Gaby Monte, SET UP OPERATOR TOOL-C warfarin Oral2 mgEvery evening at 6 pmfor a total of 7mg18:00, 08 1 3 2 024 Gbay Monte, SET UP OPERATOR TOOL-C warfarin Oral5 mgEvery evening at 6 pmfor a total of 7mg18:00, 08 1 3 2 024 Gaby Monte SET UP OPERATOR TOOL-C PRN Medications None Recorded IV Fluids None [...] to home as soon as medically prudent Hnwrk-77-Hxaoaupgq to have increased supplemental O2 need.-Transitioned to PO dexamethasone yesterday, to continue for 6 days from today-Covid infection complicates overall treatment and picture of recovery.-Transitione d to inhaler from nebulizer Dispo-To discharge to drive home as soon as he can maintain on room air. Last dose azithromycin for 12/05. Ceftriaxone complete. Continue dexamethasone for 6 days. Ryan Schneider, SET UP OPERATOR TOOL [address] [facility] [place], [address], [facility] 12/05/2023 21:48:42
--- OUTSIDE RECORDS SUMMARY | 2025-04-13 08:59 | XMS_ITS | Encounter Summary ---
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
--- OUTSIDE RECORDS SUMMARY | 2025-04-13 08:59 | XMS_ITS | Encounter Summary ---
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
--- OUTSIDE RECORDS SUMMARY | 2025-04-13 08:59 | XMS_ITS | Clinical Summary ---
Author Organization [facility] [address] Address [address] [place] [address] Care Team Providers Care Hand Cooper Helper Name Role Phone Jerrell Parrish MD Primary Care Provider [phone] Jerrell Parrish MD Unavailable [phone] Allergies No known active allergies Medications [...] Department Care Team Description 03/09/2025 4:20 PM BUILDING MAINTENANCE CUSTODIAN Lab [facility] Medicine Endocrinology Metabolism and Lipid [address] [facility] [address] [place] [address] 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) 03/09/2025 3:00 PM BUILDING MAINTENANCE CUSTODIAN Office Visit [facility] Medicine Rheumatology [address] [facility] [address] [place] [address] [place] [address] 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) [...] on file Legal Sex Male 7:13 AM BUILDING MAINTENANCE CUSTODIAN Gender Identity Male 11/28/2020 8:17 AM CDT Sexual Orientation Choose not to disclose 2020 8:17 AM CDT Last Filed Vital Signs Vital Sign Reading Time Taken Comments Blood Pressure 114/78 03/09/2025 2:55 PM BUILDING MAINTENANCE CUSTODIAN Pulse 112 03/09/2025 2:55 PM BUILDING MAINTENANCE CUSTODIAN Temperature 36.4 C (97.6 F) 03/09/2025 2:55 PM BUILDING MAINTENANCE CUSTODIAN Respiratory Rate 18 02/04/2023 9:21 AM CDT Oxygen Saturation 97% 02/18/2023 12:40 PM CDT Inhaled Oxygen Concentration - - Weight 81.6 kg (180 lb) 03/09/2025 2:55 PM BUILDING MAINTENANCE CUSTODIAN Height 172.7 cm (5' 8) 03/09/2025 2:55 PM BUILDING MAINTENANCE CUSTODIAN Body Mass Index 27.37 03/09/2025 2:55 PM BUILDING MAINTENANCE CUSTODIAN Plan of Treatment Health Maintenance Due Date [...] CBC WITHOUT DIFFERENTIAL Routine 03/09/2025 4:01 PM BUILDING MAINTENANCE CUSTODIAN 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) COMPREHENSIVE METABOLIC PANEL Routine 03/09/2025 4:01 PM BUILDING MAINTENANCE CUSTODIAN 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) ERYTHROCYTE SEDIMENTATION RATE Routine 03/09/2025 4:01 PM BUILDING MAINTENANCE CUSTODIAN 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) CRP (ACUTE PHASE) Routine 03/09/2025 4:0 1 PM BUILDING MAINTENANCE CUSTODIAN 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) HEPATITIS C ANTIBODY Routine 11/23/2019 2:25 PM CDT ANCA-associated vasculitis (HCC) from Last 3 Months or Most Recently Relevant to Health Maintenance Results * (ABNORMAL) Erythrocyte sedimentation rate (03/09/2025 4:01 PM BUILDING MAINTENANCE CUSTODIAN) Erythrocyte Sedimentation Rate 25(H) <20 mm/hr [facility] Blood 03/09/2025 4:01 PM BUILDING MAINTENANCE CUSTODIAN 03/09/2025 4:16 PM BUILDING MAINTENANCE CUSTODIAN us Maximiliano Hernandez MD LAB BLOOD ORDERABLES Final Re sult [facility]ORE [facility] * (ABNORMAL) CBC without differential (03/09/2025 4:01 PM BUILDING MAINTENANCE CUSTODIAN) White Blood Count 8.9 3.6 - 11.2 [...] [facility] Blood 03/09/2025 4:01 PM BUILDING MAINTENANCE CUSTODIAN 03/09/2025 4:16 PM BUILDING MAINTENANCE CUSTODIAN Maximiliano Hernandez MD LAB BLOOD ORDERABLES Final Re sult [facility] CORE [facility] * (ABNORMAL) CRP (acute phase) (03/09/2025 4:01 PM BUILDING MAINTENANCE CUSTODIAN) Pathologist [facility] C-Reactive Protein, Acute 20.8(H) <5.0 mg/L [facility] Blood 03/09/2025 4:01 PM BUILDING MAINTENANCE CUSTODIAN 03/09/2025 4:16 PM BUILDING MAINTENANCE CUSTODIAN Maximiliano Hernandez MD LAB BLOOD ORDERABLES Final Re sult Performing Organization Address [facility] Co de Phone Number [facility]ORE [facility] * (ABNORMAL) Comprehensive metabolic panel (03/09/2025 4:01 PM BUILDING MAINTENANCE CUSTODIAN) Pathologist [facility] Total Protein 7.4 6.1 - 8.4 g/dL [...] [facility] Blood 03/09/2025 4:01 PM BUILDING MAINTENANCE CUSTODIAN 03/09/2025 4:16 PM BUILDING MAINTENANCE CUSTODIAN Maximiliano Hernandez MD LAB BLOOD ORDERABLES Final Re sult [facility]ORE [facility] * Hepatitis C antibody (11/23/2019 2:25 PM CDT) Hep C Ab Nonreactive Nonreactive [facility] Comment:Antibodies to HCV no t detected. Does NOT exclude the possibility of recent exposure to HCV. Blood specimen (specimen) 11/23/2019 2:25 PM CDT 11/23/2019 3:57 PM CDT Maximiliano Hernandez MD LAB MICROBIOLOGY - GENERAL OR DERABLES Edited Result - Final [facility] Department [place] [address] from Last 3 Months or Most Recently Relevant to Health Maintenance Insurance MEDICARE [facility] MEDICARE MEDICARE [facility] Care Teams Hand Cooper Helper Relationship Specialty Start Date End Date Jerrell Parrish MD PCP - General Internal Medicine 05/17/17 Jerrell Parrish MD Internal Medicine 05/17/17
--- OUTSIDE RECORDS SUMMARY | 2025-04-13 08:59 | XMS_ITS | Clinical Summary ---
Author Organization [facility] Address [address] [place] [address] Care Team Providers Care Laborer Sawmill Name Role Phone Jerrell Parrish MD Primary Care Provider [phone] Allergies Active Allergy Reactions Criticality Noted Date [...] Mother Cancer Mother Osteoarthritis Mother Osteoporosis Mother Traphill's Disease Sister Relation Status Comments Father Mother [...] age to complete this topic Insurance MEDICARE [employer] MEDICARE [employer] [facility] [employer]ANCE [employer] * Guarantor: Glenn Clayton Nelida Account Type Relation to Patient Date of Phone Billing Address Personal/Family Self 12/06/1881 Advance Directives Documents on File Type Date Recorded Patient Harness Builder Expl anation Advance Directives and Living Will 10/07/2019 2:14 PM Refer to NIURKA fredy lee regarding Advanced Directives Power of Tank Storage Supervisor 10/07/2019 2:14 PM Reji Echeverria, HCA-Healthcare Agent; Neelam De La Torre, 1st alternate HCA-other; Nancy Reyes, 2nd alternate HCA-other; * Full Code (Latest Code Status on File) Date Activated Date Inactivated Comments 12/06/2019 5:56 PM 12/09/2019 4:40 PM Healthcare Agents on File Name Relationship Healthcare Agent Relationship Communication Reji A. ([facility]) Jacki Healthcare Agent Health Care Agent Neelam De La Torre Other First Alternate Health Care Agent Nancy Reyes Other Second Alternate Health Care Agent Care Teams Laborer Sawmill Relationship Specialty Start Date End Date Jerrell Parrish MD [address] [place] [address] PCP - General INTERNAL MEDICINE 09/07/19
[2025-04-13 09:11] LABS: Hematocrit 42.3 % (37.0-46.0); Hemoglobin 14.0 g/dL (12.4-15.3); Mean Corpuscular HGB Conc 33.1 g/dL (32-36); Mean Corpuscular Hemoglobin 32.7 pg (27.0-31.0); Mean Corpuscular Volume 98.8 fL (78.0-102.0); Platelet Count Result 281 K/mm3 (150-420); Red Blood Count 4.28 M/mm3 (4.70-6.10); White Blood Count 7.5 K/mm3 (4.8-10.8)
[2025-04-13 09:25] LABS: INR 1.1; Prothrombin Time 12.4 Seconds (9.50-12.1)
== END 2025-04-13 08:53 | disposition home or self-care (01) ==
PROVIDERS: PCP Internal Medicine; Visit Provider Internal Medicine
DX: Z79.01 Long term (current) use of anticoagulants (principal); K92.1 Melena
CPT/HCPCS: 36415; 85027; 85610

== ENCOUNTER 2025-04-15 10:54 | Outpatient (CLI) | payer MEDICARE, OTHER, SELFPAY ==
--- OUTSIDE RECORDS SUMMARY | 2025-04-15 10:59 | XMS_ITS | Encounter Summary ---
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
--- OUTSIDE RECORDS SUMMARY | 2025-04-15 10:59 | XMS_ITS | Clinical Summary ---
Author Organization [facility] Address [address] [place] [address] Care Team Providers Care Thread Winder Name Role Phone Jerrell Parrish MD Primary Care Provider [phone] Allergies Active Allergy Reactions Criticality Noted Date [...] Mother Cancer Mother Osteoarthritis Mother Osteoporosis Mother Orange's Disease Sister Relation Status Comments Father Mother [...] age to complete this topic Insurance MEDICARE [employer] MEDICARE [employer] [facility] [employer] * Guarantor: Glenn Clayton Nelida Account Type Relation to Patient Date of Phone Billing Address Personal/Family Self 12/06/1881 Advance Directives Documents on File Type Date Recorded Patient Food Prep Worker Expl anation Advance Directives and Living Will 10/07/2019 2:14 PM Refer to NIURKA fredy lee regarding Advanced Directives Power of End Stapler 10/07/2019 2:14 PM Reji Echeverria, HCA-Healthcare Agent; Neelam De La Torre, 1st alternate HCA-other; Nancy Reyes, 2nd alternate HCA-other; * Full Code (Latest Code Status on File) Date Activated Date Inactivated Comments 12/06/2019 5:56 PM 12/09/2019 4:40 PM Healthcare Agents on File Name Relationship Healthcare Agent Relationship Communication Reji A. ([facility]) Jacki Healthcare Agent Health Care Agent Neelam De La Torre Other First Alternate Health Care Agent Nancy Reyes Other Second Alternate Health Care Agent Care Teams Thread Winder Relationship Specialty Start Date End Date Jerrell Parrish MD [address] [place] [address] PCP - General INTERNAL MEDICINE 09/07/19
--- OUTSIDE RECORDS SUMMARY | 2025-04-15 10:59 | XMS_ITS | Encounter Summary ---
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
--- OUTSIDE RECORDS SUMMARY | 2025-04-15 10:59 | XMS_ITS | Data Portability ---
Author Organization [facility], OP Lab/Rad Address [address] [place] [address] Assessment Encounter Date Assessment Date Assessment LastModified by Organization Details LastModified Time 12/04/2023 12/04/2023 Placeholder appt, no charge [email or web address] Not available 12/26/2023 18:08:01 12/05/2023 12/05/2023 Placeholder appt for inpatient visit. [email or web address] Not available 12/26/2023 17:47:24 Plan of Treatment [...] X103/ uL 4.6-9. 4 normal Not Available [facility] (Lab) [address] [place], [address], 12/02/2023 07:35:09 12/02/1912/02/2023 CBC red blood cell 4.39 X106/ uL 4.16-5 .60 normal Not Available [facility] (Lab) [address] [place], [address], 12/02/2023 07:35:09 12/02/19 24 12/02/2023 CBC hemoglobin 15.2 g/dL 12.9-1 7.4 normal Not Available [facility] (Lab) [address] [place], [address], 12/02/2023 07:35:09 12/02/19 24 12/02/2023 CBC hematocrit 45.1 % 39.1-5 0.6 normal Not Available [facility] (Lab) [address] [place], [address], 12/02/2023 07:35:09 12/02/19 24 12/02/2023 CBC MCV 103.0 fL 82.7-1 01.2 high Not Available [facility] (Lab) [address] [place], [address], 12/02/2023 07:35:09 12/02/19 24 12/02/2023 CBC MCH 34.6 pg 27.2-3 4.9 normal Not Available [facility] (Lab) [address] [place], [address], 12/02/2023 07:35:09 12/02/19 24 12/02/2023 CBC MCHC 33.7 g/dL 32.3-3 5.2 normal Not Available [facility] (Lab) [address] [place], [address], 12/02/2023 07:35:09 12/02/19 24 12/02/2023 CBC RDW 12.5 % 10.3-1 4.2 normal Not Available [facility] (Lab) [address] [place], [address], 12/02/2023 07:35:09 12/02/19 24 12/02/2023 CBC platelets 226 X103/ uL 132-36 2 normal Not Available [facility] (Lab) [address] [place], [address], 12/02/2023 07:35:09 12/02/19 24 12/02/2023 CBC MPV 7.2 fL 6.7-9. 1 normal Not Available [facility] (Lab) [address] [place], [address], 12/02/2023 07:35:09 12/02/19 24 12/02/2023 CRP C-reactive protein 3.57 mg/dL 0.10-0 .50 high Not Available [facility] (Lab) [address] [place], [address], 12/02/2023 07:54:33 12/02/19 24 12/02/2023 CMP glucose 106 mg/dL 70-99 high [facility] (Lab) [address] [place], [address], 12/02/2023 07:54:56 12/02/19 24 12/02/2023 CMP BUN 23 mg/dL 8-26 normal Not Available [facility] (Lab) [address] [place], [address], 12/02/2023 07:54:56 12/02/19 24 12/02/2023 CMP creatinine 2.1 mg/dL 0.8-1. 3 high Not Available [facility] (Lab) [address] [place], [address], 12/02/2023 07:54:56 12/02/19 24 12/02/2023 CMP eGFR non- 31 mL/mi n/1.7 3m2 Not Available [facility] (Lab) [address] [place], [address], 12/02/2023 07:54:56 12/02/19 24 12/02/2023 CMP eGFR [...] than 15 mL/mi n/1.7 3m^2. Not Available [facility] (Lab) [address] [place], [address], 12/02/2023 07:54:56 12/02/19 24 12/02/2023 CMP bilirubin, total 1.16 mg/dL 0.10-1 .20 normal Not Available [facility] (Lab) [address] [place], [address], 12/02/2023 07:54:56 12/02/19 24 12/02/2023 CMP AST 61 U/L 0-34 high Not Available [facility] (Lab) [address] [place], [address], 12/02/2023 07:54:56 12/02/19 24 12/02/2023 CMP ALT 41 U/L 0-45 normal Not Available [facility] (Lab) [address] [place], [address], 12/02/2023 07:54:56 12/02/19 24 12/02/2023 CMP alkaline phosphatase 49 U/L 56-119 low Not Available [facility] (Lab) [address] [place], [address], 12/02/2023 07:54:56 12/02/19 24 12/02/2023 CMP calcium 9.70 mg/dL 8.60-1 0.30 normal Not Available [facility] (Lab) [address] [place], [address], 12/02/2023 07:54:56 12/02/19 24 12/02/2023 CMP sodium 138 mEq/L 136-14 4 normal Not Available [facility] (Lab) [address] [place], [address], 12/02/2023 07:54:56 12/02/19 24 12/02/2023 CMP potassium 4.13 mEq/L 3.57-4 .71 normal Not Available [facility] (Lab) [address] [place], [address], 12/02/2023 07:54:56 12/02/1912/02/2023 CMP chloride 105 mEq/L 102-11 1 normal Not Available [facility] (Lab) [address] [place], [address], 12/02/2023 07:54:56 12/02/1912/02/2023 CMP CO2 26 mEq/L 21-31 normal Not Available [facility] (Lab) [address] [place], [address], 12/02/2023 07:54:56 12/02/19 24 12/02/2023 CMP total protein 7.4 g/dL 6.4-8. 3 normal Not Available [facility] (Lab) [address] [place], [address], 12/02/2023 07:54:56 12/02/1912/02/2023 CMP albumin 4.2 g/dL 3.2-4. 6 normal Not Available [facility] (Lab) [address] [place], [address], 12/02/2023 07:54:56 12/02/19 24 12/02/2023 CMP globulin 3.2 g/dL Not [facility] (Lab) [address] [place], [address], 12/02/2023 07:54:56 12/02/19 24 12/02/2023 CMP albumin/glob ulin 1.3 Not Available [facility] (Lab) [address] [place], [address], 12/02/2023 07:54:56 12/02/1912/02/2023 TROPO JAMILAH I troponin I <0.05 NG/mL 0.00-0 .40 normal Not Available [facility] (Lab) [address] [place], [address], 12/02/2023 07:55:49 12/02/1912/02/2023 PT/IN R INR 3.1 INR 0.0-1. 0 high Not Available [facility] (Lab) [address] [place], [address], 12/02/2023 08:19:57 12/02/19 24 12/02/2023 PT/IN R prothrombin time 31.2 sec 10.1-1 2.6 high Not Available [facility] (Lab) [address] [place], [address], 12/02/2023 08:19:57 12/02/19 24 12/02/2023 PTT activated partial thromboplast in time 45.0 sec 23.0-3 3.0 high Not Available [facility] (Lab) [address] [place], [address], 12/02/2023 08:37:26 12/02/1912/02/2023 URINE DRUG SCREE N methamphetam ine Negati ve negati ve normal Not Available [facility] (Lab) [address] [place], [address], 12/02/2023 08:56:55 12/02/19 24 12/02/2023 URINE DRUG SCREE N cocaine metabolite Negati ve negati ve normal Not Available [facility] (Lab) [address] [place], [address], 12/02/2023 08:56:55 12/02/1912/02/2023 URINE DRUG SCREE N THC Negati ve negati ve normal Not Available [facility] (Lab) [address] [place], [address], 12/02/2023 08:56:55 12/02/1912/02/2023 URINE DRUG SCREE N MDMA Negati ve negati ve normal Not Available [facility] (Lab) [address] [place], [address], 12/02/2023 08:56:55 12/02/1912/02/2023 URINE DRUG SCREE N methadone Negati ve negati ve normal Not Available [facility] (Lab) [address] [place], [address], 12/02/2023 08:56:55 12/02/1912/02/2023 URINE DRUG SCREE N opiates Negati ve negati ve normal Not Available [facility] (Lab) [address] [place], [address], 12/02/2023 08:56:55 12/02/1912/02/2023 URINE DRUG SCREE N benzodiazepi ally Negati ve negati ve normal Not Available [facility] (Lab) [address] [place], [address], 12/02/2023 08:56:55 12/02/1912/02/2023 URINE DRUG SCREE N tricyclic antidepressa nts Negati ve negati ve normal Not Available [facility] (Lab) [address] [place], [address], 12/02/2023 08:56:55 12/02/19 24 12/02/2023 URINE DRUG SCREE N barbiturates Negati ve negati ve normal Not Available [facility] (Lab) [address] [place], [address], 12/02/2023 08:56:55 12/02/19 24 12/02/2023 URINE DRUG SCREE N phencyclidin e Negati ve negati ve normal Not Available [facility] (Lab) [address] [place], [address], 12/02/2023 08:56:55 12/02/19 24 12/02/2023 URINE DRUG SCREE N amphetamines Negati ve negati ve normal Not Available [facility] (Lab) [address] [place], [address], 12/02/2023 08:56:55 12/02/19 24 12/02/2023 URINE DRUG [...] consi derat ion and profe ssion al administrative judge ment 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 Not Available [facility] (Lab) [address] [place], [address], 12/02/2023 08:56:55 12/02/19 24 12/02/2023 URINA LYSIS , COMPL ETE urine color Yellow yellow normal Not Available [facility] (Lab) [address] [place], [address], 12/02/2023 09:06:11 12/02/19 24 12/02/2023 URINA LYSIS , COMPL ETE urine clarity Clear clear normal Not Available [facility] (Lab) [address] [place], [address], 12/02/2023 09:06:11 12/02/1912/02/2023 URINA LYSIS , COMPL ETE urine glucose Negati ve negati ve normal Not Available [facility] (Lab) [address] [place], [address], 12/02/2023 09:06:11 12/02/1912/02/2023 URINA LYSIS , COMPL ETE urine bilirubin Negati ve negati ve normal Not Available [facility] (Lab) [address] [place], [address], 12/02/2023 09:06:11 12/02/19 24 12/02/2023 URINA LYSIS , COMPL ETE urine ketones Negati ve mg/dL negati ve normal Not Available [facility] (Lab) [address] [place], [address], 12/02/2023 09:06:11 12/02/19 24 12/02/2023 URINA LYSIS , COMPL ETE urine specific gravity 1.025 <=1.00 5->=1. 030 normal Not Available [facility] (Lab) [address] [place], [address], 12/02/2023 09:06:11 12/02/1912/02/2023 URINA LYSIS , COMPL ETE urine hemoglobin 3+ negati ve abnormal Not Available [facility] (Lab) [address] [place], [address], 12/02/2023 09:06:11 12/02/19 24 12/02/2023 URINA LYSIS , COMPL ETE urine pH 5.5 5-8.0 normal Not Available [facility] (Lab) [address] [place], [address], 12/02/2023 09:06:11 12/02/19 24 12/02/2023 URINA LYSIS , COMPL ETE urine protein 2+ mg/dL negati ve abnormal Not Available [facility] (Lab) [address] [place], [address], 12/02/2023 09:06:11 12/02/1912/02/2023 URINA LYSIS , COMPL ETE urine urobilinogin 0.2 E.U./d L 0.2 E.U./d L-1.0 E.U./d L normal Not Available [facility] (Lab) [address] [place], [address], 12/02/2023 09:06:11 12/02/19 24 12/02/2023 URINA LYSIS , COMPL ETE urine nitrate Negati ve negati ve normal Not Available [facility] (Lab) [address] [place], [address], 12/02/2023 09:06:11 12/02/19 24 12/02/2023 URINA LYSIS , COMPL ETE urine leukocyte esterase Negati ve negati ve normal Not Available [facility] (Lab) [address] [place], [address], 12/02/2023 09:06:11 12/02/1912/02/2023 URINA LYSIS , COMPL ETE urine white blood cells Occasi onal #/hpf none seen normal Not Available [facility] (Lab) [address] [place], [address], 12/02/2023 09:06:11 12/02/19 24 12/02/2023 URINA LYSIS , COMPL ETE urine red blood cells 10-50 #/hpf none seen abnormal Not Available [facility] (Lab) [address] [place], [address], 12/02/2023 09:06:11 12/02/19 24 12/02/2023 URINA LYSIS , COMPL ETE urine squamous epithelial cells 0-2 #/hpf none seen normal Not Available [facility] (Lab) [address] [place], [address], 12/02/2023 09:06:11 12/02/19 24 12/02/2023 URINA LYSIS , COMPL ETE urine bacteria Few #/hpf none seen abnormal Not Available [facility] (Lab) [address] [place], [address], 12/02/2023 09:06:11 12/02/19 24 12/02/2023 URINA LYSIS , COMPL ETE casts None Seen #/lpf none seen normal Not Available [facility] (Lab) [address] [place], [address], 12/02/2023 09:06:11 12/02/19 24 12/02/2023 URINA LYSIS , COMPL ETE urine crystal None Seen none seen normal Not Available [facility] (Lab) [address] [place], [address], 12/02/2023 09:06:11 12/02/19 24 12/02/2023 URINA LYSIS , COMPL ETE urine mucous Presen t not presen t abnormal Not Available [facility] (Lab) [address] [place], [address], 12/02/2023 09:06:11 12/02/19 24 12/02/2023 URINA LYSIS , COMPL ETE urine yeast None Seen #/hpf none seen normal Not Available [facility] (Lab) [address] [place], [address], 12/02/2023 09:06:11 12/02/19 24 12/02/2023 ELECT ROLYT E PANEL sodium 139 mEq/L 136-14 4 normal Not Available [facility] (Lab) [address] [place], [address], 12/02/2023 17:39:58 12/02/19 24 12/02/2023 ELECT ROLYT E PANEL potassium 3.75 mEq/L 3.57-4 .71 normal Not Available [facility] (Lab) [address] [place], [address], 12/02/2023 17:39:58 12/02/19 24 12/02/2023 ELECT ROLYT E PANEL chloride 106 mEq/L 102-11 1 normal Not Available [facility] (Lab) [address] [place], [address], 12/02/2023 17:39:58 12/02/19 24 12/02/2023 ELECT ROLYT E PANEL CO2 22 mEq/L 21-31 normal Not Available [facility] (Lab) [address] [place], [address], 12/02/2023 17:39:58 12/02/19 24 12/02/2023 CULTU RE, URINE results called to JAMES Man Not Available [facility] (Lab) [address] [place], [address], 12/04/2023 10:30:27 12/02/19 24 12/02/2023 CULTU RE, URINE urine source Clean Catch Midstr eam Not Available [facility] (Lab) [address] [place], [address], 12/04/2023 10:30:27 12/02/19 24 12/02/2023 CULTU RE, URINE micro culture result No Growth @ 48 Hours Not Available [facility] (Lab) [address] [place], [address], 12/04/2023 10:30:27 12/03/19 24 12/03/2023 CBCWA D white blood cell 5.4 X103/ uL 4.6-9. 4 normal Not Available [facility] (Lab) [address] [place], [address], 12/03/2023 09:52:49 12/03/19 24 12/03/2023 CBCWA D red blood cell 3.88 X106/ uL 4.16-5 .60 low Not Available [facility] (Lab) [address] [place], [address], 12/03/2023 09:52:49 12/03/19 24 12/03/2023 CBCWA D hemoglobin 13.7 g/dL 12.9-1 7.4 normal Not Available [facility] (Lab) [address] [place], [address], 12/03/2023 09:52:49 12/03/1912/03/2023 CBCWA D hematocrit 39.8 % 39.1-5 0.6 normal Not Available [facility] (Lab) [address] [place], [address], 12/03/2023 09:52:49 12/03/1912/03/2023 CBCWA D MCV 103.0 fL 82.7-1 01.2 high Not Available [facility] (Lab) [address] [place], [address], 12/03/2023 09:52:49 12/03/1912/03/2023 CBCWA D MCH 35.2 pg 27.2-3 4.9 high Not Available [facility] (Lab) [address] [place], [address], 12/03/2023 09:52:49 12/03/1912/03/2023 CBCWA D MCHC 34.3 g/dL 32.3-3 5.2 normal Not Available [facility] (Lab) [address] [place], [address], 12/03/2023 09:52:49 12/03/1912/03/2023 CBCWA D RDW 12.4 % 10.3-1 4.2 normal Not Available [facility] (Lab) [address] [place], [address], 12/03/2023 09:52:49 12/03/1912/03/2023 CBCWA D platelets 183 X103/ uL 132-36 2 normal Not Available [facility] (Lab) [address] [place], [address], 12/03/2023 09:52:49 12/03/1912/03/2023 CBCWA D MPV 7.3 fL 6.7-9. 1 normal Not Available [facility] (Lab) [address] [place], [address], 12/03/2023 09:52:49 12/03/1912/03/2023 CBCWA D neutrophil % 75.1 % 43.0-7 6.4 normal Not Available [facility] (Lab) [address] [place], [address], 12/03/2023 09:52:49 12/03/1912/03/2023 CBCWA D lymphocyte % 19.2 % 13.5-4 1.5 normal Not Available [facility] (Lab) [address] [place], [address], 12/03/2023 09:52:49 12/03/1912/03/2023 CBCWA D monocyte % 4.6 % 4.6-13 .1 normal Not Available [facility] (Lab) [address] [place], [address], 12/03/2023 09:52:49 12/03/19 24 12/03/2023 CBCWA D eosinophil % 0.8 % 1.0-5. 7 low Not Available [facility] (Lab) [address] [place], [address], 12/03/2023 09:52:49 12/03/19 24 12/03/2023 CBCWA D basophil % 0.3 % 0.2-0. 8 normal Not Available [facility] (Lab) [address] [place], [address], 12/03/2023 09:52:49 12/03/19 24 12/03/2023 CBCWA D neutrophil # 4.08 X103/ uL 2.00-6 .40 normal Not Available [facility] (Lab) [address] [facility] [place], [address], 12/03/2023 09:52:49 12/03/19 24 12/03/2023 CBCWA D lymphocyte # 1.04 X103/ uL 0.90-2 .90 normal Not Available [facility] (Lab) [address] [place] [address] [place], [address], 12/03/2023 09:52:49 12/03/1912/03/2023 CBCWA D monocyte # 0.25 X103/ uL 0.20-1 .00 normal Not Available [facility] (Lab) [address] [place], [address], 12/03/2023 09:52:49 12/03/19 24 12/03/2023 CBCWA D eosinophil # 0.04 X103/ uL 0.10-0 .40 low Not Available [facility] (Lab) [address] [place], [address], 12/03/2023 09:52:49 12/03/19 24 12/03/2023 CBCWA D basophil # 0.02 X103/ uL 0.00-0 .10 normal Not Available [facility] (Lab) [address] [place], [address], 12/03/2023 09:52:49 12/03/19 24 12/03/2023 DDIME R ddimer 287 NG/mL 200-31 1 normal Not Available [facility] (Lab) [address] [place], [address], 12/03/2023 10:05:28 12/03/19 24 12/03/2023 BMP glucose 92 mg/dL 70-99 normal [facility] (Lab) [address] [place], [address], 12/03/2023 10:14:24 12/03/19 24 12/03/2023 BMP BUN 20 mg/dL 8-26 normal Not Available [facility] (Lab) [address] [place], [address], 12/03/2023 10:14:24 12/03/19 24 12/03/2023 BMP creatinine 1.9 mg/dL 0.8-1. 3 high Not Available [facility] (Lab) [address] [place], [address], 12/03/2023 10:14:24 12/03/19 24 12/03/2023 BMP eGFR non- 35 mL/mi n/1.7 3m2 Not Available [facility] (Lab) [address] [place], [address], 12/03/2023 10:14:24 12/03/19 24 12/03/2023 BMP eGFR [...] than 15 mL/mi n/1.7 3m^2. Not Available [facility] (Lab) [address], [place], [address], 12/03/2023 10:14:24 12/03/19 24 12/03/2023 BMP calcium 8.50 mg/dL 8.60-1 0.30 low Not Available [facility] (Lab) [address] [place], [address], 12/03/2023 10:14:24 12/03/19 24 12/03/2023 BMP sodium 137 mEq/L 136-14 4 normal Not Available [facility] (Lab) [address] [place], [place], [address], 12/03/2023 10:14:24 12/03/19 24 12/03/2023 BMP potassium 4.25 mEq/L 3.57-4 .71 normal Not Available [facility] (Lab) [address] [place], [place], [address], 12/03/2023 10:14:24 12/03/19 24 12/03/2023 BMP chloride 109 mEq/L 102-11 1 normal Not Available [facility] (Lab) [address] [place], [address], 12/03/2023 10:14:24 12/03/19 24 12/03/2023 BMP CO2 19 mEq/L 21-31 low Not Available [facility] (Lab) [address], [place], [address], 12/03/2023 10:14:24 12/03/19 24 12/03/2023 CRP C-reactive protein 24.28 mg/dL 0.10-0 .50 high Not Available [facility] (Lab) [address] [place], [address], 12/03/2023 10:41:51 12/03/19 24 12/03/2023 MANUA L DIFFE RENTI AL segmented neutrophil 52 % 50-70 normal Not Available [facility] (Lab) [address] [place], [address], 12/04/2023 10:31:04 12/03/19 24 12/03/2023 MANUA L DIFFE RENTI AL band neutrophil 29 % 0-5 high Not Available [facility] (Lab) [address] [place], [address], 12/04/2023 10:31:04 12/03/19 24 12/03/2023 MANUA L DIFFE RENTI AL lymphocyte 18 % 20-40 low Not Available [facility] (Lab) [address] [place], [address], 12/04/2023 10:31:04 12/03/19 24 12/03/2023 MANUA L DIFFE RENTI AL monocyte 1 % 1-6 normal Not Available [facility] (Lab) [address] [place], [address], 12/04/2023 10:31:04 12/03/19 24 12/03/2023 MANUA L DIFFE RENTI AL RBC morphology Normal normal normal Not Available [facility] (Lab) [address] [place], [address], 12/04/2023 10:31:04 12/04/19 24 12/04/2023 CBCWA D white blood cell 7.7 X103/ uL 4.6-9. 4 normal Not Available [facility] (Lab) [address] [place], [address], 12/04/2023 10:30:26 12/04/19 24 12/04/2023 CBCWA D red blood cell 3.55 X106/ uL 4.16-5 .60 low Not Available [facility] (Lab) [address] [place], [address], 12/04/2023 10:30:26 12/04/19 24 12/04/2023 CBCWA D hemoglobin 12.4 g/dL 12.9-1 7.4 low Not Available [facility] (Lab) [address] [place], [address], 12/04/2023 10:30:26 12/04/19 24 12/04/2023 CBCWA D hematocrit 35.8 % 39.1-5 0.6 low Not Available [facility] (Lab) [address] [place], [address], 12/04/2023 10:30:26 12/04/19 24 12/04/2023 CBCWA D MCV 101.0 fL 82.7-1 01.2 normal Not Available [facility] (Lab) [address] [place], [address], 12/04/2023 10:30:26 12/04/19 24 12/04/2023 CBCWA D MCH 35.0 pg 27.2-3 4.9 high Not Available [facility] (Lab) [address] [place], [address], 12/04/2023 10:30:26 12/04/19 24 12/04/2023 CBCWA D MCHC 34.7 g/dL 32.3-3 5.2 normal Not Available [facility] (Lab) [address] [place], [address], 12/04/2023 10:30:26 12/04/19 24 12/04/2023 CBCWA D RDW 13.1 % 10.3-1 4.2 normal Not Available [facility] (Lab) [address] [place], [address], 12/04/2023 10:30:26 12/04/19 24 12/04/2023 CBCWA D platelets 171 X103/ uL 132-36 2 normal Not Available [facility] (Lab) [address] [place], [address], 12/04/2023 10:30:26 12/04/19 24 12/04/2023 CBCWA D MPV 7.4 fL 6.7-9. 1 normal Not Available [facility] (Lab) [address] [place], [address], 12/04/2023 10:30:26 12/04/19 24 12/04/2023 CBCWA D neutrophil % 90.5 % 43.0-7 6.4 high Not Available [facility] (Lab) [address] [place], [address], 12/04/2023 10:30:26 12/04/19 24 12/04/2023 CBCWA D lymphocyte % 4.5 % 13.5-4 1.5 low Not Available [facility] (Lab) [address] [place], [address], 12/04/2023 10:30:26 12/04/19 24 12/04/2023 CBCWA D monocyte % 3.8 % 4.6-13 .1 low Not Available [facility] (Lab) [address] [place], [address], 12/04/2023 10:30:26 12/04/19 24 12/04/2023 CBCWA D eosinophil % 0.9 % 1.0-5. 7 low Not Available [facility] (Lab) [address] [facility] [place], [address], 12/04/2023 10:30:26 12/04/19 24 12/04/2023 CBCWA D basophil % 0.3 % 0.2-0. 8 normal Not Available [facility] (Lab) [address] [place], [address], 12/04/2023 10:30:26 12/04/19 24 12/04/2023 CBCWA D neutrophil # 6.93 X103/ uL 2.00-6 .40 high Not Available [facility] (Lab) [address] [facility] [place], [address], 12/04/2023 10:30:26 12/04/19 24 12/04/2023 CBCWA D lymphocyte # 0.34 X103/ uL 0.90-2 .90 low Not Available [facility] (Lab) [address] [facility] [place], [address], 12/04/2023 10:30:26 12/04/19 24 12/04/2023 CBCWA D monocyte # 0.29 X103/ uL 0.20-1 .00 normal Not Available [facility] (Lab) [address] [facility] [place], [address], 12/04/2023 10:30:26 12/04/19 24 12/04/2023 CBCWA D eosinophil # 0.07 X103/ uL 0.10-0 .40 low Not Available [facility] (Lab) [address] [facility] [place], [address], 12/04/2023 10:30:26 12/04/19 24 12/04/2023 CBCWA D basophil # 0.02 X103/ uL 0.00-0 .10 normal Manua l Diffe sarah al Used to Treat Patie nt Not Available [facility] (Lab) [address] [place], [address], 12/04/2023 10:30:26 12/04/19 24 12/04/2023 BMP glucose 125 mg/dL 70-99 high Not Availabl e [facility] (Lab) [address] [place], [address], 12/04/2023 10:30:29 12/04/19 24 12/04/2023 BMP BUN 24 mg/dL 8-26 normal Not Available [facility] (Lab) [address], [place], [address], 12/04/2023 10:30:29 12/04/19 24 12/04/2023 BMP creatinine 1.6 mg/dL 0.8-1. 3 high Not Available [facility] (Lab) [address], [place], [address], 12/04/2023 10:30:29 12/04/19 24 12/04/2023 BMP eGFR non- 43 mL/mi n/1.7 3m2 Not Available [facility] (Lab) [address] [place], [address], 12/04/2023 10:30:29 12/04/19 24 12/04/2023 BMP eGFR [...] than 15 mL/mi n/1.7 3m^2. Not Available [facility] (Lab) [address] [place], [address], 12/04/2023 10:30:29 12/04/19 24 12/04/2023 BMP calcium 8.90 mg/dL 8.60-1 0.30 normal Not Available [facility] (Lab) [address] [place], [address], 12/04/2023 10:30:29 12/04/19 24 12/04/2023 BMP sodium 142 mEq/L 136-14 4 normal Not Available [facility] (Lab) [address] [place], [address], 12/04/2023 10:30:29 12/04/19 24 12/04/2023 BMP potassium 4.03 mEq/L 3.57-4 .71 normal Not Available [facility] (Lab) [address] [place], [address], 12/04/2023 10:30:29 12/04/19 24 12/04/2023 BMP chloride 111 mEq/L 102-11 1 normal Not Available [facility] (Lab) [address] [place], [address], 12/04/2023 10:30:29 12/04/19 24 12/04/2023 BMP CO2 21 mEq/L 21-31 normal Not Available [facility] (Lab) [address] [place], [address], 12/04/2023 10:30:29 12/04/19 24 12/04/2023 CRP C-reactive protein 35.65 mg/dL 0.10-0 .50 high Not Available [facility] (Lab) [address] [place], [address], 12/04/2023 10:30:32 12/04/19 24 12/04/2023 MANUA L DIFFE RENTI AL segmented neutrophil 78 % 50-70 high Not Available [facility] (Lab) [address], [place], [address], 12/04/2023 10:35:12 12/04/19 24 12/04/2023 MANUA L DIFFE RENTI AL band neutrophil 14 % 0-5 high Not Available [facility] (Lab) [address], [place], [address], 12/04/2023 10:35:12 12/04/19 24 12/04/2023 MANUA L DIFFE RENTI AL lymphocyte 7 % 20-40 low Not Available [facility] (Lab) [address], [place], [address], 12/04/2023 10:35:12 12/04/19 24 12/04/2023 MANUA L DIFFE RENTI AL monocyte 2 % 1-6 normal Not Available [facility] (Lab) [address], [place], [address], 12/04/2023 10:35:12 12/04/19 24 12/04/2023 MANUA L DIFFE RENTI AL toxic granulation 2+ none seen abnormal Resul t amend ed from () (00/0 0/00 12:00 AM) to (2+) by CJN. Not Available [facility] (Lab) [address], [place], [address], 12/04/2023 10:35:12 12/04/19 24 12/04/2023 COVID / [...] or revok ed soone r. Not Available [facility] (Lab) [address], [place], [address], 12/04/2023 18:46:27 12/04/19 24 12/04/2023 COVID / INFLU A/B / RSV PCR influ A PCR Negati ve negati ve normal Not Available [facility] (Lab) [address], [place], [address], 12/04/2023 18:46:27 12/04/19 24 12/04/2023 COVID / [...] or revok ed soone r. Not Available [facility] (Lab) [address] [place], [address], 12/04/2023 18:46:27 12/04/19 24 12/04/2023 COVID / [...] or revok ed soone r. Not Available [facility] (Lab) [address] [place], [address], 12/04/2023 18:46:27 12/05/19 24 12/05/2023 CBCWA D white blood cell 8.9 X103/ uL 4.6-9. 4 normal Not Available [facility] (Lab) [address] [place], [address], 12/05/2023 09:53:36 12/05/19 24 12/05/2023 CBCWA D red blood cell 3.67 X106/ uL 4.16-5 .60 low Not Available [facility] (Lab) [address] [place], [address], 12/05/2023 09:53:36 12/05/19 24 12/05/2023 CBCWA D hemoglobin 12.6 g/dL 12.9-1 7.4 low Not Available [facility] (Lab) [address] [place], [address], 12/05/2023 09:53:36 12/05/19 24 12/05/2023 CBCWA D hematocrit 37.2 % 39.1-5 0.6 low Not Available [facility] (Lab) [address] [place], [address], 12/05/2023 09:53:36 12/05/19 24 12/05/2023 CBCWA D MCV 102.0 fL 82.7-1 01.2 high Not Available [facility] (Lab) [address] [place], [address], 12/05/2023 09:53:36 12/05/19 24 12/05/2023 CBCWA D MCH 34.4 pg 27.2-3 4.9 normal Not Available [facility] (Lab) [address] [place], [address], 12/05/2023 09:53:36 12/05/19 24 12/05/2023 CBCWA D MCHC 33.9 g/dL 32.3-3 5.2 normal Not Available [facility] (Lab) [address] [place], [address], 12/05/2023 09:53:36 12/05/19 24 12/05/2023 CBCWA D RDW 12.4 % 10.3-1 4.2 normal Not Available [facility] (Lab) [address] [place], [address], 12/05/2023 09:53:36 12/05/19 24 12/05/2023 CBCWA D platelets 201 X103/ uL 132-36 2 normal Not Available [facility] (Lab) [address] [place], [address], 12/05/2023 09:53:36 12/05/19 24 12/05/2023 CBCWA D MPV 7.9 fL 6.7-9. 1 normal Not Available [facility] (Lab) [address] [place], [address], 12/05/2023 09:53:36 12/05/19 24 12/05/2023 CBCWA D neutrophil % 94.6 % 43.0-7 6.4 high Not Available [facility] (Lab) [address] [place], [address], 12/05/2023 09:53:36 12/05/19 24 12/05/2023 CBCWA D lymphocyte % 2.0 % 13.5-4 1.5 low Not Available [facility] (Lab) [address] [place], [address], 12/05/2023 09:53:36 12/05/19 24 12/05/2023 CBCWA D monocyte % 2.2 % 4.6-13 .1 low Not Available [facility] (Lab) [address] [place], [address], 12/05/2023 09:53:36 12/05/19 24 12/05/2023 CBCWA D eosinophil % 0.9 % 1.0-5. 7 low Not Available [facility] (Lab) [address] [place], [address], 12/05/2023 09:53:36 12/05/1912/05/2023 CBCWA D basophil % 0.3 % 0.2-0. 8 normal Not Available [facility] (Lab) [address] [place], [address], 12/05/2023 09:53:36 12/05/19 24 12/05/2023 CBCWA D neutrophil # 8.45 X103/ uL 2.00-6 .40 high Not Available [facility] (Lab) [address] [facility] [place], [address], 12/05/2023 09:53:36 12/05/19 24 12/05/2023 CBCWA D lymphocyte # 0.18 X103/ uL 0.90-2 .90 low Not Available [facility] (Lab) [facility] [place], [address], 12/05/2023 09:53:36 12/05/1912/05/2023 CBCWA D monocyte # 0.20 X103/ uL 0.20-1 .00 normal Not Available [facility] (Lab) [address] [place] [address] [place], [address], 12/05/2023 09:53:36 12/05/19 24 12/05/2023 CBCWA D eosinophil # 0.08 X103/ uL 0.10-0 .40 low Not Available [facility] (Lab) [address] [place] [address] [place], [address], 12/05/2023 09:53:36 12/05/19 24 12/05/2023 CBCWA D basophil # 0.03 X103/ uL 0.00-0 .10 normal Aixa tripathi al Used to Treat Patie nt Not Available [facility] (Lab) [address] [facility] [place], [address], 12/05/2023 09:53:36 12/05/1912/05/2023 BMP glucose 123 mg/dL 70-99 high [facility] [address] [facility] [place], [address], 12/05/2023 10:06:42 12/05/19 24 12/05/2023 BMP BUN 29 mg/dL 8-26 high Not Available [facility] (Lab) [address] [place], [address], 12/05/2023 10:06:42 12/05/19 24 12/05/2023 BMP creatinine 1.7 mg/dL 0.8-1. 3 high Not Available [facility] (Lab) [address] [place], [address], 12/05/2023 10:06:42 12/05/19 24 12/05/2023 BMP eGFR non- 40 mL/mi n/1.7 3m2 Not Available [facility] (Lab) [address] [place], [address], 12/05/2023 10:06:42 12/05/19 24 12/05/2023 BMP eGFR [...] than 15 mL/mi n/1.7 3m^2. Not Available [facility] (Lab) [address] [place], [address], 12/05/2023 10:06:42 12/05/19 24 12/05/2023 BMP calcium 8.90 mg/dL 8.60-1 0.30 normal Not Available [facility] (Lab) [address] [place], [address], 12/05/2023 10:06:42 12/05/19 24 12/05/2023 BMP sodium 142 mEq/L 136-14 4 normal Not Available [facility] (Lab) [address] [place], [address], 12/05/2023 10:06:42 12/05/19 24 12/05/2023 BMP potassium 4.08 mEq/L 3.57-4 .71 normal Not Available [facility] (Lab) [address] [place], [address], 12/05/2023 10:06:42 12/05/19 24 12/05/2023 BMP chloride 111 mEq/L 102-11 1 normal Not Available [facility] (Lab) [address] [place], [address], 12/05/2023 10:06:42 12/05/19 24 12/05/2023 BMP CO2 21 mEq/L 21-31 normal Not Available [facility] (Lab) [address] [place], [address], 12/05/2023 10:06:42 12/05/19 24 12/05/2023 CRP C-reactive protein 18.30 mg/dL 0.10-0 .50 high Not Available [facility] (Lab) [address] [place], [address], 12/05/2023 10:06:44 12/05/19 24 12/05/2023 MANUA L DIFFE RENTI AL segmented neutrophil 84 % 50-70 high Not Available [facility] (Lab) [address] [place], [address], 12/05/2023 10:08:21 12/05/19 24 12/05/2023 MANUA L DIFFE RENTI AL band neutrophil 8 % 0-5 high Not Available [facility] (Lab) [address] [place], [address], 12/05/2023 10:08:21 12/05/19 24 12/05/2023 MANUA L DIFFE RENTI AL lymphocyte 6 % 20-40 low Not Available [facility] (Lab) [address] [place], [address], 12/05/2023 10:08:21 12/05/19 24 12/05/2023 AIXA TRIPATHI AL monocyte 2 % 1-6 normal Not Available [facility] (Lab) [address] [place], [address], 12/05/2023 10:08:21 12/05/19 24 12/05/2023 AIXA TRIPATHI AL RBC morphology Normal normal normal Not Available [facility] (Lab) [address] [place], [address], 12/05/2023 10:08:21 12/06/19 24 12/06/2023 CBCWA D white blood cell 6.5 X103/ uL 4.6-9. 4 normal Not Available [facility] (Lab) [address] [place], [address], 12/06/2023 12:48:33 12/06/19 24 12/06/2023 CBCWA D red blood cell 3.67 X106/ uL 4.16-5 .60 low Not Available [facility] (Lab) [address] [place], [address], 12/06/2023 12:48:33 12/06/19 24 12/06/2023 CBCWA D hemoglobin 12.7 g/dL 12.9-1 7.4 low Not Available [facility] (Lab) [address] [place], [address], 12/06/2023 12:48:33 12/06/19 24 12/06/2023 CBCWA D hematocrit 37.2 % 39.1-5 0.6 low Not Available [facility] (Lab) [address] [place], [address], 12/06/2023 12:48:33 12/06/19 24 12/06/2023 CBCWA D MCV 101.0 fL 82.7-1 01.2 normal Not Available [facility] (Lab) [address] [place], [address], 12/06/2023 12:48:33 12/06/19 24 12/06/2023 CBCWA D MCH 34.5 pg 27.2-3 4.9 normal Not Available [facility] (Lab) [address] [place], [address], 12/06/2023 12:48:33 12/06/19 24 12/06/2023 CBCWA D MCHC 34.0 g/dL 32.3-3 5.2 normal Not Available [facility] (Lab) [address] [place], [address], 12/06/2023 12:48:33 12/06/19 24 12/06/2023 CBCWA D RDW 12.5 % 10.3-1 4.2 normal Not Available [facility] (Lab) [address] [place], [address], 12/06/2023 12:48:33 12/06/19 24 12/06/2023 CBCWA D platelets 203 X103/ uL 132-36 2 normal Not Available [facility] (Lab) [address] [place], [address], 12/06/2023 12:48:33 12/06/19 24 12/06/2023 CBCWA D MPV 7.7 fL 6.7-9. 1 normal Not Available [facility] (Lab) [address] [place], [address], 12/06/2023 12:48:33 12/06/19 24 12/06/2023 CBCWA D neutrophil % 90.2 % 43.0-7 6.4 high Not Available [facility] (Lab) [address] [place], [address], 12/06/2023 12:48:33 12/06/19 24 12/06/2023 CBCWA D lymphocyte % 5.2 % 13.5-4 1.5 low Not Available [facility] (Lab) [facility] [place], [address], 12/06/2023 12:48:33 12/06/19 24 12/06/2023 CBCWA D monocyte % 3.2 % 4.6-13 .1 low Not Available [facility] (Lab) [facility] [place], [address], 12/06/2023 12:48:33 12/06/19 24 12/06/2023 CBCWA D eosinophil % 1.0 % 1.0-5. 7 normal Not Available [facility] (Lab) [address] [place], [address], 12/06/2023 12:48:33 12/06/19 24 12/06/2023 CBCWA D basophil % 0.4 % 0.2-0. 8 normal Not Available [facility] (Lab) [address] [place] [address] [place], [address], 12/06/2023 12:48:33 12/06/19 24 12/06/2023 CBCWA D neutrophil # 5.82 X103/ uL 2.00-6 .40 normal Not Available [facility] (Lab) [facility] [place], [address], 12/06/2023 12:48:33 12/06/19 24 12/06/2023 CBCWA D lymphocyte # 0.34 X103/ uL 0.90-2 .90 low Not Available [facility] (Lab) [facility] [place], [address], 12/06/2023 12:48:33 12/06/19 24 12/06/2023 CBCWA D monocyte # 0.21 X103/ uL 0.20-1 .00 normal Not Available [facility] (Lab) [address] [place], [address], 12/06/2023 12:48:33 12/06/19 24 12/06/2023 CBCWA D eosinophil # 0.06 X103/ uL 0.10-0 .40 low Not Available [facility] (Lab) [address] [place], [address], 12/06/2023 12:48:33 12/06/19 24 12/06/2023 CBCWA D basophil # 0.03 X103/ uL 0.00-0 .10 normal Aixa tripathi al Used to Treat Patie nt Not Available [facility] (Lab) [address] [place], [address], 12/06/2023 12:48:33 12/06/19 24 12/06/2023 CRP C-reactive protein 11.17 mg/dL 0.10-0 .50 high Not Available [facility] (Lab) [address] [place], [address], 12/06/2023 12:48:37 12/06/19 24 12/06/2023 BMP glucose 103 mg/dL 70-99 high [facility] [address] [place], [address], 12/06/2023 12:49:28 12/06/19 24 12/06/2023 BMP BUN 33 mg/dL 8-26 high Not Available [facility] (Lab) [address] [place], [address], 12/06/2023 12:49:28 12/06/19 24 12/06/2023 BMP creatinine 1.7 mg/dL 0.8-1. 3 high Not Available [facility] (Lab) [address] [place], [address], 12/06/2023 12:49:28 12/06/19 24 12/06/2023 BMP eGFR non- 40 mL/mi n/1.7 3m2 Not Available [facility] (Lab) [address] [place], [address], 12/06/2023 12:49:28 12/06/19 24 12/06/2023 BMP eGFR [...] than 15 mL/mi n/1.7 3m^2. Not Available [facility] (Lab) [address] [place], [address], 12/06/2023 12:49:28 12/06/19 24 12/06/2023 BMP calcium 9.00 mg/dL 8.60-1 0.30 normal Not Available [facility] (Lab) [address] [place], [address], 12/06/2023 12:49:28 12/06/19 24 12/06/2023 BMP sodium 139 mEq/L 136-14 4 normal Not Available [facility] (Lab) [address] [place], [address], 12/06/2023 12:49:28 12/06/19 24 12/06/2023 BMP potassium 3.65 mEq/L 3.57-4 .71 normal Not Available [facility] (Lab) [address] [place], [address], 12/06/2023 12:49:28 12/06/19 24 12/06/2023 BMP chloride 110 mEq/L 102-11 1 normal Not Available [facility] (Lab) [address] [place], [address], 12/06/2023 12:49:28 12/06/19 24 12/06/2023 BMP CO2 26 mEq/L 21-31 normal Not Available [facility] (Lab) [address] [place], [address], 12/06/2023 12:49:28 12/06/19 24 12/06/2023 MAGNE SIUM magnesium 2.09 mg/dL 1.80-2 .60 normal Not Available [facility] (Lab) [address] [place], [address], 12/06/2023 12:49:29 12/06/19 24 12/06/2023 MANUA L DIFFE RENTI AL segmented neutrophil 88 % 50-70 high Not Available [facility] (Lab) [address] [place], [address], 12/06/2023 13:32:43 12/06/19 24 12/06/2023 MANUA L DIFFE RENTI AL band neutrophil 5 % 0-5 normal Not Available [facility] (Lab) [address] [place], [address], 12/06/2023 13:32:43 12/06/19 24 12/06/2023 MANUA L DIFFE RENTI AL lymphocyte 5 % 20-40 low Not Available [facility] (Lab) [address] [place], [address], 12/06/2023 13:32:43 12/06/19 24 12/06/2023 AIXA TRIPATHI AL monocyte 2 % 1-6 normal Not Available [facility] (Lab) [address], [place], [address], 12/06/2023 13:32:43 12/02/19 24 12/02/2023 CT, head + brain , w/o contr ast No observ ation record ed. [address], [place], [address], 12/03/2023 11:44:52 12/03/1912/03/2023 CT, cervi pj spine , w/o contr ast No observ ation record ed. [address], [place], [address], 12/03/2023 18:44:12 12/03/19 24 12/03/2023 CT, chest , w/o contr ast No observ ation record ed. [address], [place], [address], 12/03/2023 18:40:57 Result Notes None recorded. Problems Name Problem SNOMED Code Status Onset Date Resolution Date Notes Provider Name and Address Organization Details Recorded Time Hypertensive disorder 93573141 Active 2023 JAMES Gresham [address] [place], [address], [facility] 4 07:28:25 Mechanical prosthetic mitral valve replacement Active 2023 mitral JAMES Gresham [address] [place], [address], [facility] 4 07:28:58 Hyperlipidemi a 95546723 Active 2023 JAMES Gresham [address] [place], [address], [facility] 4 07:29:05 Chronic tremor 544752203 Active 2023 [address]P [address], [place], [address], [facility] 4 07:29:12 Seizure disorder 590612453 Active 2023 JAMES Gresham [address], [place], [address], [facility] 4 07:29:26 Warfarin therapy Active 2023 RUBI G[address]P [address], [place], [address] , [facility] 4 07:30:23 Iron deficiency anemia 84761436 Active 2023 JAMES Gresham [address], [place], [address], [facility] 4 07:30:38 Gastroesophag eal reflux disease 345075011 Active 2023 RUBI [address]P [address], [place], [address], [facility] 4 07:30:46 Essential hypertension 75913121 Active 2023 RUBI [address]P [address], [place], [address] , [facility] 4 07:31:02 Chronic kidney disease 056648116 Active 2023 thinks eGFR was 25% last check JAMES Gresham [address], [place], [address], 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 4 08:41:34 Impaired cognition 461084935 Active 2023 Gaby Cor[address]ina [place], [address], [facility] 09:45:05 Problem Notes None recorded. Procedures Surgical History Date Name Laterality Status Provider Name and Address Organization Details Recorded Time 4 CT of chest without contrast [place], [address], [facility] 12/03/2023 18:40:34 CT cervical spine without contrast [place], [address], [facility] 12/03/2023 18:43:[address] head/brain w/o dye [place], [address], [facility] 12/03/2023 11:44:23 mechanical prosthetic mitral valve replacement completed JAMES Gresham [address] [place], [address], [facility] 12/02/2023 07:38:51 repair of inguinal hernia completed JAMES [place], [address], [facility] 12/02/2023 07:39:00 Imaging Results None [...] Address Organization Details Last Updated DateTime 4 37.330546186 2222 [place] 120 /min 34 /min 94 % 126/75 mm[Hg] Padmini Nguyen CNA [address], [place], [address] [place] [address] 4 20:56:46 Date Recorded Body temperature Heart rate Respiratory rate Oxygen saturation Body temperature Heart rate Respiratory rate Oxygen saturation Body temperature Heart rate Respiratory rate Oxygen saturation Provider Name and Address Organization Details Last Updated DateTime 4 38.637176822 5556 Frances 91 /min 16 /min 91 % 37.176548348 3333 Frances 101 /min 16 /min 95 % 37.846751473 4444 Frances 98 /min 16 /min 96 % Ashley Hanson CNA [address] [place], [address] [place] [address] 4 10:03:08 Date Recorded Inhaled oxygen flow [...] /min 18 /min 100 % 2 L/min 37.290688114 5556 Frances 102 /min 18 /min 96 % 2 L/min 133/70 mm[Hg] 144/67 mm[Hg] 119/79 mm[Hg] 124/72 mm[Hg] 136/74 mm[Hg] Ashley Hanson CNA [address] [place], [address] [place] [address] 4 18:09:23 Date Recorded Heart rate Respiratory [...] John RN [address], [place], [address] [place] [address] 4 09:23:38 Date Recorded Systolic And Diastolic Systolic And Diastolic Systolic And Diastolic Systolic And Diastolic Provider Name and Address Organization Details Last Updated DateTime 12/02/2023 131/69 mm[Hg] 132/79 mm[Hg] 127/77 mm[Hg] 135/77 mm[Hg] Larissa John RN [address], [place], [address] [place] [address] 4 09:23:38 Date Recorded Body temperature Heart rate Respiratory rate Oxygen saturation Body temperature Heart rate Respiratory rate Oxygen saturation Body temperature Heart rate Respiratory rate Oxygen saturation Provider Name and Address Organization Details Last Updated DateTime 4 37.246492000 6667 Frances 98 /min 18 /min 94 % 37.606042472 2222 Frances 89 /min 18 /min 94 % 37.442451637 2222 Frances 92 /min 20 /min 94 % Tucker Blank RN [address] [place], [address] [place] [address] 4 08:13:58 Date Recorded Oxygen saturation Inhaled oxygen flow rate Systolic And Diastolic Systolic And Diastolic Systolic And Diastolic Provider Name and Address Organization Details Last Updated DateTime 4 90 % 2 L/min 124/74 mm[Hg] 149/64 mm[Hg] 137/73 mm[Hg] Tucker Blank RN [address] [place], [address] [place] [address] 4 08:13:58 Date Recorded Body temperature Heart rate Respiratory rate Oxygen saturation Systolic And Diastolic Provider Name and Address Organization Details Last Updated DateTime 4 37.873994009 2222 Frances 95 /min 17 /min 94 % 128/76 mm[Hg] Sallie Reeves [facility] 4 06:39:17 Date Recorded Body temperature Heart rate Respiratory rate Oxygen saturation Inhaled oxygen flow rate Systolic And Diastolic Provider Name and Address Organization Details Last Updated DateTime 4 37 Frances 94 /min 20 /min 97 % 3 L/min 100/62 mm[Hg] Bernadine Ling [address], [place], [address] , [facility] 22:06:39 Date Recorded Body temperature Oxygen saturation Inhaled oxygen flow rate Provider Name and Address Organization Details Last Updated DateTime 12/03/2023 37.66147718121 67 Frances 93 % 3 L/min Tucker Blank RN [address], [place], [address], [facility] 12/03/2023 07:31:00 Date Recorded Body temperature Heart rate Respiratory rate Oxygen saturation Inhaled oxygen flow rate Body temperature Heart rate Respiratory rate Oxygen saturation Inhaled oxygen flow rate Body temperature Heart rate Provider Name and Address Organization Details Last Updated DateTime 37.348702235 4444 Frances 85 /min 14 /min 94 % 3 L/min 38 Frances 109 /min 14 /min 93 % 3 L/min 36.133137182 8889 Frances 89 /min Connie Santiago CNA [address], [place], [address], [facility] 4 17:19:57 Date Recorded Respiratory rate Oxygen saturation Inhaled oxygen flow rate Systolic And Diastolic Systolic And Diastolic Systolic And Diastolic Provider Name and Address Organization Details Last Updated DateTime 4 14 /min 94 % 3 L/min 112/75 mm[Hg] 106/66 mm[Hg] 94/62 mm[Hg] Connie Santiago CNA [address], [place], [address] 4 17:19:57 Date Recorded Body temperature Heart rate Respiratory rate Oxygen saturation Inhaled oxygen flow rate Body temperature Heart rate Respiratory rate Oxygen saturation Inhaled oxygen flow rate Systolic And Diastolic Systolic And Diastolic Provider Name and Address Organization Details Last Updated DateTime 4 39 Frances 99 /min 16 /min 94 % 4 L/min 36.830177382 8889 Frances 88 /min 16 /min 94 % 4 L/min 118/73 mm[Hg] 100/59 mm[Hg] Sallie Reeves [facility] 4 05:50:21 Date Recorded Body weight Provider Name an d Address Organization Details Last Updated DateTime 12/04/2023 [address] g Seema Gardner, RN [address] [place], [address], [facility] 12/04/2023 12:20:35 Date Recorded Body temperature Heart rate Respiratory rate Oxygen saturation Inhaled oxygen flow rate Body temperature Heart rate Respiratory rate Oxygen saturation Inhaled oxygen concentration Body temperature Heart rate Provider Name and Address Organization Details Last Updated DateTime 4 36.784516756 2222 Frances 83 /min 21 /min 95 % 2 L/min 37.722560271 5556 Frances 86 /min 20 /min 94 % 2 % 36.241640485 2222 Frances 82 /min Bernadine Ling [address] [place], [address] , [facility] 4 22:25:20 Date Recorded Respiratory rate Oxygen saturation Inhaled oxygen flow rate Systolic And Diastolic Systolic And Diastolic Systolic And Diastolic Provider Name and Address Organization Details Last Updated DateTime 4 20 /min 91 % 2 L/min 104/67 mm[Hg] 107/64 mm[Hg] 112/64 mm[Hg] Bernadine Ling [address] [place], [address] , [facility] 4 22:25:20 Date Recorded Body temperature Heart rate Respiratory rate Oxygen saturation Inhaled oxygen flow rate Body temperature Heart rate Respiratory rate Oxygen saturation Body temperature Heart rate Respiratory rate Provider Name and Address Organization Details Last Updated DateTime 4 36.920018596 2222 Frances 100 /min 20 /min 92 % 1 L/min 36.994429525 6667 Frances 97 /min 18 /min 92 % 36.136581530 2222 Frances 79 /min 18 /min Pamella Espinoza son, DOCUMENT CONTROLLER [address], [place], [address] 6[facility] 4 18:18:04 Date Recorded Oxygen saturation Inhaled oxygen flow rate Systolic And Diastolic Systolic And Diastolic Systolic And Diastolic Provider Name and Address Organization Details Last Updated DateTime 4 91 % 2 L/min 107/63 mm[Hg] 110/72 mm[Hg] 101/65 mm[Hg] Pamella Espinoza son, DOCUMENT CONTROLLER [address], [place], [address], [facility] 4 18:18:04 Date Recorded Body temperature Heart rate Respiratory rate Oxygen saturation Inhaled oxygen flow rate Systolic And Diastolic Provider Name and Address Organization Details Last Updated DateTime 4 36.282957186 6667 Frances 81 /min 16 /min 97 % 1 L/min 107/64 mm[Hg] Sallie Reeves [facility] 4 06:10:12 Date Recorded Body weight Provider Name an d Address Organization Details Last Updated DateTime 12/05/2023 96738.788 g Larissa John, MAYE [address], [place], [address], [facility] 12/05/2023 11:12:41 Date Recorded Body temperature Heart rate Respiratory rate Oxygen saturation Inhaled oxygen flow rate Systolic And Diastolic Provider Name and Address Organization Details Last Updated DateTime 4 37.367575171 7778 Frances 101 /min 19 /min 90 % 2 L/min 113/70 mm[Hg] Afua Mccain [address] [place], [address], [facility] 4 11:37:31 Date Recorded Body temperature Heart rate Respiratory rate Oxygen saturation Inhaled oxygen flow rate Body temperature Heart rate Respiratory rate Oxygen saturation Inhaled oxygen flow rate Systolic And Diastolic Systolic And Diastolic Provider Name and Address Organization Details Last Updated DateTime 4 36.427292879 3333 Frances 88 /min 18 /min 92 % 1 L/min 36.661197911 2222 Frances 86 /min 18 /min 94 % 1 L/min 126/56 mm[Hg] 122/62 mm[Hg] Bernadine Ling [address], [place], [address] [place] [address] 4 06:19:35 Date Recorded Body temperature Heart rate Respiratory rate Oxygen saturation Body temperature Heart rate Respiratory rate Oxygen saturation Systolic And Diastolic Systolic And Diastolic Provider Name and Address Organization Details Last Updated DateTime 4 36.819438763 2222 Frances 85 /min 16 /min 89 % 36.903742851 3333 Frances 100 /min 18 /min 86 % 107/57 mm[Hg] 124/77 mm[Hg] Mel Lemus CNA [address] [place], [address] [place] [address] 4 18:14:33 Date Recorded Body temperature Heart rate Respiratory rate Oxygen saturation Systolic And Diastolic Provider Name and Address Organization Details Last Updated DateTime 4 37.718992099 2222 Frances 97 /min 20 /min 92 % 127/76 mm[Hg] Tucker Blank RN [address] [facility] [place], [address] [place] [address] 4 21:29:38 Date Recorded Body temperature Heart rate Respiratory rate Oxygen saturation Inhaled oxygen flow rate Systolic And Diastolic Provider Name and Address Organization Details Last Updated DateTime 4 36.920489888 3333 Frances 84 /min 18 /min 90 % 1 L/min 119/72 mm[Hg] Tucker Blank RN [address] [facility] [place], [address] [place] [address] 4 02:05:18 Date Recorded Body temperature Heart rate Respiratory rate Oxygen saturation Body weight Body temperature Heart rate Respiratory rate Oxygen saturation Systolic And Diastolic Systolic And Diastolic Provider Name and Address Organization Details Last Updated DateTime 4 37.279018914 5556 Frances 103 /min 16 /min 93 % 45490.6 24 g 36.576434901 6667 Frances 106 /min 14 /min 91 % 105/58 mm[Hg] 112/72 mm[Hg] Connie Santiago CNA [address] [place], [address], [facility] 14:13:07 Social History Question Answer Notes LastModified by Organizat ion Details LastModified Time Tobacco Smoking Status Never Smoker Tucker Blank, RN [address], [place], [address], [facility] 12/02/2023 07:03:30 What Is Your [...] ICD10 Code Diagnosis IMO Codes Diagnosis Note [id number] Gaby Monte, [facility] [address] [place] [address] 12/02/2023 10:07:49 12/03/2023 09:53:35 [id number] Gaby Monte, [facility] [address] [place] [address] 12/03/2023 10:39:23 12/03/2023 15:22:18 [id number] Ede Brown MD [facility] [address] [place] [address] 12/04/2023 10:26:17 12/04/2023 14:04:05 [id number] Ryan Schneider [place] [address] [place] [address] 12/04/2023 11:50:58 12/04/2023 18:24:48 [id number] [facility] [address] [place] [address] 12/05/2023 10:44:14 12/05/2023 18:07:02 Health Concerns Section Related Observation LastModified by Organization Detai ls LastModified Time None Recorded Concern Status LastModified by Organization Details LastModified Time None Recorded Advance Directives Directive None Recorded Payers Insurance Date Sequence Insurance Name Policy Number Policy Reynolds Covered Member ID Reynolds Member ID Guarantor Name 12/15/2023 1 [place] i-marker Glenn Clayton [id number] Glenn Clayton 12/04/2023 2 [employer] (MEDICARE SUPPLEMENT) Glenn Clayton [id number] Glenn Clayton 12/04/2023 [place] i-marker Glenn Clayton [id number] Glenn Clayton 12/04/2023 3 [place] Glenn Clayton [id number] Glenn Clayton Notes Date Note Type [...] Assessment & Plan None recorded Gaby Monte, [employer] [address], [place], [address], [facility] 12/02/2023 22:58:52 12/03/2023 text/html Subjective [...] then to send him [place] to do any swallow studies or referrals [...] hot, dry Vitals VitalMost RecentTime8 Hour Range Mezxfftlknr980.4 A86-42-3442 11:0498.4 F-102.2 F Heart rpnq397ovovfskh imrsrqoc29-48-4959 11:0485bpm-120bpm Blood zhxhjryf221/66sitting 12-03-2023 11:89355/59 - 149/64 Respiratory vhnl4767-38-8604 11:0414-34 Oxygen pmojgngbno93%nasal fdcvtin7N/oob08-92-91 24 11:0490%-100% Intake & Pwijqu00 Hour Total Mkukoa9153.0mL Hkqotv4397.0mL Net Edeczus5845fI Recent Labs Na + 137 mEq/L Cl [...] 08 1 3 2 024 Gaby Monte, [employer]-C amLODIPine Oral10 mgevery day08:, 08 1 3 2 024 Gaby Monte, [employer]-C aspirin Oral81 mgevery day08:, 08 1 3 2 024 Gaby Monte, [employer]-C atorvastatin Oral20 mgevery day at ottnhcz49:00, 08 1 3 2 024 Gaby Monte, [employer]-C azaTHIOprine Fbay301 mgevery day08:, 08 1 3 2 024 Gaby Monte, [employer]-C azithromycin IV500 mgevery 24 hours for 4 asof022zsxc914xR4.9 % sodium chloride(2 mg/mL)250 mL/hr for 1 hour08:00, 08 1 4 2 024 09:00, 08 1 7 2 024 Gaby Monte, [employer]-C cefTRIAXone IV1 gevery 12 hours for 5 dfbb7cnm208dT3.9 % sodium chloride(0.01 g/mL)100 mL/hr for 1 hour07:32, 08 1 3 2 024 20:32, 08 1 7 2 024 Gaby Monte, [employer]-C ferrous gluconate Tnnz640 mg2 times per day19:00, 08 1 3 2 024 Gaby Monte, [employer]-C Keppra Bhph356 mg2 times per day08:01, 08 1 3 2 024 RUBI GreshamP-C multivitamins, tx-minerals Oral Tablet1 tabevery day08:01, 08 1 3 2 024 RUBI GreshamP-C omeprazole Oral Delayed Release Fiwqxro41 mgevery 24 hours21:00, 08 1 3 2 024 RUBI GreshamP-C warfarin Oral2 mgEvery evening at 6 pmfor a total of 7mg18:00, 08 1 3 2 024 RUBI GreshamP-C warfarin Oral5 mgEvery evening at 6 pmfor a total of 7mg18:00, 08 1 3 2 024 Gaby Monte [employer]-C PRN Medications Name Sig Start Stop Ordered by acetaminophen Oral1,000 mg4 times per day08:39, 08 1 3 2 024 Gaby Monte, [employer]-C IV Fluids Name Sig Start Stop Ordered [...] MonteJAMES [address] [place], [place], [address], [facility] 12/03/2023 14:32:57 12/04/2023 text/html Rolanda [...] x 3, normal mood and affect. Skin: [place], warm, and dry. Lower eyelids puffy in [...] station, CORTE[place], ambulats in hallway Vitals VitalMost OzzfxqIosr78 Hour Range Seuaprdrreg39.1 Ftemporal -51-1561 16:1798 F-100.4 F Heart oqnz07mwkrxscj vlwincyg07-35-2336 16:1779bpm-109bpm Blood uidpuprc875/65sitting zpjli37-43-7293 16:1794/62 - 112/75 Respiratory yoec5243-91-4480 16:1714-21 Oxygen pugzvjkwrc08%room air2L/uih08-16-4174 16:1791%-97% Xxpggh374bhz0li32-41- 2024 10:38429omk6il-129gmf 6oz Pain qybox4qqbnhxe13-46-50 24 12:000-0 Intake & Eyjzny98 Hour Total Ozilxl398.0mL Output0.0mL Net Busuuox312lH Recent Labs Na + 142 mEq/L Cl [...] 08 1 4 2 024 Gaby Monte, [employer]-C albuterol-ipratropium Nebulized 3 mg (2.5 mg base)-0.5 mg/3 mL3 mL3 times per day08:58, 08 1 3 2 024 RUBI GreshamP-C amLODIPine Oral10 mgevery day08:, 08 1 3 2 024 Gaby Monte, [employer]-C aspirin Oral81 mgevery day08:, 08 1 3 2 024 Gaby Monte, [employer]-C atorvastatin Oral20 mgevery day at euulsyd46:00, 08 1 3 2 024 RUBI GreshamP-C azaTHIOprine Yqrf426 mgevery day08:, 08 1 3 2 024 Gaby Monte, [employer]-C azithromycin IV500 mgevery 24 hours for 4 khty048wakv008yA7.9 % sodium chloride(2 mg/mL)250 mL/hr for 1 hour08:00, 08 1 4 2 024 09:00, 08 1 7 2 024 Gaby Monte, [employer]-C cefTRIAXone IV1 gevery 12 hours for 5 xprt3jpc129fL7.9 % sodium chloride(0.01 g/mL)100 mL/hr for 1 hour07:32, 08 1 3 2 024 20:32, 08 1 7 2 024 Gaby Monte, [employer]-C ferrous gluconate Jzal603 mg2 times per day19:00, 08 1 3 2 024 Gaby Monte, [employer]-C Keppra Cxdu829 mg2 times per day08:, 08 1 3 2 024 Gaby Monet, [employer]-C multivitamins, tx-minerals Oral Tablet1 tabevery day08:, 08 1 3 2 024 Gaby Monte, [employer]-C omeprazole Oral Delayed Release Tossrao05 mgevery 24 hours21:00, 08 1 3 2 024 RUBI GreshamP-C SOLU-MedroL (PF) IV62.5 mgpush2 times per day19:00, 08 1 4 2 024 Gaby Monte, [employer]-C warfarin Oral2 mgEvery evening at 6 pmfor a total of 7mg18:00, 08 1 3 2 024 Gaby Corinaere, [employer]-C warfarin Oral5 mgEvery evening at 6 pmfor a total of 7mg18:00, 08 1 3 2 024 Gaby Fugere, [employer]-C PRN Medications None Recorded IV Fluids Name Sig Start Stop Ordered by sodium chloride IV 0.9 %sodium chloride 0.9 % 50 mL/hr IV Rate: 50 mL/hr19:42, 08 1 4 2 024 Gaby Fugere, [employer]-C Assessment & Plan bilateral pneumonia - UTI [...] w/ assistance in room only Ryan Schneider, [employer] [address] [facility] [address], [place], [address], [facility] 12/04/2023 19:09:46 12/05/2023 text/html Subjective [...] LE. Musculoskeletal: Normal station, CORTEZ. Vitals VitalMost NmfsucLsgk77 Hour Range Sqxadjbwjug00.1 Pqbbmsilm40-91-0902 08:3098 F-99.1 F Heart wwca801vozrwmsh ulxebxbu30-43-2678 08:3079bpm-101bpm Blood buscpvnj812/70sitting upper arm - rightadult - -44-8992 08:02821/65 - 126/56 Respiratory ggfh7229-02-3475 08:3016-21 Oxygen onhsyuvbal28%nasal yencyhz2K/gib34-20-72 24 08:3090%-97% Pfjybs775oxa3we65-40- 2024 09:25786nio0vf-629qec 8oz Pain uvvtn8aclzphf75-07-65 24 12:000-0 Intake & Uunphs76 Hour Total Hxrtza386.0mL Output0.0mL Net Zotnzuj583mY More recent vital readings have been recorded [...] 08 1 3 2 024 Gaby Monte, [employer]-C atorvastatin Oral20 mgevery day at :00, 08 1 3 2 024 Gaby Monte, [employer]-C azaTHIOprine Yamo013 mgevery day08:01, 08 1 3 2 024 Gaby Monte, [employer]-C dexAMETHasone Oral6 mgevery dayDC Solu-Medrol after 2nd dose on 12/03/2406:00, 08 1 6 2 024 RUBI OrdazP-Nancy ferrous gluconate Bekc237 mg2 times per day19:00, 08 1 3 2 024 Gaby Monte [employer]-Nancy Keppra Snes789 mg2 times per day08:01, 08 1 3 2 024 Gaby Monte, [employer]-C multivitamins, tx-minerals Oral Tablet1 tabevery day08:01, 08 1 3 2 024 Gaby Monte, [employer]-C omeprazole Oral Delayed Release Ecpifba14 mgevery 24 hours21:00, 08 1 3 2 024 Gaby Monte, [employer]-C warfarin Oral2 mgEvery evening at 6 pmfor a total of 7mg18:00, 08 1 3 2 024 Gaby Monte, [employer]-C warfarin Oral5 mgEvery evening at 6 pmfor a total of 7mg18:00, 08 1 3 2 024 Gaby Monte [employer]-C PRN Medications None Recorded IV Fluids None [...] to home as soon as medically prudent Wfpcv-24-Neqkzwgef to have increased supplemental O2 need.-Transitioned to PO dexamethasone yesterday, to continue for 6 days from today-Covid infection complicates overall treatment and picture of recovery.-Transitione d to inhaler from nebulizer Dispo-To discharge to drive home as soon as he can maintain on room air. Last dose azithromycin for 12/05. Ceftriaxone complete. Continue dexamethasone for 6 days. Ryan Schneider, [employer] [address] [facility] [place], [address], [facility] 12/05/2023 21:48:42
--- OUTSIDE RECORDS SUMMARY | 2025-04-15 10:59 | XMS_ITS | Clinical Summary ---
Author Organization [facility] [address] Address [address] [place] [address] Care Team Providers Care Cook Pie Name Role Phone Jerrell Parrish MD Primary Care Provider [phone] Jerrell Parrish MD Unavailable Allergies No known active allergies Medications atorvastatin [...] Department Care Team Description 03/09/2025 4:20 PM PRACTICE CLINICIAN Lab [facility] Medicine Endocrinology Metabolism and Lipid [address] [place] [address] 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) 03/09/2025 3:00 PM PRACTICE CLINICIAN Office Visit [facility] Medicine Rheumatology [address] [place] [address] [place] [address] 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) [...] on file Legal Sex Male 7:13 AM PRACTICE CLINICIAN Gender Identity Male 11/28/2020 8:17 AM CDT Sexual Orientation Choose not to disclose 2020 8:17 AM CDT Last Filed Vital Signs Vital Sign Reading Time Taken Comments Blood Pressure 114/78 03/09/2025 2:55 PM PRACTICE CLINICIAN Pulse 112 03/09/2025 2:55 PM PRACTICE CLINICIAN Temperature 36.4 C (97.6 F) 03/09/2025 2:55 PM PRACTICE CLINICIAN Respiratory Rate 18 02/04/2023 9:21 AM CDT Oxygen Saturation 97% 02/18/2023 12:40 PM CDT Inhaled Oxygen Concentration - - Weight 81.6 kg (180 lb) 03/09/2025 2:55 PM PRACTICE CLINICIAN Height 172.7 cm (5' 8) 03/09/2025 2:55 PM PRACTICE CLINICIAN Body Mass Index 27.37 03/09/2025 2:55 PM PRACTICE CLINICIAN Plan of Treatment Health Maintenance Due Date [...] CBC WITHOUT DIFFERENTIAL Routine 03/09/2025 4:01 PM PRACTICE CLINICIAN 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) COMPREHENSIVE METABOLIC PANEL Routine 03/09/2025 4:01 PM PRACTICE CLINICIAN 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) ERYTHROCYTE SEDIMENTATION RATE Routine 03/09/2025 4:01 PM PRACTICE CLINICIAN 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) CRP (ACUTE PHASE) Routine 03/09/2025 4:0 1 PM PRACTICE CLINICIAN 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) HEPATITIS C ANTIBODY Routine 11/23/2019 2:25 PM CDT ANCA-associated vasculitis (HCC) from Last 3 Months or Most Recently Relevant to Health Maintenance Results * (ABNORMAL) Erythrocyte sedimentation rate (03/09/2025 4:01 PM PRACTICE CLINICIAN) Erythrocyte Sedimentation Rate 25(H) <20 mm/hr [facility] Blood 03/09/2025 4:01 PM PRACTICE CLINICIAN 03/09/2025 4:16 PM PRACTICE CLINICIAN us Maximiliano Hernandez MD LAB BLOOD ORDERABLES Final Re sult [facility] * (ABNORMAL) CBC without differential (03/09/2025 4:01 PM PRACTICE CLINICIAN) White Blood Count 8.9 3.6 - 11.2 [...] [facility] Blood 03/09/2025 4:01 PM PRACTICE CLINICIAN 03/09/2025 4:16 PM PRACTICE CLINICIAN Maximiliano Hernandez MD LAB BLOOD ORDERABLES Final Re sult [facility] * (ABNORMAL) CRP (acute phase) (03/09/2025 4:01 PM PRACTICE CLINICIAN) Pathologist [facility] C-Reactive Protein, Acute 20.8(H) <5.0 mg/L [facility] Blood 03/09/2025 4:01 PM PRACTICE CLINICIAN 03/09/2025 4:16 PM PRACTICE CLINICIAN Maximiliano Hernandez MD LAB BLOOD ORDERABLES Final Re sult Performing Organization Address [facility] Co de Phone Number [facility] * (ABNORMAL) Comprehensive metabolic panel (03/09/2025 4:01 PM PRACTICE CLINICIAN) Pathologist [facility] Total Protein 7.4 6.1 [...] [facility] Blood 03/09/2025 4:01 PM PRACTICE CLINICIAN 03/09/2025 4:16 PM PRACTICE CLINICIAN Maximiliano Hernandez MD LAB BLOOD ORDERABLES Final Re sult [facility] * Hepatitis C antibody (11/23/2019 2:25 PM CDT) Hep C Ab Nonreactive Nonreactive [facility] Comment:Antibodies to HCV no t detected. Does NOT exclude the possibility of recent exposure to HCV. Blood specimen (specimen) 11/23/2019 2:25 PM CDT 11/23/2019 3:57 PM CDT Maximiliano Hernandez MD LAB MICROBIOLOGY - GENERAL OR DERABLES Edited Result - Final [facility] Department [place] [address] from Last 3 Months or Most Recently Relevant to Health Maintenance Insurance [facility]ICARE [facility] MEDICARE MEDICARE [facility] Care Teams Cook Pie Relationship Specialty Start Date End Date Jerrell Parrish MD PCP - General Internal Medicine 05/17/17 Jerrell Parrish MD Internal Medicine 05/17/17
--- OUTSIDE RECORDS SUMMARY | 2025-04-15 10:59 | XMS_ITS | Encounter Summary ---
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
[2025-04-15 11:19] LABS: INR 1.6; Prothrombin Time 16.7 Seconds (9.50-12.1)
== END 2025-04-15 10:55 | disposition home or self-care (01) ==
PROVIDERS: PCP Internal Medicine; Visit Provider Internal Medicine
DX: Z79.01 Long term (current) use of anticoagulants (principal)
CPT/HCPCS: 36415; 85610

== ENCOUNTER 2025-04-18 12:08 | Outpatient (CLI) | payer MEDICARE, OTHER, SELFPAY ==
[2025-04-18 12:22] LABS: Hematocrit 44.0 % (37.0-46.0); Hemoglobin 14.4 g/dL (12.4-15.3)
--- OUTSIDE RECORDS SUMMARY | 2025-04-18 12:33 | XMS_ITS | Clinical Summary ---
Author Organization [facility] Address [address] [place] [address] Care Team Providers Care Seating And Mobility Technologist Name Role Phone Jerrell Parrish MD Primary Care Provider [phone] Allergies Active Allergy Reactions Criticality Noted Date [...] Mother Cancer Mother Osteoarthritis Mother Osteoporosis Mother [place]'s Disease Sister Relation Status Comments Father Mother [...] age to complete this topic Insurance MEDICARE [employer] MEDICARE [employer] [facility] [employer] * Guarantor: Glenn Clayton Nelida Account Type Relation to Patient Date of Phone Billing Address Personal/Family Self 12/06/[birth year]79 Advance Directives Documents on File Type Date 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 ([facility]) Jacki Healthcare Agent Health Care Agent Neelam De La Torre Other First Alternate Health Care Agent Nancy Reyes Other Second Alternate Health Care Agent Care Teams Seating And Mobility Technologist Relationship Specialty Start Date End Date Jerrell Parrish MD [address] [place] [address] PCP - General INTERNAL MEDICINE 09/07/19
--- OUTSIDE RECORDS SUMMARY | 2025-04-18 12:33 | XMS_ITS | Encounter Summary ---
Author Organization 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
--- OUTSIDE RECORDS SUMMARY | 2025-04-18 12:33 | XMS_ITS | Encounter Summary ---
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
--- OUTSIDE RECORDS SUMMARY | 2025-04-18 12:33 | XMS_ITS | Clinical Summary ---
Author Organization [facility] [place] [address] Address [address] [place] [address] Care Team Providers Care Bar Back Name Role Phone Jerrell Parrish MD Primary Care Provider [phone] Jerrell Parrish MD Unavailable [phone] Allergies No known active allergies Medications [...] Department Care Team Description 03/09/2025 4:20 PM STUDIO DESIGNER Lab [facility] Medicine Endocrinology Metabolism and Lipid [address] [place] [address] 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) 03/09/2025 3:00 PM STUDIO DESIGNER Office Visit [facility] Medicine Rheumatology [address] [place] [address] [place] [id number] 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) [...] on file Legal Sex Male 7:13 AM STUDIO DESIGNER Gender Identity Male 11/28/2020 8:17 AM CDT Sexual Orientation Choose not to disclose 2020 8:17 AM CDT Last Filed Vital Signs Vital Sign Reading Time Taken Comments Blood Pressure 114/78 03/09/2025 2:55 PM STUDIO DESIGNER Pulse 112 03/09/2025 2:55 PM STUDIO DESIGNER Temperature 36.4 C (97.6 F) 03/09/2025 2:55 PM STUDIO DESIGNER Respiratory Rate 18 02/04/2023 9:21 AM CDT Oxygen Saturation 97% 02/18/2023 12:40 PM CDT Inhaled Oxygen Concentration - - Weight 81.6 kg (180 lb) 03/09/2025 2:55 PM STUDIO DESIGNER Height 172.7 cm (5' 8) 03/09/2025 2:55 PM STUDIO DESIGNER Body Mass Index 27.37 03/09/2025 2:55 PM STUDIO DESIGNER Plan of Treatment Health Maintenance Due Date [...] CBC WITHOUT DIFFERENTIAL Routine 03/09/2025 4:01 PM STUDIO DESIGNER 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) COMPREHENSIVE METABOLIC PANEL Routine 03/09/2025 4:01 PM STUDIO DESIGNER 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) ERYTHROCYTE SEDIMENTATION RATE Routine 03/09/2025 4:01 PM STUDIO DESIGNER 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) CRP (ACUTE PHASE) Routine 03/09/2025 4:0 1 PM STUDIO DESIGNER 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) HEPATITIS C ANTIBODY Routine 11/23/2019 2:25 PM CDT ANCA-associated vasculitis (HCC) from Last 3 Months or Most Recently Relevant to Health Maintenance Results * (ABNORMAL) Erythrocyte sedimentation rate (03/09/2025 4:01 PM STUDIO DESIGNER) Erythrocyte Sedimentation Rate 25(H) <20 mm/hr [facility] Blood 03/09/2025 4:01 PM STUDIO DESIGNER 03/09/2025 4:16 PM STUDIO DESIGNER us Maximiliano Hernandez MD LAB BLOOD ORDERABLES Final Re sult [facility] * (ABNORMAL) CBC without differential (03/09/2025 4:01 PM STUDIO DESIGNER) White Blood Count 8.9 3.6 - 11.2 [...] [facility] Blood 03/09/2025 4:01 PM STUDIO DESIGNER 03/09/2025 4:16 PM STUDIO DESIGNER Maximiliano Hernandez MD LAB BLOOD ORDERABLES Final Re sult [facility] * (ABNORMAL) CRP (acute phase) (03/09/2025 4:01 PM STUDIO DESIGNER) Pathologist [facility] C-Reactive Protein, Acute 20.8(H) <5.0 mg/L [facility] Blood 03/09/2025 4:01 PM STUDIO DESIGNER 03/09/2025 4:16 PM STUDIO DESIGNER Maximiliano Hernandez MD LAB BLOOD ORDERABLES Final Re sult Performing Organization Address [facility] Co de Phone Number [facility] * (ABNORMAL) Comprehensive metabolic panel (03/09/2025 4:01 PM STUDIO DESIGNER) Pathologist [facility] Total Protein 7.4 6.1 - 8.4 g/dL [...] [facility] Blood 03/09/2025 4:01 PM STUDIO DESIGNER 03/09/2025 4:16 PM STUDIO DESIGNER Maximiliano Hernandez MD LAB BLOOD ORDERABLES Final Re sult [facility] * Hepatitis C antibody (11/23/2019 2:25 PM CDT) Hep C Ab Nonreactive Nonreactive [facility] Comment:Antibodies to HCV no t detected. Does NOT exclude the possibility of recent exposure to HCV. Blood specimen (specimen) 11/23/2019 2:25 PM CDT 11/23/2019 3:57 PM CDT Maximiliano Hernandez MD LAB MICROBIOLOGY - GENERAL OR DERABLES Edited Result - Final [facility] [place] [address] from Last 3 Months or Most Recently Relevant to Health Maintenance Insurance MEDICARE [facility] MEDICARE MEDICARE [facility] Care Teams Bar Back Relationship Specialty Start Date End Date Jerrell Parrish MD PCP - General Internal Medicine 05/17/17 Jerrell Parrish MD Internal Medicine 05/17/17
--- OUTSIDE RECORDS SUMMARY | 2025-04-18 12:33 | XMS_ITS | Encounter Summary ---
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
[2025-04-18 12:36] LABS: INR 2.4; Prothrombin Time 24.7 Seconds (9.50-12.1)
== END 2025-04-18 12:09 | disposition home or self-care (01) ==
LOC: CHSLAB 12:11
PROVIDERS: PCP Internal Medicine; Visit Provider Internal Medicine
DX: K92.1 Melena (principal); Z79.01 Long term (current) use of anticoagulants
CPT/HCPCS: 36415; 85014; 85018; 85610